=== PATIENT | female | born 1965 | race Caucasian/White ===

== ENCOUNTER 2017-07-26 13:48 | Inpatient (IN) | payer MEDICARE, MEDICAID ==
[2017-07-26] MEDS ORDERED: LORazepam 1 MG Tab PO PRN (14:44)
[2017-07-26] MEDS ORDERED: Cyclobenzaprine 10 MG Tab PO PRN (14:44)
[2017-07-26] MEDS ORDERED: traMADol 50 MG Tab PO PRN (14:45)
[2017-07-26] MEDS ORDERED: Ondansetron 4 MG/2 ML SDV IVPUSH PRN (14:51)
[2017-07-26] MEDS ORDERED: Acetaminophen 325 MG Tab PO PRN (14:51)
[2017-07-26] MEDS ORDERED: Albuterol 0.083% 2.5 MG/3 ML Neb Soln NEB PRN (14:51)
[2017-07-26] MEDS ORDERED: Polyethylene Glycol 3350 Powder 17 GM Packet PO PRN (14:51)
[2017-07-26] MEDS ORDERED: Sodium Chloride 0.9% 10 ML Syringe FLUSH PRN (14:51)
[2017-07-26] MEDS ORDERED: Zolpidem 5 MG Tab PO PRN (14:51)
[2017-07-26] MEDS ORDERED: Magnesium Hydroxide 400 MG/5 ML Susp 30 ML Cup PO PRN (14:51)
[2017-07-26] MEDS ORDERED: guaiFENesin 100 MG/5 ML Soln 5 ML UD Cup PO PRN (15:00)
[2017-07-26] MEDS ORDERED: Benzonatate 100 MG Cap PO PRN (15:00)
[2017-07-26] MEDS ORDERED: Iopamidol 612 MG/ML 100 ML Bottle IVPUSH ONE (15:13)
--- NOTE | 2017-07-26 15:17 | PCM.HP ---
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 Patient stated that about 1 months ago she was having sinus congestion, cough, shortness breath, fever, chills and on 07/07/17 she saw her primary care provider in [place] and she was prescribed Levaquin 14 days in admission to oral steroids. At that time her WBC were 16,000 without shift, and chest x-ray reported no acute infiltrates or pulmonary edema but had some linear atelectatic change in right lung base. Patient symptoms improved but today were lingering. Yesterday she noticed that her cough and shortness of breath were progressively getting worse. She has been short of breath even on rest. She had a temp of 102 Fahrenheit yesterday and was having fever, chills, sweats, cough with green phlegm, weakness, mild sinus congestion. She denies headache, nausea, vomiting, chest pain, palpitation , abdominal pain, diarrhea, blood in stool, black stool, constipation, dysuria, urinary frequency, unilateral weakness/numbness/going, rash, any other symptoms or concerns. At the clinic her temperature was 100.4 Fahrenheit. Sats 94% in room air. Pulse 96. 2 sets of blood culture were collected. WBC 23,000 with neutrophils 75.6%. Alk phosphatase 206. AST and ALT are normal. Chest x-ray was obtained and reported "chronic bronchitic pattern. No new cardio pulmonary abnormality since June 28 9017". Her doctor Dr. Clifton called me to directly admit the patient to the hospital for IV antibiotics. On arrival to the hospital patient to vital signs were normal. On exam she does not look toxic or in acute distress but she was slightly tachpnic and was having persistent cough. She had decreased air exchange in the lungs and sporadic wheezing. Also she had right upper quadrant tenderness. Right Middle Back Pain Score (Numeric/FACES): 4 - Related Data Allergies/Adverse Reactions: Allergies Allergy/AdvReac Type Severity Reaction Status Date / Time atenolol Allergy Hives Verified 07/26/17 13:58 Iodinated Contrast- Oral and Allergy Hives Verified 07/26/17 15:22 IV Dye Penicillins Allergy Hives Verified 07/26/17 13:58 Home Medications: Home Meds Acetaminophen [Tylenol Extra Strength] 500 mg PO Q6HR PRN 07/26/17 [History] Albuterol Sulfate [Proair Respiclick] 2 puff INH Q4HR PRN 07/26/17 [History] Arformoterol [Brovana] 2 ml INH BID 07/26/17 [History] Budesonide [Pulmicort] 2 ml INH BID 07/26/17 [History] Cyclobenzaprine [Flexeril] 5 mg PO Q8HR PRN 07/26/17 [History] Gabapentin [Neurontin] 300 mg PO BEDTIME 07/26/17 [History] LORazepam 1 mg PO DAILY PRN 07/26/17 [History] Montelukast [Singulair] 10 mg PO BEDTIME 07/26/17 [History] Roflumilast [Daliresp] 500 mcg PO DAILY 07/26/17 [History] Sertraline [Zoloft] 50 mg PO DAILY 07/26/17 [History] Theophylline 200 mg PO BID 07/26/17 [History] traMADol [Ultram] 50 mg PO Q6HR PRN 07/26/17 [History] Past Medical History HEENT History: Reports: Impaired Vision Other HEENT History: wears glasses Cardiovascular History: Reports: Hypertension Other Cardiovascular History: is not treated for hypertension anymore after she had the amputation 1 year ago. 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 mesh placed with abdominal hernia removal. Female Surgical History: Reports: Other (See Below) Other Female Surgeries/Procedures: uterus removed Musculoskeletal Surgical History: Reports: Amputation Other Musculoskeletal Surgeries/Procedures:: right mid calf amputation Social & Family History - Family History Family Medical History: Noncontributory - Tobacco Use Smoking Status *Q: Current Every Day Smoker Years of Tobacco use: 30 Packs/Tins Daily: 0.5 Used Tobacco, but Quit: Yes Month Tobacco Last Used: 2014 Tobacco Use Comment: Patient requesting a nicotine patch if possible. - Caffeine Use Caffeine Use: Reports: Coffee, Soda - Recreational Drug Use Recreational Drug Use: Yes H&P Review of Systems - Review of Systems: Review Of Systems: ROS reveals no pertinent complaints other than HPI. Exam - Exam Exam: See Below - Vital Signs Vital Signs: Last Vital Signs Temp 36.2 C 07/26/17 13:51 Pulse 98 07/26/17 13:51 Resp 20 07/26/17 13:51 BP 111/72 07/26/17 13:51 Pulse Ox 94 L 07/26/17 15:04 Weight: 77.383 kg - Exam General: Alert, Oriented, Cooperative, Mild Distress. No: Moderate Distress, Severe Distress, Sedated, Lethargic, Obtunded HEENT: Conjunctiva Clear, EACs Clear, EOMI, Hearing Intact, Mucosa Moist & The Silos , Nares Patent, Normal Nasal Septum, Posterior Pharynx Clear, Pupils Equal, Pupils Reactive, TMs Clear Neck: Supple, Trachea Midline Lungs: Decreased Breath Sounds (Globally), Rhonchi, Wheezing. No: Crackles, Rales, Rub, Stridor Cardiovascular: Regular Rate, Regular Rhythm GI/Abdominal Exam: Normal Bowel Sounds, Soft, No Organomegaly, No Distention, No Abnormal Bruit, No Mass, Tender (Right upper quadrant tenderness). No: Distended, Guarding, Rigid, Rebound (Female) Exam: Deferred Rectal (Female) Exam: Deferred Back Exam: Normal Inspection, Full Range of Motion. No: CVA Tenderness (L), CVA Tenderness (R) Extremities: Normal Range of Motion, Non-Tender, No Pedal Edema, Normal Capillary Refill, Other (Right below knee amputation with normal appearing stump ) Peripheral Pulses: 2+: Radial (L), Radial (R) Skin: Warm, Dry, Intact. No: Rash Neurological: Cranial Nerves Intact, Strength Equal Bilateral. No: Focal Deficit Neuro Extensive - Mental Status: Alert, Oriented x3 Psychiatric: Alert, Normal Affect, Normal Mood *Q Meaningful Use (ADM) - VTE *Q VTE Criteria *Q: - Stroke *Q Stroke Criteria *Q: - AMI *Q AMI Criteria *Q: - Problem List (1) Sepsis SNOMED Code(s): 29231141 ICD Code: A41.9 - SEPSIS, UNSPECIFIED ORGANISM Status: Acute Priority: High Current Visit: Yes (2) Elevated alkaline phosphatase level Status: Chronic Current Visit: Yes (3) Pneumonia SNOMED Code(s): 226391223 ICD Code: J18.9 - PNEUMONIA, UNSPECIFIED ORGANISM Status: Acute Priority : High Current Visit: Yes (4) COPD exacerbation SNOMED Code(s): 543033619985488 ICD Code: J44.1 - CHRONIC OBSTRUCTIVE PULMONARY DISEASE W (ACUTE) EXACERBATION Status: Acute Priority: High Current Visit: Yes (5) History of DVT (deep vein thrombosis) SNOMED Code(s): 065734184 ICD Code: Z86.718 - PERSONAL HISTORY OF OTHER VENOUS THROMBOSIS AND EMBOLISM Status: Chronic Current Visit: Yes (6) History of asthma SNOMED Code(s): 773600178 ICD Code: Z87.09 - PERSONAL HISTORY OF OTHER DISEASES OF THE RESPIRATORY SYSTEM Status: Chronic Current Visit: Yes (7) Tobacco abuse SNOMED Code(s): 691278072 ICD Code: Z72.0 - TOBACCO USE Status: Chronic Current Visit: Yes Problem List Initiated/Reviewed/Updated: Yes Orders Last 24hrs: Active Orders 24 hr Category Date Time Status Patient Status [ADT] Routine ADT 07/26/17 14:51 Active Flutter Valve Therapy [RT Chest Physiotherapy] [RC] Care 07/26/17 14:59 Active ASDIRECTED Height and Weight [RC] DAILY Care 07/26/17 14:51 Active Intake and Output [RC] Q6H Care 07/26/17 14:52 Active Notify Provider Vital Signs [RC] ASDIRECTED Care 07/26/17 14:52 Active Oxygen Therapy [RC] PRN Care 07/26/17 14:51 Active RT Aerosol Therapy [RC] ASDIRECTED Care 07/26/17 14:56 Active RT Incentive Spirometry [RC] ASDIRECTED Care 07/26/17 14:59 Active Up With Assistance [RC] ASDIRECTED Care 07/26/17 14:51 Active Up ad Leida [RC] ASDIRECTED Care 07/26/17 14:51 Active VTE/DVT Education [RC] PER UNIT ROUTINE Care 07/26/17 14:51 Active Vital Signs [RC] Q4H Care 07/26/17 14:51 Active PT Evaluation and Treatment [CONS] Routine Cons 07/26/17 14:51 Active Heart Healthy Diet [DIET] Diet 07/26/17 Breakfast Active Chest Abdomen Pelvis w Cont [CT] Routine Exams 07/26/17 14:48 Ordered C-REACTIVE PROTEIN [REF] Routine Lab 07/26/17 14:51 Ordered CBC WITH AUTO DIFF [HEME] AM Lab 07/27/17 05:11 Ordered COMPREHENSIVE METABOLIC PN,CMP [CHEM] AM Lab 07/27/17 05:11 Ordered CULTURE SPUTUM + SMEAR [RM] Stat Lab 07/26/17 14:51 Uncollected MAGNESIUM [CHEM] Routine Lab 07/26/17 14:51 Ordered THEOPHYLLINE [REF] Routine Lab 07/26/17 14:46 Ordered UA W/MICROSCOPIC [URIN] Routine Lab 07/26/17 14:51 Uncollected Acetaminophen [Tylenol] Med 07/26/17 14:51 Ordered 650 mg PO Q4H PRN Albuterol [Proventil Neb Soln] Med 07/26/17 14:51 Ordered 2.5 mg NEB Q2H PRN Albuterol/Ipratropium [DuoNeb 3.0-0.5 MG/3 ML] Med 07/26/17 15:00 Ordered 3 ml NEB Q4H Arformoterol [Brovana] Med 07/26/17 21:00 Ordered 2 ml INH BID Azithromycin [Zithromax] 500 mg Med 07/26/17 15:00 Ordered Sodium Chloride 0.9% [Normal Saline] 250 ml IV Q24H Benzonatate [Tessalon Perles] Med 07/26/17 15:00 Ordered 100 mg PO TID PRN Budesonide [Pulmicort] Med 07/26/17 21:00 Ordered 0.5 mg INH BID Cyclobenzaprine [Flexeril] Med 07/26/17 14:44 Ordered 5 mg PO Q8HR PRN Enoxaparin [Lovenox] Med 07/27/17 09:00 Ordered 40 mg SUBCUT DAILY Gabapentin [Neurontin] Med 07/26/17 21:00 Ordered 300 mg PO BEDTIME LORazepam [Ativan] Med 07/26/17 14:44 Ordered 1 mg PO DAILY PRN Magnesium Hydroxide [Milk of Magnesia] Med 07/26/17 14:51 Ordered 30 ml PO Q12H PRN Montelukast [Singulair] Med 07/26/17 21:00 Ordered 10 mg PO BEDTIME Ondansetron [Zofran] Med 07/26/17 14:51 Ordered 4 mg IVPUSH Q6H PRN Polyethylene Glycol 3350 [MiraLAX] Med 07/26/17 14:51 Ordered 17 gm PO DAILY PRN Roflumilast [Daliresp] Med 07/27/17 09:00 Ordered 500 mcg PO DAILY Sertraline [Zoloft] Med 07/27/17 09:00 Ordered 50 mg PO DAILY Sodium Chloride 0.9% [Normal Saline] 1,000 ml Med 07/26/17 15:00 Ordered IV ASDIRECTED Sodium Chloride 0.9% [Saline Flush] Med 07/26/17 14:51 Ordered 10 ml FLUSH ASDIRECTED PRN Theophylline [Theophylline] Med 07/26/17 21:00 Ordered 200 mg PO BID Zolpidem [Ambien] Med 07/26/17 14:51 Ordered 5 mg PO BEDTIME PRN cefTRIAXone [Rocephin] Med 07/26/17 15:00 Ordered 1 gm IVPUSH Q24H guaiFENesin [Robitussin] Med 07/26/17 15:00 Ordered 100 mg PO Q6H PRN methylPREDNISolone Sod Succ [Solu-MEDROL] Med 07/26/17 15:00 Ordered 125 mg IVPUSH Q12H traMADol [Ultram] Med 07/26/17 14:45 Ordered 50 mg PO Q6HR PRN Saline Lock Insert [OM.PC] Routine Oth 07/26/17 14:51 Ordered Resuscitation Status Routine Resus Stat 07/26/17 14:51 Ordered Medication Orders Acetaminophen (Tylenol) 650 mg PO Q4H PRN PRN Reason: Pain (Mild 1-3)/fever Albuterol (Proventil Neb Soln) 2.5 mg NEB Q2H PRN PRN Reason: shortness of breath/wheezing Albuterol/Ipratropium (Duoneb 3.0-0.5 Mg/3 Ml) 3 ml NEB Q4H [facility] Benzonatate (Tessalon Perles) 100 mg PO TID PRN PRN Reason: Cough Budesonide (Pulmicort) 0.5 mg INH BID [facility] Ceftriaxone Sodium (Rocephin) 1 gm IVPUSH Q24H [facility] Enoxaparin Sodium (Lovenox) 40 mg SUBCUT DAILY [facility] Gabapentin (Neurontin) 300 mg PO BEDTIME [facility] Guaifenesin (Robitussin) 100 mg PO Q6H PRN PRN Reason: Cough Azithromycin 500 mg/ Sodium (Chloride) 250 mls @ 250 mls/hr IV Q24H [facility] Sodium Chloride (Normal Saline) 1,000 mls @ 500 mls/hr IV ASDIRECTED [facility] Stop: 07/27/17 16:59 Lorazepam (Ativan) 1 mg PO DAILY PRN PRN Reason: Anxiety Magnesium Hydroxide (Milk Of Magnesia) 30 ml PO Q12H PRN PRN Reason: Constipation Methylprednisolone Sodium Succinate (Solu-Medrol) 125 mg IVPUSH Q12H [facility] Montelukast Sodium (Singulair) 10 mg PO BEDTIME [facility] Non-Formulary Medication (Arformoterol [Brovana]) 2 ml INH BID [facility] Non-Formulary Medication (Cyclobenzaprine [Flexeril]) 5 mg PO Q8HR PRN PRN Reason: Muscle Spasm Non-Formulary Medication (Roflumilast [Daliresp]) 500 mcg PO DAILY [facility] Non-Formulary Medication (Theophylline [Theophylline]) 200 mg PO BID [facility] Ondansetron HCl (Zofran) 4 mg IVPUSH Q6H PRN PRN Reason: Nausea/Vomiting Polyethylene Glycol (Miralax) 17 gm PO DAILY PRN PRN Reason: Constipation Sertraline HCl (Zoloft) 50 mg PO DAILY [facility] Sodium Chloride (Saline Flush) 10 ml FLUSH ASDIRECTED PRN PRN Reason: Keep Vein Open Tramadol HCl (Ultram) 50 mg PO Q6HR PRN PRN Reason: Pain Zolpidem Tartrate (Ambien) 5 mg PO BEDTIME PRN PRN Reason: Sleep Assessment/Plan Comment:: 51-year-old female with a history of COPD who has been having respiratory symptoms for about 1 months despite getting course of antibiotic and steroid presents with shortness breath, cough, fever, chills, elevated WBC, rapid heart rate, concerning for clinical pneumonia and sepsis, although chest x-ray did not show consolidation or acute infiltrate. Patient had elevated alkaline phosphatase but it seems chronic however her right upper quadrant is new. Plan -2 L of normal saline at 100 mL per hour -Start azithromycin and Rocephin -Solu Medrol 125 mg IV twice a day -DuoNeb every 4 hours -Ordered sputum culture -Ordered influenza swab -I ordered CT of chest/abdomen/pelvis to look for more specific diagnosis -Check theophylline level Incentive spirometer and flutter device Resume home respiratory regimen Resume her home medications for her chronic disease as per orders Physical therapy consult for ambulation considering her below is the knee amputation Lovenox for DVT prophylaxis Patient wants to be full code Plan of care was discussed with patient and she verbalized understanding agreed with the
[2017-07-26] MEDS ORDERED: Barium Sulfate w/v 2.1% Oral Susp 450 ML Bottle PO ONE ×2 (15:27→16:30)
[2017-07-26] MEDS: cefTRIAXone 1 GM Vial IVPUSH SCH (15:31)
[2017-07-26] MEDS: methylPREDNISolone Sodium Succinate 125 MG/2 ML SDV IVPUSH SCH ×2 (15:31→21:07)
[2017-07-26] MEDS: Sodium Chloride 0.9% 1,000 ML IV SCH ×2 (15:31→18:05)
[2017-07-26] MEDS ORDERED: diphenhydrAMINE 50 MG/ML SDV IVPUSH ONE (15:43)
[2017-07-26] MEDS: Albuterol/Ipratropium 3.0-0.5 MG/3 ML Neb Soln NEB SCH ×3 (16:11→22:51)
[2017-07-26] MEDS: Azithromycin 500 MG in Sodium Chloride 0.9% 250 ML IV SCH (17:00)
[2017-07-26] MEDS: Budesonide 0.5 MG/2 ML Neb Susp INH SCH (18:00)
[2017-07-26] MEDS: ARFORMOTEROL INH SCH (18:00)
[2017-07-26] MEDS: Nicotine 14 MG/24 Hr Patch TRDERM SCH (21:06)
[2017-07-26] MEDS: Montelukast 10 MG Tab PO SCH (21:07)
[2017-07-26] MEDS: THEOPHYLLINE 400 MG PO SCH (21:08)
[2017-07-26] MEDS: Gabapentin 300 MG Cap PO SCH (21:08)
[2017-07-27] MEDS: Albuterol/Ipratropium 3.0-0.5 MG/3 ML Neb Soln NEB SCH ×5 (03:01→23:12)
[2017-07-27] MEDS ORDERED: Albuterol/Ipratropium 3.0-0.5 MG/3 ML Neb Soln INH ONE (10:39)
[2017-07-27] MEDS ORDERED: Budesonide 0.5 MG/2 ML Neb Susp INH ONE (10:39)
[2017-07-27 13:22] LABS: CHLORIDE,CL 109 mmol/L (101-111); SODIUM,NA 138 mmol/L (135-145)
[2017-07-27] MEDS: Enoxaparin 40 MG/0.4 ML Syringe SUBCUT SCH (13:40)
[2017-07-27] MEDS: Nicotine 14 MG/24 Hr Patch TRDERM SCH (13:41)
[2017-07-27] MEDS: ROFLUMILAST 500 MCG PO SCH (13:41)
[2017-07-27] MEDS: THEOPHYLLINE 400 MG PO SCH ×2 (13:42→23:12)
[2017-07-27] MEDS: methylPREDNISolone Sodium Succinate 125 MG/2 ML SDV IVPUSH SCH ×2 (13:42→23:12)
[2017-07-27] MEDS: Sertraline 50 MG Tab PO SCH (14:10)
[2017-07-27] MEDS: Budesonide 0.5 MG/2 ML Neb Susp INH SCH ×2 (14:50→18:35)
[2017-07-27] MEDS: ARFORMOTEROL INH SCH ×2 (14:50→18:35)
[2017-07-27] MEDS: cefTRIAXone 1 GM Vial IVPUSH SCH (17:00)
--- NOTE | 2017-07-27 17:40 | PCM.PN ---
- General Info Date of Service: 07/27/17 Admission Dx/Problem (Free Text): Admission Diagnosis/Problem Admission Diagnosis/Problem Sepsis Subjective Update: Patient stated that she is feeling much better. Her shortness breath improved. Still having cough. Energy is improving. She denies nausea, vomiting, fever, chills, chest pain, abdominal pain, diarrhea, urinary symptoms, any new symptoms or concerns. - Patient Data Vitals - Most Recent: Last Vital Signs Temp 36.2 C 07/27/17 15:00 Pulse 59 L 07/27/17 15:00 Resp 20 07/27/17 15:00 BP 118/71 07/27/17 15:00 Pulse Ox 95 07/27/17 15:00 Weight - Most Recent: 77.383 kg I&O - Last 24 Hours: Intake & Output 07/27/17 07/27/17 07/27/17 06:59 14:59 22:59 Intake Total 200 Balance 200 Lab Results Last 24 Hours: Laboratory Results - last 24 hr 07/26/17 07/26/17 07/26/17 Range/Units 15:10 16:24 16:24 Magnesium 1.8 (1.8-2.5) mg/dL C-Reactive Protein 19.3 H (0.0-1.3) mg/dL Urine Color Dark yellow (YELLOW) Urine Appearance Cloudy (CLEAR) Urine pH 7.0 (5.0-9.0) Ur Specific [place] 1.010 (1.005-1.030) Urine Protein 30 H (NEGATIVE) Urine Glucose (UA) Negative (NEGATIVE) Urine Ketones Negative (NEGATIVE) Urine Occult Blood Small H (NEGATIVE) Urine Nitrite Negative (NEGATIVE) Urine Bilirubin Negative (NEGATIVE) Urine Urobilinogen 0.2 (0.2-1.0) mg/dL Ur Leukocyte Esterase Small H (NEGATIVE) Urine RBC 5-10 H /HPF Urine WBC 10-20 H (0-5/HPF) /HPF Ur Epithelial Cells Moderate H /HPF Urine Bacteria Few (0-FEW/HPF) /HPF Urine Mucus Moderate H /LPF [place] Results Last 24 Hours: Microbiology 07/26/17 15:07 Gram Stain - Final Sputum - Expectorated 07/26/17 15:10 Influenza Type A Antigen Screen - Final Nasopharyngeal Swab - Nare, Right NEGATIVE INFLUENZA A VIRUS AG Influenza Type B Antigen Screen - Final NEGATIVE INFLUENZA B VIRUS AG Med Orders - Current: Current Medications Acetaminophen (Tylenol) 650 mg PO Q4H PRN PRN Reason: Pain (Mild 1-3)/fever Albuterol (Proventil Neb Soln) 2.5 mg NEB Q2H PRN PRN Reason: shortness of breath/wheezing Albuterol/Ipratropium (Duoneb 3.0-0.5 Mg/3 Ml) 3 ml NEB Q4HRRT [facility] Last Admin: 07/27/17 14:40 Dose: Not Given Benzonatate (Tessalon Perles) 100 mg PO TID PRN PRN Reason: Cough Budesonide (Pulmicort) 0.5 mg INH BIDRT [facility] Last Admin: 07/27/17 14:50 Dose: Not Given Ceftriaxone Sodium (Rocephin) 1 gm IVPUSH Q24H [facility] Last Admin: 07/26/17 15:31 Dose: 1 gm Cyclobenzaprine HCl (Flexeril) 5 mg PO Q8HR PRN PRN Reason: Muscle Spasm Enoxaparin Sodium (Lovenox) 40 mg SUBCUT DAILY [facility] Last Admin: 07/27/17 13:40 Dose: Not Given Gabapentin (Neurontin) 300 mg PO BEDTIME [facility] Last Admin: 07/26/17 21:08 Dose: 300 mg Guaifenesin (Robitussin) 100 mg PO Q6H PRN PRN Reason: Cough Azithromycin 500 mg/ Sodium (Chloride) 250 mls @ 250 mls/hr IV Q24H [facility] Last Admin: 07/26/17 17:00 Dose: 250 mls/hr Sodium Chloride (Normal Saline) 1,000 mls @ 500 mls/hr IV ASDIRECTED [facility] Stop: 07/27/17 16:59 Last Admin: 07/26/17 18:05 Dose: 500 mls/hr Lorazepam (Ativan) 1 mg PO DAILY PRN PRN Reason: Anxiety Magnesium Hydroxide (Milk Of Magnesia) 30 ml PO Q12H PRN PRN Reason: Constipation Methylprednisolone Sodium Succinate (Solu-Medrol) 125 mg IVPUSH Q12HR [facility] Last Admin: 07/27/17 13:42 Dose: Not Given Montelukast Sodium (Singulair) 10 mg PO BEDTIME [facility] Last Admin: 07/26/17 21:07 Dose: 10 mg Nicotine (Habitrol) 14 mg TRDERM DAILY [facility] Last Admin: 07/27/17 13:41 Dose: Not Given Ondansetron HCl (Zofran) 4 mg IVPUSH Q6H PRN PRN Reason: Nausea/Vomiting Arformoterol [ Brovana] 2 MlPt's Own Med 0 each INH BIDRT [facility] Last Admin: 07/27/17 14:50 Dose: Not Given Roflumilast [ Daliresp] 500 Mcg Pt's Own Med 0 each PO DAILY [facility] Last Admin: 07/27/17 13:41 Dose: Not Given Theophylline 400 Mg (TabPt's Own Med) 0 each PO BID [facility] Last Admin: 07/27/17 13:42 Dose: Not Given Polyethylene Glycol (Miralax) 17 gm PO DAILY PRN PRN Reason: Constipation Sertraline HCl (Zoloft) 50 mg PO DAILY [facility] Last Admin: 07/27/17 14:10 Dose: Not Given Sodium Chloride (Saline Flush) 10 ml FLUSH ASDIRECTED PRN PRN Reason: Keep Vein Open Last Admin: 07/26/17 15:32 Dose: 10 ml Tramadol HCl (Ultram) 50 mg PO Q6HR PRN PRN Reason: Pain Zolpidem Tartrate (Ambien) 5 mg PO BEDTIME PRN PRN Reason: Sleep Discontinued Medications Barium Sulfate (Readi-Cat 2) 450 ml PO ONETIME ONE Stop: 07/26/17 15:28 Last Admin: 07/26/17 15:48 Dose: 450 ml Barium Sulfate (Readi-Cat 2) 450 ml PO ONETIME ONE Stop: 07/26/17 16:31 Last Admin: 07/26/17 16:30 Dose: 450 ml Diphenhydramine HCl (Benadryl) 50 mg IVPUSH ONETIME ONE Stop: 07/26/17 15:44 Last Admin: 07/26/17 15:48 Dose: 50 mg Iopamidol (Isovue-300 (61%)) 100 ml IVPUSH ONETIME ONE Stop: 07/26/17 15:14 Last Admin: 07/26/17 17:08 Dose: 75 ml - Exam General: Alert, Oriented, Cooperative, No Acute Distress. No: Moderate Distress , Severe Distress, Sedated, Lethargic, Obtunded HEENT: Pupils Equal, Pupils Reactive, Mucous Membr. Moist/[place] Neck: Supple, Trachea Midline Lungs: Decreased Breath Sounds (Improved from yesterday), Rhonchi, Wheezing. No : Crackles, Rales, Rub, Stridor Cardiovascular: Regular Rate, Regular Rhythm GI/Abdominal Exam: Normal Bowel Sounds, Soft, Non-Tender, No Organomegaly, No Distention, No Abnormal Bruit, No Mass (Female) Exam: Deferred Back Exam: Normal Inspection, Full Range of Motion. No: CVA Tenderness (L), CVA Tenderness (R) Extremities: Normal Range of Motion, Non-Tender, No Pedal Edema, Normal Capillary Refill Neurological: No New Focal Deficit Psy/Mental Status: Alert, Normal Affect, Normal Mood - Problem List & Annotations (1) Sepsis SNOMED Code(s): 93117998 Code(s): A41.9 - SEPSIS, UNSPECIFIED ORGANISM Status: Acute Priority: High Current Visit: Yes (2) Elevated alkaline phosphatase level Status: Chronic Current Visit: Yes (3) Pneumonia SNOMED Code(s): 010703133 Code(s): J18.9 - PNEUMONIA, UNSPECIFIED ORGANISM Status: Acute Priority: High Current Visit: Yes (4) COPD exacerbation SNOMED Code(s): 590979781486868 Code(s): J44.1 - CHRONIC OBSTRUCTIVE PULMONARY DISEASE W (ACUTE) EXACERBATION Status: Acute Priority: High Current Visit: Yes (5) History of DVT (deep vein thrombosis) SNOMED Code(s): 934173220 Code(s): Z86.718 - PERSONAL HISTORY OF OTHER VENOUS THROMBOSIS AND EMBOLISM Status: Chronic Current Visit: Yes (6) History of asthma SNOMED Code(s): 886119411 Code(s): Z87.09 - PERSONAL HISTORY OF OTHER DISEASES OF THE RESPIRATORY SYSTEM Status: Chronic Current Visit: Yes (7) Tobacco abuse SNOMED Code(s): 118707053 Code(s): Z72.0 - TOBACCO USE Status: Chronic Current Visit: Yes - Problem List Review Problem List Initiated/Reviewed/Updated: Yes - My Orders Last 24 Hours: My Active Orders 07/26/17 14:44 Cyclobenzaprine [Flexeril] 5 mg PO Q8HR PRN LORazepam [Ativan] 1 mg PO DAILY PRN 07/26/17 14:45 traMADol [Ultram] 50 mg PO Q6HR PRN 07/26/17 14:51 Patient Status [ADT] Routine Height and Weight [RC] 0600 Oxygen Therapy [RC] PRN Up With Assistance [RC] ASDIRECTED Up ad [place] [RC] ASDIRECTED VTE/DVT Education [RC] PER UNIT ROUTINE Vital Signs [RC] Q4H PT Evaluation and Treatment [CONS] Routine Acetaminophen [Tylenol] 650 mg PO Q4H PRN Albuterol [Proventil Neb Soln] 2.5 mg NEB Q2H PRN Magnesium Hydroxide [Milk of Magnesia] 30 ml PO Q12H PRN Ondansetron [Zofran] 4 mg IVPUSH Q6H PRN Polyethylene Glycol 3350 [MiraLAX] 17 gm PO DAILY PRN Sodium Chloride 0.9% [Saline Flush] 10 ml FLUSH ASDIRECTED PRN Zolpidem [Ambien] 5 mg PO BEDTIME PRN Saline Lock Insert [OM.PC] Routine Resuscitation Status Routine 07/26/17 14:52 Intake and Output [RC] Q6H Notify Provider Vital Signs [RC] 08,20 07/26/17 14:56 RT Aerosol Therapy [RC] 03,07,11,15,19,23 07/26/17 14:59 Flutter Valve Therapy [RT Chest Physiotherapy] [RC] ASDIRECTED RT Incentive Spirometry [RC] ASDIRECTED 07/26/17 15:00 Albuterol/Ipratropium [DuoNeb 3.0-0.5 MG/3 ML] 3 ml NEB Q4HRRT Benzonatate [Tessalon Perles] 100 mg PO TID PRN Sodium Chloride 0.9% [Normal Saline] 1,000 ml IV ASDIRECTED cefTRIAXone [Rocephin] 1 gm IVPUSH Q24H guaiFENesin [Robitussin] 100 mg PO Q6H PRN methylPREDNISolone Sod Succ [Solu-MEDROL] 125 mg IVPUSH Q12HR 07/26/17 15:07 CULTURE SPUTUM + SMEAR [RM] Stat 07/26/17 16:00 Azithromycin [Zithromax] 500 mg Sodium Chloride 0.9% [Normal Saline] 250 ml IV Q24H 07/26/17 16:24 THEOPHYLLINE [REF] Routine 07/26/17 18:00 Budesonide [Pulmicort] 0.5 mg INH BIDRT Patient's Own Medication [Ptom] 0 each INH BIDRT 07/26/17 19:15 Nicotine [Habitrol] 14 mg TRDERM DAILY 07/26/17 21:00 Gabapentin [Neurontin] 300 mg PO BEDTIME Montelukast [Singulair] 10 mg PO BEDTIME Patient's Own Medication [Ptom] 0 each PO BID 07/27/17 05:11 CBC WITH AUTO DIFF [HEME] AM COMPREHENSIVE METABOLIC PN,CMP [CHEM] AM 07/27/17 09:00 Enoxaparin [Lovenox] 40 mg SUBCUT DAILY Patient's Own Medication [Ptom] 0 each PO DAILY Sertraline [Zoloft] 50 mg PO DAILY - Plan Plan:: 51-year-old female with a history of COPD who has been having respiratory symptoms for about 1 months despite getting course of antibiotic and steroid presents with shortness breath, cough, fever, chills, elevated WBC, rapid heart rate, concerning for clinical pneumonia and sepsis, although chest x-ray did not show consolidation or acute infiltrate. CT chest with contrast reported mild signs of bronchitis/bronchiolitis and indeterminant thoracic adenopathy, probably reactive. Due to elevation in alkaline phosphatase because I did CT of abdomen and reported no acute findings Plan - patient received 2 L of normal saline at 100 mL per hour -Continue azithromycin and Rocephin -Continue Solu Medrol 125 mg IV twice a day -Continue DuoNeb every 4 hours -Awaiting final sputum culture -Negative influenza screening test -Check theophylline level Incentive spirometer and flutter device Resume home respiratory regimen Resume her home medications for her chronic disease as per orders Physical therapy consult for ambulation considering her below is the knee amputation Lovenox for DVT prophylaxis Patient wants to be full code Plan of care was discussed with patient and she verbalized understanding agreed with the
[2017-07-27] MEDS: Azithromycin 500 MG in Sodium Chloride 0.9% 250 ML IV SCH (18:34)
[2017-07-27] MEDS: Gabapentin 300 MG Cap PO SCH (23:11)
[2017-07-27] MEDS: Montelukast 10 MG Tab PO SCH (23:12)
[2017-07-28] MEDS: Albuterol/Ipratropium 3.0-0.5 MG/3 ML Neb Soln NEB SCH ×3 (05:46→10:58)
[2017-07-28 06:29] LABS: CHLORIDE,CL 112 mmol/L (101-111); SODIUM,NA 142 mmol/L (135-145)
[2017-07-28] MEDS: Budesonide 0.5 MG/2 ML Neb Susp INH SCH (07:16)
[2017-07-28 08:29] VITALS: BP 109/63
--- NOTE | 2017-07-28 09:17 | PCM.DCSUM1 ---
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 Patient stated that about 1 months ago she was having sinus congestion, cough, shortness breath, fever, chills and on 07/07/17 she saw her primary care provider in [place] and she was prescribed Levaquin 14 days in admission to oral steroids. At that time her WBC were 16,000 without shift, and chest x-ray reported no acute infiltrates or pulmonary edema but had some linear atelectatic change in right lung base. Patient symptoms improved but today were lingering. The day before admission she noticed that her cough and shortness of breath were progressively getting worse. She has been short of breath even on rest. She had a temp of 102 Fahrenheit yesterday and was having fever, chills, sweats, cough with green phlegm, weakness, mild sinus congestion. She denies headache, nausea, vomiting, chest pain, palpitation, abdominal pain, diarrhea, blood in stool, black stool, constipation, dysuria, urinary frequency, unilateral weakness/numbness/going, rash, any other symptoms or concerns. At the clinic her temperature was 100.4 Fahrenheit. Sats 94% in room air. Pulse 96. 2 sets of blood culture were collected. WBC 23,000 with neutrophils 75.6%. Alk phosphatase 206. AST and ALT are normal. Chest x-ray was obtained and reported "chronic bronchitic pattern. No new cardio pulmonary abnormality since June 28 9017". Her doctor Dr. Clifton called me to directly admit the patient to the hospital for IV antibiotics. On arrival to the hospital patient to vital signs were normal. On exam she does not look toxic or in acute distress but she was slightly tachpnic and was having persistent cough. She had decreased air exchange in the lungs and sporadic wheezing. Also she had right upper quadrant tenderness. Patient clinical picture was concerning for clinical pneumonia and sepsis, although chest x-ray did not show consolidation or acute infiltrate. CT chest with contrast reported mild signs of bronchitis/ bronchiolitis and indeterminant thoracic adenopathy, probably reactive. Due to elevation in alkaline phosphatase because I did CT of abdomen and reported no acute findings, but showed abdomen aortic aneurysm of 3.3. Patient was informed about the aneurysm and was advised to follow-up with her primary care provider and vascular surgery. On admission patient received 2 L of normal saline at 100 mL per hour. Started on azithromycin and Rocephin, Solu Medrol 125 mg IV twice a day, DuoNeb every 4 hours. Sputum culture grew moderate gram-positive diplococci, few gram-positive cocci in chains, few gram-negative rods. Final sputum culture still pending. His influenza screen test was negative. Theophylline level was 5.5. home respiratory regimen was resumed patient symptomatically felt much better. She wants to go home from yesterday but she agreed with my recommendation to stay until today. Today she continued to feel much better. I still recommend further inpatient treatment for her but patient insistent that she wants to go home as she cannot leave her children alone. I explained to her that her condition is serious and her symptoms may get worse and go through respiratory failure and . Patient verbalized understanding and she wants to take the risk. She said she'll come back to the emergency room if symptoms get worse. Patient was discharged on home medications in addition to cefpodoxime, azithromycin, prednisone. She was advised to quit smoking and use nicotine patches. - Discharge Data Discharge Date: 07/28/17 Discharge Disposition: Home, Self-Care 01 Condition: Good - Discharge Diagnosis/Problem(s) (1) Sepsis SNOMED Code(s): 69357900 ICD Code: A41.9 - SEPSIS, UNSPECIFIED ORGANISM Status: Acute Priority: High Current Visit: Yes (2) Elevated alkaline phosphatase level Status: Chronic Current Visit: Yes (3) Pneumonia SNOMED Code(s): 867834869 ICD Code: J18.9 - PNEUMONIA, UNSPECIFIED ORGANISM Status: Acute Priority : High Current Visit: Yes (4) COPD exacerbation SNOMED Code(s): 625110130575299 ICD Code: J44.1 - CHRONIC OBSTRUCTIVE PULMONARY DISEASE W (ACUTE) EXACERBATION Status: Acute Priority: High Current Visit: Yes (5) History of DVT (deep vein thrombosis) SNOMED Code(s): 318136600 ICD Code: Z86.718 - PERSONAL HISTORY OF OTHER VENOUS THROMBOSIS AND EMBOLISM Status: Chronic Current Visit: Yes (6) History of asthma SNOMED Code(s): 214970079 ICD Code: Z87.09 - PERSONAL HISTORY OF OTHER DISEASES OF THE RESPIRATORY SYSTEM Status: Chronic Current Visit: Yes (7) Tobacco abuse SNOMED Code(s): 638150529 ICD Code: Z72.0 - TOBACCO USE Status: Chronic Current Visit: Yes - Patient Summary/Data Consults: Consultations 07/26/17 14:51 PT Evaluation and Treatment [CONS] Routine - Patient Instructions Diet: Heart Healthy Diet Activity: As Tolerated Showering/Bathing: May Shower Notify Provider of: Fever, Nausea and/or Vomiting - Discharge Plan Prescriptions/Med Rec: Azithromycin [Zithromax] 250 mg PO DAILY #3 tablet Benzonatate [Tessalon Perles] 100 mg PO TID PRN #30 cap PRN Reason: Cough Cefpodoxime Proxetil 200 mg PO BID #20 tablet Nicotine [Nicoderm Cq] 1 each TD DAILY #30 patch.td24 predniSONE [Prednisone] 40 mg PO DAILY 5 Days #10 tablet Home Medications: Home Meds Acetaminophen [Tylenol Extra Strength] 500 mg PO Q6HR PRN 07/26/17 [History] Albuterol Sulfate [Proair Respiclick] 2 puff INH Q4HR PRN 07/26/17 [History] Arformoterol [Brovana] 2 ml INH BID 07/26/17 [History] Budesonide [Pulmicort] 2 ml INH BID 07/26/17 [History] Cyclobenzaprine [Flexeril] 5 mg PO Q8HR PRN 07/26/17 [History] Gabapentin [Neurontin] 300 mg PO BEDTIME 07/26/17 [History] LORazepam 1 mg PO DAILY PRN 07/26/17 [History] Montelukast [Singulair] 10 mg PO BEDTIME 07/26/17 [History] Roflumilast [Daliresp] 500 mcg PO DAILY 07/26/17 [History] Sertraline [Zoloft] 50 mg PO DAILY 07/26/17 [History] Theophylline 200 mg PO BID 07/26/17 [History] traMADol [Ultram] 50 mg PO Q6HR PRN 07/26/17 [History] Azithromycin [Zithromax] 250 mg PO DAILY #3 tablet 07/28/17 [Rx] Benzonatate [Tessalon Perles] 100 mg PO TID PRN #30 cap 07/28/17 [Rx] Cefpodoxime Proxetil 200 mg PO BID #20 tablet 07/28/17 [Rx] Nicotine [Nicoderm Cq] 1 each TD DAILY #30 patch.td24 07/28/17 [Rx] predniSONE [Prednisone] 40 mg PO DAILY 5 Days #10 tablet 07/28/17 [Rx] - General Info Date of Service: 07/28/17 Admission Dx/Problem (Free Text: Admission Diagnosis/Problem Admission Diagnosis/Problem Sepsis Subjective Update: Patient stated that she is feeling much better. Her shortness of breath and cough markedly improved. Energy is back to normal. She denies nausea, vomiting, fever, chills, chest pain, abdominal pain, diarrhea, urinary symptoms, any new symptoms or concerns. - Patient Data Vitals - Most Recent: Last Vital Signs Temp 37.0 C 07/28/17 08:28 Pulse 91 07/28/17 08:28 Resp 20 07/28/17 08:28 BP 109/63 07/28/17 08:28 Pulse Ox 96 07/28/17 08:28 Weight - Most Recent: 77.383 kg Lab Results - Last 24 hrs: Laboratory Results - last 24 hr 07/26/17 07/27/17 07/27/17 Range/Units 16:24 06:20 06:20 WBC 14.4 H (5.0-10.0) 10^3/uL RBC 4.63 (4.2-5.4) 10^6/uL Hgb 12.4 (12.0-16.0) g/dL Hct 38.0 (37.0-47.0) % MCV 82.1 D (80-100) fL MCH 26.8 L (27.0-34.0) pg MCHC 32.6 L (33.0-35.0) g/dL Plt Count 352 D (150-450) 10^3/uL Neut % (Auto) 93.2 H (42.2-75.2) % Lymph % (Auto) 5.3 L (20.5-50.1) % [place] % (Auto) 1.2 L (2-8) % Eos % (Auto) 0.1 L (1.0-3.0) % Baso % (Auto) 0.2 (0.0-1.0) % Sodium 138 (135-145) mmol/L Potassium 3.9 (3.6-5.0) mmol/L Chloride 109 (101-111) mmol/L Carbon Dioxide 20.0 L (21.0-31.0) mmol/L Anion Gap 12.9 BUN 10 (7-18) mg/dL Creatinine 0.7 (0.6-1.3) mg/dL Est Cr Clr Drug Dosing 94.84 mL/min Estimated GFR (MDRD) > 60 BUN/Creatinine Ratio 14.28 Glucose 171 H (74-105) mg/dL Calcium 9.2 (8.4-10.2) mg/dl Total Bilirubin 0.4 (0.2-1.0) mg/dL AST 22 (10-42) IU/L ALT 23 (10-60) IU/L Alkaline Phosphatase 154 H (42-121) IU/L C-Reactive Protein (0.0-1.3) mg/dL Total Protein 7.1 (6.7-8.2) g/dl Albumin 3.1 L (3.2-5.5) g/dl Globulin 4.0 Albumin/Globulin Ratio 0.78 Theophylline 5.5 L (10.0-20.0) ug/mL 07/28/17 07/28/17 07/28/17 Range/Units 05:58 05:58 05:58 WBC 16.7 H (5.0-10.0) 10^3/uL RBC 4.46 (4.2-5.4) 10^6/uL Hgb 11.9 L (12.0-16.0) g/dL Hct 36.9 L (37.0-47.0) % MCV 82.7 (80-100) fL MCH 26.7 L (27.0-34.0) pg MCHC 32.2 L (33.0-35.0) g/dL Plt Count 384 (150-450) 10^3/uL Neut % (Auto) 90.8 H (42.2-75.2) % Lymph % (Auto) 6.6 L (20.5-50.1) % [place] % (Auto) 2.5 (2-8) % Eos % (Auto) 0.0 L (1.0-3.0) % Baso % (Auto) 0.1 (0.0-1.0) % Sodium 142 (135-145) mmol/L Potassium 4.0 (3.6-5.0) mmol/L Chloride 112 H (101-111) mmol/L Carbon Dioxide 21.0 (21.0-31.0) mmol/L Anion Gap 13.0 BUN 18 (7-18) mg/dL Creatinine 0.7 (0.6-1.3) mg/dL Est Cr Clr Drug Dosing 94.84 mL/min Estimated GFR (MDRD) > 60 BUN/Creatinine Ratio Glucose 146 H (74-105) mg/dL Calcium 9.3 (8.4-10.2) mg/dl Total Bilirubin (0.2-1.0) mg/dL AST (10-42) IU/L ALT (10-60) IU/L Alkaline Phosphatase (42-121) IU/L C-Reactive Protein 6.2 H (0.0-1.3) mg/dL Total Protein (6.7-8.2) g/dl Albumin (3.2-5.5) g/dl Globulin Albumin/Globulin Ratio Theophylline (10.0-20.0) ug/mL Med Orders - Current: Current Medications Acetaminophen (Tylenol) 650 mg PO Q4H PRN PRN Reason: Pain (Mild 1-3)/fever Albuterol (Proventil Neb Soln) 2.5 mg NEB Q2H PRN PRN Reason: shortness of breath/wheezing Albuterol/Ipratropium (Duoneb 3.0-0.5 Mg/3 Ml) 3 ml NEB Q4HRRT [facility] Last Admin: 07/28/17 07:16 Dose: 3 ml Benzonatate (Tessalon Perles) 100 mg PO TID PRN PRN Reason: Cough Budesonide (Pulmicort) 0.5 mg INH BIDRT [facility] Last Admin: 07/28/17 07:16 Dose: 0.5 mg Ceftriaxone Sodium (Rocephin) 1 gm IVPUSH Q24H [facility] Last Admin: 07/27/17 17:00 Dose: Not Given Cyclobenzaprine HCl (Flexeril) 5 mg PO Q8HR PRN PRN Reason: Muscle Spasm Enoxaparin Sodium (Lovenox) 40 mg SUBCUT DAILY [facility] Last Admin: 12/19/17 13:40 Dose: Not Given Gabapentin (Neurontin) 300 mg PO BEDTIME [facility] Last Admin: 07/27/17 23:11 Dose: Not Given Guaifenesin (Robitussin) 100 mg PO Q6H PRN PRN Reason: Cough Azithromycin 500 mg/ Sodium (Chloride) 250 mls @ 250 mls/hr IV Q24H [facility] Last Admin: 07/27/17 18:34 Dose: Not Given Lorazepam (Ativan) 1 mg PO DAILY PRN PRN Reason: Anxiety Magnesium Hydroxide (Milk Of Magnesia) 30 ml PO Q12H PRN PRN Reason: Constipation Methylprednisolone Sodium Succinate (Solu-Medrol) 125 mg IVPUSH Q12HR [facility] Last Admin: 07/27/17 23:12 Dose: Not Given Montelukast Sodium (Singulair) 10 mg PO BEDTIME [facility] Last Admin: 07/27/17 23:12 Dose: Not Given Nicotine (Habitrol) 14 mg TRDERM DAILY [facility] Last Admin: 07/27/17 13:41 Dose: Not Given Ondansetron HCl (Zofran) 4 mg IVPUSH Q6H PRN PRN Reason: Nausea/Vomiting Arformoterol [ Brovana] 2 MlPt's Own Med 0 each INH BIDRT [facility] Last Admin: 07/27/17 18:35 Dose: Not Given Roflumilast [ Daliresp] 500 Mcg Pt's Own Med 0 each PO DAILY [facility] Last Admin: 07/27/17 13:41 Dose: Not Given Theophylline 400 Mg (TabPt's Own Med) 0 each PO BID [facility] Last Admin: 07/27/17 23:12 Dose: Not Given Polyethylene Glycol (Miralax) 17 gm PO DAILY PRN PRN Reason: Constipation Sertraline HCl (Zoloft) 50 mg PO DAILY [facility] Last Admin: 07/27/17 14:10 Dose: Not Given Sodium Chloride (Saline Flush) 10 ml FLUSH ASDIRECTED PRN PRN Reason: Keep Vein Open Last Admin: 07/26/17 15:32 Dose: 10 ml Tramadol HCl (Ultram) 50 mg PO Q6HR PRN PRN Reason: Pain Zolpidem Tartrate (Ambien) 5 mg PO BEDTIME PRN PRN Reason: Sleep Discontinued Medications Barium Sulfate (Readi-Cat 2) 450 ml PO ONETIME ONE Stop: 07/26/17 15:28 Last Admin: 07/26/17 15:48 Dose: 450 ml Barium Sulfate (Readi-Cat 2) 450 ml PO ONETIME ONE Stop: 07/26/17 16:31 Last Admin: 07/26/17 16:30 Dose: 450 ml Diphenhydramine HCl (Benadryl) 50 mg IVPUSH ONETIME ONE Stop: 07/26/17 15:44 Last Admin: 07/26/17 15:48 Dose: 50 mg Sodium Chloride (Normal Saline) 1,000 mls @ 500 mls/hr IV ASDIRECTED ASHLEY Stop: 07/27/17 16:59 Last Admin: 07/26/17 18:05 Dose: 500 mls/hr Iopamidol (Isovue-300 (61%)) 100 ml IVPUSH ONETIME ONE Stop: 07/26/17 15:14 Last Admin: 07/26/17 17:08 Dose: 75 ml - Exam General: Reports: Alert, Oriented, Cooperative. Denies: No Acute Distress, Mild Distress, Moderate Distress, Severe Distress, Sedated, Lethargic, Obtunded HEENT: Reports: Pupils Equal, Pupils Reactive, EOMI, Mucous Membr. Moist/[place] Neck: Reports: Supple, Trachea Midline, No JVD Lungs: Reports: Normal Respiratory Effort, Decreased Breath Sounds (With fair air exchange). Denies: Crackles, Rales, Rhonchi, Rub, Stridor, Wheezing Cardiovascular: Reports: Regular Rate, Regular Rhythm, No Murmurs GI/Abdominal Exam: Normal Bowel Sounds, Soft, Non-Tender, No Organomegaly, No Distention, No Abnormal Bruit, No Mass (Female) Exam: Deferred Rectal (Female) Exam: Deferred Back Exam: Reports: Normal Inspection, Full Range of Motion. Denies: CVA Tenderness (L), CVA Tenderness (R) Extremities: Normal Range of Motion, Non-Tender, No Pedal Edema, Normal Capillary Refill Skin: Reports: Warm, Dry, Intact. Denies: Rash Neurological: Reports: No New Focal Deficit Psy/Mental Status: Reports: Alert, Normal Affect, Normal Mood *Q Meaningful Use (DIS) - VTE *Q VTE Criteria *Q: - Stroke *Q Stroke Criteria *Q: - AMI *Q AMI Criteria *Q:
[2017-07-28] MEDS: ROFLUMILAST 500 MCG PO SCH (09:39)
[2017-07-28] MEDS: ARFORMOTEROL INH SCH (09:39)
[2017-07-28] MEDS: THEOPHYLLINE 400 MG PO SCH (09:39)
[2017-07-28] MEDS: Nicotine 14 MG/24 Hr Patch TRDERM SCH (09:40)
[2017-07-28] MEDS: Enoxaparin 40 MG/0.4 ML Syringe SUBCUT SCH (09:42)
[2017-07-28] MEDS: Sertraline 50 MG Tab PO SCH (09:44)
[2017-07-28] MEDS: methylPREDNISolone Sodium Succinate 125 MG/2 ML SDV IVPUSH SCH (09:47)
== END 2017-07-28 10:40 | disposition home or self-care (01) | DRG 871 ==
LOC: UNDOADMIN 13:48 → DL.MS 13:48
PROVIDERS: ADMIT Family Medicine; ATTEND Family Medicine
DX: A41.9 Sepsis, unspecified organism (principal); J18.9 Pneumonia, unspecified organism; J44.1 Chronic obstructive pulmonary disease with (acute) exacerbation; J44.0 Chronic obstructive pulmonary disease with (acute) lower respiratory infection; Z86.718 Personal history of other venous thrombosis and embolism; F17.210 Nicotine dependence, cigarettes, uncomplicated; H54.7 Unspecified visual loss; I10 Essential (primary) hypertension; F41.9 Anxiety disorder, unspecified; Z89.611 Acquired absence of right leg above knee; Z79.899 Other long term (current) drug therapy; Z88.0 Allergy status to penicillin; Z88.8 Allergy status to other drugs, medicaments and biological substances; Z91.041 Radiographic dye allergy status; R74.8 Abnormal levels of other serum enzymes; Z86.711 Personal history of pulmonary embolism
CPT/HCPCS: 36415; 71260; 74177; 80048; 80053; 80198; 81001; 83735; 85025; 86140; 87070; 87205; 87804; 94010; 94640; 94667; 97161-GP; A9270-GY; J0456; J0696; J1200; J1650; J2930; J7030; J7050; Q9967

== ENCOUNTER 2017-11-11 16:55 | Emergency (ER) | payer MEDICARE, MEDICAID ==
[2017-11-11 18:19] VITALS: BP 193/93
[2017-11-11] MEDS ORDERED: Albuterol/Ipratropium 3.0-0.5 MG/3 ML Neb Soln NEB ONE (18:20)
[2017-11-11] MEDS ORDERED: methylPREDNISolone Sodium Succinate 125 MG/2 ML SDV IVPUSH ONE (18:20)
[2017-11-11] MEDS ORDERED: Sodium Chloride 0.9% 10 ML Syringe FLUSH PRN (18:20)
[2017-11-11 18:55] LABS: CHLORIDE,CL 104 mmol/L (101-111); SODIUM,NA 140 mmol/L (135-145)
[2017-11-11] MEDS ORDERED: Levofloxacin 500 MG Tab PO ONE (19:18)
--- NOTE | 2017-11-11 19:29 | EDM.PDOC ---
ED HPI GENERAL MEDICAL PROBLEM - General Chief Complaint: Respiratory Problem Stated Complaint: [id number] COLD HAS COPD CANT CATCH BREATH Time Seen by Provider: 11/11/17 19:05 Source of Information: Reports: Patient History Limitations: Reports: No Limitations - History of Present Illness INITIAL COMMENTS - FREE TEXT/NARRATIVE: This 52 yo female patient reports to the ED with increased shortness of breath and cough. The patient reports her symptoms started about 1 week ago, but got much worse this morning. The patient has a history of COPD with exacerbations 1- 2 times per year. Duration: Week(s):, Constant, Getting Worse Location: Reports: Chest Quality: Reports: Other Severity: Moderate Improves with: Reports: None Worsens with: Reports: None Associated Symptoms: Reports: Cough, Shortness of Breath - Related Data Allergies Allergy/AdvReac Type Severity Reaction Status Date / Time atenolol Allergy Hives Verified 11/11/17 18:18 Iodinated Contrast- Oral and Allergy Hives Verified 11/11/17 18:18 IV Dye Penicillins Allergy Hives Verified 11/11/17 18:18 Home Meds: Home Meds Acetaminophen [Tylenol Extra Strength] 500 mg PO Q6HR PRN 07/26/17 [History] Albuterol Sulfate [Proair Respiclick] 2 puff INH Q4HR PRN 07/26/17 [History] Arformoterol [Brovana] 2 ml INH BID 07/26/17 [History] Budesonide [Pulmicort] 2 ml INH BID 07/26/17 [History] Cyclobenzaprine [Flexeril] 5 mg PO Q8HR PRN 07/26/17 [History] Gabapentin [Neurontin] 300 mg PO BEDTIME 07/26/17 [History] LORazepam 1 mg PO DAILY PRN 07/26/17 [History] Montelukast [Singulair] 10 mg PO BEDTIME 07/26/17 [History] Roflumilast [Daliresp] 500 mcg PO DAILY 07/26/17 [History] Sertraline [Zoloft] 50 mg PO DAILY 07/26/17 [History] Theophylline 200 mg PO BID 07/26/17 [History] traMADol [Ultram] 50 mg PO Q6HR PRN 07/26/17 [History] Hydrocodone/Acetaminophen [Hydrocodon-Acetaminophn 10-325] 1 tab PO BID [History] Nicotine [Nicoderm Cq] 1 each TD DAILY PRN 11/11/17 [History] Past Medical History HEENT History: Reports: Impaired Vision Other HEENT History: wears glasses Cardiovascular History: Reports: Hypertension Other Cardiovascular History: is not treated for hypertension anymore after she had the amputation 1 year ago. 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 mesh placed with abdominal hernia removal. Female Surgical History: Reports: Other (See Below) Other Female Surgeries/Procedures: uterus removed Musculoskeletal Surgical History: Reports: Amputation Other Musculoskeletal Surgeries/Procedures:: right mid calf amputation Social & Family History - Family History Family Medical History: Noncontributory - Tobacco Use Smoking Status *Q: Current Every Day Smoker Years of Tobacco use: 30 Packs/Tins Daily: 1 Used Tobacco, but Quit: Yes Month/Year Tobacco Last Used: 2014 - Caffeine Use Caffeine Use: Reports: Coffee, Soda - Recreational Drug Use Recreational Drug Use: No ED ROS GENERAL - Review of Systems Review Of Systems: ROS reveals no pertinent complaints other than HPI. ED EXAM, GENERAL - Physical Exam Exam: See Below Exam Limited By: No Limitations General Appearance: Alert, WD/WN, Moderate Distress Eye Exam: Bilateral Eye: EOMI, Normal Inspection, PERRL Ears: Normal External Exam, Normal Canal, Hearing Grossly Normal, Normal TMs Nose: Normal Inspection, Normal Mucosa, No Blood Throat/Mouth: Normal Inspection, Normal Lips, Normal Teeth, Normal Gums, Normal Oropharynx, Normal Voice, No Airway Compromise Head: Atraumatic, Normocephalic Neck: Normal Inspection, Supple, Non-Tender, Full Range of Motion Respiratory/Chest: Decreased Breath Sounds, Rhonchi (bilateral bases), Wheezing Cardiovascular: Normal Peripheral Pulses, Regular Rate, Rhythm, No Edema, No Gallop, No JVD, No Murmur, No Rub GI/Abdominal: Normal Bowel Sounds, Soft, Non-Tender, No Organomegaly, No Distention, No Abnormal Bruit, No Mass (Female) Exam: Deferred Rectal (Female) Exam: Deferred Back Exam: Normal Inspection, Full Range of Motion, NT Extremities: Normal Inspection, Normal Range of Motion, Non-Tender, Normal Capillary Refill, No Pedal Edema Neurological: Alert, Oriented, CN II-XII Intact, Normal Cognition, Normal Gait, Normal Reflexes, No Motor/Sensory Deficits Psychiatric: Normal Affect, Normal Mood Skin Exam: Warm, Dry, Intact, Normal Color, No Rash Lymphatic: No Adenopathy Course - Vital Signs Last Recorded V/S: Last Vital Signs Temp 37.2 C 11/11/17 18:00 Pulse 97 11/11/17 18:33 Resp 20 11/11/17 18:00 BP 193/93 H 11/11/17 18:00 Pulse Ox 95 11/11/17 18:00 - Orders/Labs/Meds Orders: Active Orders 24 hr Category Date Time Status Peripheral IV Care [RC] . DIRECTED Care 11/11/17 18:21 Active RT Aerosol Therapy [RC] ASDIRECTED Care 11/11/17 18:21 Active CULTURE BLOOD [BC] Stat Lab 11/11/17 18:25 Results CULTURE BLOOD [] Stat Lab 11/11/17 18:30 Received Sodium Chloride 0.9% [Saline Flush] Med 11/11/17 18:20 Active 10 ml FLUSH ASDIRECTED PRN Blood Culture x2 Reflex Set [OM.PC] Stat Oth 11/11/17 18:20 Ordered Peripheral IV Insertion Adult [OM.PC] Stat Oth 11/11/17 18:20 Ordered Medication Orders Sodium Chloride (Saline Flush) 10 ml FLUSH ASDIRECTED PRN PRN Reason: Keep Vein Open Labs: Laboratory Tests 11/11/17 11/11/17 11/11/17 Range/Units 18:30 18:30 18:30 WBC 15.8 H (5.0-10.0) 10^3/uL RBC 5.18 (4.2-5.4) 10^6/uL Hgb 14.2 D (12.0-16.0) g/dL Hct 43.7 (37.0-47.0) % MCV 84.4 (80-100) fL MCH 27.4 (27.0-34.0) pg MCHC 32.5 L (33.0-35.0) g/dL Plt Count 300 D (150-450) 10^3/uL Neut % (Auto) 56.4 (42.2-75.2) % Lymph % (Auto) 32.4 (20.5-50.1) % [place] % (Auto) 10.0 H (2-8) % Eos % (Auto) 0.9 L (1.0-3.0) % Baso % (Auto) 0.3 (0.0-1.0) % Add Manual Diff Yes Neutrophils % (Manual) 58 (42-75) % Band Neutrophils % 3 % Lymphocytes % (Manual) 30 (20-50) % Atypical Lymphs % 0 % Monocytes % (Manual) 6 (2-8) % Eosinophils % (Manual) 2 (1-3) % Basophils % (Manual) 1 Sodium 140 (135-145) mmol/L Potassium 3.6 (3.6-5.0) mmol/L Chloride 104 (101-111) mmol/L Carbon Dioxide 27.0 (21.0-31.0) mmol/L Anion Gap 12.6 BUN 10 (7-18) mg/dL Creatinine 0.8 (0.6-1.3) mg/dL Est Cr Clr Drug Dosing 79.08 mL/min Estimated GFR (MDRD) > 60 BUN/Creatinine Ratio 12.50 Glucose 115 H (74-105) mg/dL Lactic Acid 2.3 H (0.5-2.2) mmol/L Calcium 9.1 (8.4-10.2) mg/dl Total Bilirubin 0.4 (0.2-1.0) mg/dL AST 28 (10-42) IU/L ALT 16 (10-60) IU/L Alkaline Phosphatase 106 (42-121) IU/L B-Natriuretic Peptide 44 (0-100) pg/ml Total Protein 7.6 (6.7-8.2) g/dl Albumin 4.0 (3.2-5.5) g/dl Globulin 3.6 Albumin/Globulin Ratio 1.11 Meds: Medications Generic Name Dose Route Start Last Admin Trade Name Freq PRN Reason Stop Dose Admin Sodium Chloride 10 ml 11/11/17 18:20 Saline Flush FLUSH ASDIRECTED PRN Keep Vein Open Discontinued Medications Generic Name Dose Route Start Last Admin Trade Name Freq PRN Reason Stop Dose Admin Albuterol/Ipratropium 3 ml 11/11/17 18:20 11/11/17 18:31 Duoneb 3.0-0.5 Mg/3 Ml NEB 11/11/17 18:21 3 ml ONETIME ONE Administration Benzonatate 200 mg 11/11/17 19:31 Tessalon Perles PO 11/11/17 19:32 ONETIME ONE Levofloxacin 500 mg 11/11/17 19:18 11/11/17 19:29 Levaquin PO 11/11/17 19:19 500 mg ONETIME ONE Administration Methylprednisolone Sodium Succinate 125 mg 11/11/17 18:20 11/11/17 19:03 Solu-Medrol IVPUSH 11/11/17 18:21 125 mg ONETIME ONE Administration Departure - Departure Time of Disposition: 19:30 Disposition: Home, Self-Care 01 Condition: Fair Clinical Impression: COPD exacerbation - Discharge Information Instructions: Chronic Obstructive Pulmonary Disease Exacerbation, [id number] Forms: ED Department Discharge Care Plan Goals: The patient was advised of the examination, lab and x-ray results during the visit. The patient was given an oral dose of Levaquin, a nebulizer treatment and an injection of SoluMedrol while in the ED. The patient was discharged with scripts for: 1) Levaquin (500 mg) to take 1 by mouth daily for 6 days, 2) Prednisone (20 mg) #10 to take 2 by mouth daily for 5 days and 3) Tessalon Pearles (100 mg) #20 to take 1 by mouth 3 times per day as needed. If the patient has any additional symptoms or concerns, the patient should follow-up with her primary care facility or return to the emergency department.
[2017-11-11] MEDS ORDERED: Benzonatate 100 MG Cap PO ONE (19:31)
== END 2017-11-11 19:38 | disposition home or self-care (01) ==
LOC: DL.ED 16:55
DX: J44.1 Chronic obstructive pulmonary disease with (acute) exacerbation (principal); Z88.0 Allergy status to penicillin; Z88.8 Allergy status to other drugs, medicaments and biological substances; Z91.041 Radiographic dye allergy status; Z79.899 Other long term (current) drug therapy; Z87.891 Personal history of nicotine dependence
CPT/HCPCS: 36415; 71046; 80053; 83605; 83880; 85025; 87040; 94640; 96374; 99284; A9270; J2930

== ENCOUNTER 2018-05-06 08:08 | Emergency (ER) | payer MEDICARE, MEDICAID ==
[2018-05-06 08:19] VITALS: BP 148/89
--- NOTE | 2018-05-06 08:48 | EDM.PDOC ---
ED HPI GENERAL MEDICAL PROBLEM - General Chief Complaint: Respiratory Problem Stated Complaint: AMBULANCE Time Seen by Provider: 05/06/18 08:35 Source of Information: Reports: Patient History Limitations: Reports: No Limitations - History of Present Illness INITIAL COMMENTS - FREE TEXT/NARRATIVE: This 52 yo female patient was brought to the ED by [facility] due to increased shortness of breath. The patient reports she has been seen by Dr. Ruggiero in the [facility] and is on Prednisone and Levaquin, but continues to have difficulties breathing. The patient reports she has a history of COPD and asthma , but continues to smoke. Onset: Today Duration: Constant Location: Reports: Chest Improves with: Reports: Rest Worsens with: Reports: Movement Associated Symptoms: Reports: Shortness of Breath - Related Data Allergies Allergy/AdvReac Type Severity Reaction Status Date / Time atenolol Allergy Hives Verified 11/11/17 18:18 Iodinated Contrast- Oral and Allergy Hives Verified 11/11/17 18:18 IV Dye Penicillins Allergy Hives Verified 11/11/17 18:18 Home Meds: Home Meds Acetaminophen [Tylenol Extra Strength] 500 mg PO Q6HR PRN 07/26/17 [History] Albuterol Sulfate [Proair Respiclick] 2 puff INH Q4HR PRN 07/26/17 [History] Arformoterol [Brovana] 2 ml INH BID 07/26/17 [History] Budesonide [Pulmicort] 2 ml INH BID 07/26/17 [History] Cyclobenzaprine [Flexeril] 5 mg PO Q8HR PRN 07/26/17 [History] Gabapentin [Neurontin] 300 mg PO BEDTIME 07/26/17 [History] LORazepam 1 mg PO DAILY PRN 07/26/17 [History] Montelukast [Singulair] 10 mg PO BEDTIME 07/26/17 [History] Roflumilast [Daliresp] 500 mcg PO DAILY 07/26/17 [History] Sertraline [Zoloft] 50 mg PO DAILY 07/26/17 [History] Theophylline 200 mg PO BID 07/26/17 [History] traMADol [Ultram] 50 mg PO Q6HR PRN 07/26/17 [History] Hydrocodone/Acetaminophen [Hydrocodon-Acetaminophn 10-325] 1 tab PO BID [History] Nicotine [Nicoderm Cq] 1 each TD DAILY PRN 11/11/17 [History] Past Medical History HEENT History: Reports: Impaired Vision Other HEENT History: wears glasses Cardiovascular History: Reports: Hypertension Other Cardiovascular History: is not treated for hypertension anymore after she had the amputation 1 year ago. 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 mesh placed with abdominal hernia removal. Female Surgical History: Reports: Other (See Below) Other Female Surgeries/Procedures: uterus removed Musculoskeletal Surgical History: Reports: Amputation Other Musculoskeletal Surgeries/Procedures:: right mid calf amputation Social & Family History - Family History Family Medical History: Noncontributory - Tobacco Use Smoking Status *Q: Current Every Day Smoker Years of Tobacco use: 30 Packs/Tins Daily: 0.5 - Caffeine Use Caffeine Use: Reports: Soda - Recreational Drug Use Recreational Drug Use: No ED ROS GENERAL - Review of Systems Review Of Systems: ROS reveals no pertinent complaints other than HPI. ED EXAM, GENERAL - Physical Exam Exam: See Below Exam Limited By: No Limitations General Appearance: Alert, WD/WN, Moderate Distress Eye Exam: Bilateral Eye: EOMI, Normal Inspection, PERRL Ears: Normal External Exam, Normal Canal, Hearing Grossly Normal, Normal TMs Nose: Normal Inspection, Normal Mucosa, No Blood Throat/Mouth: Normal Inspection, Normal Lips, Normal Teeth, Normal Gums, Normal Oropharynx, Normal Voice, No Airway Compromise Head: Atraumatic, Normocephalic Neck: Normal Inspection, Supple, Non-Tender, Full Range of Motion Respiratory/Chest: Decreased Breath Sounds, Rhonchi Cardiovascular: Normal Peripheral Pulses, Regular Rate, Rhythm, No Edema, No Gallop, No JVD, No Murmur, No Rub GI/Abdominal: Normal Bowel Sounds, Soft, Non-Tender, No Organomegaly, No Distention, No Abnormal Bruit, No Mass (Female) Exam: Deferred Rectal (Female) Exam: Deferred Back Exam: Normal Inspection, Full Range of Motion, NT Extremities: Normal Inspection, Normal Range of Motion, Non-Tender, Normal Capillary Refill, No Pedal Edema Neurological: Alert, Oriented, CN II-XII Intact, Normal Cognition, Normal Gait, Normal Reflexes, No Motor/Sensory Deficits Psychiatric: Normal Affect, Normal Mood Skin Exam: Warm, Dry, Intact, Normal Color, No Rash Lymphatic: No Adenopathy EKG INTERPRETATION EKG Date: 05/06/18 Rhythm: NSR [place]: Normal P-Wave: Present QRS: Normal ST-T: Other (T wave [place] V4-V6) QT: Normal Comparison: NA - No Prior EKG Course - Vital Signs Last Recorded V/S: Last Vital Signs Temp 35.3 C 05/06/18 08:16 Pulse 101 H 05/06/18 08:16 Resp 28 H 05/06/18 08:16 BP 148/89 H 05/06/18 08:16 Pulse Ox 93 L 05/06/18 08:16 - Orders/Labs/Meds Orders: Active Orders 24 hr Category Date Time Status EKG 12 Lead [EKG Documentation Completion] [RC] URGENT Care 05/06/18 08:22 Active CULTURE BLOOD [BC] Stat Lab 05/06/18 08:53 Received CULTURE BLOOD [BC] Stat Lab 05/06/18 08:59 Received INR,PT,PROTHROMBIN TIME [COAG] Stat Lab 05/06/18 10:01 Ordered Heparin Sodium/0.45% NaCl [Heparin 25,000 Units in 1/2 Med 05/06/18 10:15 Ordered NS 500 ML] 25,000 units in 500 ml IV TITRATE Blood Culture x2 Reflex Set [OM.PC] Stat Oth 05/06/18 08:41 Ordered Medication Orders Heparin Sodium/Sodium Chloride (Heparin 25,000 Units In 1/2 Ns 500 Ml) 25,000 units in 500 mls @ 20.684 mls/hr IV TITRATE ASHLEY Labs: Laboratory Tests 05/06/18 05/06/18 05/06/18 Range/Units 08:53 08:53 08:53 WBC 12.3 H (5.0-10.0) 10^3/uL RBC 5.37 (4.2-5.4) 10^6/uL Hgb 14.4 (12.0-16.0) g/dL Hct 45.0 (37.0-47.0) % MCV 83.8 (80-100) fL MCH 26.8 L (27.0-34.0) pg MCHC 32.0 L (33.0-35.0) g/dL Plt Count 255 (150-450) 10^3/uL Neut % (Auto) 45.8 (42.2-75.2) % Lymph % (Auto) 43.3 (20.5-50.1) % [place] % (Auto) 10.0 H (2-8) % Eos % (Auto) 0.7 L (1.0-3.0) % Baso % (Auto) 0.2 (0.0-1.0) % Sodium 141 (135-145) mmol/L Potassium 3.2 L (3.6-5.0) mmol/L Chloride 108 (101-111) mmol/L Carbon Dioxide 24.0 (21.0-31.0) mmol/L Anion Gap 12.2 BUN 13 (7-18) mg/dL Creatinine 1.0 (0.6-1.3) mg/dL Est Cr Clr Drug Dosing 65.63 mL/min Estimated GFR (MDRD) 58 BUN/Creatinine Ratio 13.00 Glucose 76 (74-105) mg/dL Lactic Acid 2.1 (0.5-2.2) mmol/L Calcium 8.9 (8.4-10.2) mg/dl Total Bilirubin 0.5 (0.2-1.0) mg/dL AST 46 H (10-42) IU/L ALT 24 (10-60) IU/L Alkaline Phosphatase 74 (42-121) IU/L Troponin I 0.06 H* (0.00-0.02) ng/ml Total Protein 6.6 L (6.7-8.2) g/dl Albumin 3.6 (3.2-5.5) g/dl Globulin 3.0 Albumin/Globulin Ratio 1.20 Meds: Medications Generic Name Dose Route Start Last Admin Trade Name Freq PRN Reason Stop Dose Admin Heparin Sodium/Sodium Chloride 25,000 units in 500 mls @ 20.684 mls/hr 10:15 Heparin 25,000 Units In 1/2 Ns 500 Ml IV TITRATE ASHLEY 12 UNITS/KG/HR Discontinued Medications Generic Name Dose Route Start Last Admin Trade Name Freq PRN Reason Stop Dose Admin Heparin Sodium (Porcine) 4,000 units 05/06/18 10:08 Heparin Sodium IVPUSH 05/06/18 10:09 .BOLUS ONE Departure - Departure Time of Disposition: 10:03 Disposition: DC/Tfer to Acute Hospital 02 Condition: Serious Clinical Impression: NSTEMI (non-ST elevated myocardial infarction) - Discharge Information *PRESCRIPTION DRUG MONITORING PROGRAM REVIEWED*: Not Applicable *COPY OF PRESCRIPTION DRUG MONITORING REPORT IN PATIENT ANA: Not Applicable Forms: [facility] Plan Goals: Discussed the history, examination, lab, EKG and x-ray results with Dr. Bridges (Hospitalist with [facility] in [place]). Dr. Bridges accepted the patient for continued evaluation and further management as an inpatient at [facility] in [place]. The patient will be transported by [facility]. - My Orders Last 24 Hours: My Active Orders 05/06/18 08:22 EKG 12 Lead [EKG Documentation Completion] [RC] URGENT 05/06/18 08:41 Blood Culture x2 Reflex Set [OM.PC] Stat 05/06/18 08:53 CULTURE BLOOD [BC] Stat 05/06/18 08:59 CULTURE BLOOD [BC] Stat 05/06/18 10:01 INR,PT,PROTHROMBIN TIME [COAG] Stat 05/06/18 10:15 Heparin Sodium/0.45% NaCl [Heparin 25,000 Units in 1/2 NS 500 ML] 25,000 units in 500 ml IV TITRATE - Assessment/Plan Last 24 Hours: My Active Orders 05/06/18 08:22 EKG 12 Lead [EKG Documentation Completion] [RC] URGENT 05/06/18 08:41 Blood Culture x2 Reflex Set [OM.PC] Stat 05/06/18 08:53 CULTURE BLOOD [BC] Stat 05/06/18 08:59 CULTURE BLOOD [BC] Stat 05/06/18 10:01 INR,PT,PROTHROMBIN TIME [COAG] Stat 05/06/18 10:15 Heparin Sodium/0.45% NaCl [Heparin 25,000 Units in 1/2 NS 500 ML] 25,000 units in 500 ml IV TITRATE
[2018-05-06 09:26] LABS: ANION GAP 12.2
--- NOTE | 2018-05-06 09:29 | CR ---
Clinical history: 52-year-old wheelchair patient complaining of shortness of breath. Interpretation: AP lateral chest films unchanged since 11 November 2017 exam (oxygen cannula). Normal cardiac silhouette without new cephalization of flow, signs of alveolar edema or dependent ple ural effusion (subtle pleural parenchymal scarring left base). No new lung mass, hilar lymphadenopathy or focal pneumonia. No pneumothorax. CONCLUSION: No acute new cardiopulmonary abnormality.
[2018-05-06] MEDS ORDERED: Heparin Sodium 5,000 Units/ML Vial IVPUSH ONE (10:08)
[2018-05-06] MEDS ORDERED: Heparin Sodium/0.45% NaCl 25,000 UNITS/500 ML BAG IV SCH (10:15)
== END 2018-05-06 11:44 ==
LOC: DL.ED 08:08
DX: I21.4 Non-ST elevation (NSTEMI) myocardial infarction (principal); J45.909 Unspecified asthma, uncomplicated; F17.210 Nicotine dependence, cigarettes, uncomplicated; I10 Essential (primary) hypertension; F41.9 Anxiety disorder, unspecified; Z88.0 Allergy status to penicillin; Z91.041 Radiographic dye allergy status; Z79.899 Other long term (current) drug therapy; Z88.8 Allergy status to other drugs, medicaments and biological substances
CPT/HCPCS: 36415; 71046; 80053; 83605; 84484; 85025; 85610; 87040; 93005; 96365; 96375; 99285; J1644

== ENCOUNTER 2018-08-15 15:05 | Emergency (ER) | payer MEDICARE, MEDICAID ==
--- NOTE | 2018-08-15 15:10 | EDM.PDOC ---
ED HPI GENERAL MEDICAL PROBLEM - General Chief Complaint: Respiratory Problem Stated Complaint: SHORT OF BREATH, COPD [id number] Time Seen by Provider: 08/15/18 15:09 Source of Information: Reports: Patient, Old Records, RN, RN Notes Reviewed History Limitations: Reports: No Limitations - History of Present Illness INITIAL COMMENTS - FREE TEXT/NARRATIVE: Pt presents to ER from home by POV with c/o shortness of breath. Pt has Hx of COPD. Pt was intubated on 07/16/19 due to a respiratory "code blue". Pt states he breathing became worse yesterday and she developed a fever of 100.6F. She has been using nebulizers and completed a course of antibiotics about 3 weeks ago. She also had a Medrol Dosepak, and Levaquin 250mg daily x5 days prescribed on 08/07/18. 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 Treatments, Other Medication(s) Back Pain Score (Numeric/FACES): 4 - Related Data Allergies Allergy/AdvReac Type Severity Reaction Status Date / Time atenolol Allergy Hives Verified 08/15/18 15:21 Iodinated Contrast- Oral and Allergy Hives Verified 08/15/18 15:21 IV Dye Penicillins Allergy Hives Verified 08/15/18 15:21 Home Meds: Home Meds Arformoterol [Brovana] 2 ml INH BID 07/26/17 [History] Budesonide [Pulmicort] 2 ml INH BID 07/26/17 [History] Gabapentin [Neurontin] 300 mg PO BEDTIME 07/26/17 [History] LORazepam 1 mg PO DAILY PRN 07/26/17 [History] Montelukast [Singulair] 10 mg PO BEDTIME 07/26/17 [History] Roflumilast [Daliresp] 500 mcg PO DAILY 07/26/17 [History] Theophylline 200 mg PO BID 07/26/17 [History] traMADol [Ultram] 50 mg PO Q6HR PRN 07/26/17 [History] Hydrocodone/Acetaminophen [Hydrocodon-Acetaminophn 10-325] 1 tab PO BID [History] Acetaminophen [Tylenol] 650 mg PO Q4HR PRN 05/23/18 [History] Aspirin [Ecotrin] 81 mg PO DAILY 05/23/18 [History] Isosorbide Mononitrate [Imdur] 30 mg PO DAILY 05/23/18 [History] Sertraline [Zoloft] 100 mg PO DAILY 05/23/18 [History] Umeclidinium [place] [Incruse Ellipta*] 1 puff INH DAILY 05/23/18 [History] amLODIPine Besylate [Norvasc] 5 mg PO DAILY 05/23/18 [History] clonazePAM [Clonazepam] 1 mg PO BID 05/23/18 [History] Albuterol [Proventil Neb Soln] 2 puff IH ASDIRECTED PRN 06/01/18 [History] Ipratropium/Albuterol Sulfate [Iprat-Albut 0.5-3(2.5) mg/3 ml] 1 ampule IH QID PRN 06/01/18 [History] Varenicline Tartrate [Chantix] 1 mg PO ASDIRECTED 06/01/18 [History] Past Medical History HEENT History: Reports: Impaired Vision Other HEENT History: wears glasses Cardiovascular History: Reports: Hypertension Other Cardiovascular History: is not treated for hypertension anymore after she had the amputation 1 year ago. 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 mesh placed with abdominal hernia removal. Female Surgical History: Reports: Other (See Below) Other Female Surgeries/Procedures: uterus removed Musculoskeletal Surgical History: Reports: Amputation Other Musculoskeletal Surgeries/Procedures:: right mid calf amputation Social & Family History - Family History Family Medical History: Unobtainable - Tobacco Use Smoking Status *Q: Current Every Day Smoker Tobacco Use Within Last Twelve Months: Cigarettes Years of Tobacco use: 35 Packs/Tins Daily: 2 - Caffeine Use Caffeine Use: Reports: Soda - Alcohol Use Alcohol Use History: No - Living Situation & Occupation Living situation: Reports: , with Family ED ROS GENERAL - Review of Systems Review Of Systems: ROS reveals no pertinent complaints other than HPI. ED EXAM, GENERAL - Physical Exam Exam: See Below Exam Limited By: No Limitations General Appearance: Alert, Anxious, Other (Chronically ill appearing) Eye Exam: Bilateral Eye: Normal Inspection Nose: Normal Inspection, Normal Mucosa, No Blood Throat/Mouth: Normal Inspection, Normal Lips, Normal Gums, Normal Oropharynx, Normal Voice, No Airway Compromise, Other (Dentures) Head: Atraumatic, Normocephalic Neck: Normal Inspection, Supple, Non-Tender, Full Range of Motion Respiratory/Chest: No Respiratory Distress, No Accessory Muscle Use, Chest Non- Tender, Decreased Breath Sounds, Crackles (Course breath sounds), Wheezing. No : Rales, Rhonchi Cardiovascular: Regular Rate, Rhythm GI/Abdominal: Normal Bowel Sounds, Soft, Non-Tender, No Distention Back Exam: Normal Inspection Extremities: No Pedal Edema Neurological: Alert, Oriented, No Motor/Sensory Deficits Psychiatric: Anxious Skin Exam: Warm, Dry, Intact, Normal Color, No Rash Course - Vital Signs Last Recorded V/S: Last Vital Signs Temp 37.4 C 08/15/18 15:17 Pulse 94 08/15/18 15:17 Resp 22 H 08/15/18 15:17 BP 159/89 H 08/15/18 15:17 Pulse Ox 95 08/15/18 15:17 - Orders/Labs/Meds Orders: Active Orders 24 hr Category Date Time Status COMPREHENSIVE METABOLIC PN,CMP [CHEM] Stat Lab 08/15/18 16:00 Received CRP [C-REACTIVE PROTEIN] [CHEM] Stat Lab 08/15/18 16:00 Received CULTURE BLOOD [BC] Stat Lab 08/15/18 16:00 Received Labs: Laboratory Tests 08/15/18 Range/Units 16:00 WBC 10.2 H (5.0-10.0) 10^3/uL RBC 5.29 (4.2-5.4) 10^6/uL Hgb 14.2 (12.0-16.0) g/dL Hct 43.4 (37.0-47.0) % MCV 82.0 (80-100) fL MCH 26.8 L (27.0-34.0) pg MCHC 32.7 L (33.0-35.0) g/dL Plt Count 299 (150-450) 10^3/uL Neut % (Auto) 55.7 (42.2-75.2) % Lymph % (Auto) 30.9 (20.5-50.1) % [place] % (Auto) 11.4 H (2-8) % Eos % (Auto) 1.8 (1.0-3.0) % Baso % (Auto) 0.2 (0.0-1.0) % - Radiology Interpretation Free Text/Narrative:: 2V CXR: No focal consolidations, chronic/stable appearing COPD changes, see Rad. report. Departure - Departure Time of Disposition: 16:20 Disposition: Home, Self-Care 01 Condition: Fair Clinical Impression: COPD with acute exacerbation, Tobacco dependency - Discharge Information *PRESCRIPTION DRUG MONITORING PROGRAM REVIEWED*: Not Applicable *COPY OF PRESCRIPTION DRUG MONITORING REPORT IN PATIENT ANA: Not Applicable Instructions: Chronic Obstructive Pulmonary Disease Exacerbation, [id number] Forms: ED Department Discharge Additional Instructions: Rx: Prednisone 20mg Rx: Doxycycline 100mg Continue home medications and breathing treatments exactly as prescribed. Follow up in clinic in 3 to 4 days if not improving as expected, otherwise follow up in 7 to 10 days. Return to ER if any breathing difficulties develop. - My Orders Last 24 Hours: My Active Orders 08/15/18 16:00 COMPREHENSIVE METABOLIC PN,CMP [CHEM] Stat CRP [C-REACTIVE PROTEIN] [CHEM] Stat CULTURE BLOOD [BC] Stat - Assessment/Plan Last 24 Hours: My Active Orders 08/15/18 16:00 COMPREHENSIVE METABOLIC PN,CMP [CHEM] Stat CRP [C-REACTIVE PROTEIN] [CHEM] Stat CULTURE BLOOD [BC] Stat
[2018-08-15 15:18] VITALS: BP 159/89
--- NOTE | 2018-08-15 16:06 | CR ---
Clinical history: 52-year-old female shortness of breath. Interpretation: Compression fractures and evidence of vertebral plasty 2 levels at the thoracolumbar juncture. Normal cardiac silhouette without cephalization of vascular flow and new signs of alveolar edema or dependent pleural fluid accumulation when compared to 07 August 2018 exam. Chronic mild rotatory "cuffing". No new lung mass, hilar lymphadenopathy or focal lobar pneumonia. No air trapping. No atelectasis/collapse. No pneumothorax. CONCLUSION: No acute new cardiopulmonary abnormality since 07 August 2018 AP film.
[2018-08-15 16:25] LABS: CHLORIDE,CL 104 mmol/L (101-111); SODIUM,NA 139 mmol/L (135-145)
== END 2018-08-15 16:37 | disposition home or self-care (01) ==
LOC: DL.ED 15:05
DX: J44.1 Chronic obstructive pulmonary disease with (acute) exacerbation (principal); I10 Essential (primary) hypertension; F17.210 Nicotine dependence, cigarettes, uncomplicated; Z88.8 Allergy status to other drugs, medicaments and biological substances; Z88.0 Allergy status to penicillin; Z79.899 Other long term (current) drug therapy; Z79.82 Long term (current) use of aspirin
CPT/HCPCS: 36415; 71046; 80053; 85025; 86140; 87040; 99285

== ENCOUNTER 2018-08-22 10:09 | Emergency (ER) | payer MEDICARE, MEDICAID ==
[2018-08-22 10:42] VITALS: BP 166/122
[2018-08-22] MEDS ORDERED: Sodium Chloride 0.9% 10 ML Syringe FLUSH PRN (10:50)
[2018-08-22] MEDS ORDERED: Famotidine 20 MG/2 ML SDV IVPUSH ONE (11:01)
[2018-08-22] MEDS ORDERED: methylPREDNISolone Sod Succ 125 MG in Sodium Chloride 0.9% 100 ML IV ONE (11:01)
[2018-08-22] MEDS ORDERED: diphenhydrAMINE 50 MG/ML SDV IVPUSH ONE (11:01)
[2018-08-22] MEDS ORDERED: Morphine 4 MG/ML Syringe IVPUSH ONE (11:02)
--- NOTE | 2018-08-22 11:03 | EDM.PDOC ---
ED HPI GENERAL MEDICAL PROBLEM - General Chief Complaint: General Stated Complaint: SOB,CAN'T KEEP ANYTHING DOWN Time Seen by Provider: 08/22/18 10:50 Source of Information: Reports: Patient History Limitations: Reports: No Limitations - History of Present Illness INITIAL COMMENTS - FREE TEXT/NARRATIVE: Patient presents emergency department today with complaints of left upper quadrant and flank pain. The patient has had a rather eventful last month. Proximally 1 month ago she came in to this emergency department in full respiratory arrest. She was subsequently intubated and sent to a tertiary care center. Since she has gotten home from the hospital she has not "felt right". Over the past couple of few days she has had increasing cough and congestion as well as left upper quadrant and flank pain. She was seen in this emergency department a couple of days ago she had a CAT scan which found that she had an incidental finding of an aortic small fusiform aneurysm. She was also started on prednisone high dose and doxycycline due to her continued respiratory symptoms. Her symptoms have improved minimally over the past couple of days. She still complains of shortness of breath cough and a very congested nonproductive cough. She has had intermittent fevers for the past few days as well. No nausea no vomiting. No hematuria dysuria or urinary frequency. No black or tarry stools. She does have a history of kidney stones. Left Abdomen Pain Score (Numeric/FACES): 7 - Related Data Allergies Allergy/AdvReac Type Severity Reaction Status Date / Time atenolol Allergy Hives Verified 08/22/18 10:36 Iodinated Contrast- Oral and Allergy Hives Verified 08/22/18 10:36 IV Dye Penicillins Allergy Hives Verified 08/22/18 10:36 Home Meds: Home Meds Arformoterol [Brovana] 2 ml INH BID 07/26/17 [History] Budesonide [Pulmicort] 2 ml INH BID 07/26/17 [History] Gabapentin [Neurontin] 300 mg PO BEDTIME 07/26/17 [History] LORazepam 1 mg PO DAILY PRN 07/26/17 [History] Montelukast [Singulair] 10 mg PO BEDTIME 07/26/17 [History] Roflumilast [Daliresp] 500 mcg PO DAILY 07/26/17 [History] Theophylline 200 mg PO BID 07/26/17 [History] traMADol [Ultram] 50 mg PO Q6HR PRN 07/26/17 [History] Hydrocodone/Acetaminophen [Hydrocodon-Acetaminophn 10-325] 1 tab PO BID [History] Acetaminophen [Tylenol] 650 mg PO Q4HR PRN 05/23/18 [History] Aspirin [Ecotrin] 81 mg PO DAILY 05/23/18 [History] Isosorbide Mononitrate [Imdur] 30 mg PO DAILY 05/23/18 [History] Sertraline [Zoloft] 100 mg PO DAILY 05/23/18 [History] Umeclidinium [place] [Incruse Ellipta*] 1 puff INH DAILY 05/23/18 [History] amLODIPine Besylate [Norvasc] 5 mg PO DAILY 05/23/18 [History] clonazePAM [Clonazepam] 1 mg PO BID 05/23/18 [History] Albuterol [Proventil Neb Soln] 2 puff IH ASDIRECTED PRN 06/01/18 [History] Ipratropium/Albuterol Sulfate [Iprat-Albut 0.5-3(2.5) mg/3 ml] 1 ampule IH QID PRN 06/01/18 [History] Varenicline Tartrate [Chantix] 1 mg PO ASDIRECTED 06/01/18 [History] Tamsulosin [Tamsulosin 24 Hr] 0.4 mg PO DAILY #7 cap.er 08/22/18 [Rx] Past Medical History HEENT History: Reports: Impaired Vision Other HEENT History: wears glasses Cardiovascular History: Reports: Hypertension Other Cardiovascular History: is not treated for hypertension anymore after she had the amputation 1 year ago. Respiratory History: Reports: COPD, Intubation, Previous, Pneumonia, Recurrent, SOB CLINICAL MANAGER History: Reports: Musculoskeletal History: Reports: Amputation Psychiatric History: Reports: Anxiety Endocrine/Metabolic History: Reports: Obesity/BMI 30+ Hematologic History: Reports: None Immunologic History: Reports: None Oncologic (Cancer) History: Reports: None - Infectious Disease History Infectious Disease History: Reports: Chicken Pox, Mumps - Past Surgical History Head Surgeries/Procedures: Reports: None Cardiovascular Surgical History: Reports: None Respiratory Surgical History: Reports: None GI Surgical History: Reports: Cholecystectomy, Hernia Repair/Other Other GI Surgeries/Procedures: part of pancreas was removed. mesh placed with abdominal hernia removal. Female Surgical History: Reports: Other (See Below) Other Female Surgeries/Procedures: uterus removed Musculoskeletal Surgical History: Reports: Amputation Other Musculoskeletal Surgeries/Procedures:: right mid calf amputation Social & Family History - Family History Family Medical History: Unobtainable - Tobacco Use Smoking Status *Q: Current Every Day Smoker Years of Tobacco use: 30 Packs/Tins Daily: 0.5 - Caffeine Use Caffeine Use: Reports: Coffee, Soda - Recreational Drug Use Recreational Drug Use: No - Living Situation & Occupation Living situation: Reports: , with Family ED ROS GENERAL - Review of Systems Review Of Systems: ROS reveals no pertinent complaints other than HPI. ED EXAM, GENERAL - Physical Exam Exam: See Below Exam Limited By: No Limitations General Appearance: Alert, WD/WN, No Apparent Distress Eye Exam: Bilateral Eye: Normal Inspection Ears: Normal External Exam, Normal TMs Nose: Normal Inspection Throat/Mouth: Normal Inspection, Normal Lips, Normal Teeth, Normal Oropharynx Head: Atraumatic, Normocephalic Neck: Normal Inspection, Supple Respiratory/Chest: No Respiratory Distress, No Accessory Muscle Use, Chest Non- Tender, Wheezing (late inspiratory bilaterally. [place] clears with a cough bilaterally. No increased work of breathing. ) Cardiovascular: Normal Peripheral Pulses, Regular Rate, Rhythm, No Murmur, Other (quite hypertensive. ) Peripheral Pulses: 2+: Radial (L), Radial (R), Posterior Tibial (L), Posterior Tibial (R), Dorsalis Pedis (L), Dorsalis Pedis (R) GI/Abdominal: Normal Bowel Sounds, Soft, No Distention, No Mass, Tender (To the LUQ and epigastric region. NO murphys sign no guarding or rebound tenderness. ) Back Exam: CVA Tenderness (L). No: CVA Tenderness (R), Paraspinal Tenderness, Vertebral Tenderness Extremities: Normal Inspection, Normal Range of Motion, Non-Tender, No Pedal Edema, Normal Capillary Refill, Other (Right BKA no signs of skin breakdown excoriation and erythema induration swelling tenderness.) Neurological: Alert, Oriented, Normal Cognition, No Motor/Sensory Deficits Psychiatric: Normal Affect, Normal Mood Skin Exam: Warm, Dry, Intact, Normal Color, No Rash Lymphatic: No Adenopathy EKG INTERPRETATION EKG Date: 08/22/18 Time: 11:08 Rhythm: Other (1st degree AV block) Rate (Beats/Min): 82 P-Wave: Present QRS: Normal ST-T: Normal QT: Normal Comparison: No Change Course - Vital Signs Last Recorded V/S: Last Vital Signs Temp 36.6 C 08/22/18 10:37 Pulse 83 08/22/18 10:37 Resp 16 08/22/18 10:37 BP 166/122 H 08/22/18 10:37 Pulse Ox 94 L 08/22/18 10:37 - Orders/Labs/Meds Orders: Active Orders 24 hr Category Date Time Status EKG 12 Lead [EKG Documentation Completion] [] URGENT Care 08/22/18 10:49 Active Peripheral IV Care [RC] . DIRECTED Care 08/22/18 10:50 Active RT Aerosol Therapy [RC] ASDIRECTED Care 08/22/18 11:18 Active RT Aerosol Therapy [RC] ASDIRECTED Care 08/22/18 14:46 Active CULTURE BLOOD [BC] Stat Lab 08/22/18 11:11 Received CULTURE BLOOD [BC] Stat Lab 08/22/18 11:15 Received Sodium Chloride 0.9% [Saline Flush] Med 08/22/18 10:50 Active 10 ml FLUSH ASDIRECTED PRN Blood Culture x2 Reflex Set [OM.PC] Stat Oth 08/22/18 10:50 Ordered Peripheral IV Insertion Adult [OM.PC] Stat Oth 08/22/18 10:49 Ordered Medication Orders Sodium Chloride (Saline Flush) 10 ml FLUSH ASDIRECTED PRN PRN Reason: Keep Vein Open Last Admin: 08/22/18 10:53 Dose: 10 ml Labs: Laboratory Tests 08/22/18 08/22/18 08/22/18 Range/Units 10:31 10:31 10:31 WBC 21.4 H (5.0-10.0) 10^3/uL RBC 5.49 H (4.2-5.4) 10^6/uL Hgb 14.9 (12.0-16.0) g/dL Hct 44.4 (37.0-47.0) % MCV 80.9 (80-100) fL MCH 27.1 (27.0-34.0) pg MCHC 33.6 (33.0-35.0) g/dL Plt Count 394 (150-450) 10^3/uL Neut % (Auto) 84.1 H (42.2-75.2) % Lymph % (Auto) 10.1 L (20.5-50.1) % [place] % (Auto) 5.4 (2-8) % Eos % (Auto) 0.1 L (1.0-3.0) % Baso % (Auto) 0.1 (0.0-1.0) % Add Manual Diff Yes Neutrophils % (Manual) 88 H (42-75) % Band Neutrophils % 0 % Lymphocytes % (Manual) 10 L (20-50) % Atypical Lymphs % 2 % Toxic Granulation 1+ slight Anisocytosis 1+ slight Target Cells 1+ slight Sodium 139 (135-145) mmol/L Potassium 3.1 L (3.6-5.0) mmol/L Chloride 103 (101-111) mmol/L Carbon Dioxide 24.0 (21.0-31.0) mmol/L Anion Gap 15.1 BUN 22 H (7-18) mg/dL Creatinine 1.0 (0.6-1.3) mg/dL Est Cr Clr Drug Dosing TNP Estimated GFR (MDRD) 58 BUN/Creatinine Ratio 22.00 Glucose 116 H (74-105) mg/dL Lactic Acid (0.5-2.2) mmol/L Calcium 9.3 (8.4-10.2) mg/dl Total Bilirubin 0.6 (0.2-1.0) mg/dL AST 20 (10-42) IU/L ALT 15 (10-60) IU/L Alkaline Phosphatase 86 (42-121) IU/L Troponin I < 0.02 (0.00-0.02) ng/ml C-Reactive Protein 0.5 (0.0-1.3) mg/dL Total Protein 7.1 (6.7-8.2) g/dl Albumin 3.8 (3.2-5.5) g/dl Globulin 3.3 Albumin/Globulin Ratio 1.15 Urine Color (YELLOW) Urine Appearance (CLEAR) Urine pH (5.0-9.0) Ur Specific [place] (1.005-1.030) Urine Protein (NEGATIVE) Urine Glucose (UA) (NEGATIVE) Urine Ketones (NEGATIVE) Urine Occult Blood (NEGATIVE) Urine Nitrite (NEGATIVE) Urine Bilirubin (NEGATIVE) Urine Urobilinogen (0.2-1.0) mg/dL Ur Leukocyte Esterase (NEGATIVE) Urine RBC /HPF Urine WBC (0-5/HPF) /HPF Ur Epithelial Cells /HPF Amorphous Sediment (0/HPF) /HPF Urine Bacteria (0-FEW/HPF) /HPF Urine Mucus /LPF 08/22/18 08/22/18 Range/Units 11:11 12:25 WBC (5.0-10.0) 10^3/uL RBC (4.2-5.4) 10^6/uL Hgb (12.0-16.0) g/dL Hct (37.0-47.0) % MCV (80-100) fL MCH (27.0-34.0) pg MCHC (33.0-35.0) g/dL Plt Count (150-450) 10^3/uL Neut % (Auto) (42.2-75.2) % Lymph % (Auto) (20.5-50.1) % [place] % (Auto) (2-8) % Eos % (Auto) (1.0-3.0) % Baso % (Auto) (0.0-1.0) % Add Manual Diff Neutrophils % (Manual) (42-75) % Band Neutrophils % % Lymphocytes % (Manual) (20-50) % Atypical Lymphs % % Toxic Granulation Anisocytosis Target Cells Sodium (135-145) mmol/L Potassium (3.6-5.0) mmol/L Chloride (101-111) mmol/L Carbon Dioxide (21.0-31.0) mmol/L Anion Gap BUN (7-18) mg/dL Creatinine (0.6-1.3) mg/dL Est Cr Clr Drug Dosing Estimated GFR (MDRD) BUN/Creatinine Ratio Glucose (74-105) mg/dL Lactic Acid 1.5 (0.5-2.2) mmol/L Calcium (8.4-10.2) mg/dl Total Bilirubin (0.2-1.0) mg/dL AST (10-42) IU/L ALT (10-60) IU/L Alkaline Phosphatase (42-121) IU/L Troponin I (0.00-0.02) ng/ml C-Reactive Protein (0.0-1.3) mg/dL Total Protein (6.7-8.2) g/dl Albumin (3.2-5.5) g/dl Globulin Albumin/Globulin Ratio Urine Color Yellow (YELLOW) Urine Appearance Slightly cloudy (CLEAR) Urine pH 7.0 (5.0-9.0) Ur Specific [place] 1.020 (1.005-1.030) Urine Protein 30 H (NEGATIVE) Urine Glucose (UA) Negative (NEGATIVE) Urine Ketones Negative (NEGATIVE) Urine Occult Blood Moderate H (NEGATIVE) Urine Nitrite Negative (NEGATIVE) Urine Bilirubin Negative (NEGATIVE) Urine Urobilinogen 0.2 (0.2-1.0) mg/dL Ur Leukocyte Esterase Negative (NEGATIVE) Urine RBC 75-100 H /HPF Urine WBC 0-5 (0-5/HPF) /HPF Ur Epithelial Cells Few /HPF Amorphous Sediment Moderate H (0/HPF) /HPF Urine Bacteria Few (0-FEW/HPF) /HPF Urine Mucus Moderate H /LPF Meds: Medications Generic Name Dose Route Start Last Admin Trade Name Freq PRN Reason Stop Dose Admin Sodium Chloride 10 ml 08/22/18 10:50 08/22/18 10:53 Saline Flush FLUSH 10 ml ASDIRECTED PRN Administration Keep Vein Open Discontinued Medications Generic Name Dose Route Start Last Admin Trade Name Freq PRN Reason Stop Dose Admin Al Hydroxide/Mg Hydroxide 30 ml 08/22/18 14:28 08/22/18 14:36 Gi Cocktail PO 08/22/18 14:29 30 ml ONETIME ONE Administration Albuterol 2.5 mg 08/22/18 11:18 08/22/18 11:30 Proventil Neb Soln NEB 08/22/18 11:19 2.5 mg ONETIME ONE Administration Albuterol 2.5 mg 08/22/18 14:46 08/22/18 14:50 Proventil Neb Soln NEB 08/22/18 14:47 2.5 mg ONETIME ONE Administration Diphenhydramine HCl 50 mg 08/22/18 11:01 08/22/18 11:14 Benadryl IVPUSH 08/22/18 11:02 50 mg ONETIME ONE Administration Famotidine 20 mg 08/22/18 11:01 08/22/18 11:20 Pepcid IVPUSH 08/22/18 11:02 20 mg ONETIME ONE Administration Methylprednisolone Sodium 101 mls @ 100 mls/hr 08/22/18 11:01 08/22/18 11:20 Succinate 125 mg/ Sodium IV 08/22/18 12:05 Not Given Chloride ONETIME ONE Iopamidol 100 ml 08/22/18 11:10 08/22/18 11:59 Isovue-370 (76%) IVPUSH 08/22/18 11:11 75 ml ONETIME ONE Administration Methylprednisolone Sodium Succinate 125 mg 08/22/18 11:07 08/22/18 11:20 Solu-Medrol IVPUSH 08/22/18 11:08 125 mg ONETIME ONE Administration Morphine Sulfate 4 mg 08/22/18 11:02 08/22/18 11:19 Morphine IVPUSH 08/22/18 11:03 4 mg ONETIME ONE Administration - Radiology Interpretation Free Text/Narrative:: Chest x-ray per radiology no lobar pneumonia atelectasis or collapse. Chronic [place] bronchitic pattern no acute cardiopulmonary abnormality when compared to recent chest x-ray of this month. CT abdomen pelvis infrarenal abdominal aortic aneurysm. No evidence of dissection. Otherwise unremarkable. I do have concerns for a possible kidney stone on this CT scan as well as the CT from a few days ago Radiology is unsure if the spot I see is a stone or phlebolith - Re-Assessments/Exams Free Text/Narrative Re-Assessment/Exam: 08/22/18 15:05 Patient was given morphine liquid bit of improvement of her pain. Her blood pressure that was quite elevated to 10/113 when she initially came improved not only with the pain management as well as time. I completed a CT abdomen and pelvis with contrast with premedication of Benadryl and famotidine and Solu-Medrol as I have concerns for further pathology of the aorta such as dissection with the known aneurysm that was seen a couple of days ago. This was subsequently found to be negative for dissection. Urinalysis is quite a bit of blood in it. Her white count has been slowly rising over the past couple of visits in the emergency department although she was recently started on burst of steroids due to continued cough congestion and COPD exacerbation and placed on doxycycline. She has no reaction to the contrast dye. She does feel much better. I wonder if this is not some type of pathology either related to a kidney stone or from peptic ulcer disease. She has been on steroids as well as in the ICU in the past month which increases her risk for stress ulcers. She has had no vomiting of blood or black or tarry stools. She's never been diagnosed with Helicobacter pylori disease in the past. I will treat her at this time for symptomatically and management for possibility of a kidney stone. She has continued symptomology consideration for an EGD to look for peptic ulcer disease as well. Anything new or worse she is to recheck in emergency department of follow-up with primary care provider. She is comfortable with this plan and her questions are answered. Departure - Departure Time of Disposition: 14:31 Disposition: Home, Self-Care 01 Clinical Impression: Flank pain Hematuria Qualifiers: Hematuria type: unspecified type Qualified Code(s): R31.9 - Hematuria, unspecified - Discharge Information Prescriptions: Tamsulosin [Tamsulosin 24 Hr] 0.4 mg PO DAILY #7 cap.er Instructions: Flank Pain, Adult, [id number], Hematuria, Adult Forms: ED Department Discharge Additional Instructions: Continue the doxycycline and the prednisone as before. Start flomax for possible kidney stone. 1 capsule daily for the next 7 days. RX given to the patient. Increase fluids as well. Tylenol as needed for pain. If pain not controlled with above [place] 1 tablet every 6 hrs as needed for pain. Caution sedation RX given to the patient. Return to the ED if new or worsening symptoms Follow up with PCP in the next 4-6 days if not improving sooner if worse. - My Orders Last 24 Hours: My Active Orders 08/22/18 10:49 EKG 12 Lead [EKG Documentation Completion] [RC] URGENT Peripheral IV Insertion Adult [OM.PC] Stat 08/22/18 10:50 Peripheral IV Care [RC] . DIRECTED Sodium Chloride 0.9% [Saline Flush] 10 ml FLUSH ASDIRECTED PRN Blood Culture x2 Reflex Set [OM.PC] Stat 08/22/18 11:11 CULTURE BLOOD [BC] Stat 08/22/18 11:15 CULTURE BLOOD [BC] Stat 08/22/18 11:18 RT Aerosol Therapy [RC] ASDIRECTED 08/22/18 14:46 RT Aerosol Therapy [RC] ASDIRECTED - Assessment/Plan Last 24 Hours: My Active Orders 08/22/18 10:49 EKG 12 Lead [EKG Documentation Completion] [RC] URGENT Peripheral IV Insertion Adult [OM.PC] Stat 08/22/18 10:50 Peripheral IV Care [RC] . DIRECTED Sodium Chloride 0.9% [Saline Flush] 10 ml FLUSH ASDIRECTED PRN Blood Culture x2 Reflex Set [OM.PC] Stat 08/22/18 11:11 CULTURE BLOOD [BC] Stat 08/22/18 11:15 CULTURE BLOOD [BC] Stat 08/22/18 11:18 RT Aerosol Therapy [RC] ASDIRECTED 08/22/18 14:46 RT Aerosol Therapy [RC] ASDIRECTED Assessment:: Left flank pain hematuria ? kidney stone Leukocytosis most likely from recent steroid burst. COPD on doxy and steroids. Plan: Continue the doxycycline and the prednisone as before. Start flomax for possible kidney stone. 1 capsule daily for the next 7 days. RX given to the patient. Increase fluids as well. Tylenol as needed for pain. If pain not controlled with above [place] 1 tablet every 6 hrs as needed for pain. Caution sedation RX given to the patient. Return to the ED if new or worsening symptoms Follow up with PCP in the next 4-6 days if not improving sooner if worse.
[2018-08-22] MEDS ORDERED: methylPREDNISolone Sodium Succinate 125 MG/2 ML SDV IVPUSH ONE (11:07)
[2018-08-22 11:09] LABS: ANION GAP 15.1; CHLORIDE,CL 103 mmol/L (101-111); SODIUM,NA 139 mmol/L (135-145)
[2018-08-22] MEDS ORDERED: Iopamidol 755 Mg/ML 100 ML Bottle IVPUSH ONE (11:10)
[2018-08-22] MEDS ORDERED: Albuterol 0.083% 2.5 MG/3 ML Neb Soln NEB ONE ×2 (11:18→14:46)
--- NOTE | 2018-08-22 12:20 | CR ---
Clinical history: 52-year-old female with cough and left rib pain. Shortness of breath. Interpretation: Chronic shaggy bronchitic pattern. No acute new cardiopulmonary abnormality when compared directly to 15 August 2018 exam. No rib fracture, underlying lung contusion, dependent pleural effusion or pneumothorax. Normal cardiac silhouette without alveolar edema. No lobar pneumonia, atelectasis or collapse. Note: Vertebral plasty x2 at the thoracolumbar juncture.
--- NOTE | 2018-08-22 12:21 | CT ---
CLINICAL HISTORY: 52-year-old 204 pound hypertensive (BP 220/110 mmHg) female smoker with left upper quadrant pain (known atheromatous disease and 3.4 cm "aneurysm", infrarenal abdominal aorta). Rule out dissection. SCAN TECHNIQUE: Volume acquisition of data from the abdomen and pelvis (aortoiliac vessels) obtained during the intravenous administration nonionic Isovue 370 contrast (4 cc/s via injector) while the patient was lying supine on the Siemens multislice CT scanner [place], [place]. All data archived in the PACS system for storage, reformatting axial/sagittal/coronal planes and study. INTERPRETATION: 1. Intravenous contrast confirms 3.3 cm infrarenal abdominal aortic aneurysm "framed" by atheromatous plaque and lined by thrombus. *No sign of periaortic or retroperitoneal aortic dissection. 2. Atheromatous plaque scattered along the normal caliber distal abdominal aorta and branching common iliac arteries. 3. Abnormalities lumbar spine as noted previously (vertebroplasty, disc disease and arthritis). 4. Liver, stomach, spleen, pancreas adrenal glands and kidneys are unremarkable (see comment below regarding pelvic Ca++). 5. No inflammatory "dirty" peritoneal fat and no sign of mechanical bowel obstruction, ascites or free intraperitoneal air. 6. Vascular calcifications in the pelvis (arterial and phleboliths) that were present on 20 August 2018 exam. Discrete oval 2.5 x 4.0 mm calcification base of the urinary bladder on the left appears to lie outside the course of the medially adjacent ureter and there is no evidence of associated ipsilateral ureterectasis or pyelocaliectasis proximally on the 07/22 exam i.e. doubt that this represents a nonobstructing distal left ureterolith. Close clinical and laboratory (U/A) correlation requested. Note: A second tiny 2 mm radiodensity more proximal left pelvis could present nonobstructing intraluminal distal left ureterolith.??
[2018-08-22] MEDS ORDERED: GI Cocktail Oral Solution 30 ML PO ONE (14:28)
== END 2018-08-22 15:00 | disposition home or self-care (01) ==
LOC: DL.ED 10:09
DX: R31.9 Hematuria, unspecified (principal); R10.12 Left upper quadrant pain; I10 Essential (primary) hypertension; E66.9 Obesity, unspecified; F17.210 Nicotine dependence, cigarettes, uncomplicated; Z88.8 Allergy status to other drugs, medicaments and biological substances; Z91.041 Radiographic dye allergy status; Z88.0 Allergy status to penicillin; Z79.899 Other long term (current) drug therapy
CPT/HCPCS: 36415; 71046; 74177; 80053; 81001; 83605; 84484; 85025; 86140; 87040; 93005; 96374; 96375; 99285; A9270; J1200; J2270; J2930; J3490; Q9967; J7613-GY

== ENCOUNTER 2018-08-23 13:39 | Emergency (ER) | payer MEDICARE, MEDICAID ==
[2018-08-23 14:44] VITALS: BP 162/83
--- NOTE | 2018-08-23 15:10 | EDM.PDOC ---
ED HPI GENERAL MEDICAL PROBLEM - General Chief Complaint: Respiratory Problem Stated Complaint: HARD TO BREATH AND PAIN IN LEFT SIDE OF HEART Time Seen by Provider: 08/23/18 15:00 Source of Information: Reports: Patient History Limitations: Reports: No Limitations - History of Present Illness INITIAL COMMENTS - FREE TEXT/NARRATIVE: patient presents emergency department today with chest pain and left flankand back pain. I had seen this patient approximately 24 hours prior. She has recently had a COPD exacerbation been on antibiotics as well as steroids.She also developed flank pain over the past couple of days where she has had CT scans which did not find any acute pathology. Her cough is about the same. She has not had any fever or chills. The pain in her chest is about the same. She would like to be transferred to [place] for further care and evaluation. She is concerned about the blood clot that was found in her chest on previous CT scans although I corrected her that what we found was incidental finding of a very small aortic aneurysm. During the initial history of present illness I was called from the room to go to an emergent patient in this patient became very agitated she did not want to wait anymore and she'll discharge to [place] herself and be admitted there. She left AMA without risk and benefits of leaving AMA completed by myself. Generalized Pain Score (Numeric/FACES): 8 - Related Data Allergies Allergy/AdvReac Type Severity Reaction Status Date / Time atenolol Allergy Hives Verified 08/24/18 08:22 Iodinated Contrast- Oral and Allergy Hives Verified 08/24/18 08:22 IV Dye Penicillins Allergy Hives Verified 08/24/18 08:22 Home Meds: Home Meds Arformoterol [Brovana] 2 ml INH BID 07/26/17 [History] Budesonide [Pulmicort] 2 ml INH BID 07/26/17 [History] Gabapentin [Neurontin] 300 mg PO BEDTIME 07/26/17 [History] LORazepam 1 mg PO DAILY PRN 07/26/17 [History] Montelukast [Singulair] 10 mg PO BEDTIME 07/26/17 [History] Roflumilast [Daliresp] 500 mcg PO DAILY 07/26/17 [History] Theophylline 200 mg PO BID 07/26/17 [History] traMADol [Ultram] 50 mg PO Q6HR PRN 07/26/17 [History] Hydrocodone/Acetaminophen [Hydrocodon-Acetaminophn 10-325] 1 tab PO BID [History] Acetaminophen [Tylenol] 650 mg PO Q4HR PRN 05/23/18 [History] Aspirin [Ecotrin] 81 mg PO DAILY 05/23/18 [History] Sertraline [Zoloft] 100 mg PO DAILY 05/23/18 [History] Umeclidinium [place] [Incruse Ellipta*] 1 puff INH DAILY 05/23/18 [History] amLODIPine Besylate [Norvasc] 5 mg PO DAILY 05/23/18 [History] clonazePAM [Clonazepam] 1 mg PO BID 05/23/18 [History] Albuterol [Proventil Neb Soln] 2 puff IH ASDIRECTED PRN 06/01/18 [History] Ipratropium/Albuterol Sulfate [Iprat-Albut 0.5-3(2.5) mg/3 ml] 1 ampule IH QID PRN 06/01/18 [History] Varenicline Tartrate [Chantix] 1 mg PO ASDIRECTED 06/01/18 [History] Tamsulosin [Tamsulosin 24 Hr] 0.4 mg PO DAILY #7 cap.er 08/22/18 [Rx] Doxycycline [Vibramycin] 100 mg PO BID #10 cap 08/24/18 [Rx] Famciclovir 500 mg PO TID #21 tablet 08/24/18 [Rx] Past Medical History HEENT History: Reports: Impaired Vision Other HEENT History: wears glasses Cardiovascular History: Reports: Hypertension Other Cardiovascular History: is not treated for hypertension anymore after she had the amputation 1 year ago. 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: Musculoskeletal History: Reports: Amputation Neurological History: Reports: None Psychiatric History: Reports: Anxiety Endocrine/Metabolic History: Reports: Obesity/BMI 30+ Hematologic History: Reports: None Immunologic History: Reports: None Oncologic (Cancer) History: Reports: None Dermatologic History: Reports: None - Infectious Disease History Infectious Disease History: Reports: Chicken Pox, Mumps - Past Surgical History Head Surgeries/Procedures: Reports: None Cardiovascular Surgical History: Reports: None Respiratory Surgical History: Reports: None GI Surgical History: Reports: Cholecystectomy, Hernia Repair/Other Other GI Surgeries/Procedures: part of pancreas was removed. mesh placed with abdominal hernia removal. Female Surgical History: Reports: Other (See Below) Other Female Surgeries/Procedures: uterus removed Musculoskeletal Surgical History: Reports: Amputation Other Musculoskeletal Surgeries/Procedures:: right mid calf amputation Social & Family History - Family History Family Medical History: Unobtainable - Caffeine Use Caffeine Use: Reports: None - Living Situation & Occupation Living situation: Reports: , with Family ED ROS GENERAL - Review of Systems Review Of Systems: Unable To Obtain ED EXAM, GENERAL - Physical Exam Exam: Not Obtained Course - Vital Signs Last Recorded V/S: Last Vital Signs Temp 37.2 C 08/23/18 14:40 Pulse 116 H 08/23/18 14:40 Resp 20 08/23/18 14:40 BP 162/83 H 08/23/18 14:40 Pulse Ox 96 08/23/18 14:40 - Orders/Labs/Meds Meds: Medications Discontinued Medications Generic Name Dose Route Start Last Admin Trade Name Freq PRN Reason Stop Dose Admin Sodium Chloride 10 ml 08/23/18 15:19 Saline Flush FLUSH ASDIRECTED PRN Keep Vein Open Departure - Departure Time of Disposition: 15:34 Disposition: Against Medical Advice 07 Clinical Impression: Left flank pain, Cough - Discharge Information Referrals: PCP,None [Primary Care Provider] - Forms: ED Department Discharge - Assessment/Plan Assessment:: Patient left AMA prior to finishing the HPI and PE. Cough chest pain and flank pain. Plan: Unable to complete ama Risk and benefits prior to the patients discharge.
[2018-08-23] MEDS ORDERED: Sodium Chloride 0.9% 10 ML Syringe FLUSH PRN (15:19)
== END 2018-08-23 15:25 | disposition left against medical advice (07) ==
LOC: DL.ED 13:39
DX: Z53.21 Procedure and treatment not carried out due to patient leaving prior to being seen by health care provider (principal); I10 Essential (primary) hypertension; J44.9 Chronic obstructive pulmonary disease, unspecified; R05 Cough; R10.9 Unspecified abdominal pain; Z88.8 Allergy status to other drugs, medicaments and biological substances; Z91.018 Allergy to other foods; Z79.899 Other long term (current) drug therapy
CPT/HCPCS: 99284

== ENCOUNTER 2018-08-24 08:07 | Emergency (ER) | payer MEDICARE, MEDICAID ==
--- NOTE | 2018-08-24 08:31 | EDM.PDOC ---
ED HPI GENERAL MEDICAL PROBLEM - General Chief Complaint: Skin Complaint Stated Complaint: SOB, PAIN LEFT SIDE Time Seen by Provider: 08/24/18 08:30 Source of Information: Reports: Patient History Limitations: Reports: No Limitations - History of Present Illness INITIAL COMMENTS - FREE TEXT/NARRATIVE: this patient comes emergency Department today for the fourth time this week with complaints of cough chest pain and left flank pain. This will be the third time I have seen the patient. I saw this patient last night and she left AMA during the history of present illness she did not want to wait any longer. I saw her the day before with concerns of left flank pain as well as continued cough and congestion. She's been using her nebulizers and taking her doxycycline. She has complained of his left lower back flank pain for the last couple of days. She's had a CT scan twice of her abdomen which did identify some incidental findings of an aortic small aneurysm without any evidence of dissection. She primarily came back today case she cannot take the pain in her flank. No fever no chills. No nausea no vomiting. No hematuria dysuria or urinary frequency. No weakness dizziness lightheadedness. No palpitations. She also notes that she has developed some type of rash on the left lower back and flank area extending down to her left hip. When she left AMA last night she was going straight to [place] for further care and evaluation and to be admitted. She never went instead came back to the ED today. Back Pain Score (Numeric/FACES): 8 - Related Data Allergies Allergy/AdvReac Type Severity Reaction Status Date / Time atenolol Allergy Hives Verified 08/24/18 08:22 Iodinated Contrast- Oral and Allergy Hives Verified 08/24/18 08:22 IV Dye Penicillins Allergy Hives Verified 08/24/18 08:22 Home Meds: Home Meds Arformoterol [Brovana] 2 ml INH BID 07/26/17 [History] Budesonide [Pulmicort] 2 ml INH BID 07/26/17 [History] Gabapentin [Neurontin] 300 mg PO BEDTIME 07/26/17 [History] LORazepam 1 mg PO DAILY PRN 07/26/17 [History] Montelukast [Singulair] 10 mg PO BEDTIME 07/26/17 [History] Roflumilast [Daliresp] 500 mcg PO DAILY 07/26/17 [History] Theophylline 200 mg PO BID 07/26/17 [History] traMADol [Ultram] 50 mg PO Q6HR PRN 07/26/17 [History] Hydrocodone/Acetaminophen [Hydrocodon-Acetaminophn 10-325] 1 tab PO BID [History] Acetaminophen [Tylenol] 650 mg PO Q4HR PRN 05/23/18 [History] Aspirin [Ecotrin] 81 mg PO DAILY 05/23/18 [History] Sertraline [Zoloft] 100 mg PO DAILY 05/23/18 [History] Umeclidinium [place] [Incruse Ellipta*] 1 puff INH DAILY 05/23/18 [History] amLODIPine Besylate [Norvasc] 5 mg PO DAILY 05/23/18 [History] clonazePAM [Clonazepam] 1 mg PO BID 05/23/18 [History] Albuterol [Proventil Neb Soln] 2 puff IH ASDIRECTED PRN 06/01/18 [History] Ipratropium/Albuterol Sulfate [Iprat-Albut 0.5-3(2.5) mg/3 ml] 1 ampule IH QID PRN 06/01/18 [History] Varenicline Tartrate [Chantix] 1 mg PO ASDIRECTED 06/01/18 [History] Tamsulosin [Tamsulosin 24 Hr] 0.4 mg PO DAILY #7 cap.er 08/22/18 [Rx] Doxycycline [Vibramycin] 100 mg PO BID #10 cap 08/24/18 [Rx] Famciclovir 500 mg PO TID #21 tablet 08/24/18 [Rx] Past Medical History HEENT History: Reports: Impaired Vision Other HEENT History: wears glasses Cardiovascular History: Reports: Hypertension Other Cardiovascular History: is not treated for hypertension anymore after she had the amputation 1 year ago. 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: Musculoskeletal History: Reports: Amputation Neurological History: Reports: None Psychiatric History: Reports: Anxiety Endocrine/Metabolic History: Reports: Obesity/BMI 30+ Hematologic History: Reports: None Immunologic History: Reports: None Oncologic (Cancer) History: Reports: None Dermatologic History: Reports: None - Infectious Disease History Infectious Disease History: Reports: Chicken Pox, Mumps - Past Surgical History Head Surgeries/Procedures: Reports: None Cardiovascular Surgical History: Reports: None Respiratory Surgical History: Reports: None GI Surgical History: Reports: Cholecystectomy, Hernia Repair/Other Other GI Surgeries/Procedures: part of pancreas was removed. mesh placed with abdominal hernia removal. Female Surgical History: Reports: Other (See Below) Other Female Surgeries/Procedures: uterus removed Musculoskeletal Surgical History: Reports: Amputation Other Musculoskeletal Surgeries/Procedures:: right mid calf amputation Social & Family History - Family History Family Medical History: Unobtainable - Caffeine Use Caffeine Use: Reports: None - Living Situation & Occupation Living situation: Reports: , with Family ED ROS GENERAL - Review of Systems Review Of Systems: ROS reveals no pertinent complaints other than HPI. ED EXAM, SKIN/RASH Exam: See Below Exam Limited By: Altered Mental Status General Appearance: Alert, WD/WN, No Apparent Distress Throat/Mouth: Normal Inspection, Normal Oropharynx Head: Atraumatic, Normocephalic Neck: Normal Inspection, Supple, Non-Tender Respiratory/Chest: No Respiratory Distress, No Accessory Muscle Use, Rhonchi ( rhonchi bilaterally that clears with cough), Wheezing (late expiratory wheezing bilaterally). No: Chest Non-Tender Cardiovascular: Normal Peripheral Pulses, Regular Rate, Rhythm, No Edema Peripheral Pulses: 2+: Radial (L), Radial (R), Posterior Tibial (L), Posterior Tibial (R), Dorsalis Pedis (L), Dorsalis Pedis (R) GI/Abdominal: Normal Bowel Sounds, Soft, Non-Tender Back Exam: Normal Inspection, Full Range of Motion Extremities: Normal Inspection, Normal Range of Motion, No Pedal Edema Psychiatric: Normal Affect, Normal Mood Skin: Warm, Dry, Intact. No: No Rash Location, Skin: Other (on the left lower back starting about the midlineand extendingaround her left iliac crest there is a very painful blistering macular papular rash with clear fluid. Does not cross the midline. Very indicative of herpes zoster.) EKG INTERPRETATION EKG Date: 08/24/18 Time: 09:03 Rhythm: NSR Rate (Beats/Min): 67 [place]: Normal P-Wave: Present QRS: Normal ST-T: Normal QT: Normal Comparison: No Change Course - Vital Signs Last Recorded V/S: Last Vital Signs Temp 36.7 C 08/24/18 08:26 Pulse 88 08/24/18 08:26 Resp 20 08/24/18 08:26 BP 199/97 H 08/24/18 08:26 Pulse Ox 96 08/24/18 08:38 - Orders/Labs/Meds Orders: Active Orders 24 hr Category Date Time Status EKG 12 Lead [EKG Documentation Completion] [RC] URGENT Care 08/24/18 08:37 Active Peripheral IV Care [RC] . DIRECTED Care 08/24/18 08:37 Active RT Aerosol Therapy [RC] ASDIRECTED Care 08/24/18 08:38 Active CULTURE BLOOD [BC] Stat Lab 08/24/18 08:50 Received CULTURE BLOOD [BC] Stat Lab 08/24/18 09:00 Results Blood Culture x2 Reflex Set [OM.PC] Stat Oth 08/24/18 08:37 Ordered Peripheral IV Insertion Adult [OM.PC] Stat Oth 08/24/18 08:37 Ordered Labs: Laboratory Tests 08/24/18 08/24/18 08/24/18 Range/Units 08:50 08:50 08:50 WBC 14.3 H (5.0-10.0) 10^3/uL RBC 5.37 (4.2-5.4) 10^6/uL Hgb 14.4 (12.0-16.0) g/dL Hct 44.4 (37.0-47.0) % MCV 82.7 (80-100) fL MCH 26.8 L (27.0-34.0) pg MCHC 32.4 L (33.0-35.0) g/dL Plt Count 327 (150-450) 10^3/uL Neut % (Auto) 71.9 (42.2-75.2) % Lymph % (Auto) 18.5 L (20.5-50.1) % [place] % (Auto) 8.8 H (2-8) % Eos % (Auto) 0.6 L (1.0-3.0) % Baso % (Auto) 0.2 (0.0-1.0) % Sodium 138 (135-145) mmol/L Potassium 3.3 L (3.6-5.0) mmol/L Chloride 102 (101-111) mmol/L Carbon Dioxide 25.0 (21.0-31.0) mmol/L Anion Gap 14.3 BUN 20 H (7-18) mg/dL Creatinine 0.9 (0.6-1.3) mg/dL Est Cr Clr Drug Dosing 70.30 mL/min Estimated GFR (MDRD) > 60 BUN/Creatinine Ratio 22.22 Glucose 99 (74-105) mg/dL Lactic Acid 1.8 (0.5-2.2) mmol/L Calcium 8.9 (8.4-10.2) mg/dl Total Bilirubin 0.8 (0.2-1.0) mg/dL AST 20 (10-42) IU/L ALT 14 (10-60) IU/L Alkaline Phosphatase 85 (42-121) IU/L Troponin I < 0.02 (0.00-0.02) ng/ml C-Reactive Protein (0.0-1.3) mg/dL Total Protein 7.0 (6.7-8.2) g/dl Albumin 3.9 (3.2-5.5) g/dl Globulin 3.1 Albumin/Globulin Ratio 1.26 08/24/18 Range/Units 08:50 WBC (5.0-10.0) 10^3/uL RBC (4.2-5.4) 10^6/uL Hgb (12.0-16.0) g/dL Hct (37.0-47.0) % MCV (80-100) fL MCH (27.0-34.0) pg MCHC (33.0-35.0) g/dL Plt Count (150-450) 10^3/uL Neut % (Auto) (42.2-75.2) % Lymph % (Auto) (20.5-50.1) % [place] % (Auto) (2-8) % Eos % (Auto) (1.0-3.0) % Baso % (Auto) (0.0-1.0) % Sodium (135-145) mmol/L Potassium (3.6-5.0) mmol/L Chloride (101-111) mmol/L Carbon Dioxide (21.0-31.0) mmol/L Anion Gap BUN (7-18) mg/dL Creatinine (0.6-1.3) mg/dL Est Cr Clr Drug Dosing mL/min Estimated GFR (MDRD) BUN/Creatinine Ratio Glucose (74-105) mg/dL Lactic Acid (0.5-2.2) mmol/L Calcium (8.4-10.2) mg/dl Total Bilirubin (0.2-1.0) mg/dL AST (10-42) IU/L ALT (10-60) IU/L Alkaline Phosphatase (42-121) IU/L Troponin I (0.00-0.02) ng/ml C-Reactive Protein < 0.5 (0.0-1.3) mg/dL Total Protein (6.7-8.2) g/dl Albumin (3.2-5.5) g/dl Globulin Albumin/Globulin Ratio Meds: Medications Discontinued Medications Generic Name Dose Route Start Last Admin Trade Name Freq PRN Reason Stop Dose Admin Albuterol/Ipratropium 3 ml 08/24/18 08:37 08/24/18 09:08 Duoneb 3.0-0.5 Mg/3 Ml NEB 08/24/18 08:38 3 ml ONETIME ONE Administration Budesonide 0.5 mg 08/24/18 08:37 08/24/18 09:08 Pulmicort NEB 08/24/18 08:38 0.5 mg ONETIME ONE Administration Famciclovir 500 mg 08/24/18 10:33 08/24/18 10:49 Famvir PO 08/24/18 10:34 500 mg ONETIME ONE Administration Hydromorphone HCl 0.5 mg 08/24/18 08:39 08/24/18 09:08 Dilaudid IVPUSH 08/24/18 08:40 0.5 mg ONETIME ONE Administration Hydromorphone HCl 0.5 mg 08/24/18 10:33 08/24/18 10:49 Dilaudid IVPUSH 08/24/18 10:34 0.5 mg ONETIME ONE Administration Labetalol HCl 20 mg 08/24/18 09:13 08/24/18 09:25 Normodyne IVPUSH 08/24/18 09:14 Not Given NOW ONE Protocol Orphenadrine Citrate 30 mg 08/24/18 09:50 08/24/18 10:12 Norflex IM 08/24/18 09:51 Not Given NOW STA Potassium Chloride 40 meq 08/24/18 09:50 08/24/18 10:12 Potassium Chloride Solution PO 08/24/18 09:51 Not Given NOW STA Sodium Chloride 10 ml 08/24/18 08:37 08/24/18 09:08 Saline Flush FLUSH 10 ml ASDIRECTED PRN Administration Keep Vein Open - Radiology Interpretation Free Text/Narrative:: chest xray negative per radiology. - Re-Assessments/Exams Free Text/Narrative Re-Assessment/Exam: 08/24/18 Dilaudid for pain CXR negative her laboratory evaluation is improving. Her white blood cell count is down from 21 which I attributed to some steroids after it went up from 16 when she was initially placed on the antibiotics. Her CRP is negative. Her troponin is negative.Much better following the nebulizer. The pain in herlower back flank area where theherpes zoster is present is quite a bit improved. she was given a dose of famciclovir. the patient's main request and she came to the ER initially was to be transferred to [place]. I offered to call and see if I could get hertransferred to [place] although she refused as she states that her breathing is better and now that she knows that the pain is from and we are treating and she is comfortable with this plan. She does not want to be transferred at this time. As her laboratory evaluation is improving and she relates that her breathing is improving I feel that this is appropriate at this time and we can treat this outpatient. I will extend her doxycycline and increase her budesonide. I also started on famciclovir for treatment of the shingles and she can use the hydrocodone I gave her previously for her pain for which she did not fill and still has a prescription.She was very comfortable with this plan and she was discharged home after I offered her to be transfered once again during our discussion which she denied. . 08/24/18 19:50 Departure - Departure Time of Disposition: 10:34 Disposition: Home, Self-Care 01 Clinical Impression: COPD exacerbation Herpes zoster Qualifiers: Herpes zoster complications: unspecified herpes zoster complication Qualified Code(s): B02.8 - Zoster with other complications - Discharge Information Prescriptions: Doxycycline [Vibramycin] 100 mg PO BID #10 cap Famciclovir 500 mg PO TID #21 tablet Instructions: Chronic Obstructive Pulmonary Disease Exacerbation, [id number] , Shingles, [id number] Forms: ED Department Discharge Additional Instructions: Increase your Hydrocodone to 2 tabs every 4 hrs as needed for pain. Use the prescriptions you have already obtained from previous and myself. Continue with previous nebs except for increase your Budesonide to 4mls or 1mg twice a day for the next 2 weeks then back to your 0.5mg Continue the Doxycycline I have supplied a few more days today. For the Shingles Hydrocodone as above. Famciclovir 1 capsule 3 times a day for the next 7 days. RX given to the patient. May also increase your Gabapentin from once at bedtime to three times a day as well to help with the pain. Caution sedation. See your primary care wednesday for recheck. Return to the ED if new or worsening symptoms. - My Orders Last 24 Hours: My Active Orders 08/24/18 08:37 EKG 12 Lead [EKG Documentation Completion] [RC] URGENT Peripheral IV Care [RC] . DIRECTED Blood Culture x2 Reflex Set [OM.PC] Stat Peripheral IV Insertion Adult [OM.PC] Stat 08/24/18 08:38 RT Aerosol Therapy [RC] ASDIRECTED 08/24/18 08:50 CULTURE BLOOD [BC] Stat 08/24/18 09:00 CULTURE BLOOD [BC] Stat - Assessment/Plan Last 24 Hours: My Active Orders 08/24/18 08:37 EKG 12 Lead [EKG Documentation Completion] [RC] URGENT Peripheral IV Care [RC] . DIRECTED Blood Culture x2 Reflex Set [OM.PC] Stat Peripheral IV Insertion Adult [OM.PC] Stat 08/24/18 08:38 RT Aerosol Therapy [RC] ASDIRECTED 08/24/18 08:50 CULTURE BLOOD [BC] Stat 08/24/18 09:00 CULTURE BLOOD [BC] Stat Assessment:: Left sided herpies zoster. Continued COPD exacerbation. Plan: Increase your Hydrocodone to 2 tabs every 4 hrs as needed for pain. Use the prescriptions you have already obtained from previous and myself. Continue with previous nebs except for increase your Budesonide to 4mls or 1mg twice a day for the next 2 weeks then back to your 0.5mg Continue the Doxycycline I have supplied a few more days today. For the Shingles Hydrocodone as above. Famciclovir 1 capsule 3 times a day for the next 7 days. RX given to the patient. May also increase your Gabapentin from once at bedtime to three times a day as well to help with the pain. Caution sedation. See your primary care wednesday for recheck. Return to the ED if new or worsening symptoms.
[2018-08-24 08:35] VITALS: BP 199/97
[2018-08-24] MEDS ORDERED: Sodium Chloride 0.9% 10 ML Syringe FLUSH PRN (08:37)
[2018-08-24] MEDS ORDERED: Albuterol/Ipratropium 3.0-0.5 MG/3 ML Neb Soln NEB ONE (08:37)
[2018-08-24] MEDS ORDERED: Budesonide 0.5 MG/2 ML Neb Susp NEB ONE (08:37)
[2018-08-24] MEDS ORDERED: HYDROmorphone 1 MG/ML Syringe IVPUSH ONE ×2 (08:39→10:33)
[2018-08-24] MEDS: Labetalol 20 MG/4 ML Syringe IVPUSH ONE ×2 (09:23→09:25)
[2018-08-24 09:28] LABS: ANION GAP 14.3; CHLORIDE,CL 102 mmol/L (101-111); SODIUM,NA 138 mmol/L (135-145)
--- NOTE | 2018-08-24 09:43 | CR ---
Clinical history: 52-year-old hypertensive female emergency department with chest pain and shortness of breath. Interpretation: No acute new cardiopulmonary abnormality since recent chest film 15 August 2018. Patchy atelectasis/fibrosis right base. Evidence of vertebroplasty the thoracolumbar juncture. No new thoracic fracture. Normal cardiac silhouette without cephalization of flow, signs of alveolar edema or dependent pleural fluid accumulation. No new lung mass, hilar lymphadenopathy or focal lobar pneumonia. No new atelectasis/collapse. No pneumothorax or free subdiaphragmatic air.
[2018-08-24] MEDS ORDERED: Potassium Chloride 10% 20 MEQ/15 ML Soln 15 ML UD Cup PO STA (09:50)
== END 2018-08-24 11:20 | disposition home or self-care (01) ==
LOC: DL.ED 08:07
DX: J44.1 Chronic obstructive pulmonary disease with (acute) exacerbation (principal); B02.8 Zoster with other complications; I10 Essential (primary) hypertension; E66.9 Obesity, unspecified; F41.9 Anxiety disorder, unspecified; Z79.82 Long term (current) use of aspirin; Z88.0 Allergy status to penicillin; Z88.8 Allergy status to other drugs, medicaments and biological substances; Z91.041 Radiographic dye allergy status; Z79.899 Other long term (current) drug therapy
CPT/HCPCS: 36415; 71046; 80053; 83605; 84484; 85025; 86140; 87040; 93005; 94640; 96374; 96376; 99283; A9270; J1170; J3490; J7620-GY

== ENCOUNTER 2019-05-23 12:34 | Emergency (ER) | payer MEDICARE, MEDICAID ==
[2019-05-23 13:05] VITALS: BP 114/94; PULSE 86
[2019-05-23] MEDS ORDERED: methylPREDNISolone Sodium Succinate 125 MG/2 ML SDV IM ONE (13:48)
[2019-05-23 13:52] LABS: CHLORIDE,CL 105 mmol/L (101-111); SODIUM,NA 141 mmol/L (135-145)
--- NOTE | 2019-05-23 13:55 | EDM.PDOC ---
ED HPI GENERAL MEDICAL PROBLEM - General Chief Complaint: Respiratory Problem Stated Complaint: CANT CATCH BREATH Time Seen by Provider: 05/23/19 13:46 Source of Information: Reports: Patient History Limitations: Reports: No Limitations - History of Present Illness INITIAL COMMENTS - FREE TEXT/NARRATIVE: This 53 yo female patient reports to the ED with increased shortness of breath over the past 2 weeks. The patient reports she is currently on her 2nd series of Azithromycin with no improvement. The patient did call her operating system designer and was advised to come to the ED. The patient reports she has been using nebulizer treatments with her last treatment about 1 hour prior to arrival. The patient reports she is starting to get heart palpitations from the nebulizer treatments. 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 Treatments Back Pain Score (Numeric/FACES): 3 - Related Data Allergies Allergy/AdvReac Type Severity Reaction Status Date / Time atenolol Allergy Hives Verified 08/24/18 08:22 Iodinated Contrast Media Allergy Hives Verified 08/24/18 08:22 [Iodinated Contrast- Oral and IV Dye] Penicillins Allergy Hives Verified 08/24/18 08:22 Home Meds: Home Meds Arformoterol [Brovana] 2 ml INH BID 07/26/17 [History] Budesonide [Pulmicort] 2 ml INH BID 07/26/17 [History] Gabapentin [Neurontin] 300 mg PO BEDTIME 07/26/17 [History] LORazepam 1 mg PO DAILY PRN 07/26/17 [History] Montelukast [Singulair] 10 mg PO BEDTIME 07/26/17 [History] Roflumilast [Daliresp] 500 mcg PO DAILY 07/26/17 [History] Theophylline 200 mg PO BID 07/26/17 [History] traMADol [Ultram] 50 mg PO Q6HR PRN 07/26/17 [History] Hydrocodone/Acetaminophen [Hydrocodon-Acetaminophn 10-325] 1 tab PO BID [History] Acetaminophen [Tylenol] 650 mg PO Q4HR PRN 05/23/18 [History] Aspirin [Ecotrin EC] 81 mg PO DAILY 05/23/18 [History] Sertraline [Zoloft] 100 mg PO DAILY 05/23/18 [History] Umeclidinium [place] [Incruse Ellipta*] 1 puff INH DAILY 05/23/18 [History] amLODIPine Besylate [Norvasc] 5 mg PO DAILY 05/23/18 [History] clonazePAM [Clonazepam] 1 mg PO BEDTIME 05/23/18 [History] Albuterol [Proventil Neb Soln] 2 puff IH ASDIRECTED PRN 06/01/18 [History] Ipratropium/Albuterol Sulfate [Iprat-Albut 0.5-3(2.5) mg/3 ml] 1 ampule IH QID PRN 06/01/18 [History] Varenicline Tartrate [Chantix] 1 mg PO ASDIRECTED 06/01/18 [History] Tamsulosin [Tamsulosin 24 Hr] 0.4 mg PO DAILY #7 cap.er 08/22/18 [Rx] Famciclovir 500 mg PO TID #21 tablet 08/24/18 [Rx] Past Medical History HEENT History: Reports: Impaired Vision Other HEENT History: wears glasses Cardiovascular History: Reports: Hypertension Other Cardiovascular History: is not treated for hypertension anymore after she had the amputation 1 year ago. Respiratory History: Reports: COPD, Intubation, Previous, Pneumonia, Recurrent, SOB SLPS History: Reports: Musculoskeletal History: Reports: Amputation Neurological History: Reports: None Psychiatric History: Reports: Anxiety Endocrine/Metabolic History: Reports: Obesity/BMI 30+ Hematologic History: Reports: None Immunologic History: Reports: None Oncologic (Cancer) History: Reports: None Dermatologic History: Reports: None - Infectious Disease History Infectious Disease History: Reports: Chicken Pox, Mumps - Past Surgical History Head Surgeries/Procedures: Reports: None Cardiovascular Surgical History: Reports: None Respiratory Surgical History: Reports: None GI Surgical History: Reports: Cholecystectomy, Hernia Repair/Other Other GI Surgeries/Procedures: part of pancreas was removed. mesh placed with abdominal hernia removal. Female Surgical History: Reports: Other (See Below) Other Female Surgeries/Procedures: uterus removed Musculoskeletal Surgical History: Reports: Amputation Other Musculoskeletal Surgeries/Procedures:: right mid calf amputation Social & Family History - Family History Family Medical History: Unobtainable - Tobacco Use Smoking Status *Q: Current Every Day Smoker Years of Tobacco use: 30 Packs/Tins Daily: 0.5 - Caffeine Use Caffeine Use: Reports: Coffee - Recreational Drug Use Recreational Drug Use: No - Living Situation & Occupation Living situation: Reports: , with Family ED ROS GENERAL - Review of Systems Review Of Systems: ROS reveals no pertinent complaints other than HPI. ED EXAM, GENERAL - Physical Exam Exam: See Below Exam Limited By: No Limitations General Appearance: Alert, WD/WN, Moderate Distress Eye Exam: Bilateral Eye: EOMI, Normal Inspection, PERRL Ears: Normal External Exam, Normal Canal, Hearing Grossly Normal, Normal TMs Nose: Normal Inspection, Normal Mucosa, No Blood Throat/Mouth: Normal Inspection, Normal Lips, Normal Teeth, Normal Gums, Normal Oropharynx, Normal Voice, No Airway Compromise Head: Atraumatic, Normocephalic Neck: Normal Inspection, Supple, Non-Tender, Full Range of Motion Respiratory/Chest: Decreased Breath Sounds, Rhonchi (diffuse), Wheezing ( expiratory) Cardiovascular: Normal Peripheral Pulses, Regular Rate, Rhythm, No Edema, No Gallop, No JVD, No Murmur, No Rub GI/Abdominal: Normal Bowel Sounds, Soft, Non-Tender, No Organomegaly, No Distention, No Abnormal Bruit, No Mass (Female) Exam: Deferred Rectal (Female) Exam: Deferred Back Exam: Normal Inspection, Full Range of Motion, NT Extremities: Normal Inspection, Normal Range of Motion, Non-Tender, Normal Capillary Refill, No Pedal Edema Neurological: Alert, Oriented, CN II-XII Intact, Normal Cognition, Normal Gait, Normal Reflexes, No Motor/Sensory Deficits Psychiatric: Normal Affect, Normal Mood Skin Exam: Warm, Dry, Intact, Normal Color, No Rash Lymphatic: No Adenopathy Course - Vital Signs Last Recorded V/S: Last Vital Signs Temp 37.7 C 05/23/19 12:38 Pulse 86 05/23/19 12:38 Resp 18 05/23/19 12:38 BP 114/94 H 05/23/19 12:38 Pulse Ox 95 05/23/19 12:38 - Orders/Labs/Meds Orders: Active Orders 24 hr Category Date Time Status CULTURE BLOOD [BC] Stat Lab 05/23/19 13:20 Received CULTURE BLOOD [BC] Stat Lab 05/23/19 13:25 Received Labs: Laboratory Tests 05/23/19 05/23/19 05/23/19 Range/Units 13:20 13:20 13:20 WBC 12.4 H (5.0-10.0) 10^3/uL RBC 5.02 (4.2-5.4) 10^6/uL Hgb 13.4 (12.0-16.0) g/dL Hct 41.5 (37.0-47.0) % MCV 82.7 (80-100) fL MCH 26.7 L (27.0-34.0) pg MCHC 32.3 L (33.0-35.0) g/dL Plt Count 266 (150-450) 10^3/uL Neut % (Auto) 64.0 (42.2-75.2) % Lymph % (Auto) 20.5 (20.5-50.1) % [place] % (Auto) 12.9 H (2-8) % Eos % (Auto) 2.3 (1.0-3.0) % Baso % (Auto) 0.3 (0.0-1.0) % Sodium 141 (135-145) mmol/L Potassium 3.0 L (3.6-5.0) mmol/L Chloride 105 (101-111) mmol/L Carbon Dioxide 25.0 (21.0-31.0) mmol/L Anion Gap 14.0 BUN 12 (7-18) mg/dL Creatinine 0.8 (0.6-1.3) mg/dL Est Cr Clr Drug Dosing 81.10 mL/min Estimated GFR (MDRD) > 60 BUN/Creatinine Ratio 15.00 Glucose 95 (74-105) mg/dL Lactic Acid 1.7 (0.5-2.2) mmol/L Calcium 8.8 (8.4-10.2) mg/dl Total Bilirubin 0.4 (0.2-1.0) mg/dL AST 19 (10-42) IU/L ALT 14 (10-60) IU/L Alkaline Phosphatase 96 (42-121) IU/L Total Protein 6.9 (6.7-8.2) g/dl Albumin 3.5 (3.2-5.5) g/dl Globulin 3.4 Albumin/Globulin Ratio 1.03 Meds: Medications Discontinued Medications Generic Name Dose Route Start Last Admin Trade Name Joni PRN Reason Stop Dose Admin Levofloxacin 500 mg 05/23/19 14:11 Levaquin PO 05/23/19 14:12 ONETIME ONE Methylprednisolone Sodium Succinate 125 mg 05/23/19 13:48 05/23/19 14:13 Solu-Medrol IM 05/23/19 13:49 125 mg ONETIME ONE Administration Departure - Departure Time of Disposition: 14:13 Disposition: Home, Self-Care 01 Condition: Fair Clinical Impression: Acute asthma exacerbation Qualifiers: Asthma severity: moderate Asthma persistence: persistent Qualified Code(s): J45.41 - Moderate persistent asthma with (acute) exacerbation - Discharge Information *PRESCRIPTION DRUG MONITORING PROGRAM REVIEWED*: Not Applicable *COPY OF PRESCRIPTION DRUG MONITORING REPORT IN PATIENT ANA: Not Applicable Instructions: Asthma, Adult, [id number], Acute Bronchitis, Adult, Easy-to- Read Forms: ED Department Discharge Care Plan Goals: The patient was advised of the examination, lab and x-ray results during the visit. The patient was given an injection of SoluMedrol while in the ED and an oral dose of Levaquin. The patient was discharged with a script for Levaquin ( 500 mg) to take 1 by mouth daily for 7 days and Prednisone (20 mg) #10 to take 2 by mouth daily for 5 days. If the patient has any additional symptoms or concerns, the patient should either return to the emergency department or visit her primary care facility. - My Orders Last 24 Hours: My Active Orders 05/23/19 13:20 CULTURE BLOOD [BC] Stat 05/23/19 13:25 CULTURE BLOOD [BC] Stat - Assessment/Plan Last 24 Hours: My Active Orders 05/23/19 13:20 CULTURE BLOOD [BC] Stat 05/23/19 13:25 CULTURE BLOOD [BC] Stat
--- NOTE | 2019-05-23 13:57 | CR ---
EXAMINATION: Chest 2V SEX: Female AGE: 53 years CLINICAL HISTORY: 53-year-old female complaining of "short of breath". INTERPRETATION: (PA/lateral chest) 1. Reasonable inspiratory effort obese female. Normal cardiac silhouette without new signs of pulmonary venous congestion, cephalization of flow, alveolar edema or dependent pleural effusion when compared to 24 August 2018 exam. 2. Prominence of the nadya bilaterally suggesting pulmonary artery hypertension but no air trapping or cystic/bullous emphysematous changes. 3. Vertebral plasty 2 adjacent upper lumbar vertebra. 4. No new lung mass, focal lobar pneumonia, atelectasis or collapse. 5. No pneumothorax. No free subdiaphragmatic air. CONCLUSION: No acute new cardiopulmonary abnormality since comparison exam 24 August 2018.
[2019-05-23] MEDS ORDERED: Levofloxacin 500 MG Tab PO ONE (14:11)
== END 2019-05-23 14:25 | disposition home or self-care (01) ==
LOC: DL.ED 12:34
DX: J45.41 Moderate persistent asthma with (acute) exacerbation (principal); I10 Essential (primary) hypertension; J44.9 Chronic obstructive pulmonary disease, unspecified; E66.9 Obesity, unspecified; F17.210 Nicotine dependence, cigarettes, uncomplicated; Z88.0 Allergy status to penicillin; Z88.8 Allergy status to other drugs, medicaments and biological substances; Z91.041 Radiographic dye allergy status; Z68.33 Body mass index [BMI] 33.0-33.9, adult
CPT/HCPCS: 36415; 71046; 80053; 83605; 85025; 87040; 96372; 99285; A9270; J2930; 99283

== ENCOUNTER 2019-07-03 15:11 | Emergency (ER) | payer MEDICARE, MEDICAID ==
[2019-07-03 15:35] VITALS: BP 162/78
[2019-07-03 16:18] LABS: ANION GAP 13.4; CHLORIDE,CL 106 mmol/L (101-111); SODIUM,NA 139 mmol/L (135-145)
[2019-07-03] MEDS ORDERED: Albuterol/Ipratropium 3.0-0.5 MG/3 ML Neb Soln NEB ONE (16:48)
--- NOTE | 2019-07-03 16:50 | CR ---
EXAMINATION: Chest 2V SEX: Female AGE: 53 years CLINICAL HISTORY: 53-year-old female emergency department with SHORTNESS OF BREATH. INTERPRETATION: 1. Chronic shaggy accentuation perihilar lung markings unchanged since 23 May 2019 comparison film. (External quality assurance monitor chassis leads). 2. Normal cardiac silhouette without new pulmonary vascular congestion, alveolar edema or dependent pleural effusion. 3. No new lung mass, hilar lymphadenopathy or focal lobar pneumonia. 4. No pneumothorax or pneumomediastinum. 5. Evidence of vertebroplasty (x2) at the thoracolumbar juncture. No new thoracic spine fracture or dislocation. CONCLUSION: No acute new cardiopulmonary abnormality.
[2019-07-03] MEDS ORDERED: methylPREDNISolone Sodium Succinate 125 MG/2 ML SDV IVPUSH ONE (16:56)
--- NOTE | 2019-07-03 17:02 | EDM.PDOC ---
ED HPI GENERAL MEDICAL PROBLEM - General Chief Complaint: Respiratory Problem Stated Complaint: SOB Time Seen by Provider: 07/03/19 16:50 Source of Information: Reports: Patient History Limitations: Reports: No Limitations - History of Present Illness INITIAL COMMENTS - FREE TEXT/NARRATIVE: This 53 yo female patient reports to the ED with increased shortness of breath. The patient reports her shortness of breath got much worse over the past 2 days , but has been struggling with these symptoms for the past 3 months. The patient reports she has been on Levaquin twice, Azithromycin and a Medrol Dose pack with little to no improvement. The patient reports she has not been on antibiotics for about 1 week and finished her medrol dose pack about 1 week ago also. The patient is still on prednisone 5 mg daily. Duration: Day(s):, Constant, Getting Worse Location: Reports: Chest Quality: Reports: Other Severity: Severe Improves with: Reports: None Worsens with: Reports: None Context: Reports: Other Associated Symptoms: Reports: Shortness of Breath Back Pain Score (Numeric/FACES): 3 - Related Data Allergies Allergy/AdvReac Type Severity Reaction Status Date / Time atenolol Allergy Hives Verified 08/24/18 08:22 Iodinated Contrast Media Allergy Hives Verified 08/24/18 08:22 [Iodinated Contrast- Oral and IV Dye] Penicillins Allergy Hives Verified 08/24/18 08:22 Home Meds: Home Meds Arformoterol [Brovana] 2 ml INH BID 07/26/17 [History] Budesonide [Pulmicort] 2 ml INH BID 07/26/17 [History] Gabapentin [Neurontin] 300 mg PO BEDTIME 07/26/17 [History] LORazepam 1 mg PO DAILY PRN 07/26/17 [History] Montelukast [Singulair] 10 mg PO BEDTIME 07/26/17 [History] Roflumilast [Daliresp] 500 mcg PO DAILY 07/26/17 [History] traMADol [Ultram] 50 mg PO Q6HR PRN 07/26/17 [History] Hydrocodone/Acetaminophen [Hydrocodon-Acetaminophn 10-325] 1 tab PO BID [History] Acetaminophen [Tylenol] 650 mg PO Q4HR PRN 05/23/18 [History] Aspirin [Ecotrin EC] 81 mg PO DAILY 05/23/18 [History] Sertraline [Zoloft] 100 mg PO DAILY 05/23/18 [History] Umeclidinium [place] [Incruse Ellipta*] 1 puff INH DAILY 05/23/18 [History] amLODIPine Besylate [Norvasc] 5 mg PO DAILY 05/23/18 [History] clonazePAM [Clonazepam] 1 mg PO BEDTIME 05/23/18 [History] Albuterol [Proventil Neb Soln] 2 puff IH ASDIRECTED PRN 06/01/18 [History] Ipratropium/Albuterol Sulfate [Iprat-Albut 0.5-3(2.5) mg/3 ml] 1 ampule IH QID PRN 06/01/18 [History] Varenicline Tartrate [Chantix] 1 mg PO ASDIRECTED 06/01/18 [History] Famciclovir 500 mg PO TID #21 tablet 08/24/18 [Rx] Past Medical History HEENT History: Reports: Impaired Vision Other HEENT History: wears glasses Cardiovascular History: Reports: Hypertension Other Cardiovascular History: is not treated for hypertension anymore after she had the amputation 1 year ago. 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: Musculoskeletal History: Reports: Amputation Neurological History: Reports: None Psychiatric History: Reports: Anxiety Endocrine/Metabolic History: Reports: Obesity/BMI 30+ Hematologic History: Reports: None Immunologic History: Reports: None Oncologic (Cancer) History: Reports: None Dermatologic History: Reports: None - Infectious Disease History Infectious Disease History: Reports: Chicken Pox, Mumps - Past Surgical History Head Surgeries/Procedures: Reports: None Cardiovascular Surgical History: Reports: None Respiratory Surgical History: Reports: None GI Surgical History: Reports: Cholecystectomy, Hernia Repair/Other Other GI Surgeries/Procedures: part of pancreas was removed. mesh placed with abdominal hernia removal. Female Surgical History: Reports: Other (See Below) Other Female Surgeries/Procedures: uterus removed Musculoskeletal Surgical History: Reports: Amputation Other Musculoskeletal Surgeries/Procedures:: right mid calf amputation Social & Family History - Family History Family Medical History: Unobtainable - Tobacco Use Smoking Status *Q: Current Every Day Smoker Years of Tobacco use: 35 Packs/Tins Daily: 1 - Caffeine Use Caffeine Use: Reports: Coffee - Recreational Drug Use Recreational Drug Use: No - Living Situation & Occupation Living situation: Reports: , with Family ED ROS GENERAL - Review of Systems Review Of Systems: Comprehensive ROS is negative, except as noted in HPI. ED EXAM, GENERAL - Physical Exam Exam: See Below Exam Limited By: No Limitations General Appearance: Alert, WD/WN, Moderate Distress, Obese Eye Exam: Bilateral Eye: EOMI, Normal Inspection, PERRL Ears: Normal External Exam, Normal Canal, Hearing Grossly Normal, Normal TMs Nose: Normal Inspection, Normal Mucosa, No Blood Throat/Mouth: Normal Inspection, Normal Lips, Normal Teeth, Normal Gums, Normal Oropharynx, Normal Voice, No Airway Compromise Head: Atraumatic, Normocephalic Neck: Normal Inspection, Supple, Non-Tender, Full Range of Motion Respiratory/Chest: Decreased Breath Sounds, Rhonchi (diffuse), Wheezing, Prolonged Expiration Cardiovascular: Normal Peripheral Pulses, Regular Rate, Rhythm, No Edema, No Gallop, No JVD, No Murmur, No Rub GI/Abdominal: Normal Bowel Sounds, Soft, Non-Tender, No Organomegaly, No Distention, No Abnormal Bruit, No Mass (Female) Exam: Deferred Rectal (Female) Exam: Deferred Back Exam: Normal Inspection, Full Range of Motion, NT Extremities: Other (Right ankle amputation history) Neurological: Alert, Oriented, CN II-XII Intact, Normal Cognition Psychiatric: Normal Affect Skin Exam: Warm, Dry, Intact, Normal Color, No Rash Lymphatic: No Adenopathy Course - Vital Signs Last Recorded V/S: Last Vital Signs Temp 38.0 C 07/03/19 18:10 Pulse 94 07/03/19 16:48 Resp 22 H 07/03/19 15:14 BP 162/78 H 07/03/19 15:14 Pulse Ox 93 L 07/03/19 16:48 - Orders/Labs/Meds Orders: Active Orders 24 hr Category Date Time Status EKG Documentation Completion [RC] URGENT Care 07/03/19 15:42 Active RT Aerosol Therapy [RC] ASDIRECTED Care 07/03/19 16:48 Active Labs: Laboratory Tests 07/03/19 07/03/19 Range/Units 15:53 15:53 WBC 13.2 H (5.0-10.0) 10^3/uL RBC 5.00 (4.2-5.4) 10^6/uL Hgb 13.4 (12.0-16.0) g/dL Hct 41.2 (37.0-47.0) % MCV 82.4 (80-100) fL MCH 26.8 L (27.0-34.0) pg MCHC 32.5 L (33.0-35.0) g/dL Plt Count 248 (150-450) 10^3/uL Neut % (Auto) 62.0 (42.2-75.2) % Lymph % (Auto) 22.0 (20.5-50.1) % Gray % (Auto) 14.9 H (2-8) % Eos % (Auto) 0.8 L (1.0-3.0) % Baso % (Auto) 0.3 (0.0-1.0) % Sodium 139 (135-145) mmol/L Potassium 3.4 L (3.6-5.0) mmol/L Chloride 106 (101-111) mmol/L Carbon Dioxide 23.0 (21.0-31.0) mmol/L Anion Gap 13.4 BUN 9 (7-18) mg/dL Creatinine 0.8 (0.6-1.3) mg/dL Est Cr Clr Drug Dosing 81.10 mL/min Estimated GFR (MDRD) > 60 BUN/Creatinine Ratio 11.25 Glucose 98 (74-105) mg/dL Calcium 8.9 (8.4-10.2) mg/dl Total Bilirubin 0.7 (0.2-1.0) mg/dL AST 25 (10-42) IU/L ALT 21 (10-60) IU/L Alkaline Phosphatase 83 (42-121) IU/L Troponin I < 0.02 (0.00-0.02) ng/ml Total Protein 7.0 (6.7-8.2) g/dl Albumin 3.3 (3.2-5.5) g/dl Globulin 3.7 Albumin/Globulin Ratio 0.89 Meds: Medications Discontinued Medications Generic Name Dose Route Start Last Admin Trade Name Freq PRN Reason Stop Dose Admin Acetaminophen 1,000 mg 07/03/19 17:47 07/03/19 18:10 Tylenol Extra Strength PO 07/03/19 17:48 1,000 mg ONETIME ONE Administration Albuterol/Ipratropium 3 ml 07/03/19 16:48 07/03/19 17:00 Duoneb 3.0-0.5 Mg/3 Ml NEB 07/03/19 16:49 3 ml ONETIME ONE Administration Levofloxacin/Dextrose 750 mg/ 150 mls @ 100 mls/hr 07/03/19 17:38 07/03/19 17 :44 Premix IV 07/03/19 19:07 100 mls/hr ONETIME ONE Administration Methylprednisolone Sodium Succinate 125 mg 07/03/19 16:56 07/03/19 17:12 Solu-Medrol IVPUSH 07/03/19 16:57 125 mg ONETIME ONE Administration - Re-Assessments/Exams Free Text/Narrative Re-Assessment/Exam: 07/03/19 17:41 Discussed the lab and x-ray results with the patient. An order was placed for IV Levaquin (750 mg) to be administered in the ED. Departure - Departure Time of Disposition: 19:13 Disposition: Home, Self-Care 01 Condition: Fair Clinical Impression: COPD exacerbation, Tobacco dependency - Discharge Information *PRESCRIPTION DRUG MONITORING PROGRAM REVIEWED*: Not Applicable *COPY OF PRESCRIPTION DRUG MONITORING REPORT IN PATIENT ANA: Not Applicable Instructions: Chronic Obstructive Pulmonary Disease Exacerbation, [id number] Forms: ED Department Discharge Care Plan Goals: The patient was advised of the examination, lab and x-ray results during the visit. The patient was given a Duoneb treatment, IV Solumedrol and IV Levaquin while in the ED. The patient was discharged with a script for Levaquin (500 mg) #7 to take 1 by mouth daily and Prednisone (20 mg) #10 to take 2 by mouth daily for 5 days. If the patient has any additional symptoms or concerns, the patient should either return to the emergency department, visit her dress operator or visit her primary care facility. - My Orders Last 24 Hours: My Active Orders 07/03/19 15:42 EKG Documentation Completion [RC] URGENT 07/03/19 16:48 RT Aerosol Therapy [RC] ASDIRECTED - Assessment/Plan Last 24 Hours: My Active Orders 07/03/19 15:42 EKG Documentation Completion [RC] URGENT 07/03/19 16:48 RT Aerosol Therapy [RC] ASDIRECTED
[2019-07-03 17:03] VITALS: PULSE 94
[2019-07-03] MEDS ORDERED: Levofloxacin/Dextrose 5%-Water 750 MG in Premix Bag 1 BAG IV ONE (17:38)
[2019-07-03] MEDS ORDERED: Acetaminophen 500 MG Tab PO ONE (17:47)
== END 2019-07-03 19:40 | disposition home or self-care (01) ==
LOC: DL.ED 15:11
DX: J44.1 Chronic obstructive pulmonary disease with (acute) exacerbation (principal); I10 Essential (primary) hypertension; F41.9 Anxiety disorder, unspecified; E66.9 Obesity, unspecified; Z68.32 Body mass index [BMI] 32.0-32.9, adult; F17.210 Nicotine dependence, cigarettes, uncomplicated; Z88.8 Allergy status to other drugs, medicaments and biological substances; Z88.0 Allergy status to penicillin; Z91.041 Radiographic dye allergy status; Z79.82 Long term (current) use of aspirin; Z79.51 Long term (current) use of inhaled steroids; Z79.899 Other long term (current) drug therapy
CPT/HCPCS: 36415; 71046; 80053; 84484; 85025; 93005; 94640; 96365; 96366; 96375; 99283; 99285-25; A9270-GY; J1956; J2930; J7620-GY

== ENCOUNTER 2019-08-19 12:37 | Emergency (ER) | payer MEDICARE, MEDICAID ==
[2019-08-19 13:21] VITALS: BP 171/88
[2019-08-19 14:09] LABS: ANION GAP 11.1; CHLORIDE,CL 107 mmol/L (101-111); SODIUM,NA 142 mmol/L (135-145)
[2019-08-19] MEDS ORDERED: Albuterol/Ipratropium 3.0-0.5 MG/3 ML Neb Soln NEB ONE (14:15)
[2019-08-19 14:30] VITALS: PULSE 80
--- NOTE | 2019-08-19 15:26 | EDM.PDOC ---
"Scribed by Sary Valdes 08/19/19 [id number] for Tee Wills MD ED HPI GENERAL MEDICAL PROBLEM - General Chief Complaint: Respiratory Problem Stated Complaint: SHORT OF BREATH/FEVER/DIZZY Time Seen by Provider: 08/19/19 13:28 Source of Information: Reports: Patient, RN, RN Notes Reviewed History Limitations: Reports: No Limitations - History of Present Illness INITIAL COMMENTS - FREE TEXT/NARRATIVE: Patient presents to ER from home by PO with c/o shortness of breath, dizziness, and low-grade fever (fever is only at night) which is slowly and progressively worsening for 1 month. Patient states she was transferred from here to [facility] in [place] a month ago and was told she had MRSA in her left lung. Patient states she has not felt well since being discharged about one month ago. Admits to occ. sputum production, she doesn't know what color it is. She has been using her inhalers and nebulizer without improvement. Pt states that she continues to smoke. She reports Hx of requiring multiple intubations for resp. failure in the past. Onset: Gradual Duration: Week(s): (4-6), Constant, Getting Worse Location: Reports: Chest Quality: Reports: Ache Severity: Moderate Improves with: Reports: None Worsens with: Reports: None Associated Symptoms: Reports: No Other Symptoms Treatments CUSTOMS EXAMINER: Reports: Breathing Treatments, Oxygen Left Thoracic Pain Score (Numeric/FACES): 3 - Related Data Allergies Allergy/AdvReac Type Severity Reaction Status Date / Time atenolol Allergy Hives Verified 08/19/19 13:23 Iodinated Contrast Media Allergy Hives Verified 08/19/19 13:23 [Iodinated Contrast- Oral and IV Dye] Penicillins Allergy Hives Verified 08/19/19 13:23 Home Meds: Home Meds Arformoterol [Brovana] 2 ml INH BID 07/26/17 [History] Budesonide [Pulmicort] 2 ml INH BID 07/26/17 [History] Gabapentin [Neurontin] 300 mg PO BEDTIME 07/26/17 [History] LORazepam 1 mg PO DAILY PRN 07/26/17 [History] Montelukast [Singulair] 10 mg PO BEDTIME 07/26/17 [History] Roflumilast [Daliresp] 500 mcg PO DAILY 07/26/17 [History] traMADol [Ultram] 50 mg PO Q6HR PRN 07/26/17 [History] Hydrocodone/Acetaminophen [Hydrocodon-Acetaminophn 10-325] 1 tab PO BID [History] Acetaminophen [Tylenol] 650 mg PO Q4HR PRN 05/23/18 [History] Aspirin [Ecotrin EC] 81 mg PO DAILY 05/23/18 [History] Sertraline [Zoloft] 100 mg PO DAILY 05/23/18 [History] Umeclidinium [place] [Incruse Ellipta*] 1 puff INH DAILY 05/23/18 [History] amLODIPine Besylate [Norvasc] 5 mg PO DAILY 05/23/18 [History] clonazePAM [Clonazepam] 1 mg PO BEDTIME 05/23/18 [History] Albuterol [Proventil Neb Soln] 2 puff IH ASDIRECTED PRN 06/01/18 [History] Ipratropium/Albuterol Sulfate [Iprat-Albut 0.5-3(2.5) mg/3 ml] 1 ampule IH QID PRN 06/01/18 [History] Varenicline Tartrate [Chantix] 1 mg PO ASDIRECTED 06/01/18 [History] Famciclovir 500 mg PO TID #21 tablet 08/24/18 [Rx] Past Medical History HEENT History: Reports: Impaired Vision Other HEENT History: wears glasses Cardiovascular History: Reports: Hypertension Other Cardiovascular History: is not treated for hypertension anymore after she had the amputation 1 year ago. 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: Musculoskeletal History: Reports: Amputation Neurological History: Reports: None Psychiatric History: Reports: Anxiety Endocrine/Metabolic History: Reports: Obesity/BMI 30+ Hematologic History: Reports: None Immunologic History: Reports: None Oncologic (Cancer) History: Reports: None Dermatologic History: Reports: None - Infectious Disease History Infectious Disease History: Reports: Chicken Pox, Mumps - Past Surgical History Head Surgeries/Procedures: Reports: None Cardiovascular Surgical History: Reports: None Respiratory Surgical History: Reports: None GI Surgical History: Reports: Cholecystectomy, Hernia Repair/Other Other GI Surgeries/Procedures: part of pancreas was removed. mesh placed with abdominal hernia removal. Female Surgical History: Reports: Other (See Below) Other Female Surgeries/Procedures: uterus removed Musculoskeletal Surgical History: Reports: Amputation Other Musculoskeletal Surgeries/Procedures:: right mid calf amputation Social & Family History - Family History Family Medical History: Unobtainable - Tobacco Use Smoking Status *Q: Current Every Day Smoker Tobacco Use Within Last Twelve Months: Cigarettes - Caffeine Use Caffeine Use: Reports: Coffee - Living Situation & Occupation Living situation: Reports: , with Family ED ROS GENERAL - Review of Systems Review Of Systems: Comprehensive ROS is negative, except as noted in HPI. ED EXAM, GENERAL - Physical Exam Exam: See Below Exam Limited By: No Limitations General Appearance: Alert, No Apparent Distress, Obese, Other (Chronically ill appearing) Eye Exam: Bilateral Eye: EOMI, Normal Inspection, PERRL Nose: Normal Inspection, Normal Mucosa, No Blood Throat/Mouth: Normal Lips, Normal Oropharynx, Normal Voice, No Airway Compromise , Other (Dentures) Head: Atraumatic, Normocephalic Neck: Normal Inspection, Supple, Non-Tender, Full Range of Motion Respiratory/Chest: No Respiratory Distress, No Accessory Muscle Use, Decreased Breath Sounds, Crackles, Wheezing. No: Rales, Stridor Cardiovascular: Normal Peripheral Pulses, Regular Rate, Rhythm, No Edema, No Gallop, No JVD, No Murmur, No Rub GI/Abdominal: Normal Bowel Sounds, Soft, Non-Tender, No Organomegaly, No Distention, No Abnormal Bruit, No Mass (Female) Exam: Deferred Rectal (Female) Exam: Deferred Back Exam: Normal Inspection, Full Range of Motion, NT Extremities: Normal Range of Motion, Non-Tender, No Pedal Edema, Normal Capillary Refill, Other (Rt BKA) Neurological: Alert, Oriented, Normal Cognition, No Motor/Sensory Deficits Psychiatric: Normal Affect, Normal Mood Skin Exam: Warm, Dry, Intact, Normal Color, No Rash Course - Vital Signs Last Recorded V/S: Last Vital Signs Temp 98.1 F 08/19/19 13:13 Pulse 80 08/19/19 14:15 Resp 20 08/19/19 13:13 BP 171/88 H 08/19/19 13:13 Pulse Ox 97 08/19/19 14:15 - Orders/Labs/Meds Orders: Active Orders 24 hr Category Date Time Status RT Aerosol Therapy [RC] ASDIRECTED Care 08/19/19 14:15 Active CULTURE STREP A CONFIRMATION [RM] Stat Lab 08/19/19 13:03 Results STREP SCRN A RAPID W CULT CONF [RM] Stat Lab 08/19/19 13:03 Results Labs: Laboratory Tests 08/19/19 08/19/19 Range/Units 13:43 13:43 WBC 12.3 H (5.0-10.0) 10^3/uL RBC 4.85 (4.2-5.4) 10^6/uL Hgb 13.2 (12.0-16.0) g/dL Hct 41.5 (37.0-47.0) % MCV 85.6 D (80-100) fL MCH 27.2 (27.0-34.0) pg MCHC 31.8 L (33.0-35.0) g/dL Plt Count 292 (150-450) 10^3/uL Neut % (Auto) 60.5 (42.2-75.2) % Lymph % (Auto) 28.5 (20.5-50.1) % [place] % (Auto) 10.0 H (2-8) % Eos % (Auto) 0.7 L (1.0-3.0) % Baso % (Auto) 0.3 (0.0-1.0) % Sodium 142 (135-145) mmol/L Potassium 4.1 (3.6-5.0) mmol/L Chloride 107 (101-111) mmol/L Carbon Dioxide 28.0 (21.0-31.0) mmol/L Anion Gap 11.1 BUN 11 (7-18) mg/dL Creatinine 0.8 (0.6-1.3) mg/dL Est Cr Clr Drug Dosing 78.18 mL/min Estimated GFR (MDRD) > 60 Glucose 92 (74-105) mg/dL Calcium 8.8 (8.4-10.2) mg/dl Rapid strep: Negative. Influenza A and B: Negative. Meds: Medications Discontinued Medications Generic Name Dose Route Start Last Admin Trade Name Freq PRN Reason Stop Dose Admin Albuterol/Ipratropium 3 ml 08/19/19 14:15 08/19/19 14:28 Duoneb 3.0-0.5 Mg/3 Ml NEB 08/19/19 14:16 3 ml ONETIME ONE Administration - Radiology Interpretation Free Text/Narrative:: [facility] [place] [facility] Final Radiology Report Call: [phone] assistance Online chat: [email or web address] Name: ROXANE LONG Age: 53Years F Date: 08/19/2019 SSN: -- : 1965 Study: CT CHEST WO Requesting Physician: TEE WILLS Images: [id number] Addl Studies: Provided Clinical History: Contrast: Without Contrast Medium: Contrast Amount: Contrast Method: Page 1 of 2 PROCEDURE INFORMATION: Exam: CT Chest Without Contrast Exam date and time: 08/19/2019 1:55 PM Age: 53 years old Clinical indication: Cough and fever and shortness of breath TECHNIQUE: Imaging protocol: Computed tomography of the chest without contrast. Radiation optimization: All CT scans at this facility use at least one of these dose optimization techniques: automated exposure control; mA and/or kV adjustment per patient size (includes targeted exams where dose is matched to clinical indication); or iterative reconstruction. COMPARISON: CR Chest 2V 07/03/2019 4:15 PM FINDINGS: Limitations: Evaluation is somewhat limited by lack of IV contrast. Lungs: The lungs demonstrate mild upper lobe predominant panlobular emphysematous disease. There is minor dependent atelectasis on the right, with mild scarring inferiorly. The lungs are otherwise clear. The central airways appear patent. Pleural space: Unremarkable. No pneumothorax. No pleural effusion. Heart: Coronary artery calcifications are noted. No significant pericardial effusion. Aorta: The thoracic aorta is nonaneurysmal. Atherosclerotic vascular calcifications are noted. Lymph nodes: No gross pathologic lymphadenopathy. Liver: The partially visualized liver is fatty in density. Spleen: The partially visualized spleen appears somewhat lobulated, significance uncertain. Bones/joints: Unremarkable. No acute fracture. Soft tissues: Unremarkable. IMPRESSION: 1. Mild emphysematous disease. ROXANE LONG | Final Radiology Report CONFIDENTIALITY STATEMENT This report is intended only for use by the referring physician, and only in accordance with law. If you received this in error, call [phone]. Page 2 of 2 2. Fatty liver. 3. Lobulated appearance of the partially visualized spleen, significance uncertain. Thank you for allowing us to participate in the care of your patient. Dictated and Authenticated by: Michael Agosto MD 08/19/2019 3:15 PM Central Time ([place] & [place]) Departure - Departure Time of Disposition: 15:24 Disposition: Home, Self-Care 01 Condition: Good Clinical Impression: Acute exacerbation of chronic obstructive pulmonary disease (COPD) - Discharge Information *PRESCRIPTION DRUG MONITORING PROGRAM REVIEWED*: No *COPY OF PRESCRIPTION DRUG MONITORING REPORT IN PATIENT ANA: No Instructions: Chronic Obstructive Pulmonary Disease Exacerbation, [id number] Forms: ED Department Discharge Additional Instructions: Rx: Levaquin 500mg Rx: Prednisone 20mg Continue breathing treatments and all other medications as prescribed. Follow up in clinic in 3 to 4 days. Sepsis Event Note - Evaluation Sepsis Screening Result: No Definite Risk - Focused Exam Vital Signs: Vital Signs Temp Pulse Resp BP Pulse Ox Pulse Ox 08/19/19 14:15 80 97 08/19/19 13:13 98.1 F 88 20 171/88 H 100 Date Exam was Performed: 08/19/19 Time Exam was Performed: 15:23 - My Orders Last 24 Hours: My Active Orders 08/19/19 13:03 CULTURE STREP A CONFIRMATION [RM] Stat STREP SCRN A RAPID W CULT CONF [RM] Stat 08/19/19 14:15 RT Aerosol Therapy [RC] ASDIRECTED - Assessment/Plan Last 24 Hours: My Active Orders 08/19/19 13:03 CULTURE STREP A CONFIRMATION [RM] Stat STREP SCRN A RAPID W CULT CONF [RM] Stat 08/19/19 14:15 RT Aerosol Therapy [RC] ASDIRECTED I have read and agree with the documentation that has been completed regarding this visit. By signing this record, I attest that the documentation was completed in my physical presence and is an accurate record of the encounter."
== END 2019-08-19 15:38 | disposition home or self-care (01) ==
LOC: DL.ED 12:37
DX: J44.1 Chronic obstructive pulmonary disease with (acute) exacerbation (principal); I10 Essential (primary) hypertension; F17.210 Nicotine dependence, cigarettes, uncomplicated; Z88.0 Allergy status to penicillin; Z91.041 Radiographic dye allergy status; Z79.899 Other long term (current) drug therapy; Z79.82 Long term (current) use of aspirin
CPT/HCPCS: 36415; 71250; 80048; 85025; 87081; 87430; 87804; 94640; 99285-25; J7620-GY

== ENCOUNTER 2020-01-06 05:12 | Observation (INO) | payer MEDICARE, MEDICAID, OTHER ==
[2020-01-06] MEDS ORDERED: methylPREDNISolone Sodium Succinate 125 MG/2 ML SDV IVPUSH ONE (05:24)
[2020-01-06 05:52] LABS: ANION GAP 12.1 mEq/L (7-13); CHLORIDE,CL 104 mmol/L (98-107); SODIUM,NA 141 mmol/L (136-145)
--- NOTE | 2020-01-06 05:55 | EDM.PDOC ---
ED HPI GENERAL MEDICAL PROBLEM - General Chief Complaint: Respiratory Problem Stated Complaint: AMBULANCE Time Seen by Provider: 01/06/20 05:50 Source of Information: Reports: Patient History Limitations: Reports: No Limitations - History of Present Illness INITIAL COMMENTS - FREE TEXT/NARRATIVE: c/o 1 month h/o SOB saw her PMD in [facility] and had CAT chest and covid done Thurs but no results. tonight felt worse with pain left side of lower ribs. EMS gave neb en route. [facility] called results of covid pending and CAT of chest nothing acute. Right Flank Pain Score (Numeric/FACES): 9 - Related Data Allergies Allergy/AdvReac Type Severity Reaction Status Date / Time atenolol Allergy Hives Verified 01/06/20 05:20 Iodinated Contrast Media Allergy Hives Verified 01/06/20 05:20 [Iodinated Contrast- Oral and IV Dye] Penicillins Allergy Hives Verified 01/06/20 05:20 Home Meds: Home Meds Arformoterol [Brovana] 2 ml INH BID 07/26/17 [History] Budesonide [Pulmicort] 2 ml INH BID 07/26/17 [History] Gabapentin [Neurontin] 300 mg PO BEDTIME 07/26/17 [History] LORazepam 1 mg PO DAILY PRN 07/26/17 [History] Montelukast [Singulair] 10 mg PO BEDTIME 07/26/17 [History] Roflumilast [Daliresp] 500 mcg PO DAILY 07/26/17 [History] traMADol [Ultram] 50 mg PO Q6HR PRN 07/26/17 [History] Acetaminophen [Tylenol] 650 mg PO Q4HR PRN 05/23/18 [History] Aspirin [Ecotrin EC] 81 mg PO DAILY 05/23/18 [History] Umeclidinium [place] [Incruse Ellipta*] 1 puff INH DAILY 05/23/18 [History] amLODIPine Besylate [Norvasc] 5 mg PO DAILY 05/23/18 [History] Albuterol [Proventil Neb Soln] 2 puff IH ASDIRECTED PRN 06/01/18 [History] Ipratropium/Albuterol Sulfate [Iprat-Albut 0.5-3(2.5) mg/3 ml] 1 ampule IH QID PRN 06/01/18 [History] Famciclovir 500 mg PO TID #21 tablet 08/24/18 [Rx] buPROPion [buPROPion XL] 150 mg PO BEDTIME 01/06/20 [History] methylPREDNISolone [Methylprednisolone] See Protocol PO ASDIRECTED 01/06/20 [ History] Past Medical History HEENT History: Reports: Impaired Vision Other HEENT History: wears glasses Cardiovascular History: Reports: Hypertension Other Cardiovascular History: is not treated for hypertension anymore after she had the amputation 1 year ago. 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: Musculoskeletal History: Reports: Amputation Neurological History: Reports: None Psychiatric History: Reports: Anxiety Endocrine/Metabolic History: Reports: Obesity/BMI 30+ Hematologic History: Reports: None Immunologic History: Reports: None Oncologic (Cancer) History: Reports: None Dermatologic History: Reports: None - Infectious Disease History Infectious Disease History: Reports: Chicken Pox, Mumps - Past Surgical History Head Surgeries/Procedures: Reports: None Cardiovascular Surgical History: Reports: None Respiratory Surgical History: Reports: None GI Surgical History: Reports: Cholecystectomy, Hernia Repair/Other Other GI Surgeries/Procedures: part of pancreas was removed. mesh placed with abdominal hernia removal. Female Surgical History: Reports: Other (See Below) Other Female Surgeries/Procedures: uterus removed Musculoskeletal Surgical History: Reports: Amputation Other Musculoskeletal Surgeries/Procedures:: right mid calf amputation Social & Family History - Family History Family Medical History: Unobtainable - Tobacco Use Smoking Status *Q: Current Every Day Smoker Years of Tobacco use: 30 Packs/Tins Daily: 0.5 - Caffeine Use Caffeine Use: Reports: None - Recreational Drug Use Recreational Drug Use: No - Living Situation & Occupation Living situation: Reports: , with Family ED ROS GENERAL - Review of Systems Review Of Systems: Comprehensive ROS is negative, except as noted in HPI. ED EXAM, GENERAL - Physical Exam Exam: See Below Exam Limited By: No Limitations General Appearance: Alert, WD/WN, Anxious, Mild Distress, Moderate Distress Ears: Hearing Grossly Normal Throat/Mouth: Normal Voice, No Airway Compromise Head: Atraumatic Neck: Non-Tender, Full Range of Motion Respiratory/Chest: Decreased Breath Sounds, Rhonchi, Wheezing, Other (tachypnoea ) Cardiovascular: Regular Rate, Rhythm GI/Abdominal: Soft, Non-Tender Neurological: Alert, Oriented, Normal Cognition Psychiatric: Anxious Skin Exam: Warm, Dry, Normal Color Lymphatic: No Adenopathy Course - Vital Signs Last Recorded V/S: Last Vital Signs Temp 37.0 C 01/06/20 05:20 Pulse 99 01/06/20 05:37 Resp 15 01/06/20 05:37 BP 144/71 H 01/06/20 05:37 Pulse Ox 94 L 01/06/20 05:37 - Orders/Labs/Meds Orders: Active Orders 24 hr Category Date Time Status CULTURE BLOOD [BC] Routine Lab 01/06/20 04:20 Received Levofloxacin/Dextrose 5%-Water [Levaquin in D5W 750 MG/ Med 01/06/20 07:07 Ordered 150 ML] 750 mg Premix Bag 1 bag IV ONETIME Medication Orders Levofloxacin/Dextrose 750 mg/ (Premix) 150 mls @ 100 mls/hr IV ONETIME ONE Stop: 01/06/20 08:36 Labs: Laboratory Tests 01/06/20 01/06/20 01/06/20 Range/Units 04:20 04:20 04:20 WBC 16.7 H (5.0-10.0) 10^3/uL RBC 5.43 H (4.2-5.4) 10^6/uL Hgb 14.2 (12.0-16.0) g/dL Hct 44.1 (37.0-47.0) % MCV 81.2 D (80-100) fL MCH 26.2 L (27.0-34.0) pg MCHC 32.2 L (33.0-35.0) g/dL Plt Count 371 D (150-450) 10^3/uL Neut % (Auto) 63.0 (42.2-75.2) % Lymph % (Auto) 24.3 (20.5-50.1) % [place] % (Auto) 10.7 H (2-8) % Eos % (Auto) 1.7 (1.0-3.0) % Baso % (Auto) 0.3 (0.0-1.0) % Add Manual Diff Yes Neutrophils % (Manual) 67 (42-75) % Band Neutrophils % 1 % Lymphocytes % (Manual) 18 L (20-50) % Atypical Lymphs % 0 % Monocytes % (Manual) 9 H (2-8) % Eosinophils % (Manual) 4 H (1-3) % Basophils % (Manual) 1 D-Dimer, Quantitative (0-400) ng/mL Sodium 141 (136-145) mmol/L Potassium 4.1 (3.5-5.1) mmol/L Chloride 104 (98-107) mmol/L Carbon Dioxide 29 (21-32) mmol/L Anion Gap 12.1 (7-13) mEq/L BUN 21 H (7-18) mg/dL Creatinine 1.29 H (0.55-1.02) mg/dL Est Cr Clr Drug Dosing 47.92 mL/min Estimated GFR (MDRD) 43 BUN/Creatinine Ratio 16.3 (No establ ref range) Glucose 100 H (74-99) mg/dL Lactic Acid 2.5 H* (0.4-2.0) mmol/L Calcium 9.1 (8.5-10.1) mg/dL Total Bilirubin 0.2 (0.2-1.0) mg/dL AST 21 (15-37) U/L ALT 44 (14-59) U/L Alkaline Phosphatase 127 H (46-116) U/L Troponin I < 0.017 (0.000-0.056) ng/mL B-Natriuretic Peptide 27 (0-100) pg/ml Total Protein 7.1 (6.4-8.2) g/dL Albumin 3.4 (3.4-5.0) g/dL Globulin 3.7 Albumin/Globulin Ratio 0.9 SARS-CoV-2 RNA (RT-PCR) (NEGATIVE) 01/06/20 01/06/20 Range/Units 05:20 06:27 WBC (5.0-10.0) 10^3/uL RBC (4.2-5.4) 10^6/uL Hgb (12.0-16.0) g/dL Hct (37.0-47.0) % MCV (80-100) fL MCH (27.0-34.0) pg MCHC (33.0-35.0) g/dL Plt Count (150-450) 10^3/uL Neut % (Auto) (42.2-75.2) % Lymph % (Auto) (20.5-50.1) % [place] % (Auto) (2-8) % Eos % (Auto) (1.0-3.0) % Baso % (Auto) (0.0-1.0) % Add Manual Diff Neutrophils % (Manual) (42-75) % Band Neutrophils % % Lymphocytes % (Manual) (20-50) % Atypical Lymphs % % Monocytes % (Manual) (2-8) % Eosinophils % (Manual) (1-3) % Basophils % (Manual) D-Dimer, Quantitative 621 H (0-400) ng/mL Sodium (136-145) mmol/L Potassium (3.5-5.1) mmol/L Chloride (98-107) mmol/L Carbon Dioxide (21-32) mmol/L Anion Gap (7-13) mEq/L BUN (7-18) mg/dL Creatinine (0.55-1.02) mg/dL Est Cr Clr Drug Dosing mL/min Estimated GFR (MDRD) BUN/Creatinine Ratio (No establ ref range) Glucose (74-99) mg/dL Lactic Acid (0.4-2.0) mmol/L Calcium (8.5-10.1) mg/dL Total Bilirubin (0.2-1.0) mg/dL AST (15-37) U/L ALT (14-59) U/L Alkaline Phosphatase (46-116) U/L Troponin I (0.000-0.056) ng/mL B-Natriuretic Peptide (0-100) pg/ml Total Protein (6.4-8.2) g/dL Albumin (3.4-5.0) g/dL Globulin Albumin/Globulin Ratio SARS-CoV-2 RNA (RT-PCR) Negative (NEGATIVE) Meds: Medications Generic Name Dose Route Start Last Admin Trade Name Freq PRN Reason Stop Dose Admin Levofloxacin/Dextrose 750 mg/ 150 mls @ 100 mls/hr 01/06/20 07:07 Premix IV 01/06/20 08:36 ONETIME ONE Discontinued Medications Generic Name Dose Route Start Last Admin Trade Name Freq PRN Reason Stop Dose Admin Ketorolac Tromethamine 30 mg 01/06/20 06:30 01/06/20 06:34 Toradol IVPUSH 01/06/20 06:31 30 mg ONETIME ONE Administration Methylprednisolone Sodium Succinate 125 mg 01/06/20 05:24 01/06/20 05:30 Solu-Medrol IVPUSH 01/06/20 05:25 125 mg ONETIME ONE Administration - Re-Assessments/Exams Free Text/Narrative Re-Assessment/Exam: 01/06/20 06:10 re-exam; s/p neb + IV solumedrol = much better pt no longer tachypnoeic and anxious 01/06/20 07:[address] Morel who kindly admitted pt to observation. Departure - Departure Time of Disposition: 07:11 Disposition: Refer to Observation Condition: Good Clinical Impression: COPD with acute exacerbation - Discharge Information Forms: ED Department Discharge Sepsis Event Note - Evaluation Sepsis Screening Result: No Definite Risk - Focused Exam Vital Signs: Vital Signs Temp Pulse Resp BP Pulse Ox 01/06/20 05:37 99 15 144/71 H 94 L 01/06/20 05:20 37.0 C 111 H 45 H 175/90 H 95 Date Exam was Performed: 01/06/20 Time Exam was Performed: 07:10 - My Orders Last 24 Hours: My Active Orders 01/06/20 04:20 CULTURE BLOOD [BC] Routine 01/06/20 07:07 Levofloxacin/Dextrose 5%-Water [Levaquin in D5W 750 MG/150 ML] 750 mg Premix Bag 1 bag IV ONETIME - Assessment/Plan Last 24 Hours: My Active Orders 01/06/20 04:20 CULTURE BLOOD [BC] Routine 01/06/20 07:07 Levofloxacin/Dextrose 5%-Water [Levaquin in D5W 750 MG/150 ML] 750 mg Premix Bag 1 bag IV ONETIME
--- NOTE | 2020-01-06 06:20 | CR ---
PROCEDURE INFORMATION: Exam: XR Chest, 1 View Exam date and time: 01/06/2020 6:09 AM Age: 54 years old Clinical indication: Other: Resp distress TECHNIQUE: Imaging protocol: XR of the chest Views: 1 view. COMPARISON: CR Chest 2V 07/03/2019 4:15 PM FINDINGS: The film is lordotic. There has been resection of the distal right clavicle. The bones, soft tissues and mediastinum otherwise appear unremarkable. The lungs are clear. The exam is unchanged from the previous exam. IMPRESSION: Essentially negative chest x-ray.
[2020-01-06] MEDS ORDERED: Ketorolac 30 MG/ML SDV IVPUSH ONE (06:30)
[2020-01-06] MEDS ORDERED: Levofloxacin/Dextrose 5%-Water 750 MG in Premix Bag 1 BAG IV ONE (07:07)
[2020-01-06] MEDS ORDERED: LORazepam 1 MG Tab PO PRN (09:06)
[2020-01-06] MEDS ORDERED: Benzonatate 100 MG Cap PO PRN (09:06)
[2020-01-06] MEDS ORDERED: Albuterol/Ipratropium 3.0-0.5 MG/3 ML Neb Soln NEB PRN (09:09)
[2020-01-06] MEDS ORDERED: Sodium Chloride 0.9% 10 ML Syringe FLUSH PRN (09:10)
[2020-01-06] MEDS ORDERED: Zolpidem 5 MG Tab PO PRN (09:10)
[2020-01-06] MEDS ORDERED: predniSONE 20 MG Tab PO SCH (09:15)
--- NOTE | 2020-01-06 10:17 | PCM.HP ---
H&P History of Present Illness - General Date of Service: 01/06/20 Admit Problem/Dx: Admission Diagnosis/Problem Admission Diagnosis/Problem COPD, Moderate chronic obstructive pulmonary disease Source of Information: Patient - History of Present Illness Initial Comments - Free Text/Narative: Presented with pain that has been present for about a month. It is radiating from the back radiating towards the front. When the pain is severe it is difficult to take a deep breath. The pain is worse with touching the right rib cage. She denies fall or direct injury to the rib cage but a few weeks ago she heard the sound of a zipper breaking when she was leaning forward. In the emergency room the patient received a Toradol injection. The pain improved. She is feeling no unusual shortness of breath now - has chronic sob with home oxygen at night. Right Flank Pain Score (Numeric/FACES): 9 - Related Data Allergies/Adverse Reactions: Allergies Allergy/AdvReac Type Severity Reaction Status Date / Time atenolol Allergy Hives Verified 01/06/20 07:34 Iodinated Contrast Media Allergy Hives Verified 01/06/20 07:34 [Iodinated Contrast- Oral and IV Dye] Penicillins Allergy Hives Verified 01/06/20 07:34 Home Medications: Home Meds Budesonide [Pulmicort] 2 ml INH BID 07/26/17 [History] Gabapentin [Neurontin] 300 mg PO BEDTIME 07/26/17 [History] LORazepam 1 mg PO DAILY PRN 07/26/17 [History] Montelukast [Singulair] 10 mg PO BEDTIME 07/26/17 [History] Roflumilast [Daliresp] 500 mcg PO DAILY 07/26/17 [History] traMADol [Ultram] 50 mg PO Q6HR PRN 07/26/17 [History] Acetaminophen [Tylenol] 650 mg PO Q4HR PRN 05/23/18 [History] Aspirin [Ecotrin EC] 81 mg PO DAILY 05/23/18 [History] amLODIPine Besylate [Norvasc] 5 mg PO DAILY 05/23/18 [History] Albuterol [Proventil Neb Soln] 2 puff IH ASDIRECTED PRN 06/01/18 [History] Ipratropium/Albuterol Sulfate [Iprat-Albut 0.5-3(2.5) mg/3 ml] 1 ampule IH QID PRN 06/01/18 [History] Albuterol [Ventolin HFA] 2 puff IH Q4HR PRN 01/06/20 [History] Alendronate Sodium 1 tab PO DAILY 01/06/20 [History] Arformoterol [Brovana] 2 ml NEB BID 01/06/20 [History] Benzonatate [Tessalon Perle] 100 mg PO BID PRN 01/06/20 [History] Umeclidinium Christine [Incruse Ellipta*] 1 puff IH DAILY 01/06/20 [History] buPROPion [buPROPion XL] 150 mg PO BEDTIME 01/06/20 [History] predniSONE [Prednisone] 10 mg PO DAILY 01/06/20 [History] Past Medical History HEENT History: Reports: Impaired Vision Other HEENT History: wears glasses Cardiovascular History: Reports: Hypertension Other Cardiovascular History: is not treated for hypertension anymore after she had the amputation 1 year ago. 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: Musculoskeletal History: Reports: Amputation, Osteoporosis Neurological History: Reports: None Psychiatric History: Reports: Anxiety Endocrine/Metabolic History: Reports: Obesity/BMI 30+ Hematologic History: Reports: None Immunologic History: Reports: None Oncologic (Cancer) History: Reports: None Dermatologic History: Reports: None - Infectious Disease History Infectious Disease History: Reports: Chicken Pox, Mumps, Shingles - Past Surgical History Head Surgeries/Procedures: Reports: None Cardiovascular Surgical History: Reports: None Respiratory Surgical History: Reports: None GI Surgical History: Reports: Cholecystectomy, Hernia Repair/Other Other GI Surgeries/Procedures: part of pancreas was removed. mesh placed with abdominal hernia removal. Female Surgical History: Reports: Other (See Below) Other Female Surgeries/Procedures: uterus removed Musculoskeletal Surgical History: Reports: Amputation Other Musculoskeletal Surgeries/Procedures:: right mid calf amputation Social & Family History - Family History Family Medical History: Unobtainable - Tobacco Use Smoking Status *Q: Current Every Day Smoker Years of Tobacco use: 30 Packs/Tins Daily: 0.5 - Caffeine Use Caffeine Use: Reports: Soda - Recreational Drug Use Recreational Drug Use: No - Living Situation & Occupation Living situation: Reports: , with Family H&P Review of Systems - Review of Systems: Review Of Systems: See Below General: Reports: Malaise. Denies: Fever, Chills Pulmonary: Reports: Shortness of Breath (chronic) Cardiovascular: Reports: Chest Pain (r. lower chest, starting from back - rad band like towards front) Gastrointestinal: Denies: Abdominal Pain, Nausea Genitourinary: Denies: Dysuria Psychiatric: Denies: Confusion Exam - Exam Exam: See Below - Vital Signs Vital Signs: Last Vital Signs Temp 98 F 01/06/20 07:33 Pulse 90 01/06/20 07:33 Resp 22 H 01/06/20 07:33 BP 149/77 H 01/06/20 07:33 Pulse Ox 98 01/06/20 07:33 Weight: 234 lb 3.2 oz - Exam Quality Assessment: No: Supplemental Oxygen General: Alert, Oriented Neck: Supple Lungs: Clear to Auscultation, Normal Respiratory Effort. No: Wheezing Cardiovascular: Regular Rate, Regular Rhythm GI/Abdominal Exam: Normal Bowel Sounds, Soft, Non-Tender, Other (reproducible pain with pressure on the ribcage on r. side) Extremities: No Pedal Edema, Other (s/p amputation ) Neuro Extensive - Mental Status: Alert, Oriented x3 Psychiatric: Anxious - Patient Data Lab Results Last 24 hrs: Laboratory Results - last 24 hr 01/06/20 01/06/20 01/06/20 Range/Units 04:20 04:20 04:20 WBC 16.7 H (5.0-10.0) 10^3/uL RBC 5.43 H (4.2-5.4) 10^6/uL Hgb 14.2 (12.0-16.0) g/dL Hct 44.1 (37.0-47.0) % MCV 81.2 D (80-100) fL MCH 26.2 L (27.0-34.0) pg MCHC 32.2 L (33.0-35.0) g/dL Plt Count 371 D (150-450) 10^3/uL Neut % (Auto) 63.0 (42.2-75.2) % Lymph % (Auto) 24.3 (20.5-50.1) % Will % (Auto) 10.7 H (2-8) % Eos % (Auto) 1.7 (1.0-3.0) % Baso % (Auto) 0.3 (0.0-1.0) % Add Manual Diff Yes Neutrophils % (Manual) 67 (42-75) % Band Neutrophils % 1 % Lymphocytes % (Manual) 18 L (20-50) % Atypical Lymphs % 0 % Monocytes % (Manual) 9 H (2-8) % Eosinophils % (Manual) 4 H (1-3) % Basophils % (Manual) 1 D-Dimer, Quantitative (0-400) ng/mL Sodium 141 (136-145) mmol/L Potassium 4.1 (3.5-5.1) mmol/L Chloride 104 (98-107) mmol/L Carbon Dioxide 29 (21-32) mmol/L Anion Gap 12.1 (7-13) mEq/L BUN 21 H (7-18) mg/dL Creatinine 1.29 H (0.55-1.02) mg/dL Est Cr Clr Drug Dosing 47.92 mL/min Estimated GFR (MDRD) 43 BUN/Creatinine Ratio 16.3 (No establ ref range) Glucose 100 H (74-99) mg/dL Lactic Acid 2.5 H* (0.4-2.0) mmol/L Calcium 9.1 (8.5-10.1) mg/dL Total Bilirubin 0.2 (0.2-1.0) mg/dL AST 21 (15-37) U/L ALT 44 (14-59) U/L Alkaline Phosphatase 127 H (46-116) U/L Troponin I < 0.017 (0.000-0.056) ng/mL B-Natriuretic Peptide 27 (0-100) pg/ml Total Protein 7.1 (6.4-8.2) g/dL Albumin 3.4 (3.4-5.0) g/dL Globulin 3.7 Albumin/Globulin Ratio 0.9 SARS-CoV-2 RNA (RT-PCR) (NEGATIVE) 01/06/20 01/06/20 Range/Units 05:20 06:27 WBC (5.0-10.0) 10^3/uL RBC (4.2-5.4) 10^6/uL Hgb (12.0-16.0) g/dL Hct (37.0-47.0) % MCV (80-100) fL MCH (27.0-34.0) pg MCHC (33.0-35.0) g/dL Plt Count (150-450) 10^3/uL Neut % (Auto) (42.2-75.2) % Lymph % (Auto) (20.5-50.1) % Will % (Auto) (2-8) % Eos % (Auto) (1.0-3.0) % Baso % (Auto) (0.0-1.0) % Add Manual Diff Neutrophils % (Manual) (42-75) % Band Neutrophils % % Lymphocytes % (Manual) (20-50) % Atypical Lymphs % % Monocytes % (Manual) (2-8) % Eosinophils % (Manual) (1-3) % Basophils % (Manual) D-Dimer, Quantitative 621 H (0-400) ng/mL Sodium (136-145) mmol/L Potassium (3.5-5.1) mmol/L Chloride (98-107) mmol/L Carbon Dioxide (21-32) mmol/L Anion Gap (7-13) mEq/L BUN (7-18) mg/dL Creatinine (0.55-1.02) mg/dL Est Cr Clr Drug Dosing mL/min Estimated GFR (MDRD) BUN/Creatinine Ratio (No establ ref range) Glucose (74-99) mg/dL Lactic Acid (0.4-2.0) mmol/L Calcium (8.5-10.1) mg/dL Total Bilirubin (0.2-1.0) mg/dL AST (15-37) U/L ALT (14-59) U/L Alkaline Phosphatase (46-116) U/L Troponin I (0.000-0.056) ng/mL B-Natriuretic Peptide (0-100) pg/ml Total Protein (6.4-8.2) g/dL Albumin (3.4-5.0) g/dL Globulin Albumin/Globulin Ratio SARS-CoV-2 RNA (RT-PCR) Negative (NEGATIVE) Result Diagrams: 01/06/20 04:20 01/06/20 04:20 - Problem List (1) COPD (chronic obstructive pulmonary disease) SNOMED Code(s): 24862026 ICD Code: J44.9 - CHRONIC OBSTRUCTIVE PULMONARY DISEASE, UNSPECIFIED Status : Acute Current Visit: Yes (2) Back pain SNOMED Code(s): 719496614 ICD Code: M54.9 - DORSALGIA, UNSPECIFIED Status: Acute Current Visit: Yes (3) T12 compression fracture SNOMED Code(s): 101266508 ICD Code: S22.080A - WEDGE COMPRESSION FRACTURE OF T11-T12 VERTEBRA, INIT Status: Acute Current Visit: Yes Problem List Initiated/Reviewed/Updated: Yes Orders Last 24hrs: Active Orders 24 hr Category Date Time Status Admission Diagnosis [ADT] Stat ADT 01/06/20 07:11 Ordered Admission Status [Patient Status] [ADT] Routine ADT 01/06/20 07:11 Active Antiembolic Devices [RC] PER UNIT ROUTINE Care 01/06/20 09:10 Active Oxygen Therapy [RC] PRN Care 01/06/20 09:10 Active Peripheral IV Care [RC] ,21 Care 01/06/20 09:10 Active RT Aerosol Therapy [RC] ASDIRECTED Care 01/06/20 09:09 Active Up With Assistance [RC] ASDIRECTED Care 01/06/20 09:10 Active VTE/DVT Education [RC] PER UNIT ROUTINE Care 01/06/20 09:10 Active Vital Signs [RC] 00,04,08,12,16,20 Care 01/06/20 09:10 Active Regular Diet [DIET] Diet 01/06/20 Lunch Active BASIC METABOLIC PANEL,BMP [CHEM] AM Lab 01/07/20 05:11 Ordered CBC W/O DIFF,HEMOGRAM [HEME] AM Lab 01/07/20 05:11 Ordered CULTURE BLOOD [BC] Routine Lab 01/06/20 04:20 Received CULTURE URINE [RM] Routine Lab 01/06/20 10:07 Ordered HEPATIC FUNCTION PANEL,HFP [CHEM] Routine Lab 01/06/20 10:10 Ordered LACTIC ACID [CHEM] Routine Lab 01/06/20 10:03 Ordered LIPASE [CHEM] Routine Lab 01/06/20 10:09 Ordered UA W/MICROSCOPIC [URIN] Routine Lab 01/06/20 10:07 Ordered Albuterol/Ipratropium [DuoNeb 3.0-0.5 MG/3 ML] Med 01/06/20 09:09 Active 3 ml NEB Q2H PRN Albuterol/Ipratropium [DuoNeb 3.0-0.5 MG/3 ML] Med 01/06/20 13:00 Active 3 ml NEB Q6HRRT Aspirin [Halfprin] Med 01/06/20 09:15 Active 81 mg PO DAILY Benzonatate [Tessalon Perles] Med 01/06/20 09:06 Active 100 mg PO BID PRN Gabapentin [Neurontin] Med 01/06/20 21:00 Active 300 mg PO BEDTIME Heparin Sodium Med 01/06/20 14:00 Active 5,000 units SUBCUT Q8HR LORazepam [Ativan] Med 01/06/20 09:06 Active 1 mg PO Q6H PRN Montelukast [Singulair] Med 01/06/20 21:00 Active 10 mg PO BEDTIME Sodium Chloride 0.9% [Saline Flush] Med 01/06/20 09:10 Active 10 ml FLUSH ASDIRECTED PRN Zolpidem [Ambien] Med 01/06/20 09:10 Active 5 mg PO BEDTIME PRN amLODIPine [Norvasc] Med 01/06/20 09:15 Active 5 mg PO DAILY buPROPion [Wellbutrin XL] Med 01/06/20 21:00 Active 150 mg PO BEDTIME levoFLOXacin [Levaquin] Med 01/07/20 08:00 Active 500 mg PO Q24H predniSONE Med 01/07/20 09:00 Ordered 10 mg PO DAILY traMADol [Ultram] Med 01/06/20 09:06 Active 50 mg PO Q6H PRN Antiembolic Hose [OM.PC] Per Unit Routine Oth 01/06/20 09:10 Ordered Peripheral IV Insertion Adult [OM.PC] Routine Oth 01/06/20 09:10 Ordered Saline Lock Insert [OM.PC] Routine Oth 01/06/20 09:10 Ordered Resuscitation Status Routine Resus Stat 01/06/20 09:10 Ordered Medication Orders Albuterol/Ipratropium (Duoneb 3.0-0.5 Mg/3 Ml) 3 ml NEB Q6HRRT ASHLEY Albuterol/Ipratropium (Duoneb 3.0-0.5 Mg/3 Ml) 3 ml NEB Q2H PRN PRN Reason: sob Amlodipine Besylate (Norvasc) 5 mg PO DAILY ASHLEY Aspirin (Halfprin) 81 mg PO DAILY ASHLEY Benzonatate (Tessalon Perles) 100 mg PO BID PRN PRN Reason: Cough Bupropion HCl (Wellbutrin Xl) 150 mg PO BEDTIME ASHLEY Gabapentin (Neurontin) 300 mg PO BEDTIME ASHLEY Heparin Sodium (Porcine) (Heparin Sodium) 5,000 units SUBCUT Q8HR ASHLEY Levofloxacin (Levaquin) 500 mg PO Q24H ASHLEY Lorazepam (Ativan) 1 mg PO Q6H PRN PRN Reason: Anxiety Montelukast Sodium (Singulair) 10 mg PO BEDTIME ASHLEY Prednisone (Prednisone) 10 mg PO DAILY ASHLEY Sodium Chloride (Saline Flush) 10 ml FLUSH ASDIRECTED PRN PRN Reason: Keep Vein Open Tramadol HCl (Ultram) 50 mg PO Q6H PRN PRN Reason: Pain Zolpidem Tartrate (Ambien) 5 mg PO BEDTIME PRN PRN Reason: Sleep Assessment/Plan Comment:: CT abd from [facility] IMPRESSION: 1. Possible small enhancing mass in the LEFT renal pelvis, CT urogram is recommended for further evaluation. 2. 3.8 cm infrarenal abdominal aortic aneurysm, increased from 3.6 cm. 3. 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 Moderate narrowing of the RIGHT renal artery at the origin. 4. Occluded or severely stenotic celiac artery, unchanged. 5. Hepatic steatosis. 6. Nonobstructing LEFT nephrolithiasis. 7. Minimal colonic diverticulosis. 8. Cholecystectomy. h/o copd, steroid induced leukocytosis, t12 compression fx. h/o chronic clinton, on chronic narc use was on hydrocodone for years now taking tramadol PRN Presented with pain that has been present for about a month. It is radiating from the back radiating towards the front. When the pain is severe it is difficult to take a deep breath. The pain is worse with touching the right rib cage. She denies fall or direct injury to the rib cage but a few weeks ago she heard the sound of a zipper breaking when she was leaning forward. In the emergency room the patient received a Toradol injection. The pain improved. She is feeling no unusual shortness of breath. COPD with no acute exacerbation Continue Singulair, Use Pulmicort DuoNeb scheduled and as needed Oral prednisone Leukocytosis, elevated lactic acid Recent CT abd (12/27) Showed no abscess Will get UA Repeat lactic acid Check lipase, LFTs No apparent sepsis She was Given levofloxacin in ER Hypertension Treat with Norvasc Has h/o PE, Ddimer minimally elevated Doubt dvt/pe clinically Depression, anxiety Continue bupropion Ativan as needed Multiple abnormalities on Recent CT AAA, infrarenal, Possible small left renal pelvis mass Non obstructing nephrolithiasis Follow up with PMD Dvt prophylaxis Sq heparin
[2020-01-06] MEDS: amLODIPine 5 MG Tab PO SCH (11:23)
[2020-01-06] MEDS: Aspirin 81 MG Tab.EC PO SCH (11:23)
[2020-01-06] MEDS: traMADol 50 MG Tab PO PRN ×2 (11:40→20:38)
[2020-01-06] MEDS: Albuterol/Ipratropium 3.0-0.5 MG/3 ML Neb Soln NEB SCH ×2 (13:35→17:57)
[2020-01-06] MEDS: NS + KCl 20mEq/L 1,000 ML IV SCH (13:54)
[2020-01-06] MEDS: Heparin Sodium 5,000 Units/ML Vial SUBCUT SCH ×3 (13:55→21:03)
--- NOTE | 2020-01-06 16:52 | CT ---
PROCEDURE INFORMATION: Exam: CT Chest Without Contrast Exam date and time: 01/06/2020 4:31 PM Age: 54 years old Clinical indication: Abdominal pain; Localized; Right upper quadrant (ruq); Other: Lower chest; Prior surgery; Surgery date: 6+ months; Surgery type: Hysterectomy, hernia repair, cholecystectomy; Additional info: Lower chest, R. Abd pain with leukocytosis, lactic TECHNIQUE: Imaging protocol: Computed tomography of the chest without contrast. Radiation optimization: All CT scans at this facility use at least one of these dose optimization techniques: automated exposure control; mA and/or kV adjustment per patient size (includes targeted exams where dose is matched to clinical indication); or iterative reconstruction. COMPARISON: No relevant prior studies available. FINDINGS: Lungs: The lungs are normal. The bronchial tree is normal. Pleural space: There are no pleural effusions present. Heart: The heart is not enlarged. Mediastinum: The trachea is normal. Aorta: The vasculature demonstrates diffuse mild atherosclerotic calcification. Lymph nodes: No pathologic lymph node enlargement is demonstrated. Bones/joints: Unremarkable Soft tissues: The extrathoracic soft tissues are normal. IMPRESSION: No acute abnormality. PROCEDURE INFORMATION: Exam: CT Abdomen And Pelvis Without Contrast Exam date and time: 01/06/2020 4:31 PM Age: 54 years old Clinical indication: Abdominal pain; Localized; Right upper quadrant (ruq); Other: Lower chest; Prior surgery; Surgery date: 6+ months; Surgery type: Hysterectomy, hernia repair, cholecystectomy; Additional info: Lower chest, R. Abd pain with leukocytosis, lactic TECHNIQUE: Imaging protocol: Computed tomography of the abdomen and pelvis without contrast. Radiation optimization: All CT scans at this facility use at least one of these dose optimization techniques: automated exposure control; mA and/or kV adjustment per patient size (includes targeted exams where dose is matched to clinical indication); or iterative reconstruction. COMPARISON: No relevant prior studies available. FINDINGS: Liver: The liver is normal. Gallbladder and bile ducts: There has been a cholecystectomy. Pancreas: The pancreas is normal. Spleen: The spleen is normal. Adrenals: The adrenal glands are normal. Kidneys and ureters: The kidneys are normal. The ureters are normal. Stomach and bowel: No over distention of bowel loops is seen. Appendix: A normal appendix is identified. Intraperitoneal space: No evidence of intraperitoneal free air. Vasculature: The vasculature demonstrates diffuse mild atherosclerotic calcification. Lymph nodes: No pathologic lymph node enlargement is demonstrated. Bladder: The bladder is normal. Reproductive: The uterus is not visualized, and may be surgically absent. Bones/joints: Vertebroplasty cement is present in multiple vertebral bodies. The facet joints demonstrate mild degenerative hypertrophy and sclerosis. Soft tissues: The extra-abdominal soft tissues are normal. IMPRESSION: No acute abnormality.
[2020-01-06] MEDS ORDERED: buPROPion 150 MG Tab.ER PO SCH (21:00)
[2020-01-06] MEDS ORDERED: Montelukast 10 MG Tab PO SCH (21:00)
[2020-01-06] MEDS ORDERED: Gabapentin 300 MG Cap PO SCH (21:00)
[2020-01-07] MEDS ORDERED: Calcium Carbonate 500 MG Tab.Chew PO PRN (00:24)
[2020-01-07] MEDS: Albuterol/Ipratropium 3.0-0.5 MG/3 ML Neb Soln NEB SCH ×2 (00:45→07:19)
[2020-01-07] MEDS: NS + KCl 20mEq/L 1,000 ML IV SCH (00:49)
[2020-01-07] MEDS: Heparin Sodium 5,000 Units/ML Vial SUBCUT SCH (05:40)
[2020-01-07] MEDS: traMADol 50 MG Tab PO PRN (05:44)
[2020-01-07 07:20] VITALS: PULSE 87
[2020-01-07 07:37] LABS: ANION GAP 13.4 mEq/L (7-13)
[2020-01-07] MEDS ORDERED: Levofloxacin 500 MG Tab PO SCH (08:00)
[2020-01-07 08:27] VITALS: BP 141/96
[2020-01-07] MEDS ORDERED: predniSONE 10 MG Tab PO SCH (09:00)
[2020-01-07] MEDS: amLODIPine 5 MG Tab PO SCH (10:52)
[2020-01-07] MEDS: Aspirin 81 MG Tab.EC PO SCH (10:53)
--- NOTE | 2020-01-07 10:58 | PCM.DCSUM1 ---
Discharge Summary - Hospital Course Free Text/Narrative:: h/o copd, steroid induced leukocytosis, t12 compression fx. h/o chronic clinton, on chronic narc use was on hydrocodone for years now taking tramadol PRN on admission: Presented with pain that has been present for about a month. It is radiating from the back radiating towards the front. When the pain is severe it is difficult to take a deep breath. The pain was worse with touching the right rib cage. She denies fall or direct injury to the rib cage but a few weeks ago she heard the sound of a zipper breaking when she was leaning forward. In the emergency room the patient received a Toradol injection. The pain improved. She is feeling no unusual shortness of breath. hospital course: COPD with no acute exacerbation Continue Singulair, Use Pulmicort DuoNeb scheduled and as needed Oral prednisone Leukocytosis, elevated lactic acid - Recent CT abd (12/27) - Showed no abscess negative UA for uti normal lipase, LFTs No apparent sepsis She was Given levofloxacin in ER lactic acid normalized with ivf ct chest, abd, pelvis w/o contrast showed no acute abnormalities back, r. side pain might relate to h/o T12 compression fx has f/up with Physiatry Hypertension Treat with Norvas Depression, anxiety Continue bupropion Ativan as needed Multiple abnormalities on Recent CT AAA, infrarenal, Possible small left renal pelvis mass Non obstructing nephrolithiasis Follow up with PMD Diagnosis: Stroke: No - Discharge Data Discharge Date: 01/07/20 Discharge Disposition: Home, Self-Care 01 Condition: Stable - Referral to Home Health Primary Care Physician: PCP Unobtainable - Discharge Diagnosis/Problem(s) (1) COPD (chronic obstructive pulmonary disease) SNOMED Code(s): 08518475 ICD Code: J44.9 - CHRONIC OBSTRUCTIVE PULMONARY DISEASE, UNSPECIFIED Status : Acute Current Visit: Yes (2) Back pain SNOMED Code(s): 285182143 ICD Code: M54.9 - DORSALGIA, UNSPECIFIED Status: Acute Current Visit: Yes (3) T12 compression fracture SNOMED Code(s): 498449947 ICD Code: S22.080A - WEDGE COMPRESSION FRACTURE OF T11-T12 VERTEBRA, INIT Status: Acute Current Visit: Yes - Patient Instructions Diet: Heart Healthy Diet - Discharge Plan Prescriptions/Med Rec: traMADol [Ultram] 50 mg PO Q6H PRN #12 tablet PRN Reason: Pain Home Medications: Home Meds Budesonide [Pulmicort] 2 ml INH BID 07/26/17 [History] Gabapentin [Neurontin] 300 mg PO BEDTIME 07/26/17 [History] LORazepam 1 mg PO DAILY PRN 07/26/17 [History] Montelukast [Singulair] 10 mg PO BEDTIME 07/26/17 [History] Roflumilast [Daliresp] 500 mcg PO DAILY 07/26/17 [History] Acetaminophen [Tylenol] 650 mg PO Q4HR PRN 05/23/18 [History] Aspirin [Ecotrin EC] 81 mg PO DAILY 05/23/18 [History] amLODIPine Besylate [Norvasc] 5 mg PO DAILY 05/23/18 [History] Albuterol [Proventil Neb Soln] 2 puff IH ASDIRECTED PRN 06/01/18 [History] Ipratropium/Albuterol Sulfate [Iprat-Albut 0.5-3(2.5) mg/3 ml] 1 ampule IH QID PRN 06/01/18 [History] Albuterol [Ventolin HFA] 2 puff IH Q4HR PRN 01/06/20 [History] Alendronate Sodium 1 tab PO DAILY 01/06/20 [History] Arformoterol [Brovana] 2 ml NEB BID 01/06/20 [History] Benzonatate [Tessalon Perle] 100 mg PO BID PRN 01/06/20 [History] Umeclidinium [place] [Incruse Ellipta*] 1 puff IH DAILY 01/06/20 [History] buPROPion [buPROPion XL] 150 mg PO BEDTIME 01/06/20 [History] predniSONE [Prednisone] 10 mg PO DAILY 01/06/20 [History] traMADol [Ultram] 50 mg PO Q6H PRN #12 tablet 01/07/20 [Rx] Oxygen Therapy Mode: Room Air Referrals: PCP,Unobtain [Primary Care Provider] - (f/up with dr. Melendez in 2-3 days) - Discharge Summary/Plan Comment DC Time >30 min.: No - Patient Data Vitals - Most Recent: Last Vital Signs Temp 97.3 F 01/07/20 08:00 Pulse 87 01/07/20 08:00 Resp 20 01/07/20 08:00 BP 141/96 H 01/07/20 10:52 Pulse Ox 93 L 01/07/20 08:00 Weight - Most Recent: 234 lb 3.2 oz Lab Results - Last 24 hrs: Laboratory Results - last 24 hr 01/06/20 01/06/20 01/06/20 Range/Units 10:14 13:55 14:19 WBC (5.0-10.0) 10^3/uL RBC (4.2-5.4) 10^6/uL Hgb (12.0-16.0) g/dL Hct (37.0-47.0) % MCV (80-100) fL MCH (27.0-34.0) pg MCHC (33.0-35.0) g/dL Plt Count (150-450) 10^3/uL Sodium (136-145) mmol/L Potassium (3.5-5.1) mmol/L Chloride (98-107) mmol/L Carbon Dioxide (21-32) mmol/L Anion Gap (7-13) mEq/L BUN (7-18) mg/dL Creatinine (0.55-1.02) mg/dL Est Cr Clr Drug Dosing mL/min Estimated GFR (MDRD) Glucose (74-99) mg/dL Lactic Acid 3.8 H* (0.4-2.0) mmol/L Calcium (8.5-10.1) mg/dL Total Bilirubin 0.2 (0.2-1.0) mg/dL Direct Bilirubin < 0.1 (0.0-0.2) mg/dL Indirect Bilirubin 0.94107 AST 25 (15-37) U/L ALT 45 (14-59) U/L Alkaline Phosphatase 125 H (46-116) U/L Total Protein 6.8 (6.4-8.2) g/dL Albumin 3.1 L (3.4-5.0) g/dL Globulin 3.7 Albumin/Globulin Ratio 0.84 Lipase 85 (73-393) U/L Urine Color Yellow (YELLOW) Urine Appearance Clear (CLEAR) Urine pH 7.0 (5.0-9.0) Ur Specific [place] 1.020 (1.005-1.030) Urine Protein Negative (NEGATIVE) Urine Glucose (UA) Negative (NEGATIVE) Urine Ketones Negative (NEGATIVE) Urine Occult Blood Trace-intact H (NEGATIVE) Urine Nitrite Negative (NEGATIVE) Urine Bilirubin Negative (NEGATIVE) Urine Urobilinogen 0.2 (0.2-1.0) mg/dL Ur Leukocyte Esterase Negative (NEGATIVE) Urine RBC 0-5 /HPF Urine WBC Not seen (0-5/HPF) /HPF Ur Epithelial Cells Few (NOT SEEN) /HPF Urine Bacteria Rare (0-FEW/HPF) /HPF 01/07/20 01/07/20 01/07/20 Range/Units 06:00 06:00 06:00 WBC 14.9 H (5.0-10.0) 10^3/uL RBC 4.99 (4.2-5.4) 10^6/uL Hgb 12.8 (12.0-16.0) g/dL Hct 40.3 (37.0-47.0) % MCV 80.8 (80-100) fL MCH 25.7 L (27.0-34.0) pg MCHC 31.8 L (33.0-35.0) g/dL Plt Count 326 (150-450) 10^3/uL Sodium 143 (136-145) mmol/L Potassium 4.4 (3.5-5.1) mmol/L Chloride 110 H (98-107) mmol/L Carbon Dioxide 24 (21-32) mmol/L Anion Gap 13.4 H (7-13) mEq/L BUN 22 H (7-18) mg/dL Creatinine 0.99 (0.55-1.02) mg/dL Est Cr Clr Drug Dosing 62.44 mL/min Estimated GFR (MDRD) 58 Glucose 97 (74-99) mg/dL Lactic Acid 1.3 (0.4-2.0) mmol/L Calcium 8.8 (8.5-10.1) mg/dL Total Bilirubin (0.2-1.0) mg/dL Direct Bilirubin (0.0-0.2) mg/dL Indirect Bilirubin AST (15-37) U/L ALT (14-59) U/L Alkaline Phosphatase (46-116) U/L Total Protein (6.4-8.2) g/dL Albumin (3.4-5.0) g/dL Globulin Albumin/Globulin Ratio Lipase (73-393) U/L Urine Color (YELLOW) Urine Appearance (CLEAR) Urine pH (5.0-9.0) Ur Specific [place] (1.005-1.030) Urine Protein (NEGATIVE) Urine Glucose (UA) (NEGATIVE) Urine Ketones (NEGATIVE) Urine Occult Blood (NEGATIVE) Urine Nitrite (NEGATIVE) Urine Bilirubin (NEGATIVE) Urine Urobilinogen (0.2-1.0) mg/dL Ur Leukocyte Esterase (NEGATIVE) Urine RBC /HPF Urine WBC (0-5/HPF) /HPF Ur Epithelial Cells (NOT SEEN) /HPF Urine Bacteria (0-FEW/HPF) /HPF HUSSAIN Results - Last 24 hrs: Microbiology 01/06/20 13:55 Urine Culture - Preliminary Urine, Bladder NO GROWTH AFTER 1 DAY 01/06/20 04:20 Aerobic Blood Culture - Preliminary Blood NO GROWTH AFTER 1 DAY Anaerobic Blood Culture - Preliminary NO GROWTH AFTER 1 DAY 01/06/20 05:15 Anaerobic Blood Culture - Final Blood - Venous - Lab Draw Med Orders - Current: Current Medications Albuterol/Ipratropium (Duoneb 3.0-0.5 Mg/3 Ml) 3 ml NEB Q6HRRT [facility] Last Admin: 01/07/20 07:19 Dose: 3 ml Albuterol/Ipratropium (Duoneb 3.0-0.5 Mg/3 Ml) 3 ml NEB Q2H PRN PRN Reason: sob Last Admin: 01/06/20 11:22 Dose: 3 ml Amlodipine Besylate (Norvasc) 5 mg PO DAILY [facility] Last Admin: 01/07/20 10:52 Dose: 5 mg Aspirin (Halfprin) 81 mg PO DAILY [facility] Last Admin: 01/07/20 10:53 Dose: 81 mg Benzonatate (Tessalon Perles) 100 mg PO BID PRN PRN Reason: Cough Bupropion HCl (Wellbutrin Xl) 150 mg PO BEDTIME [facility] Last Admin: 01/06/20 20:38 Dose: 150 mg Calcium Carbonate/Glycine (Tums) 500 mg PO Q2H PRN PRN Reason: Heartburn Last Admin: 01/07/20 00:45 Dose: 500 mg Gabapentin (Neurontin) 300 mg PO BEDTIME [facility] Last Admin: 01/06/20 20:38 Dose: 300 mg Heparin Sodium (Porcine) (Heparin Sodium) 5,000 units SUBCUT Q8HR [facility] Last Admin: 01/07/20 05:40 Dose: 5,000 units Potassium Chloride/Sodium Chloride (Normal Saline With 20 Meq Kcl) 1,000 mls @ 100 mls/hr IV ASDIRECTED [facility] Last Admin: 01/07/20 00:49 Dose: 100 mls/hr Levofloxacin (Levaquin) 500 mg PO Q24H ASHLEY Last Admin: 01/07/20 10:53 Dose: 500 mg Lorazepam (Ativan) 1 mg PO Q6H PRN PRN Reason: Anxiety Last Admin: 01/06/20 20:38 Dose: 1 mg Montelukast Sodium (Singulair) 10 mg PO BEDTIME [facility] Last Admin: 01/06/20 20:38 Dose: 10 mg Prednisone (Prednisone) 10 mg PO DAILY [facility] Last Admin: 01/07/20 10:53 Dose: 10 mg Sodium Chloride (Saline Flush) 10 ml FLUSH ASDIRECTED PRN PRN Reason: Keep Vein Open Tramadol HCl (Ultram) 50 mg PO Q6H PRN PRN Reason: Pain Last Admin: 01/07/20 05:44 Dose: 50 mg Zolpidem Tartrate (Ambien) 5 mg PO BEDTIME PRN PRN Reason: Sleep Discontinued Medications Levofloxacin/Dextrose 750 mg/ (Premix) 150 mls @ 100 mls/hr IV ONETIME ONE Stop: 01/06/20 08:36 Last Admin: 01/06/20 07:18 Dose: 100 mls/hr Ketorolac Tromethamine (Toradol) 30 mg IVPUSH ONETIME ONE Stop: 01/06/20 06:31 Last Admin: 01/06/20 06:34 Dose: 30 mg Methylprednisolone Sodium Succinate (Solu-Medrol) 125 mg IVPUSH ONETIME ONE Stop: 01/06/20 05:25 Last Admin: 01/06/20 05:30 Dose: 125 mg Prednisone (Prednisone) 40 mg PO DAILY [facility] Last Admin: 01/06/20 10:28 Dose: Not Given
== END 2020-01-07 11:45 | disposition home or self-care (01) ==
LOC: DL.ED 05:12 → DL.MS 07:11
PROVIDERS: ADMIT Internal Medicine; ATTEND Internal Medicine
DX: J44.9 Chronic obstructive pulmonary disease, unspecified (principal); D72.828 Other elevated white blood cell count; R79.89 Other specified abnormal findings of blood chemistry; G89.29 Other chronic pain; S22.080A Wedge compression fracture of T11-T12 vertebra, initial encounter for closed fracture; I10 Essential (primary) hypertension; F41.9 Anxiety disorder, unspecified; E66.9 Obesity, unspecified; F17.210 Nicotine dependence, cigarettes, uncomplicated; F32.9 Major depressive disorder, single episode, unspecified; I71.4 Abdominal aortic aneurysm, without rupture; N20.0 Calculus of kidney; Z20.828 Contact with and (suspected) exposure to other viral communicable diseases; Z88.8 Allergy status to other drugs, medicaments and biological substances; Z88.1 Allergy status to other antibiotic agents; Z68.37 Body mass index [BMI] 37.0-37.9, adult; Z86.711 Personal history of pulmonary embolism; Z91.041 Radiographic dye allergy status; Z79.82 Long term (current) use of aspirin; Z79.899 Other long term (current) drug therapy; X58.XXXA Exposure to other specified factors, initial encounter
CPT/HCPCS: 36415; 71045; 71250; 74176; 80048; 80053; 80076; 81001; 83605; 83690; 83880; 84484; 85025; 85027; 85379; 87040; 87086; 94640; 96361; 96372; 96374; 96375; 99284; 99285; A9270; G0378; J1644; J1885; J1956; J2930; J3480; J7512; U0002; 99217; 99218; J7620-GY

== ENCOUNTER 2020-02-14 20:11 | Emergency (ER) | payer MEDICARE, MEDICAID ==
[2020-02-14 20:34] VITALS: BP 152/82; PULSE 101
[2020-02-14] MEDS ORDERED: Aspirin 81 MG Tab.Chew PO ONE (20:37)
[2020-02-14] MEDS ORDERED: methylPREDNISolone Sodium Succinate 125 MG/2 ML SDV IVPUSH ONE (20:37)
[2020-02-14] MEDS ORDERED: Albuterol/Ipratropium 3.0-0.5 MG/3 ML Neb Soln NEB ONE (20:37)
[2020-02-14] MEDS ORDERED: Budesonide 0.5 MG/2 ML Neb Susp NEB ONE (20:40)
[2020-02-14 20:57] LABS: ANION GAP 14.2 mEq/L (7-13)
[2020-02-14] MEDS ORDERED: Azithromycin 500 MG in Sodium Chloride 0.9% 250 ML IV ONE (21:25)
[2020-02-14] MEDS ORDERED: cefTRIAXone 1 GM in Sodium Chloride 0.9% 50 ML IV ONE (21:25)
--- NOTE | 2020-02-14 21:28 | CR ---
PROCEDURE INFORMATION: Exam: XR Chest, 1 View Exam date and time: 02/14/2020 8:42 PM Age: 54 years old Clinical indication: Shortness of breath; Chest pain; Type not specified; Additional info: Cp SOB TECHNIQUE: Imaging protocol: XR of the chest Views: 1 view. COMPARISON: CR Chest 1V Frontal 01/06/2020 6:09 AM FINDINGS: Lungs: The lungs are normal. Pleural space: There are no pleural effusions present. Heart/Mediastinum: The heart is not enlarged. The central pulmonary arteries are quite prominent. Bones/joints: Unremarkable IMPRESSION: The central pulmonary arteries appear to be enlarged suggesting pulmonary hypertension.
[2020-02-14] MEDS ORDERED: Doxycycline 100 MG Cap PO ONE (21:30)
[2020-02-14] MEDS ORDERED: Lactated Ringers 500 ML IV ONE (21:31)
--- NOTE | 2020-02-14 21:39 | EDM.PDOC ---
ED HPI GENERAL MEDICAL PROBLEM - General Chief Complaint: Chest Pain Stated Complaint: BREATHINGS, PAINS IN ARMS, JAW Time Seen by Provider: 02/14/20 20:20 Source of Information: Reports: Patient History Limitations: Reports: No Limitations - History of Present Illness INITIAL COMMENTS - FREE TEXT/NARRATIVE: Patient comes emergency department today with complaints of 2 weeks of bilateral shoulder and arm pain and increasing shortness of breath over the past few days. This patient has had intermittent shoulders and arms numbness and heaviness over the past 2 weeks. It become more regular over the past few days. The symptoms come on all on their own. She cannot tie them to anything specifically such as physical activity. She does complain of generalized malaise fatigue and just really does not have the stamina that she typically does. She becomes more short of breath than she does with usual housework or activities of daily living. She does have COPD and she has had increased shortness of breath cough and exercise intolerance. She has not used any of her rescue inhalers or nebulizers at home. She does have an increased cough although she does not have increased sputum production or purulence of the sputum. She has not been exposed to anyone with COVID and she denies any covert symptoms. At this time she does complain of shortness of breath but the pain in her shoulders arms is gone. She denies no abdominal pain nausea or vomiting. No weakness dizziness lightheadedness. No palpitations. No hematuria dysuria or urinary frequency. No black or tarry stools. Chest Pain Score (Numeric/FACES): 8 - Related Data Allergies Allergy/AdvReac Type Severity Reaction Status Date / Time atenolol Allergy Hives Verified 02/14/20 20:34 Iodinated Contrast Media Allergy Hives Verified 02/14/20 20:34 [Iodinated Contrast- Oral and IV Dye] Penicillins Allergy Hives Verified 02/14/20 20:34 Home Meds: Home Meds Budesonide [Pulmicort] 2 ml INH BID 07/26/17 [History] Gabapentin [Neurontin] 300 mg PO BEDTIME 07/26/17 [History] LORazepam 1 mg PO DAILY PRN 07/26/17 [History] Montelukast [Singulair] 10 mg PO BEDTIME 07/26/17 [History] Roflumilast [Daliresp] 500 mcg PO DAILY 07/26/17 [History] Acetaminophen [Tylenol] 650 mg PO Q4HR PRN 05/23/18 [History] Aspirin [Ecotrin EC] 81 mg PO DAILY 05/23/18 [History] amLODIPine Besylate [Norvasc] 5 mg PO DAILY 05/23/18 [History] Albuterol [Proventil Neb Soln] 2 puff IH ASDIRECTED PRN 06/01/18 [History] Ipratropium/Albuterol Sulfate [Iprat-Albut 0.5-3(2.5) mg/3 ml] 1 ampule IH QID PRN 06/01/18 [History] Alendronate Sodium 1 tab PO DAILY 01/06/20 [History] Arformoterol [Brovana] 2 ml NEB BID 01/06/20 [History] Benzonatate [Tessalon Perle] 100 mg PO BID PRN 01/06/20 [History] Umeclidinium [place] [Incruse Ellipta*] 1 puff IH DAILY 01/06/20 [History] buPROPion [buPROPion XL] 150 mg PO DAILY 01/06/20 [History] predniSONE [Prednisone] 10 mg PO DAILY 01/06/20 [History] traMADol [Ultram] 50 mg PO Q6H PRN #12 tablet 01/07/20 [Rx] Albuterol [Proventil Neb Soln] 1 vial INH Q4HR PRN 02/14/20 [History] Ergocalciferol (Vitamin D2) [Vitamin D2] 1,250 mcg PO ASDIRECTED 02/14/20 [History] Hydrocodone/Acetaminophen [Hydrocodone-Acetamin 10-325 mg] 1 tab PO BID 02/14/20 [History] Past Medical History HEENT History: Reports: Impaired Vision Other HEENT History: wears glasses Cardiovascular History: Reports: Hypertension Other Cardiovascular History: is not treated for hypertension anymore after she had the amputation 1 year ago. Respiratory History: Reports: Asthma, COPD, Intubation, Previous, Pneumonia, Recurrent, SOB, Other (See Below) Other Respiratory History: PE in 2015 Gastrointestinal History: Reports: Cholelithiasis Genitourinary History: Reports: Renal Disease [employer] History: Reports: Musculoskeletal History: Reports: Amputation, Osteoporosis Neurological History: Reports: None Psychiatric History: Reports: Anxiety Endocrine/Metabolic History: Reports: Obesity/BMI 30+ Hematologic History: Reports: None Immunologic History: Reports: None Oncologic (Cancer) History: Reports: None Dermatologic History: Reports: None - Infectious Disease History Infectious Disease History: Reports: Chicken Pox, Mumps, Shingles - Past Surgical History Head Surgeries/Procedures: Reports: None Cardiovascular Surgical History: Reports: None Respiratory Surgical History: Reports: None GI Surgical History: Reports: Cholecystectomy, Hernia Repair/Other Other GI Surgeries/Procedures: part of pancreas was removed. mesh placed with abdominal hernia removal. Female Surgical History: Reports: Other (See Below) Other Female Surgeries/Procedures: uterus removed Musculoskeletal Surgical History: Reports: Amputation Other Musculoskeletal Surgeries/Procedures:: right mid calf amputation Social & Family History - Family History Family Medical History: Unobtainable - Tobacco Use Smoking Status *Q: Current Every Day Smoker Years of Tobacco use: 30 Packs/Tins Daily: 0.5 - Caffeine Use Caffeine Use: Reports: None - Recreational Drug Use Recreational Drug Use: No - Living Situation & Occupation Living situation: Reports: , with Family ED ROS GENERAL - Review of Systems Review Of Systems: Comprehensive ROS is negative, except as noted in HPI. ED EXAM, GENERAL - Physical Exam Exam: See Below Exam Limited By: Altered Mental Status General Appearance: Alert, WD/WN, No Apparent Distress, Obese Eye Exam: Bilateral Eye: PERRL Ears: Normal External Exam Nose: Normal Inspection Throat/Mouth: Normal Inspection Head: Atraumatic, Normocephalic Neck: Normal Inspection, Supple Respiratory/Chest: No Accessory Muscle Use, Decreased Breath Sounds, Crackles (Fine inspiratory crackles bilaterally in the bases more on the right than the left), Wheezing (No inspiratory and very faint expiratory wheezing.). No: Rales, Rhonchi, Stridor, Pleural Rub, Accessory Muscle Use, Prolonged Expiration Cardiovascular: Normal Peripheral Pulses, Regular Rate, Rhythm GI/Abdominal: Normal Bowel Sounds, Soft, Non-Tender Back Exam: Normal Inspection, Full Range of Motion. No: CVA Tenderness (L), CVA Tenderness (R) Extremities: Normal Inspection (other Than an amputation of the right lower extremity), Non-Tender, No Pedal Edema, Normal Capillary Refill Neurological: Alert, Oriented, Normal Cognition, No Motor/Sensory Deficits Psychiatric: Normal Affect, Normal Mood Skin Exam: Warm, Dry, Intact, Normal Color Lymphatic: No Adenopathy EKG INTERPRETATION EKG Date: 02/14/20 Time: 20:23 Rhythm: NSR Rate (Beats/Min): 95 [place]: Normal P-Wave: Present QRS: Normal ST-T: Normal QT: Prolonged Comparison: Change From Previous EKG (T wave inversion in V3 and V2 and new development of prolonged QT at 518.) Course - Vital Signs Last Recorded V/S: Last Vital Signs Temp 97.4 F 02/14/20 20:15 Pulse 101 H 02/14/20 20:15 Resp 20 02/14/20 20:15 BP 152/82 H 02/14/20 20:15 Pulse Ox 93 L 02/14/20 20:15 - Orders/Labs/Meds Orders: Active Orders 24 hr Category Date Time Status EKG 12 Lead [EKG Documentation Completion] [RC] STAT Care 02/14/20 20:32 Active RT Aerosol Therapy [RC] ASDIRECTED Care 02/14/20 20:37 Active RT Aerosol Therapy [RC] ASDIRECTED Care 02/14/20 20:41 Active CULTURE BLOOD [BC] Stat Lab 02/14/20 20:53 Received CULTURE BLOOD [BC] Stat Lab 02/14/20 20:57 Received Blood Culture x2 Reflex Set [OM.PC] Stat Oth 02/14/20 20:36 Ordered Labs: Laboratory Tests 02/14/20 02/14/20 02/14/20 Range/Units 20:30 20:30 20:30 WBC 10.6 H (5.0-10.0) 10^3/uL RBC 5.31 (4.2-5.4) 10^6/uL Hgb 14.0 (12.0-16.0) g/dL Hct 43.8 (37.0-47.0) % MCV 82.5 (80-100) fL MCH 26.4 L (27.0-34.0) pg MCHC 32.0 L (33.0-35.0) g/dL Plt Count 312 (150-450) 10^3/uL Neut % (Auto) 90.1 H (42.2-75.2) % Lymph % (Auto) 7.6 L (20.5-50.1) % [place] % (Auto) 2.1 (2-8) % Eos % (Auto) 0.0 L (1.0-3.0) % Baso % (Auto) 0.2 (0.0-1.0) % Sodium 142 (136-145) mmol/L Potassium 4.2 (3.5-5.1) mmol/L Chloride 104 (98-107) mmol/L Carbon Dioxide 28 (21-32) mmol/L Anion Gap 14.2 H (7-13) mEq/L BUN 19 H (7-18) mg/dL Creatinine 1.24 H (0.55-1.02) mg/dL Est Cr Clr Drug Dosing 49.85 mL/min Estimated GFR (MDRD) 45 BUN/Creatinine Ratio 15.3 (No establ ref range) Glucose 221 H (74-99) mg/dL Lactic Acid (0.4-2.0) mmol/L Calcium 8.8 (8.5-10.1) mg/dL Total Bilirubin 0.2 (0.2-1.0) mg/dL AST 28 (15-37) U/L ALT 45 (14-59) U/L Alkaline Phosphatase 107 (46-116) U/L Troponin I 0.166 H* (0.000-0.056) ng/mL C-Reactive Protein 1.5 H (0.0-0.9) mg/dL B-Natriuretic Peptide 139 H (0-100) pg/ml Total Protein 7.0 (6.4-8.2) g/dL Albumin 3.2 L (3.4-5.0) g/dL Globulin 3.8 Albumin/Globulin Ratio 0.84 07/08/20 Range/Units 20:53 WBC (5.0-10.0) 10^3/uL RBC (4.2-5.4) 10^6/uL Hgb (12.0-16.0) g/dL Hct (37.0-47.0) % MCV (80-100) fL MCH (27.0-34.0) pg MCHC (33.0-35.0) g/dL Plt Count (150-450) 10^3/uL Neut % (Auto) (42.2-75.2) % Lymph % (Auto) (20.5-50.1) % [place] % (Auto) (2-8) % Eos % (Auto) (1.0-3.0) % Baso % (Auto) (0.0-1.0) % Sodium (136-145) mmol/L Potassium (3.5-5.1) mmol/L Chloride (98-107) mmol/L Carbon Dioxide (21-32) mmol/L Anion Gap (7-13) mEq/L BUN (7-18) mg/dL Creatinine (0.55-1.02) mg/dL Est Cr Clr Drug Dosing mL/min Estimated GFR (MDRD) BUN/Creatinine Ratio (No establ ref range) Glucose (74-99) mg/dL Lactic Acid 3.2 H* (0.4-2.0) mmol/L Calcium (8.5-10.1) mg/dL Total Bilirubin (0.2-1.0) mg/dL AST (15-37) U/L ALT (14-59) U/L Alkaline Phosphatase (46-116) U/L Troponin I (0.000-0.056) ng/mL C-Reactive Protein (0.0-0.9) mg/dL B-Natriuretic Peptide (0-100) pg/ml Total Protein (6.4-8.2) g/dL Albumin (3.4-5.0) g/dL Globulin Albumin/Globulin Ratio Meds: Medications Discontinued Medications Generic Name Dose Route Start Last Admin Trade Name Freq PRN Reason Stop Dose Admin Albuterol/Ipratropium 3 ml 02/14/20 20:37 02/14/20 20:53 Duoneb 3.0-0.5 Mg/3 Ml NEB 02/14/20 20:38 3 ml ONETIME ONE Administration Aspirin 324 mg 02/14/20 20:37 02/14/20 20:44 Aspirin PO 02/14/20 20:38 324 mg ONETIME ONE Administration Budesonide 1 mg 02/14/20 20:40 02/14/20 20:57 Pulmicort NEB 02/14/20 20:41 1 mg ONETIME ONE Administration Doxycycline Hyclate 100 mg 02/14/20 21:30 02/14/20 21:48 Vibramycin PO 02/14/20 21:31 100 mg ONETIME ONE Administration Azithromycin 500 mg/ Sodium 250 mls @ 250 mls/hr 02/14/20 21:25 02/14/20 21:36 Chloride IV 02/14/20 22:24 Not Given ONETIME ONE Ceftriaxone Sodium 1 gm/ 50 mls @ 100 mls/hr 02/14/20 21:25 02/14/20 21:36 Sodium Chloride IV 02/14/20 21:54 Not Given ONETIME ONE Lactated Ringer's 500 mls @ 1,000 mls/hr 02/14/20 21:31 02/14/20 21:39 Ringers, Lactated IV 02/14/20 22:00 1,000 mls/hr .BOLUS ONE Administration Methylprednisolone Sodium Succinate 125 mg 02/14/20 20:37 02/14/20 20:46 Solu-Medrol IVPUSH 02/14/20 20:38 125 mg ONETIME ONE Administration - Radiology Interpretation Free Text/Narrative:: X-ray per radiology has concerns for central pulmonary arteries appear to be enlarged suggesting pulmonary hypertension. - Re-Assessments/Exams Free Text/Narrative Re-Assessment/Exam: 02/15/20 02:04 He was given 324 of aspirin orally. She was given budesonide as well as DuoNeb nebulizer and Solu-Medrol 125 mg IV push. Have resolution of her shortness of breath and coughing while in the emergency department. EG is some questionable T wave inversions in the anteroseptal leads. troponin is mildly elevated at 0.166 Is not having any chest pain at this time. Called and spoke with Dr. Ayala hospitalist transportation director at [facility] in [place]. ER course findings and concerns of not only a COPD exacerbation but also an NSTEMI were explained to him. He accepted the patient in transfer at this time with no new orders. I discussed the plan of care with the patient as well as the laboratory findings and the concerns for COPD exacerbation and an NSTEMI. Is comfortable with this plan and her questions are answered. 02/15/20 02:05 Departure - Departure Time of Disposition: 21:30 Disposition: DC/Tfer to Acute Hospital 02 Clinical Impression: COPD exacerbation, NSTEMI (non-ST elevated myocardial infarction) - Discharge Information Referrals: PCP,None [Primary Care Provider] - Forms: ED Department Discharge, Interfacility Transfer JOHANA Sepsis Event Note (ED) - Evaluation Sepsis Screening Result: No Definite Risk - Focused Exam Vital Signs: Vital Signs Temp Pulse Resp BP Pulse Ox 02/14/20 20:15 97.4 F 101 H 20 152/82 H 93 L - My Orders Last 24 Hours: My Active Orders 02/14/20 20:32 EKG 12 Lead [EKG Documentation Completion] [RC] STAT 02/14/20 20:36 Blood Culture x2 Reflex Set [OM.PC] Stat 02/14/20 20:37 RT Aerosol Therapy [RC] ASDIRECTED 02/14/20 20:41 RT Aerosol Therapy [RC] ASDIRECTED 02/14/20 20:53 CULTURE BLOOD [BC] Stat 02/14/20 20:57 CULTURE BLOOD [BC] Stat - Assessment/Plan Last 24 Hours: My Active Orders 02/14/20 20:32 EKG 12 Lead [EKG Documentation Completion] [RC] STAT 02/14/20 20:36 Blood Culture x2 Reflex Set [OM.PC] Stat 02/14/20 20:37 RT Aerosol Therapy [RC] ASDIRECTED 02/14/20 20:41 RT Aerosol Therapy [RC] ASDIRECTED 02/14/20 20:53 CULTURE BLOOD [BC] Stat 02/14/20 20:57 CULTURE BLOOD [BC] Stat
== END 2020-02-14 22:10 ==
LOC: DL.ED 20:11
DX: I21.4 Non-ST elevation (NSTEMI) myocardial infarction (principal); J44.1 Chronic obstructive pulmonary disease with (acute) exacerbation; R41.82 Altered mental status, unspecified; I10 Essential (primary) hypertension; J44.9 Chronic obstructive pulmonary disease, unspecified; F41.9 Anxiety disorder, unspecified; E66.9 Obesity, unspecified; Z68.36 Body mass index [BMI] 36.0-36.9, adult; F17.210 Nicotine dependence, cigarettes, uncomplicated; Z88.8 Allergy status to other drugs, medicaments and biological substances; Z88.0 Allergy status to penicillin; Z91.041 Radiographic dye allergy status; Z79.82 Long term (current) use of aspirin; Z79.899 Other long term (current) drug therapy
CPT/HCPCS: 36415; 71045; 80053; 83605; 83880; 84484; 85025; 86140; 87040; 93005; 96374; 99285; A9270; J2930; J7120; 93010; 99284; J7620-GY

== ENCOUNTER 2020-04-03 15:06 | Emergency (ER) | payer MEDICARE, MEDICAID ==
[2020-04-03 15:41] VITALS: BP 136/72; PULSE 80
--- NOTE | 2020-04-03 16:41 | EDM.PDOC ---
ED HPI GENERAL MEDICAL PROBLEM - General Chief Complaint: Genitourinary Problem Stated Complaint: SENT FROM CLINIC, KIDNEY PROBLEMS,LAB WORK Time Seen by Provider: 04/03/20 16:25 Source of Information: Reports: Patient History Limitations: Reports: No Limitations - History of Present Illness INITIAL COMMENTS - FREE TEXT/NARRATIVE: This 54 yo female patient reports to the ED from the [facility] due to having difficulties urinating. The patient reports she went to the [facility] this morning at 0830 to have some labs done. The patient reports she has not been able to urinate since that time. The patient reports she has been drinking water all day, but has not been able to urinate. The patient's primary care provider in [place] (Dr. Melendez) advised the patient to go to the ED for continued evaluation and further management. The patient reports she was able to urinate 3 times yesterday and only 1 time today (at 0630). Nursing staff did a bladder scan on the patient resulting in 525 mL of fluid in the bladder. Duration: Day(s):, Constant, Getting Worse Location: Reports: Other Quality: Reports: Other Severity: Mild Improves with: Reports: None Worsens with: Reports: None Context: Reports: Other Associated Symptoms: Reports: No Other Symptoms - Related Data Allergies Allergy/AdvReac Type Severity Reaction Status Date / Time atenolol Allergy Hives Verified 04/03/20 15:39 Iodinated Contrast Media Allergy Hives Verified 04/03/20 15:39 [Iodinated Contrast- Oral and IV Dye] Penicillins Allergy Hives Verified 04/03/20 15:39 Home Meds: Home Meds Budesonide [Pulmicort] 2 ml INH BID 07/26/17 [History] Gabapentin [Neurontin] 300 mg PO BEDTIME 07/26/17 [History] LORazepam 1 mg PO DAILY PRN 07/26/17 [History] Montelukast [Singulair] 10 mg PO BEDTIME 07/26/17 [History] Roflumilast [Daliresp] 500 mcg PO DAILY 07/26/17 [History] Acetaminophen [Tylenol] 650 mg PO Q4HR PRN 05/23/18 [History] Aspirin [Ecotrin EC] 81 mg PO DAILY 05/23/18 [History] amLODIPine Besylate [Norvasc] 5 mg PO DAILY 05/23/18 [History] Albuterol [Proventil Neb Soln] 2 puff IH ASDIRECTED PRN 06/01/18 [History] Ipratropium/Albuterol Sulfate [Iprat-Albut 0.5-3(2.5) mg/3 ml] 1 ampule IH QID PRN 06/01/18 [History] Alendronate Sodium 1 tab PO DAILY 01/06/20 [History] Arformoterol [Brovana] 2 ml NEB BID 01/06/20 [History] Benzonatate [Tessalon Perle] 100 mg PO BID PRN 01/06/20 [History] Umeclidinium [place] [Incruse Ellipta*] 1 puff IH DAILY 01/06/20 [History] buPROPion [buPROPion XL] 150 mg PO DAILY 01/06/20 [History] predniSONE [Prednisone] 10 mg PO DAILY 01/06/20 [History] traMADol [Ultram] 50 mg PO Q6H PRN #12 tablet 01/07/20 [Rx] Albuterol [Proventil Neb Soln] 1 vial INH Q4HR PRN 02/14/20 [History] Ergocalciferol (Vitamin D2) [Vitamin D2] 1,250 mcg PO ASDIRECTED 02/14/20 [History] Hydrocodone/Acetaminophen [Hydrocodone-Acetamin 10-325 mg] 1 tab PO BID 02/14/20 [History] Past Medical History HEENT History: Reports: Impaired Vision Other HEENT History: wears glasses Cardiovascular History: Reports: Hypertension Other Cardiovascular History: is not treated for hypertension anymore after she had the amputation 1 year ago. Respiratory History: Reports: Asthma, COPD, Intubation, Previous, Pneumonia, Recurrent, SOB, Other (See Below) Other Respiratory History: PE in 2015 Gastrointestinal History: Reports: Cholelithiasis Genitourinary History: Reports: Renal Disease [employer] History: Reports: Musculoskeletal History: Reports: Amputation, Osteoporosis Neurological History: Reports: None Psychiatric History: Reports: Anxiety Endocrine/Metabolic History: Reports: Obesity/BMI 30+ Hematologic History: Reports: None Immunologic History: Reports: None Oncologic (Cancer) History: Reports: None Dermatologic History: Reports: None - Infectious Disease History Infectious Disease History: Reports: None - Past Surgical History Head Surgeries/Procedures: Reports: None Cardiovascular Surgical History: Reports: None Respiratory Surgical History: Reports: None GI Surgical History: Reports: Cholecystectomy, Hernia Repair/Other Other GI Surgeries/Procedures: part of pancreas was removed. mesh placed with abdominal hernia removal. Female Surgical History: Reports: Other (See Below) Other Female Surgeries/Procedures: uterus removed Musculoskeletal Surgical History: Reports: Amputation Other Musculoskeletal Surgeries/Procedures:: right mid calf amputation Social & Family History - Family History Family Medical History: Unobtainable - Caffeine Use Caffeine Use: Reports: Coffee - Recreational Drug Use Recreational Drug Use: No - Living Situation & Occupation Living situation: Reports: , with Family ED ROS GENERAL - Review of Systems Review Of Systems: Comprehensive ROS is negative, except as noted in HPI. ED EXAM, RENAL/ - Physical Exam Exam: See Below Exam Limited By: No Limitations General Appearance: Alert, WD/WN, No Apparent Distress Eye Exam: Bilateral Eye: EOMI, Normal Inspection, PERRL Ears: Normal External Exam, Normal Canal, Hearing Grossly Normal, Normal TMs Nose: Normal Inspection, Normal Mucosa, No Blood Throat/Mouth: Normal Inspection, Normal Lips, Normal Teeth, Normal Gums, Normal Oropharynx, Normal Voice, No Airway Compromise Head: Atraumatic, Normocephalic Neck: Normal Inspection, Supple, Non-Tender, Full Range of Motion Respiratory/Chest: No Respiratory Distress, Lungs Clear, Normal Breath Sounds, No Accessory Muscle Use, Chest Non-Tender Cardiovascular: Normal Peripheral Pulses, Regular Rate, Rhythm, No Edema, No Gallop, No JVD, No Murmur, No Rub GI/Abdominal: Normal Bowel Sounds, Soft, Non-Tender, No Organomegaly, No Distention, No Abnormal Bruit, No Mass (Female) Exam: Deferred Rectal (Female) Exam: Deferred Back Exam: Normal Inspection, Full Range of Motion, NT Extremities: Normal Inspection, Normal Range of Motion, Non-Tender, Normal Capillary Refill, No Pedal Edema Neurological: Alert, Oriented, CN II-XII Intact, Normal Cognition, Normal Gait, Normal Reflexes, No Motor/Sensory Deficits Psychiatric: Normal Affect Skin Exam: Warm, Dry, Intact, Normal Color, No Rash Lymphatic: No Adenopathy Course - Vital Signs Last Recorded V/S: Last Vital Signs Temp 36.4 C 04/03/20 15:39 Pulse 80 04/03/20 15:39 Resp 16 04/03/20 15:39 BP 136/72 04/03/20 15:39 Pulse Ox 93 L 04/03/20 15:39 - Orders/Labs/Meds Orders: Active Orders 24 hr Category Date Time Status Urinary Catheter Assessment [RC] ASDIRECTED Care 04/03/20 16:58 Active Urinary Catheter Insertion [Insert Urinary Catheter] [ Care 04/03/20 17:00 Ordered OM.PC] Q24H CULTURE URINE [RM] Urgent Lab 04/03/20 16:50 Received Labs: Laboratory Tests 04/03/20 04/03/20 04/03/20 Range/Units 16:44 16:44 16:50 WBC 14.2 H (5.0-10.0) 10^3/uL RBC 4.73 (4.2-5.4) 10^6/uL Hgb 12.5 D (12.0-16.0) g/dL Hct 39.3 (37.0-47.0) % MCV 83.1 (80-100) fL MCH 26.4 L (27.0-34.0) pg MCHC 31.8 L (33.0-35.0) g/dL Plt Count 299 (150-450) 10^3/uL Neut % (Auto) 70.0 (42.2-75.2) % Lymph % (Auto) 17.9 L (20.5-50.1) % Page % (Auto) 10.5 H (2-8) % Eos % (Auto) 1.2 (1.0-3.0) % Baso % (Auto) 0.4 (0.0-1.0) % Sodium 135 L (136-145) mmol/L Potassium 3.1 L (3.5-5.1) mmol/L Chloride 97 L (98-107) mmol/L Carbon Dioxide 29 (21-32) mmol/L Anion Gap 12.1 (7-13) mEq/L BUN 15 (7-18) mg/dL Creatinine 1.26 H (0.55-1.02) mg/dL Est Cr Clr Drug Dosing 49.06 mL/min Estimated GFR (MDRD) 44 BUN/Creatinine Ratio 11.9 (No establ ref range) Glucose 75 (74-99) mg/dL Calcium 8.5 (8.5-10.1) mg/dL Total Bilirubin 0.4 (0.2-1.0) mg/dL AST 26 (15-37) U/L ALT 26 (14-59) U/L Alkaline Phosphatase 105 (46-116) U/L Total Protein 6.9 (6.4-8.2) g/dL Albumin 3.3 L (3.4-5.0) g/dL Globulin 3.6 Albumin/Globulin Ratio 0.92 Urine Color Yellow (YELLOW) Urine Appearance Cloudy (CLEAR) Urine pH 6.0 (5.0-9.0) Ur Specific [place] 1.020 (1.005-1.030) Urine Protein 30 H (NEGATIVE) Urine Glucose (UA) Negative (NEGATIVE) Urine Ketones Negative (NEGATIVE) Urine Occult Blood Large H (NEGATIVE) Urine Nitrite Negative (NEGATIVE) Urine Bilirubin Negative (NEGATIVE) Urine Urobilinogen 0.2 (0.2-1.0) mg/dL Ur Leukocyte Esterase Small H (NEGATIVE) U Hyaline Cast (Auto) Few Urine RBC >100 H /HPF Urine WBC 30-40 H (0-5/HPF) /HPF Ur Epithelial Cells Few (NOT SEEN) /HPF Amorphous Sediment Few (NOT SEEN) /HPF Urine Bacteria Moderate H (0-FEW/HPF) /HPF Urine Mucus Moderate H (NOT SEEN) /LPF Meds: Medications Discontinued Medications Generic Name Dose Route Start Last Admin Trade Name Ronq PRN Reason Stop Dose Admin Cephalexin 500 mg 04/03/20 17:26 Keflex PO 04/03/20 17:27 ONETIME ONE Departure - Departure Time of Disposition: 17:28 Disposition: Home, Self-Care 01 Condition: Fair Clinical Impression: UTI, Urinary tract infectious disease - Discharge Information *PRESCRIPTION DRUG MONITORING PROGRAM REVIEWED*: Not Applicable *COPY OF PRESCRIPTION DRUG MONITORING REPORT IN PATIENT ANA: Not Applicable Instructions: Urinary Tract Infection, Adult, [id number] Forms: ED Department Discharge Care Plan Goals: The patient was advised of the examination and lab results during the visit. The patient was given an oral dose of Keflex (500 mg) while in the ED and discharged with a script for Keflex (500 mg) #14 to take 1 by mouth 2 times per day for 7 days. The patient was encouraged to increase her oral fluid intake. If the patient has any additional symptoms or concerns, the patient should either return to the emergency department or visit her primary care facility. Sepsis Event Note (ED) - Evaluation Sepsis Screening Result: No Definite Risk - Focused Exam Vital Signs: Vital Signs Temp Pulse Resp BP Pulse Ox 04/03/20 15:39 36.4 C 80 16 136/72 93 L - My Orders Last 24 Hours: My Active Orders 04/03/20 16:50 CULTURE URINE [RM] Urgent 04/03/20 16:58 Urinary Catheter Assessment [RC] ASDIRECTED 04/03/20 17:00 Urinary Catheter Insertion [Insert Urinary Catheter] [OM.PC] Q24H - Assessment/Plan Last 24 Hours: My Active Orders 04/03/20 16:50 CULTURE URINE [RM] Urgent 04/03/20 16:58 Urinary Catheter Assessment [RC] ASDIRECTED 04/03/20 17:00 Urinary Catheter Insertion [Insert Urinary Catheter] [OM.PC] Q24H
[2020-04-03 17:07] LABS: ANION GAP 12.1 mEq/L (7-13)
[2020-04-03] MEDS ORDERED: Cephalexin 500 MG Cap PO ONE (17:26)
== END 2020-04-03 17:38 | disposition home or self-care (01) ==
LOC: DL.ED 15:06
DX: N39.0 Urinary tract infection, site not specified (principal); I10 Essential (primary) hypertension; J44.9 Chronic obstructive pulmonary disease, unspecified; E66.9 Obesity, unspecified; F41.9 Anxiety disorder, unspecified; Z68.32 Body mass index [BMI] 32.0-32.9, adult; Z79.899 Other long term (current) drug therapy; Z79.82 Long term (current) use of aspirin; Z91.09 Other allergy status, other than to drugs and biological substances; Z91.041 Radiographic dye allergy status; Z88.0 Allergy status to penicillin
CPT/HCPCS: 36415; 51701; 51798; 80053; 81001; 85025; 87086; 87088; 99283; A9270; 99282

== ENCOUNTER 2020-09-13 15:52 | Emergency (ER) | payer MEDICARE, MEDICAID ==
[2020-09-13 16:29] VITALS: BP 137/61; PULSE 99
[2020-09-13] MEDS ORDERED: Lidocaine 5% Oint 35.44 GM Tube TOP ONE (16:59)
[2020-09-13] MEDS ORDERED: Ketorolac 30 MG/ML SDV IM ONE (17:00)
--- NOTE | 2020-09-13 17:23 | CR ---
PROCEDURE INFORMATION: Exam: XR Left Shoulder Exam date and time: 09/13/2020 4:59 PM Age: 54 years old Clinical indication: Pain; Shoulder; Bilateral; Additional info: B/l shoulder pain TECHNIQUE: Imaging protocol: XR Left shoulder. Views: 2 or more views. COMPARISON: No relevant prior studies available. FINDINGS: Bones/joints: There is no evidence of acute fracture. Degenerative changes of the acromioclavicular and glenohumeral joints. Soft tissues: There are no soft tissue masses or fluid collections. IMPRESSION: 1. No evidence of acute fracture. 2. Degenerative changes of the acromioclavicular and glenohumeral joints.
--- NOTE | 2020-09-13 17:27 | CR ---
PROCEDURE INFORMATION: Exam: XR Right Shoulder Exam date and time: 09/13/2020 5:06 PM Age: 54 years old Clinical indication: Pain; Bilateral; Prior surgery; Patient HX: Per patient - previous right shoulder surgery; Additional info: B/l shoulder pain TECHNIQUE: Imaging protocol: XR Right shoulder. Views: 2 or more views. COMPARISON: CR Shoulder Comp Lt 09/13/2020 4:59 PM FINDINGS: Bones/joints: There is no evidence of acute fracture. Degenerative changes of the glenohumeral joint. Postoperative changes of the distal aspect of the clavicle. Soft tissues: There are no soft tissue masses or fluid collections. IMPRESSION: 1. No evidence of acute fracture. 2. Degenerative changes of the glenohumeral joint. 3. Postoperative changes.
--- NOTE | 2020-09-13 17:33 | EDM.PDOC ---
Scribed by Sary Valdes 09/13/20 [id number] for Tee Wills MD ED HPI GENERAL MEDICAL PROBLEM - General Chief Complaint: Upper Extremity Injury/Pain Stated Complaint: UNABLE TO MOVE ARMS Time Seen by Provider: 09/13/20 16:37 Source of Information: Reports: Patient, RN, RN Notes Reviewed History Limitations: Reports: No Limitations - History of Present Illness INITIAL COMMENTS - FREE TEXT/NARRATIVE: Patient presents to ED by POV stating her left shoulder started hurting about 3 days ago and today the right shoulder started hurting. Denies injury or fever. Movement, especially lifting the arms up, makes the throbbing/hot pain worse. Onset: Gradual Duration: Getting Worse Location: Reports: Other (shoulders) Quality: Reports: Ache Severity: Moderate Improves with: Reports: None Worsens with: Reports: None Associated Symptoms: Reports: No Other Symptoms Bilateral Shoulder Pain Score (Numeric/FACES): 4 - Related Data Allergies Allergy/AdvReac Type Severity Reaction Status Date / Time atenolol Allergy Hives Verified 09/13/20 16:03 Iodinated Contrast Media Allergy Hives Verified 09/13/20 16:03 [Iodinated Contrast- Oral and IV Dye] Penicillins Allergy Hives Verified 09/13/20 16:03 Home Meds: Home Meds Budesonide [Pulmicort] 2 ml INH BID 07/26/17 [History] Gabapentin [Neurontin] 300 mg PO BEDTIME 07/26/17 [History] LORazepam 1 mg PO DAILY PRN 07/26/17 [History] Montelukast [Singulair] 10 mg PO BEDTIME 07/26/17 [History] Roflumilast [Daliresp] 500 mcg PO DAILY 07/26/17 [History] Acetaminophen [Tylenol] 650 mg PO Q4HR PRN 05/23/18 [History] Aspirin [Ecotrin EC] 81 mg PO DAILY 05/23/18 [History] Albuterol [Proventil Neb Soln] 2 puff IH ASDIRECTED PRN 06/01/18 [History] Ipratropium/Albuterol Sulfate [Iprat-Albut 0.5-3(2.5) mg/3 ml] 1 ampule IH QID PRN 06/01/18 [History] Alendronate Sodium 1 tab PO DAILY 01/06/20 [History] Arformoterol [Brovana] 2 ml NEB BID 01/06/20 [History] Benzonatate [Tessalon Perle] 100 mg PO BID PRN 01/06/20 [History] buPROPion [buPROPion XL] 150 mg PO DAILY 01/06/20 [History] predniSONE [Prednisone] 10 mg PO DAILY 01/06/20 [History] Albuterol [Proventil Neb Soln] 1 vial INH Q4HR PRN 02/14/20 [History] Ergocalciferol (Vitamin D2) [Vitamin D2] 1,250 mcg PO ASDIRECTED 02/14/20 [History] Hydrocodone/Acetaminophen [Hydrocodone-Acetamin 10-325 mg] 1 tab PO BID 02/14/20 [History] Clopidogrel [Plavix] 75 mg PO DAILY 09/13/20 [History] Isosorbide Mononitrate [Isosorbide Mononitrate ER] 30 mg PO DAILY 09/13/20 [History] Revefenacin [Yupelri] 1 unit INH DAILY 09/13/20 [History] lisinopriL [Lisinopril] 10 mg PO DAILY 09/13/20 [History] Past Medical History HEENT History: Reports: Impaired Vision Other HEENT History: wears glasses Cardiovascular History: Reports: CAD, Hypertension, Stents Other Cardiovascular History: is not treated for hypertension anymore after she had the amputation 1 year ago. Respiratory History: Reports: Asthma, COPD, Intubation, Previous, Pneumonia, Recurrent, SOB, Other (See Below) Other Respiratory History: PE in 2014 Gastrointestinal History: Reports: Cholelithiasis Genitourinary History: Reports: Renal Disease [employer] History: Reports: Musculoskeletal History: Reports: Amputation, Osteoporosis Neurological History: Reports: None Psychiatric History: Reports: Anxiety Endocrine/Metabolic History: Reports: Obesity/BMI 30+ Hematologic History: Reports: None Immunologic History: Reports: None Oncologic (Cancer) History: Reports: None Dermatologic History: Reports: None - Infectious Disease History Infectious Disease History: Reports: None - Past Surgical History Head Surgeries/Procedures: Reports: None HEENT Surgical History: Reports: None Cardiovascular Surgical History: Reports: None, Coronary Artery Stent Respiratory Surgical History: Reports: None GI Surgical History: Reports: Cholecystectomy, Hernia Repair/Other Other GI Surgeries/Procedures: part of pancreas was removed. mesh placed with abdominal hernia removal. Female Surgical History: Reports: Other (See Below) Other Female Surgeries/Procedures: uterus removed Musculoskeletal Surgical History: Reports: Amputation Other Musculoskeletal Surgeries/Procedures:: right mid calf amputation Social & Family History - Family History Family Medical History: Unobtainable - Tobacco Use Tobacco Use Status *Q: Current Every Day Tobacco User Years of Tobacco use: 38 Packs/Tins Daily: 0.5 - Caffeine Use Caffeine Use: Reports: Coffee - Living Situation & Occupation Living situation: Reports: , with Family Review of Systems - Review of Systems Review Of Systems: Comprehensive ROS is negative, except as noted in HPI. ED EXAM, GENERAL - Physical Exam Exam: See Below Exam Limited By: No Limitations General Appearance: Alert, WD/WN, No Apparent Distress Throat/Mouth: Normal Voice Head: Atraumatic, Normocephalic Neck: Normal Inspection, Supple, Non-Tender, Full Range of Motion Respiratory/Chest: No Respiratory Distress, No Accessory Muscle Use, Decreased Breath Sounds Cardiovascular: Normal Peripheral Pulses Extremities: Normal Capillary Refill, Limited Range of Motion (B/L shoulders), Other (Generalized B/L shoulder tenderness without deformity, visble bruising, or redness.). No: Joint Swelling, Increased Warmth, Redness Neurological: Alert, Oriented, No Motor/Sensory Deficits Psychiatric: Normal Mood Skin Exam: Warm, Dry, Intact, Normal Color, No Rash Course - Vital Signs Last Recorded V/S: Last Vital Signs Temp 98.5 F 09/13/20 16:05 Pulse 99 09/13/20 16:05 Resp 18 09/13/20 16:05 BP 137/61 09/13/20 16:05 Pulse Ox 100 09/13/20 16:05 - Orders/Labs/Meds Meds: Medications Discontinued Medications Generic Name Dose Route Start Last Admin Trade Name Freq PRN Reason Stop Dose Admin Ketorolac Tromethamine 30 mg 09/13/20 17:00 Toradol IM 09/13/20 17:01 ONETIME ONE Lidocaine HCl 15 gm 09/13/20 16:59 Lidocaine 5% TOP 09/13/20 17:00 ONETIME ONE - Radiology Interpretation Free Text/Narrative:: [facility] Final Radiology Report Call: [phone] assistance Online chat: [email or web address] Name: ROXANE LONG Age: 54Years F Date: 09/13/2020 SSN: -- : 1965 Study: CR SHOULDER COMP LT Requesting Physician: TEE WILLS Images: 3 Addl Studies: Provided Clinical History: B/L shoulder pain Contrast: Contrast Medium: Contrast Amount: Contrast Method: CONFIDENTIALITY STATEMENT This report is intended only for use by the referring physician, and only in accordance with law. If you received this in error, call [phone]. Page 1 of 1 PROCEDURE INFORMATION: Exam: XR Left Shoulder Exam date and time: 09/13/2020 4:59 PM Age: 54 years old Clinical indication: Pain; Shoulder; Bilateral; Additional info: B/l shoulder pain TECHNIQUE: Imaging protocol: XR Left shoulder. Views: 2 or more views. COMPARISON: No relevant prior studies available. FINDINGS: Bones/joints: There is no evidence of acute fracture. Degenerative changes of the acromioclavicular and glenohumeral joints. Soft tissues: There are no soft tissue masses or fluid collections. IMPRESSION: 1. No evidence of acute fracture. 2. Degenerative changes of the acromioclavicular and glenohumeral joints. Thank you for allowing us to participate in the care of your patient. Dictated and Authenticated by: Kyler Burnette DO 09/13/2020 5:23 PM Central Time ([place] & [place]) [facility] Final Radiology Report Call: [phone] assistance Online chat: [email or web address] Name: ROXANE LONG Age: 54Years F Date: 09/13/2020 SSN: -- : 1965 Study: CR SHOULDER COMP RT Requesting Physician: TEE WILLS Images: 3 Addl Studies: Provided Clinical History: B/L shoulder pain Contrast: Contrast Medium: Contrast Amount: Contrast Method: CONFIDENTIALITY STATEMENT This report is intended only for use by the referring physician, and only in accordance with law. If you received this in error, call [phone]. Page 1 of 1 PROCEDURE INFORMATION: Exam: XR Right Shoulder Exam date and time: 09/13/2020 5:06 PM Age: 54 years old Clinical indication: Pain; Bilateral; Prior surgery; Patient HX: Per patient - previous right shoulder surgery; Additional info: B/l shoulder pain TECHNIQUE: Imaging protocol: XR Right shoulder. Views: 2 or more views. COMPARISON: CR Shoulder Comp Lt 09/13/2020 4:59 PM FINDINGS: Bones/joints: There is no evidence of acute fracture. Degenerative changes of the glenohumeral joint. Postoperative changes of the distal aspect of the clavicle. Soft tissues: There are no soft tissue masses or fluid collections. IMPRESSION: 1. No evidence of acute fracture. 2. Degenerative changes of the glenohumeral joint. 3. Postoperative changes. Thank you for allowing us to participate in the care of your patient. Dictated and Authenticated by: Kyler Burnette DO 09/13/2020 5:27 PM Central Time ([place] & [place]) Departure - Departure Time of Disposition: 17:30 Disposition: Home, Self-Care 01 Condition: Good Clinical Impression: Bilateral shoulder region arthritis Shoulder pain, bilateral Qualifiers: Chronicity: acute Qualified Code(s): M25.511 - Pain in right shoulder; M25.512 - Pain in left shoulder - Discharge Information *PRESCRIPTION DRUG MONITORING PROGRAM REVIEWED*: No *COPY OF PRESCRIPTION DRUG MONITORING REPORT IN PATIENT ANA: No Instructions: Shoulder Pain, Osteoarthritis Forms: ED Department Discharge Additional Instructions: Rx: Diclofenac 75mg Rx: Lidocaine Ointment 5% Follow up in clinic for recheck next week if not improving. Sepsis Event Note (ED) - Evaluation Sepsis Screening Result: No Definite Risk - Focused Exam Vital Signs: Vital Signs Temp Pulse Resp BP Pulse Ox 09/13/20 16:05 98.5 F 99 18 137/61 100 I have read and agree with the documentation that has been completed regarding this visit. By signing this record, I attest that the documentation was completed in my physical presence and is an accurate record of the encounter.
== END 2020-09-13 17:50 | disposition home or self-care (01) ==
LOC: DL.ED 15:52
DX: M19.012 Primary osteoarthritis, left shoulder (principal); M19.011 Primary osteoarthritis, right shoulder; I25.10 Atherosclerotic heart disease of native coronary artery without angina pectoris; I10 Essential (primary) hypertension; J44.9 Chronic obstructive pulmonary disease, unspecified; E66.9 Obesity, unspecified; Z68.33 Body mass index [BMI] 33.0-33.9, adult; Z88.8 Allergy status to other drugs, medicaments and biological substances; Z91.041 Radiographic dye allergy status; Z88.0 Allergy status to penicillin; Z79.82 Long term (current) use of aspirin; Z79.02 Long term (current) use of antithrombotics/antiplatelets; Z79.899 Other long term (current) drug therapy; Z86.711 Personal history of pulmonary embolism; Z95.5 Presence of coronary angioplasty implant and graft; Z72.0 Tobacco use
CPT/HCPCS: 73030; 96372; 99283; A9270; J1885

== ENCOUNTER 2020-11-30 14:35 | Emergency (ER) | payer MEDICARE, MEDICAID ==
[2020-11-30 14:57] VITALS: BP 192/97; PULSE 110
--- NOTE | 2020-11-30 15:58 | CR ---
PROCEDURE INFORMATION: Exam: XR Chest Exam date and time: 11/30/2020 3:36 PM Age: 55 years old Clinical indication: Shortness of breath; Additional info: SOB, copd TECHNIQUE: Imaging protocol: XR of the chest. Views: 2 views. COMPARISON: CR Chest 1V Frontal 02/14/2020 8:42 PM FINDINGS: Lungs: Lungs hyperexpanded but otherwise clear. Pleural spaces: Unremarkable. No pleural effusion. No pneumothorax. Heart/Mediastinum: Unremarkable. No cardiomegaly. Bones/joints: Unremarkable. IMPRESSION: COPD. No acute findings
[2020-11-30] MEDS: Albuterol/Ipratropium 3.0-0.5 MG/3 ML Neb Soln ONE (17:12)
[2020-11-30 17:42] LABS: ANION GAP 16.1 mEq/L (7-13)
[2020-11-30] MEDS ORDERED: methylPREDNISolone Sodium Succinate 125 MG/2 ML SDV IM ONE (17:58)
--- NOTE | 2020-11-30 18:50 | EDM.PDOC ---
Scribed by Sary Valdes 11/30/20 2901 for Samara Wang NP <Samara Wang - Last Filed: 11/30/20 18:49> ED HPI GENERAL MEDICAL PROBLEM - General Chief Complaint: Respiratory Problem Stated Complaint: SOB/LOW O2 Time Seen by Provider: 11/30/20 16:23 Source of Information: Reports: Patient, RN, RN Notes Reviewed History Limitations: Reports: No Limitations - History of Present Illness INITIAL COMMENTS - FREE TEXT/NARRATIVE: Patient is a 55-year-old female who presents to the ER with shortness of breath, cough and chest pain. States symptoms began 1 month ago. Primary provider in [place] gave her antibiotics x10 days (finished 10 days ago). The last 2 days she has had more shortness of breath. She has a history of COPD. She had a fever last night at 101.2, chest pain, shortness of breath and nausea. No chills, vomiting or diarrhea. Onset: Gradual Duration: Getting Worse Location: Reports: Chest Severity: Severe Improves with: Reports: None Worsens with: Reports: None Associated Symptoms: Reports: No Other Symptoms - Related Data Allergies Allergy/AdvReac Type Severity Reaction Status Date / Time atenolol Allergy Hives Verified 11/30/20 14:54 Iodinated Contrast Media Allergy Hives Verified 11/30/20 14:54 [Iodinated Contrast- Oral and IV Dye] Penicillins Allergy Hives Verified 11/30/20 14:54 Home Meds: Home Meds Budesonide [Pulmicort] 2 ml INH BID 07/26/17 [History] Gabapentin [Neurontin] 300 mg PO BEDTIME 07/26/17 [History] LORazepam 1 mg PO DAILY PRN 07/26/17 [History] Montelukast [Singulair] 10 mg PO BEDTIME 07/26/17 [History] Roflumilast [Daliresp] 500 mcg PO DAILY 07/26/17 [History] Acetaminophen [Tylenol] 650 mg PO Q4HR PRN 05/23/18 [History] Aspirin [Ecotrin EC] 81 mg PO DAILY 05/23/18 [History] Albuterol [Proventil Neb Soln] 2 puff IH ASDIRECTED PRN 06/01/18 [History] Ipratropium/Albuterol Sulfate [Iprat-Albut 0.5-3(2.5) mg/3 ml] 1 ampule IH QID PRN 06/01/18 [History] Alendronate Sodium 1 tab PO DAILY 01/06/20 [History] Arformoterol [Brovana] 2 ml NEB BID 01/06/20 [History] Benzonatate [Tessalon Perle] 100 mg PO BID PRN 01/06/20 [History] buPROPion [buPROPion XL] 150 mg PO DAILY 01/06/20 [History] predniSONE [Prednisone] 10 mg PO DAILY 01/06/20 [History] Albuterol [Proventil Neb Soln] 1 vial INH Q4HR PRN 02/14/20 [History] Ergocalciferol (Vitamin D2) [Vitamin D2] 1,250 mcg PO ASDIRECTED 02/14/20 [History] Hydrocodone/Acetaminophen [Hydrocodone-Acetamin 10-325 mg] 1 tab PO BID 02/14/20 [History] Clopidogrel [Plavix] 75 mg PO DAILY 09/13/20 [History] Isosorbide Mononitrate [Isosorbide Mononitrate ER] 30 mg PO DAILY 09/13/20 [History] Revefenacin [Yupelri] 1 unit INH DAILY 09/13/20 [History] lisinopriL [Lisinopril] 10 mg PO DAILY 09/13/20 [History] Past Medical History HEENT History: Reports: Impaired Vision Other HEENT History: wears glasses Cardiovascular History: Reports: CAD, Hypertension, Stents Other Cardiovascular History: is not treated for hypertension anymore after she had the amputation 1 year ago. Respiratory History: Reports: Asthma, COPD, Intubation, Previous, Pneumonia, Recurrent, SOB, Other (See Below) Other Respiratory History: PE in 2015 Gastrointestinal History: Reports: Cholelithiasis Genitourinary History: Reports: Renal Disease [employer]ER History: Reports: Musculoskeletal History: Reports: Amputation, Osteoporosis Neurological History: Reports: None Psychiatric History: Reports: Anxiety Endocrine/Metabolic History: Reports: Obesity/BMI 30+ Hematologic History: Reports: None Immunologic History: Reports: None Oncologic (Cancer) History: Reports: None Dermatologic History: Reports: None - Infectious Disease History Infectious Disease History: Reports: MRSA - Past Surgical History Head Surgeries/Procedures: Reports: None HEENT Surgical History: Reports: None Cardiovascular Surgical History: Reports: None, Coronary Artery Stent Respiratory Surgical History: Reports: None GI Surgical History: Reports: Cholecystectomy, Hernia Repair/Other Other GI Surgeries/Procedures: part of pancreas was removed. mesh placed with abdominal hernia removal. Female Surgical History: Reports: Other (See Below) Other Female Surgeries/Procedures: uterus removed Musculoskeletal Surgical History: Reports: Amputation Other Musculoskeletal Surgeries/Procedures:: right mid calf amputation Social & Family History - Family History Family Medical History: Unobtainable - Tobacco Use Tobacco Use Status *Q: Current Every Day Tobacco User Years of Tobacco use: 30 Packs/Tins Daily: 0.3 - Caffeine Use Caffeine Use: Reports: Coffee - Recreational Drug Use Recreational Drug Use: No - Living Situation & Occupation Living situation: Reports: , with Family ED ROS GENERAL - Review of Systems Review Of Systems: Comprehensive ROS is negative, except as noted in HPI. ED EXAM, GENERAL - Physical Exam Exam: See Below Exam Limited By: No Limitations General Appearance: Alert, WD/WN, Moderate Distress Eye Exam: Bilateral Eye: EOMI, Normal Inspection, PERRL Ears: Normal External Exam, Normal Canal, Hearing Grossly Normal, Normal TMs Nose: Normal Inspection, Normal Mucosa, No Blood Throat/Mouth: Normal Inspection, Normal Lips, Normal Teeth, Normal Gums, Normal Oropharynx, Normal Voice, No Airway Compromise Head: Atraumatic, Normocephalic Neck: Normal Inspection, Supple, Non-Tender, Full Range of Motion Respiratory/Chest: Other (diminished crackles throughout) Cardiovascular: Normal Peripheral Pulses, Regular Rate, Rhythm, No Edema, No Gallop, No JVD, No Murmur, No Rub GI/Abdominal: Normal Bowel Sounds, Soft, Non-Tender, No Organomegaly, No Distention, No Abnormal Bruit, No Mass (Female) Exam: Deferred Rectal (Female) Exam: Deferred Back Exam: Normal Inspection, Full Range of Motion, NT Extremities: Normal Inspection, Normal Range of Motion, Non-Tender, Normal Capillary Refill, No Pedal Edema Neurological: Alert, Oriented, CN II-XII Intact, Normal Cognition, Normal Gait, Normal Reflexes, No Motor/Sensory Deficits Psychiatric: Normal Affect, Normal Mood Skin Exam: Warm, Dry, Intact, Normal Color, No Rash Lymphatic: No Adenopathy #1 Interpretation EKG Date: 11/30/20 Time: 16:47 Rhythm: Other (sinus rhythm) Rate (Beats/Min): 91 [place]: LAD-Left [place] Deviation P-Wave: Present QRS: Normal ST-T: Normal QT: Normal Course - Radiology Interpretation Free Text/Narrative:: Chest xray: PROCEDURE INFORMATION: Exam: XR Chest Exam date and time: 11/30/2020 3:36 PM Age: 55 years old Clinical indication: Shortness of breath; Additional info: SOB, copd TECHNIQUE: Imaging protocol: XR of the chest. Views: 2 views. COMPARISON: CR Chest 1V Frontal 02/14/2020 8:42 PM FINDINGS: Lungs: Lungs hyperexpanded but otherwise clear. Pleural spaces: Unremarkable. No pleural effusion. No pneumothorax. Heart/Mediastinum: Unremarkable. No cardiomegaly. Bones/joints: Unremarkable. IMPRESSION: COPD. No acute findings Thank you for allowing us to participate in the care of your patient. Dictated and Authenticated by: Tre Brown MD 11/30/2020 3:58 PM Central Time ([place] & [place]) See rad report Departure - Departure Disposition: Home, Self-Care 01 Clinical Impression: COPD exacerbation - Discharge Information Instructions: Chronic Obstructive Pulmonary Disease, [id number] Forms: ED Department Discharge Additional Instructions: Home use your oxygen at home. Also use your Trilogy bipap machine at home as much as possible. For the next few days. Use an albuterol inhaler prior to your Brovana and Budesonide nebs to help with getting more air exchange for those meds. Prednisone, 40mg tonight at 9pm, Then tomorrow prednisone 60mg for 3 days, 40mg for 3 days, 20mg for 3 days. Then back to your daily 10mg prednisone. Doxycycline 100mg twice daily for the next 7 days. Rx given to the patient. Recheck with PCP wednesday or wednesday. Return to the ED if new or worsening symptoms. Sepsis Event Note (ED) - Evaluation Sepsis Screening Result: No Definite Risk <Rudolph Nolasco - Last Filed: 11/30/20 20:11> Course - Vital Signs Last Recorded V/S: Last Vital Signs Temp 96.4 F L 11/30/20 14:54 Pulse 110 H 11/30/20 14:54 Resp 20 11/30/20 14:54 BP 192/97 H 04/24/21 14:54 Pulse Ox 91 L 11/30/20 14:54 - Orders/Labs/Meds Orders: Active Orders 24 hr Category Date Time Status EKG Documentation Completion [RC] STAT Care 11/30/20 16:35 Active CULTURE BLOOD [BC] Stat Lab 11/30/20 16:40 Received CULTURE BLOOD [BC] Stat Lab 11/30/20 18:03 Received REFLEX LACTIC ACID YES OR NO [CHEM] Routine Lab 11/30/20 17:44 Received Blood Culture x2 Reflex Set [OM.PC] Stat Oth 11/30/20 16:34 Ordered Labs: Laboratory Tests 11/30/20 11/30/20 11/30/20 Range/Units 16:40 16:40 16:40 WBC 6.8 (5.0-10.0) 10^3/uL RBC 5.51 H (4.2-5.4) 10^6/uL Hgb 14.6 D (12.0-16.0) g/dL Hct 46.2 (37.0-47.0) % MCV 83.8 (80-100) fL MCH 26.5 L (27.0-34.0) pg MCHC 31.6 L (33.0-35.0) g/dL Plt Count 326 (150-450) 10^3/uL Neut % (Auto) 85.6 H (42.2-75.2) % Lymph % (Auto) 10.7 L (20.5-50.1) % [place] % (Auto) 3.4 (2-8) % Eos % (Auto) 0.0 L (1.0-3.0) % Baso % (Auto) 0.3 (0.0-1.0) % ABG pH (7.35-7.45) ABG pCO2 (35-45) mmHg ABG pO2 (70-100) mmHg ABG HCO3 (22-26) mmol/L ABG O2 Saturation (95-100) % ABG Base Excess ((-2)-(+3)) mmol/L [place] Test O2 Delivery Device Sodium 142 (136-145) mmol/L Potassium 4.1 (3.5-5.1) mmol/L Chloride 104 (98-107) mmol/L Carbon Dioxide 26 (21-32) mmol/L Anion Gap 16.1 H (7-13) mEq/L BUN 12 (7-18) mg/dL Creatinine 1.34 H (0.55-1.02) mg/dL Est Cr Clr Drug Dosing 45.59 mL/min Estimated GFR (MDRD) 41 BUN/Creatinine Ratio 9.0 (No establ ref range) Glucose 132 H (70-99) mg/dL Lactic Acid 3.6 H* (0.4-2.0) mmol/L Calcium 9.4 (8.5-10.1) mg/dL Magnesium 1.6 L (1.8-2.4) mg/dL Total Bilirubin 0.3 (0.2-1.0) mg/dL AST 16 (15-37) U/L ALT 20 (14-59) U/L Alkaline Phosphatase 116 (46-116) U/L Troponin I (0.000-0.056) ng/mL Troponin I High Sens Cancelled B-Natriuretic Peptide 72 (0-100) pg/ml Total Protein 7.6 (6.4-8.2) g/dL Albumin 3.4 (3.4-5.0) g/dL Globulin 4.2 Albumin/Globulin Ratio 0.8 Influenza Type A RNA (NEGATIVE) Influenza Type B RNA (NEGATIVE) SARS-CoV-2 RNA (QUYEN) (NEGATIVE) 11/30/20 11/30/20 11/30/20 Range/Units 16:40 16:45 18:41 WBC (5.0-10.0) 10^3/uL RBC (4.2-5.4) 10^6/uL Hgb (12.0-16.0) g/dL Hct (37.0-47.0) % MCV (80-100) fL MCH (27.0-34.0) pg MCHC (33.0-35.0) g/dL Plt Count (150-450) 10^3/uL Neut % (Auto) (42.2-75.2) % Lymph % (Auto) (20.5-50.1) % [place] % (Auto) (2-8) % Eos % (Auto) (1.0-3.0) % Baso % (Auto) (0.0-1.0) % ABG pH 7.42 (7.35-7.45) ABG pCO2 40 (35-45) mmHg ABG pO2 65 L (70-100) mmHg ABG HCO3 25.0 (22-26) mmol/L ABG O2 Saturation 95 (95-100) % ABG Base Excess 1 ((-2)-(+3)) mmol/L [place] Test Positive O2 Delivery Device Room air Sodium (136-145) mmol/L Potassium (3.5-5.1) mmol/L Chloride (98-107) mmol/L Carbon Dioxide (21-32) mmol/L Anion Gap (7-13) mEq/L BUN (7-18) mg/dL Creatinine (0.55-1.02) mg/dL Est Cr Clr Drug Dosing mL/min Estimated GFR (MDRD) BUN/Creatinine Ratio (No establ ref range) Glucose (70-99) mg/dL Lactic Acid (0.4-2.0) mmol/L Calcium (8.5-10.1) mg/dL Magnesium (1.8-2.4) mg/dL Total Bilirubin (0.2-1.0) mg/dL AST (15-37) U/L ALT (14-59) U/L Alkaline Phosphatase (46-116) U/L Troponin I < 0.017 (0.000-0.056) ng/mL Troponin I High Sens B-Natriuretic Peptide (0-100) pg/ml Total Protein (6.4-8.2) g/dL Albumin (3.4-5.0) g/dL Globulin Albumin/Globulin Ratio Influenza Type A RNA Negative (NEGATIVE) Influenza Type B RNA Negative (NEGATIVE) SARS-CoV-2 RNA (QUYEN) Negative (NEGATIVE) Meds: Medications Discontinued Medications Generic Name Dose Route Start Last Admin Trade Name Joni PRN Reason Stop Dose Admin Albuterol/Ipratropium Confirm 11/30/20 17:07 11/30/20 17:12 Albuterol/Ipratropium 3.0-0.5 Mg/3 Ml Neb Soln Administered 11/30/20 17:08 3 ml Dose Administration 3 ml .ROUTE .STK-MED ONE Doxycycline Monohydrate 100 mg 11/30/20 19:53 11/30/20 20:04 Doxycycline Monohydrate 100 Mg Cap PO 11/30/20 19:54 100 mg ONETIME ONE Administration Methylprednisolone Sodium Succinate 125 mg 11/30/20 17:58 11/30/20 18:32 Methylprednisolone Sodium Succinate 125 Mg/2 Ml Sdv IM 11/30/20 17:59 125 mg ONETIME ONE Administration Prednisone 40 mg 11/30/20 19:53 11/30/20 20:04 Prednisone 20 Mg Tab PO 11/30/20 19:54 40 mg ONETIME ONE Administration - Re-Assessments/Exams Free Text/Narrative Re-Assessment/Exam: 11/30/20 20:10 I assumed care of this patient at shift change at 1900 hrs. She really feels much better and back to baseline. She is a little bit jittery and shaky. She has no respiratory distress. She has some mild expiratory wheezing. She would really like to go home. She does have oxygen at home as well as a trilogy BiPAP machine. We will send her home on aggressive prednisone dosing 60 mg for 3 days 40 for 324 3 and then back to 10 mg daily. Cover her with doxycycline. Observe her oxygen saturation for tonight and use her oxygen at home. Anything new or worse she is to return and we will place her in the hospital. She is comfortable with this plan and her questions were answered. Departure - Departure Time of Disposition: 19:56 Sepsis Event Note (ED) - Focused Exam Vital Signs: Vital Signs Temp Pulse Resp BP Pulse Ox 11/30/20 14:54 96.4 F L 110 H 20 192/97 H 91 L I have read and agree with the documentation that has been completed regarding this visit. By signing this record, I attest that the documentation was completed in my physical presence and is an accurate record of the encounter.
[2020-11-30 19:34] LABS: CORONAVIRUS COVID-19 NAA NEGATIVE (NEGATIVE)
[2020-11-30 19:38] LABS: O2 DELIVERY DEVICE ROOM AIR; PCO2 ARTERIAL 40 mmHg (35-45); PO2 ARTERIAL 65 mmHg (70-100)
[2020-11-30 19:39] LABS: ALLEN TEST POSITIVE; BASE EXCESS ARTERIAL 1 mmol/L ((-2)-(+3)); O2 SATURATION ARTERIAL 95 % (95-100)
[2020-11-30] MEDS ORDERED: Doxycycline Monohydrate 100 MG Cap PO ONE (19:53)
[2020-11-30] MEDS ORDERED: predniSONE 20 MG Tab PO ONE (19:53)
[2020-12-03] MEDS: Albuterol/Ipratropium 3.0-0.5 MG/3 ML Neb Soln ONE (15:15)
== END 2020-11-30 20:10 | disposition home or self-care (01) ==
LOC: DL.ED 14:35
DX: J44.1 Chronic obstructive pulmonary disease with (acute) exacerbation (principal); I25.10 Atherosclerotic heart disease of native coronary artery without angina pectoris; I10 Essential (primary) hypertension; E66.9 Obesity, unspecified; Z72.0 Tobacco use; Z95.5 Presence of coronary angioplasty implant and graft; Z79.82 Long term (current) use of aspirin; Z79.02 Long term (current) use of antithrombotics/antiplatelets; Z79.899 Other long term (current) drug therapy; Z88.8 Allergy status to other drugs, medicaments and biological substances; Z91.041 Radiographic dye allergy status; Z88.0 Allergy status to penicillin; Z20.822 Contact with and (suspected) exposure to COVID-19
CPT/HCPCS: 0240U; 36415; 36600; 71046; 80053; 82803; 83605; 83735; 83880; 84484; 85025; 87040; 87077; 87186; 93005; 93010; 96372; 99284; 99285; A9270; J2930; J7512; J7620-GY

== ENCOUNTER 2021-02-04 13:03 | Emergency (ER) | payer MEDICARE, MEDICAID ==
--- NOTE | 2021-02-04 13:38 | EDM.PDOC ---
ED HPI GENERAL MEDICAL PROBLEM - General Chief Complaint: Chest Pain Stated Complaint: LEFT SIDED CHEST PAIN Time Seen by Provider: 02/04/21 13:35 Source of Information: Reports: Patient, RN, RN Notes Reviewed History Limitations: Reports: No Limitations - History of Present Illness INITIAL COMMENTS - FREE TEXT/NARRATIVE: Rebeka is a 55 y/o female with a history of COPD on 2L home O2 at who presents to the ED via personal vehicle with complaints of left sided chest pain, productive cough, and shortness of breath. The patient reports her pain began approximately two days ago and has worsened since this morning. She characterizes the pain as sharp, and notes it is localized to her left chest; she rates it at a 5/10. She has taken one dose of Nitro SL which offered her no relief of symptoms. In addition to her nebulizers and inhalers, she takes prednisone 10mg daily and Zithromax every other day. She denies recent illness, fever, sore throat, congestion, nausea, vomiting, or diarrhea. She does attest to shaking chill and transient palpitations following albuterol. Chest Pain Score (Numeric/FACES): 10 - Related Data Allergies Allergy/AdvReac Type Severity Reaction Status Date / Time atenolol Allergy Hives Verified 11/30/20 14:54 Iodinated Contrast Media Allergy Hives Verified 11/30/20 14:54 [Iodinated Contrast- Oral and IV Dye] Penicillins Allergy Hives Verified 11/30/20 14:54 Home Meds: Home Meds Budesonide [Pulmicort] 2 ml INH BID 07/26/17 [History] Gabapentin [Neurontin] 300 mg PO BEDTIME 07/26/17 [History] LORazepam 1 mg PO DAILY PRN 07/26/17 [History] Montelukast [Singulair] 10 mg PO BEDTIME 07/26/17 [History] Roflumilast [Daliresp] 500 mcg PO DAILY 07/26/17 [History] Acetaminophen [Tylenol] 650 mg PO Q4HR PRN 05/23/18 [History] Aspirin [Ecotrin EC] 81 mg PO DAILY 05/23/18 [History] Albuterol [Proventil Neb Soln] 2 puff IH ASDIRECTED PRN 06/01/18 [History] Ipratropium/Albuterol Sulfate [Iprat-Albut 0.5-3(2.5) mg/3 ml] 1 ampule IH QID PRN 06/01/18 [History] Alendronate Sodium 1 tab PO DAILY 01/06/20 [History] Arformoterol [Brovana] 2 ml NEB BID 01/06/20 [History] Benzonatate [Tessalon Perle] 100 mg PO BID PRN 01/06/20 [History] buPROPion [buPROPion XL] 150 mg PO DAILY 01/06/20 [History] predniSONE [Prednisone] 10 mg PO DAILY 01/06/20 [History] Albuterol [Proventil Neb Soln] 1 vial INH Q4HR PRN 02/14/20 [History] Ergocalciferol (Vitamin D2) [Vitamin D2] 1,250 mcg PO ASDIRECTED 02/14/20 [History] Hydrocodone/Acetaminophen [Hydrocodone-Acetamin 10-325 mg] 1 tab PO BID 02/14/20 [History] Clopidogrel [Plavix] 75 mg PO DAILY 09/13/20 [History] Isosorbide Mononitrate [Isosorbide Mononitrate ER] 30 mg PO DAILY 09/13/20 [History] Revefenacin [Yupelri] 1 unit INH DAILY 09/13/20 [History] lisinopriL [Lisinopril] 10 mg PO DAILY 09/13/20 [History] Past Medical History HEENT History: Reports: Impaired Vision Other HEENT History: wears glasses Cardiovascular History: Reports: CAD, Hypertension, Stents Other Cardiovascular History: is not treated for hypertension anymore after she had the amputation 1 year ago. 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: Musculoskeletal History: Reports: Amputation, Osteoporosis Neurological History: Reports: None Psychiatric History: Reports: Anxiety Endocrine/Metabolic History: Reports: Obesity/BMI 30+ Hematologic History: Reports: None Immunologic History: Reports: None Oncologic (Cancer) History: Reports: None Dermatologic History: Reports: None - Infectious Disease History Infectious Disease History: Reports: MRSA - Past Surgical History Head Surgeries/Procedures: Reports: None HEENT Surgical History: Reports: None Cardiovascular Surgical History: Reports: None, Coronary Artery Stent Respiratory Surgical History: Reports: None GI Surgical History: Reports: Cholecystectomy, Hernia Repair/Other Other GI Surgeries/Procedures: part of pancreas was removed. mesh placed with abdominal hernia removal. Female Surgical History: Reports: Other (See Below) Other Female Surgeries/Procedures: uterus removed Musculoskeletal Surgical History: Reports: Amputation Other Musculoskeletal Surgeries/Procedures:: right mid calf amputation Social & Family History - Family History Family Medical History: Unobtainable - Caffeine Use Caffeine Use: Reports: Coffee - Living Situation & Occupation Living situation: Reports: , with Family ED ROS GENERAL - Review of Systems Review Of Systems: Comprehensive ROS is negative, except as noted in HPI. ED EXAM, GENERAL - Physical Exam Exam: See Below Exam Limited By: No Limitations General Appearance: Alert, Anxious, Mild Distress (Shortness of breath), Other (Tremulous) Eye Exam: Bilateral Eye: EOMI, Normal Inspection, PERRL (3mm) Ears: Normal External Exam, Normal Canal, Hearing Grossly Normal, Normal TMs Ear Exam: Bilateral Ear: Auricle Normal, Canal Normal, TM normal Nose: Normal Inspection, Normal Mucosa, No Blood Throat/Mouth: Normal Inspection, Normal Oropharynx, Normal Voice, No Airway Compromise Head: Atraumatic, Normocephalic Neck: Normal Inspection, Supple, Non-Tender, Full Range of Motion. No: Lymphadenopathy (L), Lymphadenopathy (R) Respiratory/Chest: Rales (To bilateral lobes), Rhonchi (To bilateral lobes), Accessory Muscle Use, Prolonged Expiration. No: No Respiratory Distress, Chest Non-Tender, Crackles, Wheezing, Stridor, Retractions Cardiovascular: Normal Peripheral Pulses, Regular Rate, Rhythm, No Edema, No Gallop, No JVD, No Murmur, No Rub Peripheral Pulses: 2+: Radial (L), Radial (R), Dorsalis Pedis (L), Dorsalis Pedis (R) GI/Abdominal: Normal Bowel Sounds, Soft, Non-Tender, No Distention, No Abnormal Bruit, No Mass, Pelvis Stable (Female) Exam: Deferred Rectal (Female) Exam: Deferred Back Exam: Normal Inspection, Full Range of Motion Extremities: Normal Inspection, Normal Range of Motion, Non-Tender, No Pedal Edema, Normal Capillary Refill Neurological: Alert, Oriented, CN II-XII Intact, Normal Cognition, Normal Gait, Normal Reflexes, No Motor/Sensory Deficits Psychiatric: Anxious, Tearful Skin Exam: Warm, Intact, Normal Color, No Rash. No: Cyanosis, Erythema, Jaundice, Mottled, Pallor #1 Interpretation EKG Date: 02/04/21 Time: 13:28 Rhythm: Other (Sinus Tachycardia) Rate (Beats/Min): 100 [place]: Normal P-Wave: Present QRS: Normal ST-T: Elevated (V1 and aVR) QT: Normal NM/PQ Interval: 0.139 Comparison: Change From Previous EKG (Sinus Rhythm with no mild ST elevation in V1 or aVR) EKG Interpretation Comments: ST; Mild ST elevation in V1 and aVR Course - Vital Signs Last Recorded V/S: Last Vital Signs Temp 98.1 F 02/04/21 13:35 Pulse 98 02/04/21 13:35 Resp 19 02/04/21 13:35 BP 103/56 L 02/04/21 13:35 Pulse Ox 91 L 02/04/21 13:35 - Orders/Labs/Meds Labs: Laboratory Tests 02/04/21 02/04/21 02/04/21 Range/Units 13:25 13:25 13:25 WBC 11.5 H (5.0-10.0) 10^3/uL RBC 4.84 (4.2-5.4) 10^6/uL Hgb 13.5 (12.0-16.0) g/dL Hct 42.9 (37.0-47.0) % MCV 88.6 D (80-100) fL MCH 27.9 (27.0-34.0) pg MCHC 31.5 L (33.0-35.0) g/dL Plt Count 248 D (150-450) 10^3/uL Neut % (Auto) 89.2 H (42.2-75.2) % Lymph % (Auto) 7.3 L (20.5-50.1) % [place] % (Auto) 2.6 (2-8) % Eos % (Auto) 0.5 L (1.0-3.0) % Baso % (Auto) 0.4 (0.0-1.0) % PT (9.0-12.0) SEC INR (0.9-1.2) APTT (22.0-34.0) SEC Sodium 145 (136-145) mmol/L Potassium 4.1 (3.5-5.1) mmol/L Chloride 106 (98-107) mmol/L Carbon Dioxide 26 (21-32) mmol/L Anion Gap 17.1 H (7-13) mEq/L BUN 20 H (7-18) mg/dL Creatinine 1.34 H (0.55-1.02) mg/dL Est Cr Clr Drug Dosing 37.08 mL/min Estimated GFR (MDRD) 41 BUN/Creatinine Ratio 14.9 (No establ ref range) Glucose 148 H (70-99) mg/dL Lactic Acid 3.6 H* (0.4-2.0) mmol/L Calcium 8.7 (8.5-10.1) mg/dL Total Bilirubin 0.3 (0.2-1.0) mg/dL AST 17 (15-37) U/L ALT 26 (14-59) U/L Alkaline Phosphatase 99 (46-116) U/L Troponin I High Sens 135 H* (<=51) pg/mL B-Natriuretic Peptide 24 (0-100) pg/ml Total Protein 6.7 (6.4-8.2) g/dL Albumin 3.3 L (3.4-5.0) g/dL Globulin 3.4 Albumin/Globulin Ratio 0.97 Urine Color (YELLOW) Urine Appearance (CLEAR) Urine pH (5.0-9.0) Ur Specific [place] (1.005-1.030) Urine Protein (NEGATIVE) Urine Glucose (UA) (NEGATIVE) Urine Ketones (NEGATIVE) Urine Occult Blood (NEGATIVE) Urine Nitrite (NEGATIVE) Urine Bilirubin (NEGATIVE) Urine Urobilinogen (0.2-1.0) mg/dL Ur Leukocyte Esterase (NEGATIVE) 02/04/21 02/04/21 Range/Units 13:48 14:00 WBC (5.0-10.0) 10^3/uL RBC (4.2-5.4) 10^6/uL Hgb (12.0-16.0) g/dL Hct (37.0-47.0) % MCV (80-100) fL MCH (27.0-34.0) pg MCHC (33.0-35.0) g/dL Plt Count (150-450) 10^3/uL Neut % (Auto) (42.2-75.2) % Lymph % (Auto) (20.5-50.1) % [place] % (Auto) (2-8) % Eos % (Auto) (1.0-3.0) % Baso % (Auto) (0.0-1.0) % PT 9.6 (9.0-12.0) SEC INR 1.0 (0.9-1.2) APTT 20.8 L (22.0-34.0) SEC Sodium (136-145) mmol/L Potassium (3.5-5.1) mmol/L Chloride (98-107) mmol/L Carbon Dioxide (21-32) mmol/L Anion Gap (7-13) mEq/L BUN (7-18) mg/dL Creatinine (0.55-1.02) mg/dL Est Cr Clr Drug Dosing mL/min Estimated GFR (MDRD) BUN/Creatinine Ratio (No establ ref range) Glucose (70-99) mg/dL Lactic Acid (0.4-2.0) mmol/L Calcium (8.5-10.1) mg/dL Total Bilirubin (0.2-1.0) mg/dL AST (15-37) U/L ALT (14-59) U/L Alkaline Phosphatase (46-116) U/L Troponin I High Sens (<=51) pg/mL B-Natriuretic Peptide (0-100) pg/ml Total Protein (6.4-8.2) g/dL Albumin (3.4-5.0) g/dL Globulin Albumin/Globulin Ratio Urine Color Yellow (YELLOW) Urine Appearance Slightly cloudy (CLEAR) Urine pH 6.5 (5.0-9.0) Ur Specific [place] 1.020 (1.005-1.030) Urine Protein Negative (NEGATIVE) Urine Glucose (UA) Negative (NEGATIVE) Urine Ketones Negative (NEGATIVE) Urine Occult Blood Negative (NEGATIVE) Urine Nitrite Negative (NEGATIVE) Urine Bilirubin Negative (NEGATIVE) Urine Urobilinogen 0.2 (0.2-1.0) mg/dL Ur Leukocyte Esterase Negative (NEGATIVE) Meds: Medications Discontinued Medications Generic Name Dose Route Start Last Admin Trade Name Freq PRN Reason Stop Dose Admin Albuterol/Ipratropium 3 ml 02/04/21 14:10 02/04/21 14:27 Albuterol/Ipratropium 3.0-0.5 Mg/3 Ml Neb Soln NEB 02/04/21 14:11 3 ml ONETIME ONE Administration Aspirin 324 mg 02/04/21 15:03 02/04/21 15:39 Aspirin 81 Mg Tab.Chew PO 02/04/21 15:04 324 mg ONETIME ONE Administration Heparin Sodium (Porcine) 4,000 units 02/04/21 16:02 02/04/21 16:12 Heparin Sodium 5,000 Units/Ml Vial IVPUSH 02/04/21 16:03 4,000 units .BOLUS ONE Administration Heparin Sodium/Sodium Chloride 25,000 units in 500 mls @ 23.514 mls/hr 02/04/21 16:15 02/04/21 16:12 Heparin 25,000 Units In 1/2 Ns 500 Ml IV 12 units/kg/hr TITRATE ASHLEY 23.514 mls/hr Administration Protocol 12 UNITS/KG/HR Methylprednisolone Sodium Succinate 125 mg 02/04/21 14:10 02/04/21 14:27 Methylprednisolone Sodium Succinate 125 Mg/2 Ml Sdv IVPUSH 02/04/21 14:11 125 mg ONETIME ONE Administration - Re-Assessments/Exams Free Text/Narrative Re-Assessment/Exam: 02/04/21 DuoNeb and Solu-Medrol initiated while labs pending. EKG performed Patient verbalized improvement in work of breathing following medications. Findings of examination, imaging, EKG, and lab work reviewed with patient. Discussed need for transfer to higher level of care given troponin elevation. ASA ordered. [facility] called at 1430, no beds available, but will call development writer back at 1530. Attempts to place patient at [facility], but no beds available. Case discussed with Dr. Garland, hospitalist at [facility], who kindly agreed to accept patient for transfer. He requests we start Heparin gtt for NSTEMI protocol Patient notified of arrangement for transfer. She verbalized understanding and agreement with the plan of care. Departure - Departure Time of Disposition: 17:10 Disposition: DC/Tfer to Acute Hospital 02 Condition: Fair Clinical Impression: NSTEMI (non-ST elevated myocardial infarction) COPD (chronic obstructive pulmonary disease) Qualifiers: COPD type: chronic bronchitis Chronic bronchitis type: unspecified Qualified Code(s): J42 - Unspecified chronic bronchitis - Discharge Information Referrals: Gurinder Jenkins [Primary Care Provider] - Forms: ED Department Discharge, Interfacility Transfer JOHANA Sepsis Event Note (ED) - Focused Exam Vital Signs: Vital Signs Temp Pulse Resp BP Pulse Ox 02/04/21 13:35 98.1 F 98 19 103/56 L 91 L
[2021-02-04 13:40] VITALS: BP 103/56; PULSE 98
[2021-02-04 13:56] LABS: ANION GAP 17.1 mEq/L (7-13)
[2021-02-04] MEDS ORDERED: Albuterol/Ipratropium 3.0-0.5 MG/3 ML Neb Soln NEB ONE (14:10)
[2021-02-04] MEDS ORDERED: methylPREDNISolone Sodium Succinate 125 MG/2 ML SDV IVPUSH ONE (14:10)
[2021-02-04 14:16] LABS: PTT,PARTIAL THROMBOPLSTIN TIME 20.8 SEC (22.0-34.0)
--- NOTE | 2021-02-04 14:48 | CR ---
EXAMINATION: Chest 1V Frontal SEX: Female AGE: 55 years CLINICAL HISTORY: 55-year-old female chest pain and shortness of breath. Interpretation: No acute new cardiopulmonary abnormality since 30 November 2020 comparison. External panel monitor leads. Oxygen cannula. Normal cardiac silhouette (size and configuration). No pulmonary vascular congestion, cephalization of flow, alveolar edema or dependent pleural effusion. No new lung mass, hilar lymphadenopathy, alveolar infiltrate, or peripheral "groundglass" interstitial lung density. No pneumothorax or pneumomediastinum. Midline tracheobronchial airway unremarkable.
[2021-02-04] MEDS ORDERED: Aspirin 81 MG Tab.Chew PO ONE (15:03)
[2021-02-04] MEDS ORDERED: Heparin Sodium 5,000 Units/ML Vial IVPUSH ONE (16:02)
[2021-02-04] MEDS ORDERED: Heparin Sodium/0.45% NaCl 25,000 UNITS/500 ML BAG IV SCH (16:15)
== END 2021-02-04 16:35 ==
LOC: DL.ED 13:03
DX: I21.4 Non-ST elevation (NSTEMI) myocardial infarction (principal); J42 Unspecified chronic bronchitis; R00.0 Tachycardia, unspecified; I25.10 Atherosclerotic heart disease of native coronary artery without angina pectoris; I10 Essential (primary) hypertension; M81.0 Age-related osteoporosis without current pathological fracture; E66.9 Obesity, unspecified; Z68.39 Body mass index [BMI] 39.0-39.9, adult; Z88.8 Allergy status to other drugs, medicaments and biological substances; Z91.041 Radiographic dye allergy status; Z88.0 Allergy status to penicillin; Z79.82 Long term (current) use of aspirin; Z79.02 Long term (current) use of antithrombotics/antiplatelets; Z79.899 Other long term (current) drug therapy
CPT/HCPCS: 36415; 71045; 80053; 81003; 83605; 83880; 84484; 85025; 85610; 85730; 93005; 96365; 96375; 99285-25; A9270-GY; J1644; J2930; J7620-GY

== ENCOUNTER 2021-02-23 16:24 | Emergency (ER) | payer MEDICARE, MEDICAID ==
[2021-02-23 18:07] VITALS: BP 142/79; PULSE 97
[2021-02-23] MEDS ORDERED: Sodium Chloride 0.9% 1,000 ML IV ONE (18:30)
[2021-02-23] MEDS ORDERED: Sodium Chloride 0.9% 10 ML Syringe FLUSH PRN (18:30)
--- NOTE | 2021-02-23 18:39 | EDM.PDOC ---
<Karen Novak - Last Filed: 02/23/21 18:58> ED HPI GENERAL MEDICAL PROBLEM - General Chief Complaint: Genitourinary Problem Stated Complaint: KIDNEY, VERY PAINFUL Time Seen by Provider: 02/23/21 18:25 Source of Information: Reports: Patient History Limitations: Reports: No Limitations - History of Present Illness INITIAL COMMENTS - FREE TEXT/NARRATIVE: Pt is here for left flank pain that started yesterday. It is a sharp stabbing pain and radiates to her groin. She denies any fevers or chills. She only urinated once so far today and felt swollen on the left flank. She has had a renal stone before and thinks that is similar. She denies any known injury to the area. She had some dysuria. No increased frequency or urgency. 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(s) Left Back Pain Score (Numeric/FACES): 9 - Related Data Allergies Allergy/AdvReac Type Severity Reaction Status Date / Time atenolol Allergy Hives Verified 02/23/21 16:51 Iodinated Contrast Media Allergy Hives Verified 02/23/21 16:51 [Iodinated Contrast- Oral and IV Dye] Penicillins Allergy Hives Verified 02/23/21 16:51 Home Meds: Home Meds Budesonide [Pulmicort] 2 ml INH BID 07/26/17 [History] Gabapentin [Neurontin] 300 mg PO BEDTIME 07/26/17 [History] LORazepam 1 mg PO DAILY PRN 07/26/17 [History] Montelukast [Singulair] 10 mg PO BEDTIME 07/26/17 [History] Roflumilast [Daliresp] 500 mcg PO DAILY 07/26/17 [History] Acetaminophen [Tylenol] 650 mg PO Q4HR PRN 05/23/18 [History] Aspirin [Ecotrin EC] 81 mg PO DAILY 05/23/18 [History] Albuterol [Proventil Neb Soln] 2 puff IH ASDIRECTED PRN 06/01/18 [History] Ipratropium/Albuterol Sulfate [Iprat-Albut 0.5-3(2.5) mg/3 ml] 1 ampule IH QID PRN 06/01/18 [History] Alendronate Sodium 1 tab PO DAILY 01/06/20 [History] Arformoterol [Brovana] 2 ml NEB BID 01/06/20 [History] Benzonatate [Tessalon Perle] 100 mg PO BID PRN 01/06/20 [History] buPROPion [buPROPion XL] 150 mg PO DAILY 01/06/20 [History] predniSONE [Prednisone] 7.5 mg PO DAILY 01/06/20 [History] Albuterol [Proventil Neb Soln] 1 vial INH Q4HR PRN 02/14/20 [History] Ergocalciferol (Vitamin D2) [Vitamin D2] 1,250 mcg PO ASDIRECTED 02/14/20 [History] Hydrocodone/Acetaminophen [Hydrocodone-Acetamin 10-325 mg] 1 tab PO BID 02/14/20 [History] Clopidogrel [Plavix] 75 mg PO DAILY 09/13/20 [History] Isosorbide Mononitrate [Isosorbide Mononitrate ER] 60 mg PO DAILY 09/13/20 [History] Revefenacin [Yupelri] 1 unit INH DAILY 09/13/20 [History] lisinopriL [Lisinopril] 10 mg PO DAILY 09/13/20 [History] Past Medical History HEENT History: Reports: Impaired Vision Other HEENT History: wears glasses Cardiovascular History: Reports: CAD, Hypertension, Stents Other Cardiovascular History: is not treated for hypertension anymore after she had the amputation 1 year ago. 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: Musculoskeletal History: Reports: Amputation, Osteoporosis Neurological History: Reports: None Psychiatric History: Reports: Anxiety Endocrine/Metabolic History: Reports: Obesity/BMI 30+ Hematologic History: Reports: None Immunologic History: Reports: None Oncologic (Cancer) History: Reports: None Dermatologic History: Reports: None - Infectious Disease History Infectious Disease History: Reports: MRSA - Past Surgical History Head Surgeries/Procedures: Reports: None HEENT Surgical History: Reports: None Cardiovascular Surgical History: Reports: None, Coronary Artery Stent Respiratory Surgical History: Reports: None GI Surgical History: Reports: Cholecystectomy, Hernia Repair/Other Other GI Surgeries/Procedures: part of pancreas was removed. mesh placed with abdominal hernia removal. Female Surgical History: Reports: Other (See Below) Other Female Surgeries/Procedures: uterus removed Musculoskeletal Surgical History: Reports: Amputation Other Musculoskeletal Surgeries/Procedures:: right mid calf amputation Social & Family History - Family History Family Medical History: Unobtainable - Tobacco Use Tobacco Use Status *Q: Current Some Day Tobacco User Years of Tobacco use: 39 Packs/Tins Daily: 0.1 - Caffeine Use Caffeine Use: Reports: Coffee - Recreational Drug Use Recreational Drug Use: No - Living Situation & Occupation Living situation: Reports: , with Family ED ROS GENERAL - Review of Systems Review Of Systems: Comprehensive ROS is negative, except as noted in HPI. ED EXAM, RENAL/ - Physical Exam Exam: See Below Exam Limited By: No Limitations General Appearance: Alert, WD/WN, No Apparent Distress Eye Exam: Bilateral Eye: Normal Inspection Nose: Normal Inspection Throat/Mouth: Normal Inspection, Normal Voice, No Airway Compromise Head: Atraumatic, Normocephalic Neck: Normal Inspection, Supple, Non-Tender, Full Range of Motion Respiratory/Chest: No Respiratory Distress, Lungs Clear, Normal Breath Sounds, No Accessory Muscle Use, Chest Non-Tender Cardiovascular: Normal Peripheral Pulses, Regular Rate, Rhythm, No Murmur GI/Abdominal: Soft, No Distention, Tender (left flank and lower abdominal pain) (Female) Exam: Deferred Rectal (Female) Exam: Deferred Back Exam: Normal Inspection, CVA Tenderness (L). No: CVA Tenderness (R) Extremities: Normal Inspection Neurological: Alert, Oriented, Normal Cognition, Normal Gait, No Motor/Sensory Deficits Psychiatric: Normal Affect, Normal Mood Skin Exam: Warm, Dry, Intact, Normal Color, No Rash Lymphatic: No Adenopathy Course - Re-Assessments/Exams Free Text/Narrative Re-Assessment/Exam: Pt signed out to Lee Pierre at 1900 shift change. 02/23/21 18:58 Departure - Departure Disposition: Home, Self-Care 01 Clinical Impression: Aneurysm of infrarenal abdominal aorta Abdominal pain Qualifiers: Abdominal location: left lower quadrant Qualified Code(s): R10.32 - Left lower quadrant pain - Discharge Information Instructions: Abdominal Aortic Aneurysm, [id number] Forms: ED Department Discharge Additional Instructions: Encourage patient to follow-up with PCP in the clinic for aneurysm monitoring and possible referral as needed. Sepsis Event Note (ED) - Evaluation Sepsis Screening Result: No Definite Risk <Alia Pierre - Last Filed: 02/23/21 20:49> Course - Vital Signs Last Recorded V/S: Last Vital Signs Temp 97.8 F 02/23/21 18:06 Pulse 97 02/23/21 18:06 Resp 24 H 02/23/21 18:06 BP 142/79 H 02/23/21 18:06 Pulse Ox 93 L 02/23/21 18:06 - Orders/Labs/Meds Orders: Active Orders 24 hr Category Date Time Status Peripheral IV Care [RC] . DIRECTED Care 02/23/21 18:30 Active Sodium Chloride 0.9% [Saline Flush] Med 02/23/21 18:30 Active 10 ml FLUSH ASDIRECTED PRN Peripheral IV Insertion Adult [OM.PC] Stat Oth 02/23/21 18:29 Ordered Medication Orders Sodium Chloride (Sodium Chloride 0.9% 10 Ml Syringe) 10 ml FLUSH ASDIRECTED PRN PRN Reason: Keep Vein Open Labs: Laboratory Tests 02/23/21 02/23/21 02/23/21 Range/Units 17:05 18:43 18:43 WBC 10.7 H (5.0-10.0) 10^3/uL RBC 5.18 (4.2-5.4) 10^6/uL Hgb 14.4 (12.0-16.0) g/dL Hct 45.9 (37.0-47.0) % MCV 88.6 (80-100) fL MCH 27.8 (27.0-34.0) pg MCHC 31.4 L (33.0-35.0) g/dL Plt Count 370 D (150-450) 10^3/uL Neut % (Auto) 83.4 H (42.2-75.2) % Lymph % (Auto) 9.9 L (20.5-50.1) % [place] % (Auto) 6.4 (2-8) % Eos % (Auto) 0.1 L (1.0-3.0) % Baso % (Auto) 0.2 (0.0-1.0) % Sodium 144 (136-145) mmol/L Potassium 4.3 (3.5-5.1) mmol/L Chloride 105 (98-107) mmol/L Carbon Dioxide 28 (21-32) mmol/L Anion Gap 15.3 H (7-13) mEq/L BUN 16 (7-18) mg/dL Creatinine 1.30 H (0.55-1.02) mg/dL Est Cr Clr Drug Dosing 46.99 mL/min Estimated GFR (MDRD) 42 BUN/Creatinine Ratio 12.3 (No establ ref range) Glucose 109 H (70-99) mg/dL Calcium 9.4 (8.5-10.1) mg/dL Total Bilirubin 0.2 (0.2-1.0) mg/dL AST 20 (15-37) U/L ALT 32 (14-59) U/L Alkaline Phosphatase 123 H (46-116) U/L Total Protein 7.3 (6.4-8.2) g/dL Albumin 3.3 L (3.4-5.0) g/dL Globulin 4.0 Albumin/Globulin Ratio 0.83 Urine Color Yellow (YELLOW) Urine Appearance Clear (CLEAR) Urine pH 8.0 (5.0-9.0) Ur Specific [place] 1.020 (1.005-1.030) Urine Protein Negative (NEGATIVE) Urine Glucose (UA) Negative (NEGATIVE) Urine Ketones Negative (NEGATIVE) Urine Occult Blood Negative (NEGATIVE) Urine Nitrite Negative (NEGATIVE) Urine Bilirubin Negative (NEGATIVE) Urine Urobilinogen 0.2 (0.2-1.0) mg/dL Ur Leukocyte Esterase Negative (NEGATIVE) Meds: Medications Generic Name Dose Route Start Last Admin Trade Name Freq PRN Reason Stop Dose Admin Sodium Chloride 10 ml 02/23/21 18:30 Sodium Chloride 0.9% 10 Ml Syringe FLUSH ASDIRECTED PRN Keep Vein Open Discontinued Medications Generic Name Dose Route Start Last Admin Trade Name Freq PRN Reason Stop Dose Admin Sodium Chloride 1,000 mls @ 999 mls/hr 02/23/21 18:30 02/23/21 19:30 Normal Saline IV 02/23/21 19:30 999 mls/hr .BOLUS ONE Administration Oxycodone/Acetaminophen 1 tab 02/23/21 20:45 Acetaminophen/Oxycodone 325-5 Mg Tab PO 02/23/21 20:46 ONETIME ONE - Re-Assessments/Exams Free Text/Narrative Re-Assessment/Exam: Exam findings, lab results and CT results with patient. Percocet administered for pain. Encourage patient to follow-up with PCP in the clinic for aneurysm monitoring and possible referral as needed. Departure - Departure Time of Disposition: 20:47 Condition: Good Sepsis Event Note (ED) - Focused Exam Vital Signs: Vital Signs Temp Pulse Resp BP Pulse Ox 02/23/21 18:06 97.8 F 97 24 H 142/79 H 93 L 02/23/21 16:46 97.7 F 99 20 152/61 H 92 L
[2021-02-23 19:08] LABS: ANION GAP 15.3 mEq/L (7-13)
--- NOTE | 2021-02-23 19:48 | CT ---
PROCEDURE INFORMATION: Exam: CT Abdomen And Pelvis Without Contrast Exam date and time: 02/23/2021 7:05 PM Age: 55 years old Clinical indication: Other: Left flank pain TECHNIQUE: Imaging protocol: Computed tomography of the abdomen and pelvis without contrast. Radiation optimization: All CT scans at this facility use at least one of these dose optimization techniques: automated exposure control; mA and/or kV adjustment per patient size (includes targeted exams where dose is matched to clinical indication); or iterative reconstruction. COMPARISON: CT Abdomen Pelvis w wo Cont 01/15/2020 8:33 AM FINDINGS: Liver: The liver is normal in architecture, without suspicious abnormality. Gallbladder and bile ducts: The gallbladder is surgically absent. Pancreas: The pancreatic parenchyma is normal in bulk and sharply marginated. Duct is not dilated. No calcifications, masses, or abnormal fluid collections. Spleen: Spleen is normal in size. No mass or fluid collection. Adrenal glands: There are no adrenal masses. Kidneys and ureters: Normal in parenchymal bulk. No hydronephrosis or asymmetric perinephric stranding. No solid masses. No stones. Stomach and bowel: No significant abnormalities of the stomach. There are no dilated or thickened small bowel loops. Gas and stool are seen in the colon to the rectum. No mass. Appendix: The appendix is seen. There is no evidence for appendicitis. Intraperitoneal space: No ascites. No abscess. No inflammation within the intra-abdominal fat. No pneumoperitoneum. No mass. Retroperitoneal space: No retroperitoneal hemorrhage. Vasculature: There are atherosclerotic calcifications inclusive of the coronary arteries. 3.5 cm infrarenal abdominal aortic aneurysm. Lymph nodes: There are no enlarged celiac, mesenteric, periportal, extraperitoneal or inguinal lymph nodes. Urinary bladder: There is no bladder wall thickening, mass, or calculus. Reproductive: The uterus is surgically absent. No adenexal masses. Bones/joints: Age appropriate spondylosis. There are no suspicious lytic or osteosclerotic lesions. There are no vertebral compression fractures. Previous L1 and L2 vertebroplasties. Soft tissues: See "Intraperitoneal space" finding. IMPRESSION: 3.5 cm infrarenal abdominal aortic aneurysm. No sign of rupture.
[2021-02-23] MEDS ORDERED: Acetaminophen/oxyCODONE 325-5 MG Tab PO ONE (20:45)
== END 2021-02-23 21:03 | disposition home or self-care (01) ==
LOC: DL.ED 16:24
DX: I71.4 Abdominal aortic aneurysm, without rupture (principal); I25.10 Atherosclerotic heart disease of native coronary artery without angina pectoris; I10 Essential (primary) hypertension; J44.9 Chronic obstructive pulmonary disease, unspecified; E66.9 Obesity, unspecified; Z68.31 Body mass index [BMI] 31.0-31.9, adult; Z95.5 Presence of coronary angioplasty implant and graft; Z79.82 Long term (current) use of aspirin; Z79.02 Long term (current) use of antithrombotics/antiplatelets; Z79.899 Other long term (current) drug therapy; Z72.0 Tobacco use; Z88.0 Allergy status to penicillin; Z91.041 Radiographic dye allergy status; Z88.8 Allergy status to other drugs, medicaments and biological substances
CPT/HCPCS: 36415; 74176; 80053; 81003; 85025; 99284; A9270; J7030

== ENCOUNTER 2021-03-12 16:55 | Emergency (ER) | payer MEDICARE, MEDICAID ==
[2021-03-12] MEDS ORDERED: methylPREDNISolone Sodium Succinate 125 MG/2 ML SDV IM ONE (17:06)
[2021-03-12] MEDS ORDERED: Albuterol/Ipratropium 3.0-0.5 MG/3 ML Neb Soln NEB ONE (17:07)
[2021-03-12] MEDS ORDERED: LORazepam 2 MG/ML SDV IM ONE (17:07)
[2021-03-12 17:15] VITALS: PULSE 96
[2021-03-12 17:44] VITALS: BP 143/83
--- NOTE | 2021-03-12 17:50 | EDM.PDOC ---
Scribed by Sary Valdes 03/12/21 2215 for Kash Wills MD ED HPI GENERAL MEDICAL PROBLEM - General Chief Complaint: Respiratory Problem Stated Complaint: BREATHING ISSUES. Time Seen by Provider: 03/12/21 17:05 Source of Information: Reports: Patient, Provider, RN, RN Notes Reviewed History Limitations: Reports: No Limitations - History of Present Illness INITIAL COMMENTS - FREE TEXT/NARRATIVE: Patient presents to ED from clinic with complaints of difficulty breathing. She was seen in clinic for ongoing breathing issues, worked up all results were unremarkable. She was in the drive-thru at the pharmacy picking up her pre- medication Prednisone to take prior to tomorrow's scheduled PE study and she told the pharmacist that she couldn't breathe and so was brought here. Pt claims she is very anxious, and appear to be having a panic attack. Onset: Today Duration: Constant Location: Reports: Generalized Severity: Severe Improves with: Reports: None Worsens with: Reports: None Associated Symptoms: Reports: No Other Symptoms - Related Data Allergies Allergy/AdvReac Type Severity Reaction Status Date / Time atenolol Allergy Hives Verified 02/23/21 16:51 Iodinated Contrast Media Allergy Hives Verified 02/23/21 16:51 [Iodinated Contrast- Oral and IV Dye] Penicillins Allergy Hives Verified 02/23/21 16:51 Home Meds: Home Meds Budesonide [Pulmicort] 2 ml INH BID 07/26/17 [History] Gabapentin [Neurontin] 300 mg PO BEDTIME 07/26/17 [History] LORazepam 1 mg PO DAILY PRN 07/26/17 [History] Montelukast [Singulair] 10 mg PO BEDTIME 07/26/17 [History] Roflumilast [Daliresp] 500 mcg PO DAILY 07/26/17 [History] Acetaminophen [Tylenol] 650 mg PO Q4HR PRN 05/23/18 [History] Aspirin [Ecotrin EC] 81 mg PO DAILY 05/23/18 [History] Albuterol [Proventil Neb Soln] 2 puff IH ASDIRECTED PRN 06/01/18 [History] Ipratropium/Albuterol Sulfate [Iprat-Albut 0.5-3(2.5) mg/3 ml] 1 ampule IH QID PRN 06/01/18 [History] Alendronate Sodium 1 tab PO DAILY 01/06/20 [History] Arformoterol [Brovana] 2 ml NEB BID 01/06/20 [History] Benzonatate [Tessalon Perle] 100 mg PO BID PRN 01/06/20 [History] buPROPion [buPROPion XL] 150 mg PO DAILY 01/06/20 [History] predniSONE [Prednisone] 7.5 mg PO DAILY 01/06/20 [History] Albuterol [Proventil Neb Soln] 1 vial INH Q4HR PRN 02/14/20 [History] Ergocalciferol (Vitamin D2) [Vitamin D2] 1,250 mcg PO ASDIRECTED 02/14/20 [History] Hydrocodone/Acetaminophen [Hydrocodone-Acetamin 10-325 mg] 1 tab PO BID 02/14/20 [History] Clopidogrel [Plavix] 75 mg PO DAILY 09/13/20 [History] Isosorbide Mononitrate [Isosorbide Mononitrate ER] 60 mg PO DAILY 09/13/20 [History] Revefenacin [Yupelri] 1 unit INH DAILY 09/13/20 [History] lisinopriL [Lisinopril] 10 mg PO DAILY 09/13/20 [History] Past Medical History HEENT History: Reports: Impaired Vision Other HEENT History: wears glasses Cardiovascular History: Reports: CAD, Hypertension, Stents Other Cardiovascular History: is not treated for hypertension anymore after she had the amputation 1 year ago. Respiratory History: Reports: Asthma, COPD, Intubation, Previous, Pneumonia, Recurrent, SOB, Other (See Below) Other Respiratory History: PE in 2014 Gastrointestinal History: Reports: Cholelithiasis Genitourinary History: Reports: Renal Disease [employer]ER History: Reports: Musculoskeletal History: Reports: Amputation, Osteoporosis Neurological History: Reports: None Psychiatric History: Reports: Anxiety Endocrine/Metabolic History: Reports: Obesity/BMI 30+ Hematologic History: Reports: None Immunologic History: Reports: None Oncologic (Cancer) History: Reports: None Dermatologic History: Reports: None - Infectious Disease History Infectious Disease History: Reports: MRSA - Past Surgical History Head Surgeries/Procedures: Reports: None HEENT Surgical History: Reports: None Cardiovascular Surgical History: Reports: None, Coronary Artery Stent Respiratory Surgical History: Reports: None GI Surgical History: Reports: Cholecystectomy, Hernia Repair/Other Other GI Surgeries/Procedures: part of pancreas was removed. mesh placed with abdominal hernia removal. Female Surgical History: Reports: Other (See Below) Other Female Surgeries/Procedures: uterus removed Musculoskeletal Surgical History: Reports: Amputation Other Musculoskeletal Surgeries/Procedures:: right mid calf amputation Social & Family History - Family History Family Medical History: Unobtainable - Caffeine Use Caffeine Use: Reports: Coffee - Living Situation & Occupation Living situation: Reports: , with Family ED ROS GENERAL - Review of Systems Review Of Systems: Comprehensive ROS is negative, except as noted in HPI. ED EXAM, GENERAL - Physical Exam Exam: See Below Exam Limited By: No Limitations General Appearance: Alert, Anxious, Obese, Other (Chronically ill appearing) Nose: Normal Inspection Throat/Mouth: Normal Lips, Normal Voice, No Airway Compromise Head: Atraumatic, Normocephalic Neck: Normal Inspection Respiratory/Chest: No Respiratory Distress, No Accessory Muscle Use, Decreased Breath Sounds, Wheezing. No: Rales, Rhonchi Cardiovascular: Regular Rate, Rhythm GI/Abdominal: Normal Bowel Sounds, Soft, Non-Tender Back Exam: No: Vertebral Tenderness Extremities: Other (Rt BKA) Neurological: Alert, Oriented Psychiatric: Anxious, Tearful Skin Exam: Warm, Dry Course - Vital Signs Last Recorded V/S: Last Vital Signs Temp 98.7 F 03/12/21 17:06 Pulse 96 03/12/21 17:07 Resp 22 H 03/12/21 17:15 BP 143/83 H 03/12/21 17:06 Pulse Ox 98 03/12/21 17:15 - Orders/Labs/Meds Orders: Active Orders 24 hr Category Date Time Status RT Aerosol Therapy [RC] ASDIRECTED Care 03/12/21 17:07 Active Meds: Medications Discontinued Medications Generic Name Dose Route Start Last Admin Trade Name Freq PRN Reason Stop Dose Admin Albuterol/Ipratropium 3 ml 03/12/21 17:07 03/12/21 17:13 Albuterol/Ipratropium 3.0-0.5 Mg/3 Ml Neb Soln NEB 03/12/21 17:08 3 ml ONETIME ONE Administration Lorazepam 1 mg 03/12/21 17:07 03/12/21 17:17 Lorazepam 2 Mg/Ml Sdv IM 03/12/21 17:08 1 mg ONETIME ONE Administration Methylprednisolone Sodium Succinate 125 mg 03/12/21 17:06 03/12/21 17:18 Methylprednisolone Sodium Succinate 125 Mg/2 Ml Sdv IM 03/12/21 17:07 125 mg ONETIME ONE Administration Departure - Departure Time of Disposition: 17:47 Disposition: Home, Self-Care 01 Condition: Good Clinical Impression: COPD with asthma, Anxiety about health - Discharge Information *PRESCRIPTION DRUG MONITORING PROGRAM REVIEWED*: Not Applicable *COPY OF PRESCRIPTION DRUG MONITORING REPORT IN PATIENT ANA: Not Applicable Instructions: Chronic Obstructive Pulmonary Disease, [id number], Asthma, Adult, [id number], Managing Anxiety, Adult Forms: ED Department Discharge Additional Instructions: Follow for the CT scan tomorrow as scheduled. Return to ER if worse at any time. Sepsis Event Note (ED) - Focused Exam Vital Signs: Vital Signs Temp Pulse Resp BP Pulse Ox Pulse Ox 03/12/21 17:15 22 H 98 03/12/21 17:07 96 98 03/12/21 17:06 98.7 F 107 H 24 H 143/83 H 90 L - My Orders Last 24 Hours: My Active Orders 03/12/21 17:07 RT Aerosol Therapy [RC] ASDIRECTED - Assessment/Plan Last 24 Hours: My Active Orders 03/12/21 17:07 RT Aerosol Therapy [RC] ASDIRECTED I have read and agree with the documentation that has been completed regarding this visit. By signing this record, I attest that the documentation was completed in my physical presence and is an accurate record of the encounter.
== END 2021-03-12 17:50 | disposition home or self-care (01) ==
LOC: DL.ED 16:55
DX: J44.1 Chronic obstructive pulmonary disease with (acute) exacerbation (principal); F41.9 Anxiety disorder, unspecified; I25.10 Atherosclerotic heart disease of native coronary artery without angina pectoris; I10 Essential (primary) hypertension; E66.9 Obesity, unspecified; Z68.33 Body mass index [BMI] 33.0-33.9, adult; Z91.041 Radiographic dye allergy status; Z88.0 Allergy status to penicillin; Z88.8 Allergy status to other drugs, medicaments and biological substances; Z79.82 Long term (current) use of aspirin; Z79.02 Long term (current) use of antithrombotics/antiplatelets; Z79.899 Other long term (current) drug therapy
CPT/HCPCS: 94640; 96372; 99284; J2060; J2930; J7620-GY

== ENCOUNTER 2021-03-17 14:55 | Emergency (ER) | payer MEDICARE, MEDICAID ==
[2021-03-17 15:31] VITALS: BP 126/63
[2021-03-17] MEDS ORDERED: Albuterol 0.083% 2.5 MG/3 ML Neb Soln NEB ONE (16:40)
[2021-03-17] MEDS ORDERED: Sodium Chloride 0.9% 10 ML Syringe FLUSH PRN (16:40)
[2021-03-17] MEDS ORDERED: methylPREDNISolone Sodium Succinate 125 MG/2 ML SDV IVPUSH ONE (16:40)
[2021-03-17] MEDS ORDERED: Magnesium Sulfate/Water 2 GM in Premix Bag 1 BAG IV ONE (16:41)
--- NOTE | 2021-03-17 16:58 | CR ---
PROCEDURE INFORMATION: Exam: XR Chest Exam date and time: 03/17/2021 4:45 PM Age: 55 years old Clinical indication: Other: Chest pain, copd TECHNIQUE: Imaging protocol: XR of the chest. Views: 1 view. Total images: 1 COMPARISON: CT Chest w Cont, Chest w Cont 03/13/2021 8:27 AM FINDINGS: Lungs: Unremarkable. No consolidation. Pleural spaces: Unremarkable. No pleural effusion. No pneumothorax. Heart/Mediastinum: Unremarkable. No cardiomegaly. Bones/joints: Unremarkable. IMPRESSION: No acute findings.
[2021-03-17 17:32] LABS: ANION GAP 11.9 mEq/L (7-13)
--- NOTE | 2021-03-17 18:18 | EDM.PDOC ---
Scribed by Sary Valdes 03/17/21 [id number] for Tee Wills MD ED HPI GENERAL MEDICAL PROBLEM - General Chief Complaint: Respiratory Problem Stated Complaint: OXYGEN LOW, CHEST Time Seen by Provider: 03/17/21 16:00 Source of Information: Reports: Patient, RN Notes Reviewed History Limitations: Reports: No Limitations - History of Present Illness INITIAL COMMENTS - FREE TEXT/NARRATIVE: 55 y/o F c/o SOB, cough and fatigue over the last three weeks which has becoe more severe in the last few days. Hx of COPD. 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 Pt states she has become increasingly short of breath with activity. Has used her nebs and inhaler as prescribed without success. Denies vision prob, diff swallowing, cp, abd pn, pelvic pn, recent trauma, extremity pain. Onset: Gradual Duration: Week(s): Location: Reports: Chest Severity: Moderate Improves with: Reports: None Worsens with: Reports: Movement Associated Symptoms: Reports: No Other Symptoms Thoracic Pain Score (Numeric/FACES): 7 - Related Data Allergies Allergy/AdvReac Type Severity Reaction Status Date / Time atenolol Allergy Hives Verified 02/23/21 16:51 Iodinated Contrast Media Allergy Hives Verified 02/23/21 16:51 [Iodinated Contrast- Oral and IV Dye] Penicillins Allergy Hives Verified 02/23/21 16:51 Home Meds: Home Meds Budesonide [Pulmicort] 2 ml INH BID 07/26/17 [History] Gabapentin [Neurontin] 300 mg PO BEDTIME 07/26/17 [History] LORazepam 1 mg PO DAILY PRN 07/26/17 [History] Montelukast [Singulair] 10 mg PO BEDTIME 07/26/17 [History] Roflumilast [Daliresp] 500 mcg PO DAILY 07/26/17 [History] Acetaminophen [Tylenol] 650 mg PO Q4HR PRN 05/23/18 [History] Aspirin [Ecotrin EC] 81 mg PO DAILY 05/23/18 [History] Albuterol [Proventil Neb Soln] 2 puff IH ASDIRECTED PRN 06/01/18 [History] Ipratropium/Albuterol Sulfate [Iprat-Albut 0.5-3(2.5) mg/3 ml] 1 ampule IH QID PRN 06/01/18 [History] Alendronate Sodium 1 tab PO DAILY 01/06/20 [History] Arformoterol [Brovana] 2 ml NEB BID 01/06/20 [History] Benzonatate [Tessalon Perle] 100 mg PO BID PRN 01/06/20 [History] buPROPion [buPROPion XL] 150 mg PO DAILY 01/06/20 [History] predniSONE [Prednisone] 7.5 mg PO DAILY 01/06/20 [History] Albuterol [Proventil Neb Soln] 1 vial INH Q4HR PRN 02/14/20 [History] Ergocalciferol (Vitamin D2) [Vitamin D2] 1,250 mcg PO ASDIRECTED 02/14/20 [History] Hydrocodone/Acetaminophen [Hydrocodone-Acetamin 10-325 mg] 1 tab PO BID 02/14/20 [History] Clopidogrel [Plavix] 75 mg PO DAILY 09/13/20 [History] Isosorbide Mononitrate [Isosorbide Mononitrate ER] 60 mg PO DAILY 09/13/20 [History] Revefenacin [Yupelri] 1 unit INH DAILY 09/13/20 [History] lisinopriL [Lisinopril] 10 mg PO DAILY 09/13/20 [History] Past Medical History HEENT History: Reports: Impaired Vision Other HEENT History: wears glasses Cardiovascular History: Reports: CAD, Hypertension, Stents Other Cardiovascular History: is not treated for hypertension anymore after she had the amputation 1 year ago. 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: Musculoskeletal History: Reports: Amputation, Osteoporosis Neurological History: Reports: None Psychiatric History: Reports: Anxiety Endocrine/Metabolic History: Reports: Obesity/BMI 30+ Hematologic History: Reports: None Immunologic History: Reports: None Oncologic (Cancer) History: Reports: None Dermatologic History: Reports: None - Infectious Disease History Infectious Disease History: Reports: MRSA - Past Surgical History Head Surgeries/Procedures: Reports: None HEENT Surgical History: Reports: None Cardiovascular Surgical History: Reports: None, Coronary Artery Stent Respiratory Surgical History: Reports: None GI Surgical History: Reports: Cholecystectomy, Hernia Repair/Other Other GI Surgeries/Procedures: part of pancreas was removed. mesh placed with abdominal hernia removal. Female Surgical History: Reports: Hysterectomy Musculoskeletal Surgical History: Reports: Amputation Other Musculoskeletal Surgeries/Procedures:: Right BKA Social & Family History - Family History Family Medical History: Unobtainable - Caffeine Use Caffeine Use: Reports: None - Living Situation & Occupation Living situation: Reports: , with Family ED ROS GENERAL - Review of Systems Review Of Systems: Comprehensive ROS is negative, except as noted in HPI. ED EXAM, GENERAL - Physical Exam Exam: See Below Exam Limited By: No Limitations General Appearance: Alert, WD/WN, No Apparent Distress Eye Exam: Bilateral Eye: PERRL Ears: Normal External Exam, Normal Canal, Hearing Grossly Normal, Normal TMs Nose: Normal Inspection, Normal Mucosa, No Blood Throat/Mouth: Normal Inspection, Normal Lips, Normal Teeth, Normal Gums, Normal Oropharynx, Normal Voice, No Airway Compromise Head: Atraumatic, Normocephalic Neck: Normal Inspection, Supple, Non-Tender, Full Range of Motion Respiratory/Chest: Other (diminished lung sounds bilaterally) Cardiovascular: Normal Peripheral Pulses, Regular Rate, Rhythm, No Edema, No Gallop, No JVD, No Murmur, No Rub GI/Abdominal: Soft, Non-Tender, No Distention (Female) Exam: Deferred Rectal (Female) Exam: Deferred Back Exam: Normal Inspection, Full Range of Motion, NT Extremities: Normal Inspection, Normal Range of Motion, Non-Tender, Normal Capillary Refill, No Pedal Edema Neurological: Alert, Oriented, CN II-XII Intact, Normal Cognition, Normal Gait, Normal Reflexes, No Motor/Sensory Deficits Psychiatric: Normal Affect, Normal Mood Skin Exam: Warm, Dry, Intact, Normal Color, No Rash #1 Interpretation EKG Date: 03/17/21 Time: 16:27 Rhythm: NSR [place]: Normal P-Wave: Present QRS: Normal ST-T: Depressed QT: Normal Comparison: NA - No Prior EKG EKG Interpretation Comments: sinus rhythm, normal axis, normal qrs, normal qt and WI interval, diffuse st depression which is unchanged from last EKG Course - Vital Signs Last Recorded V/S: Last Vital Signs Temp 98.5 F 03/17/21 15:26 Pulse 93 08/09/21 15:26 Resp 20 03/17/21 15:26 BP 126/63 03/17/21 15:26 Pulse Ox 92 L 03/17/21 15:26 - Orders/Labs/Meds Orders: Active Orders 24 hr Category Date Time Status EKG Documentation Completion [RC] URGENT Care 03/17/21 16:36 Active Peripheral IV Care [RC] . DIRECTED Care 03/17/21 16:40 Active RT Aerosol Therapy [RC] ASDIRECTED Care 03/17/21 16:40 Active Magnesium Sulfate/Water [Magnesium Sulfate in Water 2 Med 03/17/21 16:41 Active GM/50 ML] 2 gm Premix Bag 1 bag IV ONETIME Sodium Chloride 0.9% [Saline Flush] Med 03/17/21 16:40 Active 10 ml FLUSH ASDIRECTED PRN Peripheral IV Insertion Adult [OM.PC] Stat Oth 03/17/21 16:39 Ordered Medication Orders Magnesium Sulfate 2 gm/ Premix 50 mls @ 25 mls/hr IV ONETIME ONE Stop: 03/17/21 18:40 Last Admin: 03/17/21 17:47 Dose: 25 mls/hr Documented by: SATINDER Sodium Chloride (Sodium Chloride 0.9% 10 Ml Syringe) 10 ml FLUSH ASDIRECTED PRN PRN Reason: Keep Vein Open Labs: Laboratory Tests 03/17/21 03/17/21 Range/Units 16:54 16:54 WBC 10.7 H (5.0-10.0) 10^3/uL RBC 5.07 (4.2-5.4) 10^6/uL Hgb 14.3 (12.0-16.0) g/dL Hct 45.5 (37.0-47.0) % MCV 89.7 (80-100) fL MCH 28.2 (27.0-34.0) pg MCHC 31.4 L (33.0-35.0) g/dL Plt Count 269 D (150-450) 10^3/uL Neut % (Auto) 67.3 (42.2-75.2) % Lymph % (Auto) 17.1 L (20.5-50.1) % Collin % (Auto) 11.9 H (2-8) % Eos % (Auto) 3.2 H (1.0-3.0) % Baso % (Auto) 0.5 (0.0-1.0) % Sodium 142 (136-145) mmol/L Potassium 3.9 (3.5-5.1) mmol/L Chloride 103 (98-107) mmol/L Carbon Dioxide 31 (21-32) mmol/L Anion Gap 11.9 (7-13) mEq/L BUN 15 (7-18) mg/dL Creatinine 1.14 H (0.55-1.02) mg/dL Est Cr Clr Drug Dosing 53.58 mL/min Estimated GFR (MDRD) 49 BUN/Creatinine Ratio 13.2 (No establ ref range) Glucose 105 H (70-99) mg/dL Calcium 9.1 (8.5-10.1) mg/dL Magnesium 1.8 (1.8-2.4) mg/dL Total Bilirubin 0.3 (0.2-1.0) mg/dL AST 23 (15-37) U/L ALT 44 (14-59) U/L Alkaline Phosphatase 137 H (46-116) U/L B-Natriuretic Peptide 36 (0-100) pg/ml Total Protein 6.8 (6.4-8.2) g/dL Albumin 3.2 L (3.4-5.0) g/dL Globulin 3.6 Albumin/Globulin Ratio 0.89 Meds: Medications Generic Name Dose Route Start Last Admin Trade Name Freq PRN Reason Stop Dose Admin Magnesium Sulfate 2 gm/ Premix 50 mls @ 25 mls/hr 03/17/21 16:41 03/17/21 17:47 IV 03/17/21 18:40 25 mls/hr ONETIME ONE Administration Sodium Chloride 10 ml 03/17/21 16:40 Sodium Chloride 0.9% 10 Ml Syringe FLUSH ASDIRECTED PRN Keep Vein Open Discontinued Medications Generic Name Dose Route Start Last Admin Trade Name Freq PRN Reason Stop Dose Admin Albuterol 10 mg 03/17/21 16:40 Albuterol 0.083% 2.5 Mg/3 Ml Neb Soln NEB 03/17/21 16:41 ONETIME ONE Methylprednisolone Sodium Succinate 125 mg 03/17/21 16:40 03/17/21 17:46 Methylprednisolone Sodium Succinate 125 Mg/2 Ml Sdv IVPUSH 03/17/21 16:41 125 mg ONETIME ONE Administration - Radiology Interpretation Free Text/Narrative:: [facility] [place] [facility] Final Radiology Report Call: [phone] assistance Online chat: [email or web address] Name: ROXANE LONG Age: 55Years F Date: 03/17/2021 SSN: -- : 1965 Study: CR CHEST 1V FRONTAL Requesting Physician: TEE WILLS Images: 1 Addl Studies: Provided Clinical History: chest pain, COPD Contrast: Contrast Medium: Contrast Amount: Contrast Method: CONFIDENTIALITY STATEMENT This report is intended only for use by the referring physician, and only in accordance with law. If you received this in error, call [phone]. Page 1 of 1 PROCEDURE INFORMATION: Exam: XR Chest Exam date and time: 03/17/2021 4:45 PM Age: 55 years old Clinical indication: Other: Chest pain, copd TECHNIQUE: Imaging protocol: XR of the chest. Views: 1 view. Total images: 1 COMPARISON: CT Chest w Cont, Chest w Cont 03/13/2021 8:27 AM FINDINGS: Lungs: Unremarkable. No consolidation. Pleural spaces: Unremarkable. No pleural effusion. No pneumothorax. Heart/Mediastinum: Unremarkable. No cardiomegaly. Bones/joints: Unremarkable. IMPRESSION: No acute findings. Thank you for allowing us to participate in the care of your patient. Dictated and Authenticated by: Milind Jensen MD 03/17/2021 4:57 PM Central Time ([place] & [place]) Departure - Departure Time of Disposition: 18:15 Disposition: Home, Self-Care 01 Condition: Fair Clinical Impression: COPD exacerbation, Pleuritic chest pain - Discharge Information *PRESCRIPTION DRUG MONITORING PROGRAM REVIEWED*: Not Applicable *COPY OF PRESCRIPTION DRUG MONITORING REPORT IN PATIENT ANA: Not Applicable Instructions: Chronic Obstructive Pulmonary Disease Exacerbation, [id number], Pleurisy, [id number] Forms: ED Department Discharge Additional Instructions: Rx: Prednisone 20mg Use your oxygen and nebulizer exactly as prescribed. Follow up in clinic within the next week for recheck. Sepsis Event Note (ED) - Evaluation Sepsis Screening Result: No Definite Risk - Focused Exam Vital Signs: Vital Signs Temp Pulse Resp BP Pulse Ox 03/17/21 15:26 98.5 F 93 20 126/63 92 L - My Orders Last 24 Hours: My Active Orders 03/17/21 16:36 EKG Documentation Completion [RC] URGENT 03/17/21 16:39 Peripheral IV Insertion Adult [OM.PC] Stat 03/17/21 16:40 Peripheral IV Care [RC] . DIRECTED RT Aerosol Therapy [RC] ASDIRECTED Sodium Chloride 0.9% [Saline Flush] 10 ml FLUSH ASDIRECTED PRN 03/17/21 16:41 Magnesium Sulfate/Water [Magnesium Sulfate in Water 2 GM/50 ML] 2 gm Premix Bag 1 bag IV ONETIME - Assessment/Plan Last 24 Hours: My Active Orders 03/17/21 16:36 EKG Documentation Completion [RC] URGENT 03/17/21 16:39 Peripheral IV Insertion Adult [OM.PC] Stat 03/17/21 16:40 Peripheral IV Care [RC] . DIRECTED RT Aerosol Therapy [RC] ASDIRECTED Sodium Chloride 0.9% [Saline Flush] 10 ml FLUSH ASDIRECTED PRN 03/17/21 16:41 Magnesium Sulfate/Water [Magnesium Sulfate in Water 2 GM/50 ML] 2 gm Premix Bag 1 bag IV ONETIME I have read and agree with the documentation that has been completed regarding this visit. By signing this record, I attest that the documentation was completed in my physical presence and is an accurate record of the encounter.
[2021-03-17 18:28] VITALS: PULSE 90
== END 2021-03-17 18:39 | disposition home or self-care (01) ==
LOC: DL.ED 14:55
DX: J44.1 Chronic obstructive pulmonary disease with (acute) exacerbation (principal); R07.81 Pleurodynia; I25.10 Atherosclerotic heart disease of native coronary artery without angina pectoris; I10 Essential (primary) hypertension; E66.9 Obesity, unspecified; Z68.33 Body mass index [BMI] 33.0-33.9, adult; Z88.8 Allergy status to other drugs, medicaments and biological substances; Z91.041 Radiographic dye allergy status; Z88.0 Allergy status to penicillin; Z79.82 Long term (current) use of aspirin; Z79.02 Long term (current) use of antithrombotics/antiplatelets; Z79.899 Other long term (current) drug therapy
CPT/HCPCS: 36415; 71045; 80053; 83735; 83880; 85025; 93005; 94640; 96365; 96375; 99285; J2930; J3475; J7613-GY

== ENCOUNTER 2021-04-07 16:47 | Inpatient (IN) | payer MEDICARE, MEDICAID ==
[2021-04-07] MEDS ORDERED: Albuterol/Ipratropium 3.0-0.5 MG/3 ML Neb Soln NEB ONE (19:53)
[2021-04-07] MEDS ORDERED: Albuterol/Ipratropium 3.0-0.5 MG/3 ML Neb Soln ONE (19:54)
[2021-04-07] MEDS ORDERED: Albuterol 0.021% 0.63 MG/3 ML Neb Soln NEB ONE (20:36)
[2021-04-07] MEDS ORDERED: methylPREDNISolone Sodium Succinate 125 MG/2 ML SDV IVPUSH ONE (20:36)
[2021-04-07 20:58] LABS: ANION GAP 17.5 mEq/L (7-13)
--- NOTE | 2021-04-07 21:11 | CR ---
PROCEDURE INFORMATION: Exam: XR Chest Exam date and time: 04/07/2021 9:01 PM Age: 55 years old Clinical indication: Cough and shortness of breath; Additional info: SOB, copd cough TECHNIQUE: Imaging protocol: XR of the chest. Views: 1 view. Total images: 1 COMPARISON: CR Chest 1V Frontal 03/17/2021 4:45 PM FINDINGS: Lungs: Mild hyperinflation with emphysematous changes upper lobes. Pleural spaces: Unremarkable. No pleural effusion. No pneumothorax. Heart/Mediastinum: Unremarkable. No cardiomegaly. Bones/joints: Unremarkable. IMPRESSION: No acute process
[2021-04-07] MEDS ORDERED: Benzonatate 100 MG Cap PO ONE (21:12)
--- NOTE | 2021-04-07 21:56 | EDM.PDOC ---
ED HPI GENERAL MEDICAL PROBLEM - General Chief Complaint: Respiratory Problem Stated Complaint: LOW OXYGEN Time Seen by Provider: 04/07/21 19:25 Source of Information: Reports: Patient, RN History Limitations: Reports: No Limitations - History of Present Illness INITIAL COMMENTS - FREE TEXT/NARRATIVE: ED with c/o SOB, ongoing pain below ribs, cough, low grade temp last night. S tated oxygen sats low today with [facility] nurse, Oxygen increased from 2-3 liters No vomiting or diarrhea. Hospitalized approximately one week ago for COPD. Rare tobacco use. 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 Been going on for 2 months. Pain Score (Numeric/FACES): 8 - Related Data Allergies Allergy/AdvReac Type Severity Reaction Status Date / Time atenolol Allergy Hives Verified 04/07/21 20:05 Iodinated Contrast Media Allergy Hives Verified 04/07/21 20:05 [Iodinated Contrast- Oral and IV Dye] Penicillins Allergy Hives Verified 04/07/21 20:05 Home Meds: Home Meds Budesonide [Pulmicort] 2 ml INH BID 07/26/17 [History] Gabapentin [Neurontin] 300 mg PO BID 07/26/17 [History] LORazepam 1 mg PO DAILY PRN 07/26/17 [History] Montelukast [Singulair] 10 mg PO BEDTIME 07/26/17 [History] Roflumilast [Daliresp] 500 mcg PO DAILY 07/26/17 [History] Acetaminophen [Tylenol] 650 mg PO Q4HR PRN 05/23/18 [History] Aspirin [Ecotrin EC] 81 mg PO DAILY 05/23/18 [History] Ipratropium/Albuterol Sulfate [Iprat-Albut 0.5-3(2.5) mg/3 ml] 1 ampule IH QID PRN 06/01/18 [History] Arformoterol [Brovana] 2 ml NEB BID 01/06/20 [History] Benzonatate [Tessalon Perle] 100 mg PO TID PRN 01/06/20 [History] buPROPion [buPROPion XL] 150 mg PO DAILY 01/06/20 [History] predniSONE [Prednisone] 7.5 mg PO DAILY 01/06/20 [History] Albuterol [Proventil Neb Soln] 1 vial INH Q4HR PRN 02/14/20 [History] Ergocalciferol (Vitamin D2) [Vitamin D2] 1,250 mcg PO ASDIRECTED 02/14/20 [History] Hydrocodone/Acetaminophen [Hydrocodone-Acetamin 10-325 mg] 1 tab PO Q8H PRN 02/14/20 [History] Clopidogrel [Plavix] 75 mg PO DAILY 09/13/20 [History] Isosorbide Mononitrate [Isosorbide Mononitrate ER] 60 mg PO BEDTIME 09/13/20 [History] Revefenacin [Yupelri] 175 mcg INH DAILY 09/13/20 [History] lisinopriL [Lisinopril] 10 mg PO DAILY 09/13/20 [History] lisinopriL [Lisinopril] 15 mg PO DAILY 04/07/21 [History] Albuterol [Ventolin HFA] 2 puff INH Q4H PRN 04/08/21 [History] DULoxetine [Cymbalta] 30 mg PO DAILY 04/08/21 [History] diphenhydrAMINE [Benadryl] 50 mg PO ASDIRECTED PRN 04/08/21 [History] Past Medical History HEENT History: Reports: Impaired Vision Other HEENT History: wears glasses Cardiovascular History: Reports: CAD, Hypertension, Stents Other Cardiovascular History: is not treated for hypertension anymore after she had the amputation 1 year ago. Respiratory History: Reports: Asthma, COPD, Intubation, Previous, Pneumonia, Recurrent, SOB, Other (See Below) Other Respiratory History: PE in 2014 Gastrointestinal History: Reports: Cholelithiasis Genitourinary History: Reports: Renal Disease [employer]ER History: Reports: Musculoskeletal History: Reports: Amputation, Osteoporosis, Other (See Below) Other Musculoskeletal History: Rt. BKA Neurological History: Reports: None Psychiatric History: Reports: Anxiety Endocrine/Metabolic History: Reports: Obesity/BMI 30+ Hematologic History: Reports: None, Blood Transfusion(s) Immunologic History: Reports: None Oncologic (Cancer) History: Reports: None Dermatologic History: Reports: None - Infectious Disease History Infectious Disease History: Reports: MRSA - Past Surgical History Head Surgeries/Procedures: Reports: None HEENT Surgical History: Reports: None Cardiovascular Surgical History: Reports: None, Coronary Artery Stent Respiratory Surgical History: Reports: None GI Surgical History: Reports: Cholecystectomy, Hernia Repair/Other Other GI Surgeries/Procedures: part of pancreas was removed. mesh placed with abdominal hernia removal. Female Surgical History: Reports: Hysterectomy Other Female Surgeries/Procedures: uterus removed Musculoskeletal Surgical History: Reports: Amputation Other Musculoskeletal Surgeries/Procedures:: Right BKA Social & Family History - Family History Family Medical History: No Pertinent Family History - Tobacco Use Tobacco Use Status *Q: Current Every Day Tobacco User Years of Tobacco use: 30 Packs/Tins Daily: 0.1 - Caffeine Use Caffeine Use: Reports: None - Recreational Drug Use Recreational Drug Use: No - Living Situation & Occupation Living situation: Reports: , with Family ED ROS GENERAL - Review of Systems Review Of Systems: Comprehensive ROS is negative, except as noted in HPI. ED EXAM, GENERAL - Physical Exam Exam: See Below Exam Limited By: No Limitations General Appearance: Alert, Moderate Distress Eye Exam: Bilateral Eye: EOMI Ears: Normal External Exam, Hearing Grossly Normal Nose: Normal Inspection Throat/Mouth: Normal Inspection Head: Atraumatic, Normocephalic Neck: Normal Inspection Respiratory/Chest: Respiratory Distress, Decreased Breath Sounds, Rhonchi, Wheezing (end expiratory) Cardiovascular: Normal Peripheral Pulses, Regular Rate, Rhythm, Tachycardia GI/Abdominal: Normal Bowel Sounds, Soft Back Exam: Normal Inspection Extremities: No Pedal Edema, Other (Right BKA) Neurological: Alert, Oriented, Normal Cognition Psychiatric: Anxious Skin Exam: Warm, Dry, Intact #1 Interpretation EKG Date: 04/07/21 Time: 20:49 Rhythm: NSR Rate (Beats/Min): 98 [place]: RAD-Right [place] Deviation (borderline) P-Wave: Present QRS: Normal ST-T: Normal Comparison: No Change Course - Vital Signs Last Recorded V/S: Last Vital Signs Temp 97.7 F 04/09/21 00:00 Pulse 91 04/09/21 00:00 Resp 22 H 04/09/21 00:00 BP 126/77 04/09/21 00:00 Pulse Ox 98 04/09/21 00:00 - Orders/Labs/Meds Orders: Medication Orders Acetaminophen (Acetaminophen 325 Mg Tab) 650 mg PO Q4H PRN PRN Reason: Pain (Mild 1-3)/fever Last Admin: 04/08/21 19:08 Dose: 650 mg Documented by: SCHEBRE Hydrocodone Bitart/Acetaminophen (Acetaminophen/Hydrocodone 325-10 Mg Tab) 1 tab PO Q6H PRN PRN Reason: Pain (moderate 4-6) Last Admin: 04/08/21 20:11 Dose: 1 tab Documented by: Admin: 04/08/21 00:44 Dose: 1 tab Documented by: SISSY Albuterol/Ipratropium (Albuterol/Ipratropium 3.0-0.5 Mg/3 Ml Neb Soln) 3 ml NEB Q6HRRT [facility] Last Admin: 04/09/21 00:05 Dose: 3 ml Documented by: Admin: 04/08/21 17:46 Dose: 3 ml Documented by: Admin: 04/08/21 13:50 Dose: 3 ml Documented by: Admin: 04/08/21 07:14 Dose: 3 ml Documented by: Admin: 04/08/21 04:49 Dose: Not Given Documented by: SISSY Albuterol/Ipratropium (Albuterol/Ipratropium 3.0-0.5 Mg/3 Ml Neb Soln) 3 ml NEB Q2H PRN PRN Reason: sob Last Admin: 04/07/21 23:52 Dose: 3 ml Documented by: SISSY Aspirin (Aspirin 81 Mg Tab.Ec) 81 mg PO DAILY [facility] Last Admin: 04/08/21 08:17 Dose: 81 mg Documented by: EL Benzonatate (Benzonatate 100 Mg Cap) 100 mg PO BID PRN PRN Reason: Cough Last Admin: 04/08/21 20:10 Dose: 100 mg Documented by: MARTHA Budesonide (Budesonide 0.5 Mg/2 Ml Neb Susp) 0.5 mg NEB BIDRT [facility] Last Admin: 04/08/21 17:46 Dose: 0.5 mg Documented by: Admin: 04/08/21 07:15 Dose: 0.5 mg Documented by: ELISE Bupropion HCl (Bupropion 150 Mg Tab.Er) 150 mg PO DAILY [facility] Last Admin: 04/08/21 08:16 Dose: 150 mg Documented by: EL Clopidogrel Bisulfate (Clopidogrel 75 Mg Tab) 75 mg PO DAILY [facility] Last Admin: 04/08/21 08:17 Dose: 75 mg Documented by: EL Docusate Sodium (Docusate Sodium 100 Mg Cap) 100 mg PO BID PRN PRN Reason: Constipation Gabapentin (Gabapentin 300 Mg Cap) 300 mg PO BID [facility] Last Admin: 04/08/21 20:10 Dose: 300 mg Documented by: Admin: 04/08/21 08:18 Dose: 300 mg Documented by: EL Heparin Sodium (Porcine) (Heparin Sodium 5,000 Units/Ml Vial) 5,000 units SUBCUT Q8HR [facility] Last Admin: 04/08/21 21:51 Dose: 5,000 units Documented by: Admin: 04/08/21 14:43 Dose: 5,000 units Documented by: Admin: 04/08/21 05:18 Dose: 5,000 units Documented by: SISSY Isosorbide Mononitrate (Isosorbide Mononitrate 30 Mg Tab.Er) 60 mg PO DAILY [facility] Last Admin: 04/08/21 08:25 Dose: 60 mg Documented by: EL Levofloxacin (Levofloxacin 500 Mg Tab) 500 mg PO Q24H [facility] Last Admin: 04/08/21 22:19 Dose: 500 mg Documented by: Admin: 04/07/21 23:52 Dose: 500 mg Documented by: SISSY Lorazepam (Lorazepam 1 Mg Tab) 1 mg PO DAILY PRN PRN Reason: Anxiety Methylprednisolone Sodium Succinate (Methylprednisolone Sodium Succinate 40 Mg/1 Ml Sdv) 40 mg IVPUSH Q8H [facility] Last Admin: 04/08/21 20:10 Dose: 40 mg Documented by: Admin: 04/08/21 12:51 Dose: 40 mg Documented by: Admin: 04/08/21 05:18 Dose: 40 mg Documented by: SISSY Montelukast Sodium (Montelukast 10 Mg Tab) 10 mg PO BEDTIME [facility] Last Admin: 04/08/21 20:11 Dose: 10 mg Documented by: MARTHA Sodium Chloride (Sodium Chloride 0.9% 10 Ml Syringe) 10 ml FLUSH ASDIRECTED PRN PRN Reason: Keep Vein Open Temazepam (Temazepam 15 Mg Cap) 15 mg PO BEDTIME PRN PRN Reason: Sleep Labs: Laboratory Tests 08/30/21 08/30/21 08/30/21 Range/Units 17:07 20:23 20:23 WBC 11.3 H (5.0-10.0) 10^3/uL RBC 4.85 (4.2-5.4) 10^6/uL Hgb 13.7 (12.0-16.0) g/dL Hct 42.4 (37.0-47.0) % MCV 87.4 (80-100) fL MCH 28.2 (27.0-34.0) pg MCHC 32.3 L (33.0-35.0) g/dL Plt Count 305 (150-450) 10^3/uL Neut % (Auto) 89.6 H (42.2-75.2) % Lymph % (Auto) 7.0 L (20.5-50.1) % [place] % (Auto) 2.9 (2-8) % Eos % (Auto) 0.2 L (1.0-3.0) % Baso % (Auto) 0.3 (0.0-1.0) % Sodium 139 (136-145) mmol/L Potassium 4.5 (3.5-5.1) mmol/L Chloride 100 (98-107) mmol/L Carbon Dioxide 26 (21-32) mmol/L Anion Gap 17.5 H (7-13) mEq/L BUN 10 (7-18) mg/dL Creatinine 1.06 H (0.55-1.02) mg/dL Est Cr Clr Drug Dosing 58.92 mL/min Estimated GFR (MDRD) 54 BUN/Creatinine Ratio 9.4 (No establ ref range) Glucose 107 H (70-99) mg/dL Lactic Acid (0.4-2.0) mmol/L Calcium 9.7 (8.5-10.1) mg/dL Magnesium 1.8 (1.8-2.4) mg/dL Total Bilirubin 0.4 (0.2-1.0) mg/dL AST 29 (15-37) U/L ALT 40 (14-59) U/L Alkaline Phosphatase 169 H (46-116) U/L B-Natriuretic Peptide 53 (0-100) pg/ml Total Protein 7.8 (6.4-8.2) g/dL Albumin 3.2 L (3.4-5.0) g/dL Globulin 4.6 Albumin/Globulin Ratio 0.70 SARS-CoV-2 RNA (QUYEN) Negative (NEGATIVE) 04/07/21 Range/Units 20:23 WBC (5.0-10.0) 10^3/uL RBC (4.2-5.4) 10^6/uL Hgb (12.0-16.0) g/dL Hct (37.0-47.0) % MCV (80-100) fL MCH (27.0-34.0) pg MCHC (33.0-35.0) g/dL Plt Count (150-450) 10^3/uL Neut % (Auto) (42.2-75.2) % Lymph % (Auto) (20.5-50.1) % [place] % (Auto) (2-8) % Eos % (Auto) (1.0-3.0) % Baso % (Auto) (0.0-1.0) % Sodium (136-145) mmol/L Potassium (3.5-5.1) mmol/L Chloride (98-107) mmol/L Carbon Dioxide (21-32) mmol/L Anion Gap (7-13) mEq/L BUN (7-18) mg/dL Creatinine (0.55-1.02) mg/dL Est Cr Clr Drug Dosing mL/min Estimated GFR (MDRD) BUN/Creatinine Ratio (No establ ref range) Glucose (70-99) mg/dL Lactic Acid 1.5 (0.4-2.0) mmol/L Calcium (8.5-10.1) mg/dL Magnesium (1.8-2.4) mg/dL Total Bilirubin (0.2-1.0) mg/dL AST (15-37) U/L ALT (14-59) U/L Alkaline Phosphatase (46-116) U/L B-Natriuretic Peptide (0-100) pg/ml Total Protein (6.4-8.2) g/dL Albumin (3.4-5.0) g/dL Globulin Albumin/Globulin Ratio SARS-CoV-2 RNA (QUYEN) (NEGATIVE) Meds: Medications Generic Name Dose Route Start Last Admin Trade Name Freq PRN Reason Stop Dose Admin Acetaminophen 650 mg 04/07/21 23:23 04/08/21 19:08 Acetaminophen 325 Mg Tab PO 650 mg Q4H PRN Administration Pain (Mild 1-3)/fever Hydrocodone Bitart/Acetaminophen 1 tab 04/08/21 00:26 04/08/21 20:11 Acetaminophen/Hydrocodone 325-10 Mg Tab PO 1 tab Q6H PRN Administration Pain (moderate 4-6) Albuterol/Ipratropium 3 ml 04/08/21 01:00 04/09/21 00:05 Albuterol/Ipratropium 3.0-0.5 Mg/3 Ml Neb Soln NEB 3 ml Q6HRRT ASHLEY Administration Albuterol/Ipratropium 3 ml 04/07/21 23:12 04/07/21 23:52 Albuterol/Ipratropium 3.0-0.5 Mg/3 Ml Neb Soln NEB 3 ml Q2H PRN Administration sob Aspirin 81 mg 04/08/21 09:00 04/08/21 08:17 Aspirin 81 Mg Tab.Ec PO 81 mg DAILY ASHLEY Administration Benzonatate 100 mg 04/07/21 23:14 04/08/21 20:10 Benzonatate 100 Mg Cap PO 100 mg BID PRN Administration Cough Budesonide 0.5 mg 04/08/21 07:00 04/08/21 17:46 Budesonide 0.5 Mg/2 Ml Neb Susp NEB 0.5 mg BIDRT ASHLEY Administration Bupropion HCl 150 mg 04/08/21 09:00 04/08/21 08:16 Bupropion 150 Mg Tab.Er PO 150 mg DAILY ASHLEY Administration Clopidogrel Bisulfate 75 mg 04/08/21 09:00 04/08/21 08:17 Clopidogrel 75 Mg Tab PO 75 mg DAILY ASHLEY Administration Docusate Sodium 100 mg 04/07/21 23:23 Docusate Sodium 100 Mg Cap PO BID PRN Constipation Gabapentin 300 mg 04/08/21 09:00 04/08/21 20:10 Gabapentin 300 Mg Cap PO 300 mg BID ASHLEY Administration Heparin Sodium (Porcine) 5,000 units 04/08/21 06:00 04/08/21 21:51 Heparin Sodium 5,000 Units/Ml Vial SUBCUT 5,000 units Q8HR ASHLEY Administration Isosorbide Mononitrate 60 mg 04/08/21 09:00 04/08/21 08:25 Isosorbide Mononitrate 30 Mg Tab.Er PO 60 mg DAILY ASHLEY Administration Levofloxacin 500 mg 04/07/21 23:00 04/08/21 22:19 Levofloxacin 500 Mg Tab PO 500 mg Q24H ASHLEY Administration Lorazepam 1 mg 04/07/21 23:14 Lorazepam 1 Mg Tab PO DAILY PRN Anxiety Methylprednisolone Sodium Succinate 40 mg 04/08/21 04:30 04/08/21 20:10 Methylprednisolone Sodium Succinate 40 Mg/1 Ml Sdv IVPUSH 40 mg Q8H ASHLEY Administration Montelukast Sodium 10 mg 04/08/21 21:00 04/08/21 20:11 Montelukast 10 Mg Tab PO 10 mg BEDTIME ASHLEY Administration Sodium Chloride 10 ml 04/07/21 23:23 Sodium Chloride 0.9% 10 Ml Syringe FLUSH ASDIRECTED PRN Keep Vein Open Temazepam 15 mg 04/07/21 23:23 Temazepam 15 Mg Cap PO BEDTIME PRN Sleep Discontinued Medications Generic Name Dose Route Start Last Admin Trade Name Freq PRN Reason Stop Dose Admin Hydrocodone Bitart/Acetaminophen 1 tab 04/08/21 09:00 Acetaminophen/Hydrocodone 325-10 Mg Tab PO BID ASHLEY Albuterol 0.63 mg 04/07/21 20:36 04/07/21 20:42 Albuterol 0.021% 0.63 Mg/3 Ml Neb Soln NEB 04/07/21 20:37 0.63 mg ONETIME ONE Administration Albuterol/Ipratropium 3 ml 04/07/21 19:53 04/07/21 19:55 Albuterol/Ipratropium 3.0-0.5 Mg/3 Ml Neb Soln NEB 04/07/21 19:54 3 ml ONETIME ONE Administration Albuterol/Ipratropium Confirm 04/07/21 19:54 04/07/21 20:10 Albuterol/Ipratropium 3.0-0.5 Mg/3 Ml Neb Soln Administered 04/07/21 19:55 Not Given Dose 3 ml .ROUTE .STK-MED ONE Benzonatate 200 mg 04/07/21 21:12 04/07/21 22:02 Benzonatate 100 Mg Cap PO 04/07/21 21:13 200 mg ONETIME ONE Administration Gabapentin 300 mg 04/08/21 00:13 04/08/21 00:44 Gabapentin 300 Mg Cap PO 04/08/21 00:14 300 mg ONETIME ONE Administration Methylprednisolone Sodium Succinate 125 mg 04/07/21 20:36 04/07/21 20:42 Methylprednisolone Sodium Succinate 125 Mg/2 Ml Sdv IVPUSH 04/07/21 20:37 125 mg ONETIME ONE Administration - Re-Assessments/Exams Free Text/Narrative Re-Assessment/Exam: TC Dr Morel, accepting patient for inpatient admission. Departure - Departure Time of Disposition: 22:10 Disposition: Admitted As Inpatient 65 Condition: Fair Clinical Impression: COPD exacerbation, Hypoxia, Pleuritic chest pain - Discharge Information *PRESCRIPTION DRUG MONITORING PROGRAM REVIEWED*: No *COPY OF PRESCRIPTION DRUG MONITORING REPORT IN PATIENT ANA: No Sepsis Event Note (ED) - Evaluation Sepsis Screening Result: Possible Sepsis Risk
[2021-04-07] MEDS ORDERED: Benzonatate 100 MG Cap PO PRN (23:14)
[2021-04-07] MEDS ORDERED: LORazepam 1 MG Tab PO PRN (23:14)
[2021-04-07] MEDS ORDERED: Acetaminophen 325 MG Tab PO PRN (23:23)
[2021-04-07] MEDS ORDERED: Sodium Chloride 0.9% 10 ML Syringe FLUSH PRN (23:23)
[2021-04-07] MEDS ORDERED: Temazepam 15 MG Cap PO PRN (23:23)
[2021-04-07] MEDS ORDERED: Docusate Sodium 100 MG Cap PO PRN (23:23)
--- NOTE | 2021-04-07 23:29 | PCM.HP ---
H&P History of Present Illness - General Date of Service: 04/07/21 Admit Problem/Dx: Admission Diagnosis/Problem Admission Diagnosis/Problem Hypoxia - History of Present Illness Initial Comments - Free Text/Narative: presented with sob, has been receently tx at [facility] for COPD exacerbation sent home on home oxygen home monitoring noted lower oxygen sats, lower BPs asked to go to er in er noted wheezing wheezing improved after 2 ducatalina has chronic lower rib cage pain for months, taking neurontin and hydrocodone with some improvements .Lower rib cage pain that wwraps agound to her back. Been going on for 2 months. Pain Score (Numeric/FACES): 8 - Related Data Allergies/Adverse Reactions: Allergies Allergy/AdvReac Type Severity Reaction Status Date / Time atenolol Allergy Hives Verified 04/07/21 20:05 Iodinated Contrast Media Allergy Hives Verified 04/07/21 20:05 [Iodinated Contrast- Oral and IV Dye] Penicillins Allergy Hives Verified 04/07/21 20:05 Home Medications: Home Meds Budesonide [Pulmicort] 2 ml INH BID 07/26/17 [History] Gabapentin [Neurontin] 300 mg PO BID 07/26/17 [History] LORazepam 1 mg PO DAILY PRN 07/26/17 [History] Montelukast [Singulair] 10 mg PO BEDTIME 07/26/17 [History] Roflumilast [Daliresp] 500 mcg PO DAILY 07/26/17 [History] Acetaminophen [Tylenol] 650 mg PO Q4HR PRN 05/23/18 [History] Aspirin [Ecotrin EC] 81 mg PO DAILY 05/23/18 [History] Albuterol [Proventil Neb Soln] 2 puff IH ASDIRECTED PRN 06/01/18 [History] Ipratropium/Albuterol Sulfate [Iprat-Albut 0.5-3(2.5) mg/3 ml] 1 ampule IH QID PRN 06/01/18 [History] Alendronate Sodium 1 tab PO DAILY 01/06/20 [History] Arformoterol [Brovana] 2 ml NEB BID 01/06/20 [History] Benzonatate [Tessalon Perle] 100 mg PO BID PRN 01/06/20 [History] buPROPion [buPROPion XL] 150 mg PO DAILY 01/06/20 [History] predniSONE [Prednisone] 7.5 mg PO DAILY 01/06/20 [History] Albuterol [Proventil Neb Soln] 1 vial INH Q4HR PRN 02/14/20 [History] Ergocalciferol (Vitamin D2) [Vitamin D2] 1,250 mcg PO ASDIRECTED 02/14/20 [History] Hydrocodone/Acetaminophen [Hydrocodone-Acetamin 10-325 mg] 1 tab PO BID 02/14/20 [History] Clopidogrel [Plavix] 75 mg PO DAILY 09/13/20 [History] Isosorbide Mononitrate [Isosorbide Mononitrate ER] 60 mg PO DAILY 09/13/20 [History] Revefenacin [Yupelri] 1 unit INH DAILY 09/13/20 [History] lisinopriL [Lisinopril] 10 mg PO DAILY 09/13/20 [History] lisinopriL [Lisinopril] 15 mg PO DAILY 04/07/21 [History] Past Medical History HEENT History: Reports: Impaired Vision Other HEENT History: wears glasses Cardiovascular History: Reports: CAD, Hypertension, Stents Other Cardiovascular History: is not treated for hypertension anymore after she had the amputation 1 year ago. Respiratory History: Reports: Asthma, COPD, Intubation, Previous, Pneumonia, Recurrent, SOB, Other (See Below) Other Respiratory History: PE in 2014 Gastrointestinal History: Reports: Cholelithiasis Genitourinary History: Reports: Renal Disease [employer] History: Reports: Musculoskeletal History: Reports: Amputation, Osteoporosis, Other (See Below) Other Musculoskeletal History: Rt. BKA Neurological History: Reports: None Psychiatric History: Reports: Anxiety Endocrine/Metabolic History: Reports: Obesity/BMI 30+ Hematologic History: Reports: None, Blood Transfusion(s) Immunologic History: Reports: None Oncologic (Cancer) History: Reports: None Dermatologic History: Reports: None - Infectious Disease History Infectious Disease History: Reports: MRSA - Past Surgical History Head Surgeries/Procedures: Reports: None HEENT Surgical History: Reports: None Cardiovascular Surgical History: Reports: None, Coronary Artery Stent Respiratory Surgical History: Reports: None GI Surgical History: Reports: Cholecystectomy, Hernia Repair/Other Other GI Surgeries/Procedures: part of pancreas was removed. mesh placed with abdominal hernia removal. Female Surgical History: Reports: Hysterectomy Other Female Surgeries/Procedures: uterus removed Musculoskeletal Surgical History: Reports: Amputation Other Musculoskeletal Surgeries/Procedures:: Right BKA Social & Family History - Family History Family Medical History: No Pertinent Family History - Tobacco Use Tobacco Use Status *Q: Current Every Day Tobacco User Years of Tobacco use: 30 Packs/Tins Daily: 0.1 - Caffeine Use Caffeine Use: Reports: None - Recreational Drug Use Recreational Drug Use: No - Living Situation & Occupation Living situation: Reports: , with Family H&P Review of Systems - Review of Systems: Review Of Systems: See Below General: Reports: Fever ("low grade") Pulmonary: Reports: Shortness of Breath, Wheezing, Cough, Sputum. Denies: Pleuritic Chest Pain, Hemoptysis Cardiovascular: Reports: Chest Pain (b/l lower chest - chronic) Genitourinary: Denies: Dysuria Skin: Denies: Rash Psychiatric: Reports: Anxiety. Denies: Confusion Neurological: Denies: Confusion Exam - Exam Exam: See Below - Vital Signs Vital Signs: Last Vital Signs Temp 97.8 F 04/07/21 22:25 Pulse 93 04/07/21 22:25 Resp 22 H 04/07/21 22:25 BP 151/82 H 04/07/21 22:25 Pulse Ox 95 04/07/21 22:25 Weight: 203 lb - Exam General: Alert, Oriented Neck: Supple Lungs: Normal Respiratory Effort, Decreased Breath Sounds, Wheezing (minimal ) Cardiovascular: Regular Rate, Regular Rhythm GI/Abdominal Exam: Normal Bowel Sounds, Soft, Non-Tender Extremities: No Pedal Edema, Other (r. BKA) Neuro Extensive - Mental Status: Alert, Oriented x3 Psychiatric: Alert, Normal Affect, Normal Mood - Patient Data Lab Results Last 24 hrs: Laboratory Results - last 24 hr 04/07/21 04/07/21 04/07/21 Range/Units 17:07 20:23 20:23 WBC 11.3 H (5.0-10.0) 10^3/uL RBC 4.85 (4.2-5.4) 10^6/uL Hgb 13.7 (12.0-16.0) g/dL Hct 42.4 (37.0-47.0) % MCV 87.4 (80-100) fL MCH 28.2 (27.0-34.0) pg MCHC 32.3 L (33.0-35.0) g/dL Plt Count 305 (150-450) 10^3/uL Neut % (Auto) 89.6 H (42.2-75.2) % Lymph % (Auto) 7.0 L (20.5-50.1) % [place] % (Auto) 2.9 (2-8) % Eos % (Auto) 0.2 L (1.0-3.0) % Baso % (Auto) 0.3 (0.0-1.0) % Sodium 139 (136-145) mmol/L Potassium 4.5 (3.5-5.1) mmol/L Chloride 100 (98-107) mmol/L Carbon Dioxide 26 (21-32) mmol/L Anion Gap 17.5 H (7-13) mEq/L BUN 10 (7-18) mg/dL Creatinine 1.06 H (0.55-1.02) mg/dL Est Cr Clr Drug Dosing 58.92 mL/min Estimated GFR (MDRD) 54 BUN/Creatinine Ratio 9.4 (No establ ref range) Glucose 107 H (70-99) mg/dL Lactic Acid (0.4-2.0) mmol/L Calcium 9.7 (8.5-10.1) mg/dL Magnesium 1.8 (1.8-2.4) mg/dL Total Bilirubin 0.4 (0.2-1.0) mg/dL AST 29 (15-37) U/L ALT 40 (14-59) U/L Alkaline Phosphatase 169 H (46-116) U/L B-Natriuretic Peptide 53 (0-100) pg/ml Total Protein 7.8 (6.4-8.2) g/dL Albumin 3.2 L (3.4-5.0) g/dL Globulin 4.6 Albumin/Globulin Ratio 0.70 SARS-CoV-2 RNA (QUYEN) Negative (NEGATIVE) 04/07/21 Range/Units 20:23 WBC (5.0-10.0) 10^3/uL RBC (4.2-5.4) 10^6/uL Hgb (12.0-16.0) g/dL Hct (37.0-47.0) % MCV (80-100) fL MCH (27.0-34.0) pg MCHC (33.0-35.0) g/dL Plt Count (150-450) 10^3/uL Neut % (Auto) (42.2-75.2) % Lymph % (Auto) (20.5-50.1) % [place] % (Auto) (2-8) % Eos % (Auto) (1.0-3.0) % Baso % (Auto) (0.0-1.0) % Sodium (136-145) mmol/L Potassium (3.5-5.1) mmol/L Chloride (98-107) mmol/L Carbon Dioxide (21-32) mmol/L Anion Gap (7-13) mEq/L BUN (7-18) mg/dL Creatinine (0.55-1.02) mg/dL Est Cr Clr Drug Dosing mL/min Estimated GFR (MDRD) BUN/Creatinine Ratio (No establ ref range) Glucose (70-99) mg/dL Lactic Acid 1.5 (0.4-2.0) mmol/L Calcium (8.5-10.1) mg/dL Magnesium (1.8-2.4) mg/dL Total Bilirubin (0.2-1.0) mg/dL AST (15-37) U/L ALT (14-59) U/L Alkaline Phosphatase (46-116) U/L B-Natriuretic Peptide (0-100) pg/ml Total Protein (6.4-8.2) g/dL Albumin (3.4-5.0) g/dL Globulin Albumin/Globulin Ratio SARS-CoV-2 RNA (QUYEN) (NEGATIVE) Result Diagrams: 04/07/21 20:23 04/07/21 20:23 Lito Results Last 24 hrs: Microbiology 04/07/21 20:23 Anaerobic Blood Culture - Final Blood - Venous - Iv Start - Problem List (1) Acute and chronic respiratory failure SNOMED Code(s): 00733571 ICD Code: J96.20 - ACUTE AND CHR RESP FAILURE, UNSP W HYPOXIA OR HYPERCAPNIA Status: Acute Current Visit: No Qualifiers: Respiratory failure complication: hypoxia and hypercapnia Qualified Code(s): J96.21 - Acute and chronic respiratory failure with hypoxia; J96.22 - Acute and chronic respiratory failure with hypercapnia (2) Acute exacerbation of chronic obstructive pulmonary disease (COPD) SNOMED Code(s): 081232098 ICD Code: J44.1 - CHRONIC OBSTRUCTIVE PULMONARY DISEASE W (ACUTE) EXACERBATION Status: Acute Current Visit: No (3) Flank pain SNOMED Code(s): 997760135 ICD Code: R10.9 - UNSPECIFIED ABDOMINAL PAIN Status: Acute Current Visit: No Problem List Initiated/Reviewed/Updated: Yes Orders Last 24hrs: Active Orders 24 hr Category Date Time Status Admission Diagnosis [ADT] Stat ADT 04/07/21 22:01 Ordered Admission Status [Patient Status] [ADT] Routine ADT 04/07/21 22:01 Active Oxygen Therapy [RC] PRN Care 04/07/21 23:23 Ordered Peripheral IV Care [RC] . DIRECTED Care 04/07/21 23:24 Ordered RT Aerosol Therapy [RC] ASDIRECTED Care 04/07/21 19:53 Active RT Aerosol Therapy [RC] ASDIRECTED Care 04/07/21 20:37 Active RT Aerosol Therapy [RC] ASDIRECTED Care 04/07/21 23:12 Active Up With Assistance [RC] ASDIRECTED Care 04/07/21 23:23 Ordered VTE/DVT Education [RC] PER UNIT ROUTINE Care 04/07/21 23:23 Ordered Vital Signs [RC] Q4H Care 04/07/21 23:23 Ordered Regular Diet [DIET] Diet 04/07/21 Breakfast Ordered BASIC METABOLIC PANEL,BMP [CHEM] AM Lab 04/08/21 05:11 Ordered CBC W/O DIFF,HEMOGRAM [HEME] AM Lab 04/08/21 05:11 Ordered CULTURE BLOOD [BC] Stat Lab 04/07/21 20:23 Results CULTURE BLOOD [BC] Stat Lab 04/07/21 21:20 Received CULTURE SPUTUM + SMEAR [RM] Routine Lab 04/07/21 23:21 Ordered Acetaminophen [TylenoL] Med 04/07/21 23:23 Ordered 650 mg PO Q4H PRN Acetaminophen/HYDROcodone [[place] 325-10 MG] Med 04/08/21 09:00 Ordered 1 tab PO BID Albuterol/Ipratropium [DuoNeb 3.0-0.5 MG/3 ML] Med 04/07/21 23:12 Ordered 3 ml NEB Q2H PRN Albuterol/Ipratropium [DuoNeb 3.0-0.5 MG/3 ML] Med 04/08/21 01:00 Ordered 3 ml NEB Q6HRRT Aspirin [Halfprin] Med 04/08/21 09:00 Ordered 81 mg PO DAILY Benzonatate [Tessalon Perles] Med 04/07/21 23:14 Ordered 100 mg PO BID PRN Budesonide [Pulmicort] Med 04/08/21 07:00 Ordered 0.5 mg NEB BIDRT Clopidogrel [Plavix] Med 04/08/21 09:00 Ordered 75 mg PO DAILY Docusate Sodium [Colace] Med 04/07/21 23:23 Ordered 100 mg PO BID PRN Gabapentin [Neurontin] Med 04/08/21 09:00 Ordered 300 mg PO BID Heparin Sodium Med 04/08/21 06:00 Ordered 5,000 units SUBCUT Q8HR Isosorbide Mononitrate [Imdur] Med 04/08/21 09:00 Ordered 60 mg PO DAILY LORazepam [Ativan] Med 04/07/21 23:14 Ordered 1 mg PO DAILY PRN Montelukast [Singulair] Med 04/08/21 21:00 Ordered 10 mg PO BEDTIME Sodium Chloride 0.9% [Saline Flush] Med 04/07/21 23:23 Ordered 10 ml FLUSH ASDIRECTED PRN Temazepam [Restoril] Med 04/07/21 23:23 Ordered 15 mg PO BEDTIME PRN buPROPion [Wellbutrin XL] Med 04/08/21 09:00 Ordered 150 mg PO DAILY levoFLOXacin [Levaquin] Med 04/07/21 23:15 Ordered 500 mg PO Q24H methylPREDNISolone Sod Succ [Solu-MEDROL] Med 04/07/21 23:30 Ordered 40 mg IVPUSH Q8H Blood Culture x2 Reflex Set [OM.PC] Stat Oth 04/07/21 20:20 Ordered Peripheral IV Insertion Adult [OM.PC] Routine Oth 04/07/21 23:23 Ordered Saline Lock Insert [OM.PC] Routine Oth 04/07/21 23:23 Ordered Resuscitation Status Routine Resus Stat 04/07/21 23:23 Ordered Medication Orders Acetaminophen (Acetaminophen 325 Mg Tab) 650 mg PO Q4H PRN PRN Reason: Pain (Mild 1-3)/fever Hydrocodone Bitart/Acetaminophen (Acetaminophen/Hydrocodone 325-10 Mg Tab) 1 tab PO BID ASHLEY Albuterol/Ipratropium (Albuterol/Ipratropium 3.0-0.5 Mg/3 Ml Neb Soln) 3 ml NEB Q6HRRT ASHLEY Albuterol/Ipratropium (Albuterol/Ipratropium 3.0-0.5 Mg/3 Ml Neb Soln) 3 ml NEB Q2H PRN PRN Reason: sob Aspirin (Aspirin 81 Mg Tab.Ec) 81 mg PO DAILY ASHLEY Benzonatate (Benzonatate 100 Mg Cap) 100 mg PO BID PRN PRN Reason: Cough Budesonide (Budesonide 0.5 Mg/2 Ml Neb Susp) 0.5 mg NEB BIDRT ASHLEY Bupropion HCl (Bupropion 150 Mg Tab.Er) 150 mg PO DAILY ASHLEY Clopidogrel Bisulfate (Clopidogrel 75 Mg Tab) 75 mg PO DAILY ASHLEY Docusate Sodium (Docusate Sodium 100 Mg Cap) 100 mg PO BID PRN PRN Reason: Constipation Gabapentin (Gabapentin 300 Mg Cap) 300 mg PO BID ASHLEY Heparin Sodium (Porcine) (Heparin Sodium 5,000 Units/Ml Vial) 5,000 units SUBCUT Q8HR ASHLEY Isosorbide Mononitrate (Isosorbide Mononitrate 30 Mg Tab.Er) 60 mg PO DAILY ASHLEY Levofloxacin (Levofloxacin 500 Mg Tab) 500 mg PO Q24H ASHLEY Lorazepam (Lorazepam 1 Mg Tab) 1 mg PO DAILY PRN PRN Reason: Anxiety Methylprednisolone Sodium Succinate (Methylprednisolone Sodium Succinate 40 Mg/1 Ml Sdv) 40 mg IVPUSH Q8H ASHLEY Montelukast Sodium (Montelukast 10 Mg Tab) 10 mg PO BEDTIME ASHLEY Sodium Chloride (Sodium Chloride 0.9% 10 Ml Syringe) 10 ml FLUSH ASDIRECTED PRN PRN Reason: Keep Vein Open Temazepam (Temazepam 15 Mg Cap) 15 mg PO BEDTIME PRN PRN Reason: Sleep Assessment/Plan Comment:: presented with sob, has been receently tx at [facility] for COPD exacerbation sent home on home oxygen home monitoring noted lower oxygen sats, lower BPs asked to go to er in er noted wheezing wheezing improved after 2 duoneb has chronic lower rib cage pain for months, taking neurontina nd hydrocodone with some improvements acute on chronic hypoxemic respiratory failure normally on 2 l/min at night and 1 l/min during the day will supplement oxygen as needed Acute copd exacerbation wheezing noted in er improved with nebs will treat with solumedrol, scheduled and as needed duoneb cont singulair will need to f/up with pulmo clinic possible upper airway infection no pneumonia on cxr reports low grade temp, cough, sputum obtain sputum cx obtain blood cx empirical tx with levofloxacin chronic left lower chest pain cont neurontin, hydrocodone depression treat with buproprion cad cont imdur asa, plavix, lower BPs reported hols lisinopril for now adjust as needed would like full code status dvt prophylaxis with sq heparin
[2021-04-07] MEDS: Albuterol/Ipratropium 3.0-0.5 MG/3 ML Neb Soln NEB PRN (23:52)
[2021-04-07] MEDS: Levofloxacin 500 MG Tab PO SCH (23:52)
[2021-04-08] MEDS ORDERED: Gabapentin 300 MG Cap PO ONE (00:13)
[2021-04-08] MEDS: Acetaminophen/HYDROcodone 325-10 MG Tab PO PRN ×2 (00:44→20:11)
[2021-04-08] MEDS: Albuterol/Ipratropium 3.0-0.5 MG/3 ML Neb Soln NEB SCH ×4 (04:49→17:46)
[2021-04-08] MEDS: Heparin Sodium 5,000 Units/ML Vial SUBCUT SCH ×3 (05:18→21:51)
[2021-04-08] MEDS: methylPREDNISolone Sodium Succinate 40 MG/1 ML SDV IVPUSH SCH ×3 (05:18→20:10)
[2021-04-08 06:58] LABS: ANION GAP 15.6 mEq/L (7-13)
[2021-04-08] MEDS: Budesonide 0.5 MG/2 ML Neb Susp NEB SCH ×2 (07:15→17:46)
[2021-04-08] MEDS: buPROPion 150 MG Tab.ER PO SCH (08:16)
[2021-04-08] MEDS: Clopidogrel 75 MG Tab PO SCH (08:17)
[2021-04-08] MEDS: Aspirin 81 MG Tab.EC PO SCH (08:17)
[2021-04-08] MEDS: Gabapentin 300 MG Cap PO SCH ×2 (08:18→20:10)
[2021-04-08] MEDS: Isosorbide Mononitrate 30 MG Tab.ER PO SCH (08:25)
[2021-04-08] MEDS ORDERED: Acetaminophen/HYDROcodone 325-10 MG Tab PO SCH (09:00)
--- NOTE | 2021-04-08 12:12 | PCM.PN ---
- General Info Date of Service: 04/08/21 Admission Dx/Problem (Free Text): Admission Diagnosis/Problem Admission Diagnosis/Problem Hypoxia Subjective Update: feeling improved, less SOB since admission no associated chest pain has moderate tremors and was not able to sleep well no abd pain Functional Status: Reports: Pain Controlled, Tolerating Diet, Ambulating - Review of Systems General: Reports: Weakness. Denies: Fever Pulmonary: Reports: Shortness of Breath (improved), Cough, Wheezing. Denies: Sputum, Hemoptysis Cardiovascular: Denies: Chest Pain, Edema Gastrointestinal: Denies: Abdominal Pain Genitourinary: Reports: Other (nurses noted cloudy urine). Denies: Dysuria Neurological: Reports: Tremors. Denies: Confusion Psychiatric: Denies: Depression, Mood Lability, Anxiety - Patient Data Vitals - Most Recent: Last Vital Signs Temp 97.5 F 04/08/21 07:48 Pulse 87 04/08/21 07:48 Resp 20 04/08/21 07:48 BP 139/74 04/08/21 08:25 Pulse Ox 90 L 04/08/21 07:48 Weight - Most Recent: 202 lb 12.8 oz I&O - Last 24 Hours: Intake & Output 04/07/21 04/08/21 04/08/21 22:59 06:59 14:59 Intake Total 500 240 Output Total 500 Balance 0 240 Lab Results Last 24 Hours: Laboratory Results - last 24 hr 04/07/21 04/07/21 04/07/21 Range/Units 17:07 20:23 20:23 WBC 11.3 H (5.0-10.0) 10^3/uL RBC 4.85 (4.2-5.4) 10^6/uL Hgb 13.7 (12.0-16.0) g/dL Hct 42.4 (37.0-47.0) % MCV 87.4 (80-100) fL MCH 28.2 (27.0-34.0) pg MCHC 32.3 L (33.0-35.0) g/dL Plt Count 305 (150-450) 10^3/uL Neut % (Auto) 89.6 H (42.2-75.2) % Lymph % (Auto) 7.0 L (20.5-50.1) % Addison % (Auto) 2.9 (2-8) % Eos % (Auto) 0.2 L (1.0-3.0) % Baso % (Auto) 0.3 (0.0-1.0) % Sodium 139 (136-145) mmol/L Potassium 4.5 (3.5-5.1) mmol/L Chloride 100 (98-107) mmol/L Carbon Dioxide 26 (21-32) mmol/L Anion Gap 17.5 H (7-13) mEq/L BUN 10 (7-18) mg/dL Creatinine 1.06 H (0.55-1.02) mg/dL Est Cr Clr Drug Dosing 58.92 mL/min Estimated GFR (MDRD) 54 BUN/Creatinine Ratio 9.4 (No establ ref range) Glucose 107 H (70-99) mg/dL Lactic Acid (0.4-2.0) mmol/L Calcium 9.7 (8.5-10.1) mg/dL Magnesium 1.8 (1.8-2.4) mg/dL Total Bilirubin 0.4 (0.2-1.0) mg/dL AST 29 (15-37) U/L ALT 40 (14-59) U/L Alkaline Phosphatase 169 H (46-116) U/L B-Natriuretic Peptide 53 (0-100) pg/ml Total Protein 7.8 (6.4-8.2) g/dL Albumin 3.2 L (3.4-5.0) g/dL Globulin 4.6 Albumin/Globulin Ratio 0.70 Urine Color (YELLOW) Urine Appearance (CLEAR) Urine pH (5.0-9.0) Ur Specific Valentine (1.005-1.030) Urine Protein (NEGATIVE) Urine Glucose (UA) (NEGATIVE) Urine Ketones (NEGATIVE) Urine Occult Blood (NEGATIVE) Urine Nitrite (NEGATIVE) Urine Bilirubin (NEGATIVE) Urine Urobilinogen (0.2-1.0) mg/dL Ur Leukocyte Esterase (NEGATIVE) Urine RBC (0-5) /HPF Urine WBC (0-5/HPF) /HPF Ur Epithelial Cells (NOT SEEN) /HPF Urine Bacteria (0-FEW/HPF) /HPF Urine Mucus (NOT SEEN) /LPF SARS-CoV-2 RNA (QUYEN) Negative (NEGATIVE) 04/07/21 04/08/21 04/08/21 Range/Units 20:23 06:05 06:05 WBC 6.0 (5.0-10.0) 10^3/uL RBC 4.75 (4.2-5.4) 10^6/uL Hgb 13.3 (12.0-16.0) g/dL Hct 42.1 (37.0-47.0) % MCV 88.6 (80-100) fL MCH 28.0 (27.0-34.0) pg MCHC 31.6 L (33.0-35.0) g/dL Plt Count 334 (150-450) 10^3/uL Neut % (Auto) (42.2-75.2) % Lymph % (Auto) (20.5-50.1) % Addison % (Auto) (2-8) % Eos % (Auto) (1.0-3.0) % Baso % (Auto) (0.0-1.0) % Sodium 141 (136-145) mmol/L Potassium 4.6 (3.5-5.1) mmol/L Chloride 102 (98-107) mmol/L Carbon Dioxide 28 (21-32) mmol/L Anion Gap 15.6 H (7-13) mEq/L BUN 14 (7-18) mg/dL Creatinine 1.18 H (0.55-1.02) mg/dL Est Cr Clr Drug Dosing 51.77 mL/min Estimated GFR (MDRD) 47 BUN/Creatinine Ratio (No establ ref range) Glucose 132 H (70-99) mg/dL Lactic Acid 1.5 (0.4-2.0) mmol/L Calcium 9.6 (8.5-10.1) mg/dL Magnesium (1.8-2.4) mg/dL Total Bilirubin (0.2-1.0) mg/dL AST (15-37) U/L ALT (14-59) U/L Alkaline Phosphatase (46-116) U/L B-Natriuretic Peptide (0-100) pg/ml Total Protein (6.4-8.2) g/dL Albumin (3.4-5.0) g/dL Globulin Albumin/Globulin Ratio Urine Color (YELLOW) Urine Appearance (CLEAR) Urine pH (5.0-9.0) Ur Specific Valentine (1.005-1.030) Urine Protein (NEGATIVE) Urine Glucose (UA) (NEGATIVE) Urine Ketones (NEGATIVE) Urine Occult Blood (NEGATIVE) Urine Nitrite (NEGATIVE) Urine Bilirubin (NEGATIVE) Urine Urobilinogen (0.2-1.0) mg/dL Ur Leukocyte Esterase (NEGATIVE) Urine RBC (0-5) /HPF Urine WBC (0-5/HPF) /HPF Ur Epithelial Cells (NOT SEEN) /HPF Urine Bacteria (0-FEW/HPF) /HPF Urine Mucus (NOT SEEN) /LPF SARS-CoV-2 RNA (QUYEN) (NEGATIVE) 04/08/21 Range/Units 10:30 WBC (5.0-10.0) 10^3/uL RBC (4.2-5.4) 10^6/uL Hgb (12.0-16.0) g/dL Hct (37.0-47.0) % MCV (80-100) fL MCH (27.0-34.0) pg MCHC (33.0-35.0) g/dL Plt Count (150-450) 10^3/uL Neut % (Auto) (42.2-75.2) % Lymph % (Auto) (20.5-50.1) % Addison % (Auto) (2-8) % Eos % (Auto) (1.0-3.0) % Baso % (Auto) (0.0-1.0) % Sodium (136-145) mmol/L Potassium (3.5-5.1) mmol/L Chloride (98-107) mmol/L Carbon Dioxide (21-32) mmol/L Anion Gap (7-13) mEq/L BUN (7-18) mg/dL Creatinine (0.55-1.02) mg/dL Est Cr Clr Drug Dosing mL/min Estimated GFR (MDRD) BUN/Creatinine Ratio (No establ ref range) Glucose (70-99) mg/dL Lactic Acid (0.4-2.0) mmol/L Calcium (8.5-10.1) mg/dL Magnesium (1.8-2.4) mg/dL Total Bilirubin (0.2-1.0) mg/dL AST (15-37) U/L ALT (14-59) U/L Alkaline Phosphatase (46-116) U/L B-Natriuretic Peptide (0-100) pg/ml Total Protein (6.4-8.2) g/dL Albumin (3.4-5.0) g/dL Globulin Albumin/Globulin Ratio Urine Color Yellow (YELLOW) Urine Appearance Slightly cloudy (CLEAR) Urine pH 7.0 (5.0-9.0) Ur Specific Valentine 1.020 (1.005-1.030) Urine Protein 30 H (NEGATIVE) Urine Glucose (UA) Negative (NEGATIVE) Urine Ketones Negative (NEGATIVE) Urine Occult Blood Negative (NEGATIVE) Urine Nitrite Positive H (NEGATIVE) Urine Bilirubin Negative (NEGATIVE) Urine Urobilinogen 0.2 (0.2-1.0) mg/dL Ur Leukocyte Esterase Negative (NEGATIVE) Urine RBC Not seen (0-5) /HPF Urine WBC 0-5 (0-5/HPF) /HPF Ur Epithelial Cells Few (NOT SEEN) /HPF Urine Bacteria Moderate H (0-FEW/HPF) /HPF Urine Mucus Not seen (NOT SEEN) /LPF SARS-CoV-2 RNA (QUYEN) (NEGATIVE) Lito Results Last 24 Hours: Microbiology 04/07/21 20:23 Anaerobic Blood Culture - Final Blood - Venous - Iv Start Med Orders - Current: Current Medications Acetaminophen (Acetaminophen 325 Mg Tab) 650 mg PO Q4H PRN PRN Reason: Pain (Mild 1-3)/fever Hydrocodone Bitart/Acetaminophen (Acetaminophen/Hydrocodone 325-10 Mg Tab) 1 tab PO Q6H PRN PRN Reason: Pain (moderate 4-6) Last Admin: 04/08/21 00:44 Dose: 1 tab Documented by: Albuterol/Ipratropium (Albuterol/Ipratropium 3.0-0.5 Mg/3 Ml Neb Soln) 3 ml NEB Q6HRRT [facility] Last Admin: 04/08/21 07:14 Dose: 3 ml Documented by: Albuterol/Ipratropium (Albuterol/Ipratropium 3.0-0.5 Mg/3 Ml Neb Soln) 3 ml NEB Q2H PRN PRN Reason: sob Last Admin: 04/07/21 23:52 Dose: 3 ml Documented by: Aspirin (Aspirin 81 Mg Tab.Ec) 81 mg PO DAILY [facility] Last Admin: 04/08/21 08:17 Dose: 81 mg Documented by: Benzonatate (Benzonatate 100 Mg Cap) 100 mg PO BID PRN PRN Reason: Cough Budesonide (Budesonide 0.5 Mg/2 Ml Neb Susp) 0.5 mg NEB BIDRT [facility] Last Admin: 04/08/21 07:15 Dose: 0.5 mg Documented by: Bupropion HCl (Bupropion 150 Mg Tab.Er) 150 mg PO DAILY [facility] Last Admin: 04/08/21 08:16 Dose: 150 mg Documented by: Clopidogrel Bisulfate (Clopidogrel 75 Mg Tab) 75 mg PO DAILY [facility] Last Admin: 04/08/21 08:17 Dose: 75 mg Documented by: Docusate Sodium (Docusate Sodium 100 Mg Cap) 100 mg PO BID PRN PRN Reason: Constipation Gabapentin (Gabapentin 300 Mg Cap) 300 mg PO BID [facility] Last Admin: 04/08/21 08:18 Dose: 300 mg Documented by: Heparin Sodium (Porcine) (Heparin Sodium 5,000 Units/Ml Vial) 5,000 units SUBCUT Q8HR [facility] Last Admin: 04/08/21 05:18 Dose: 5,000 units Documented by: Isosorbide Mononitrate (Isosorbide Mononitrate 30 Mg Tab.Er) 60 mg PO DAILY [facility] Last Admin: 04/08/21 08:25 Dose: 60 mg Documented by: Levofloxacin (Levofloxacin 500 Mg Tab) 500 mg PO Q24H [facility] Last Admin: 04/07/21 23:52 Dose: 500 mg Documented by: Lorazepam (Lorazepam 1 Mg Tab) 1 mg PO DAILY PRN PRN Reason: Anxiety Methylprednisolone Sodium Succinate (Methylprednisolone Sodium Succinate 40 Mg/1 Ml Sdv) 40 mg IVPUSH Q8H [facility] Last Admin: 04/08/21 05:18 Dose: 40 mg Documented by: Montelukast Sodium (Montelukast 10 Mg Tab) 10 mg PO BEDTIME [facility] Sodium Chloride (Sodium Chloride 0.9% 10 Ml Syringe) 10 ml FLUSH ASDIRECTED PRN PRN Reason: Keep Vein Open Temazepam (Temazepam 15 Mg Cap) 15 mg PO BEDTIME PRN PRN Reason: Sleep Discontinued Medications Hydrocodone Bitart/Acetaminophen (Acetaminophen/Hydrocodone 325-10 Mg Tab) 1 tab PO BID [facility] Albuterol (Albuterol 0.021% 0.63 Mg/3 Ml Neb Soln) 0.63 mg NEB ONETIME ONE Stop: 04/07/21 20:37 Last Admin: 04/07/21 20:42 Dose: 0.63 mg Documented by: Albuterol/Ipratropium (Albuterol/Ipratropium 3.0-0.5 Mg/3 Ml Neb Soln) 3 ml NEB ONETIME ONE Stop: 04/07/21 19:54 Last Admin: 04/07/21 19:55 Dose: 3 ml Documented by: Albuterol/Ipratropium (Albuterol/Ipratropium 3.0-0.5 Mg/3 Ml Neb Soln) Confirm Administered Dose 3 ml .ROUTE .STK-MED ONE Stop: 04/07/21 19:55 Last Admin: 04/07/21 20:10 Dose: Not Given Documented by: Benzonatate (Benzonatate 100 Mg Cap) 200 mg PO ONETIME ONE Stop: 04/07/21 21:13 Last Admin: 04/07/21 22:02 Dose: 200 mg Documented by: Gabapentin (Gabapentin 300 Mg Cap) 300 mg PO ONETIME ONE Stop: 04/08/21 00:14 Last Admin: 04/08/21 00:44 Dose: 300 mg Documented by: Methylprednisolone Sodium Succinate (Methylprednisolone Sodium Succinate 125 Mg/2 Ml Sdv) 125 mg IVPUSH ONETIME ONE Stop: 04/07/21 20:37 Last Admin: 04/07/21 20:42 Dose: 125 mg Documented by: - Exam Quality Assessment: Supplemental Oxygen General: Alert, Oriented Neck: Supple Lungs: Wheezing (mild b/l ) Cardiovascular: Regular Rate, Regular Rhythm GI/Abdominal Exam: Normal Bowel Sounds, Soft, Non-Tender Extremities: No Pedal Edema Skin: Warm, Dry Neurological: No New Focal Deficit Psy/Mental Status: Alert, Normal Affect, Normal Mood - Patient Data Lab Results Last 24 hrs: Laboratory Results - last 24 hr 04/07/21 04/07/21 04/07/21 Range/Units 17:07 20:23 20:23 WBC 11.3 H (5.0-10.0) 10^3/uL RBC 4.85 (4.2-5.4) 10^6/uL Hgb 13.7 (12.0-16.0) g/dL Hct 42.4 (37.0-47.0) % MCV 87.4 (80-100) fL MCH 28.2 (27.0-34.0) pg MCHC 32.3 L (33.0-35.0) g/dL Plt Count 305 (150-450) 10^3/uL Neut % (Auto) 89.6 H (42.2-75.2) % Lymph % (Auto) 7.0 L (20.5-50.1) % Addison % (Auto) 2.9 (2-8) % Eos % (Auto) 0.2 L (1.0-3.0) % Baso % (Auto) 0.3 (0.0-1.0) % Sodium 139 (136-145) mmol/L Potassium 4.5 (3.5-5.1) mmol/L Chloride 100 (98-107) mmol/L Carbon Dioxide 26 (21-32) mmol/L Anion Gap 17.5 H (7-13) mEq/L BUN 10 (7-18) mg/dL Creatinine 1.06 H (0.55-1.02) mg/dL Est Cr Clr Drug Dosing 58.92 mL/min Estimated GFR (MDRD) 54 BUN/Creatinine Ratio 9.4 (No establ ref range) Glucose 107 H (70-99) mg/dL Lactic Acid (0.4-2.0) mmol/L Calcium 9.7 (8.5-10.1) mg/dL Magnesium 1.8 (1.8-2.4) mg/dL Total Bilirubin 0.4 (0.2-1.0) mg/dL AST 29 (15-37) U/L ALT 40 (14-59) U/L Alkaline Phosphatase 169 H (46-116) U/L B-Natriuretic Peptide 53 (0-100) pg/ml Total Protein 7.8 (6.4-8.2) g/dL Albumin 3.2 L (3.4-5.0) g/dL Globulin 4.6 Albumin/Globulin Ratio 0.70 Urine Color (YELLOW) Urine Appearance (CLEAR) Urine pH (5.0-9.0) Ur Specific Valentine (1.005-1.030) Urine Protein (NEGATIVE) Urine Glucose (UA) (NEGATIVE) Urine Ketones (NEGATIVE) Urine Occult Blood (NEGATIVE) Urine Nitrite (NEGATIVE) Urine Bilirubin (NEGATIVE) Urine Urobilinogen (0.2-1.0) mg/dL Ur Leukocyte Esterase (NEGATIVE) Urine RBC (0-5) /HPF Urine WBC (0-5/HPF) /HPF Ur Epithelial Cells (NOT SEEN) /HPF Urine Bacteria (0-FEW/HPF) /HPF Urine Mucus (NOT SEEN) /LPF SARS-CoV-2 RNA (QUYEN) Negative (NEGATIVE) 04/07/21 04/08/21 04/08/21 Range/Units 20:23 06:05 06:05 WBC 6.0 (5.0-10.0) 10^3/uL RBC 4.75 (4.2-5.4) 10^6/uL Hgb 13.3 (12.0-16.0) g/dL Hct 42.1 (37.0-47.0) % MCV 88.6 (80-100) fL MCH 28.0 (27.0-34.0) pg MCHC 31.6 L (33.0-35.0) g/dL Plt Count 334 (150-450) 10^3/uL Neut % (Auto) (42.2-75.2) % Lymph % (Auto) (20.5-50.1) % Addison % (Auto) (2-8) % Eos % (Auto) (1.0-3.0) % Baso % (Auto) (0.0-1.0) % Sodium 141 (136-145) mmol/L Potassium 4.6 (3.5-5.1) mmol/L Chloride 102 (98-107) mmol/L Carbon Dioxide 28 (21-32) mmol/L Anion Gap 15.6 H (7-13) mEq/L BUN 14 (7-18) mg/dL Creatinine 1.18 H (0.55-1.02) mg/dL Est Cr Clr Drug Dosing 51.77 mL/min Estimated GFR (MDRD) 47 BUN/Creatinine Ratio (No establ ref range) Glucose 132 H (70-99) mg/dL Lactic Acid 1.5 (0.4-2.0) mmol/L Calcium 9.6 (8.5-10.1) mg/dL Magnesium (1.8-2.4) mg/dL Total Bilirubin (0.2-1.0) mg/dL AST (15-37) U/L ALT (14-59) U/L Alkaline Phosphatase (46-116) U/L B-Natriuretic Peptide (0-100) pg/ml Total Protein (6.4-8.2) g/dL Albumin (3.4-5.0) g/dL Globulin Albumin/Globulin Ratio Urine Color (YELLOW) Urine Appearance (CLEAR) Urine pH (5.0-9.0) Ur Specific Valentine (1.005-1.030) Urine Protein (NEGATIVE) Urine Glucose (UA) (NEGATIVE) Urine Ketones (NEGATIVE) Urine Occult Blood (NEGATIVE) Urine Nitrite (NEGATIVE) Urine Bilirubin (NEGATIVE) Urine Urobilinogen (0.2-1.0) mg/dL Ur Leukocyte Esterase (NEGATIVE) Urine RBC (0-5) /HPF Urine WBC (0-5/HPF) /HPF Ur Epithelial Cells (NOT SEEN) /HPF Urine Bacteria (0-FEW/HPF) /HPF Urine Mucus (NOT SEEN) /LPF SARS-CoV-2 RNA (QUYEN) (NEGATIVE) 04/08/21 Range/Units 10:30 WBC (5.0-10.0) 10^3/uL RBC (4.2-5.4) 10^6/uL Hgb (12.0-16.0) g/dL Hct (37.0-47.0) % MCV (80-100) fL MCH (27.0-34.0) pg MCHC (33.0-35.0) g/dL Plt Count (150-450) 10^3/uL Neut % (Auto) (42.2-75.2) % Lymph % (Auto) (20.5-50.1) % Addison % (Auto) (2-8) % Eos % (Auto) (1.0-3.0) % Baso % (Auto) (0.0-1.0) % Sodium (136-145) mmol/L Potassium (3.5-5.1) mmol/L Chloride (98-107) mmol/L Carbon Dioxide (21-32) mmol/L Anion Gap (7-13) mEq/L BUN (7-18) mg/dL Creatinine (0.55-1.02) mg/dL Est Cr Clr Drug Dosing mL/min Estimated GFR (MDRD) BUN/Creatinine Ratio (No establ ref range) Glucose (70-99) mg/dL Lactic Acid (0.4-2.0) mmol/L Calcium (8.5-10.1) mg/dL Magnesium (1.8-2.4) mg/dL Total Bilirubin (0.2-1.0) mg/dL AST (15-37) U/L ALT (14-59) U/L Alkaline Phosphatase (46-116) U/L B-Natriuretic Peptide (0-100) pg/ml Total Protein (6.4-8.2) g/dL Albumin (3.4-5.0) g/dL Globulin Albumin/Globulin Ratio Urine Color Yellow (YELLOW) Urine Appearance Slightly cloudy (CLEAR) Urine pH 7.0 (5.0-9.0) Ur Specific Valentine 1.020 (1.005-1.030) Urine Protein 30 H (NEGATIVE) Urine Glucose (UA) Negative (NEGATIVE) Urine Ketones Negative (NEGATIVE) Urine Occult Blood Negative (NEGATIVE) Urine Nitrite Positive H (NEGATIVE) Urine Bilirubin Negative (NEGATIVE) Urine Urobilinogen 0.2 (0.2-1.0) mg/dL Ur Leukocyte Esterase Negative (NEGATIVE) Urine RBC Not seen (0-5) /HPF Urine WBC 0-5 (0-5/HPF) /HPF Ur Epithelial Cells Few (NOT SEEN) /HPF Urine Bacteria Moderate H (0-FEW/HPF) /HPF Urine Mucus Not seen (NOT SEEN) /LPF SARS-CoV-2 RNA (QUYEN) (NEGATIVE) Result Diagrams: 04/08/21 06:05 04/08/21 06:05 Lito Results Last 24 hrs: Microbiology 04/07/21 20:23 Anaerobic Blood Culture - Final Blood - Venous - Iv Start Sepsis Event Note - Evaluation Sepsis Screening Result: Possible Sepsis Risk - Focused Exam Vital Signs: Vital Signs Temp Pulse Resp BP BP Pulse Ox Pulse Ox 04/08/21 08:25 139/74 04/08/21 07:48 97.5 F 87 20 139/74 90 L 04/08/21 07:15 81 99 04/08/21 03:23 98.0 F 95 22 H 136/78 95 - Problem List & Annotations (1) Acute and chronic respiratory failure SNOMED Code(s): 78139299 Code(s): J96.20 - ACUTE AND CHR RESP FAILURE, UNSP W HYPOXIA OR HYPERCAPNIA Status: Acute Current Visit: No Qualifiers: Respiratory failure complication: hypoxia and hypercapnia Qualified Code(s): J96.21 - Acute and chronic respiratory failure with hypoxia; J96.22 - A cute and chronic respiratory failure with hypercapnia (2) Acute exacerbation of chronic obstructive pulmonary disease (COPD) SNOMED Code(s): 315350467 Code(s): J44.1 - CHRONIC OBSTRUCTIVE PULMONARY DISEASE W (ACUTE) EXACERBATION Status: Acute Current Visit: No (3) Flank pain SNOMED Code(s): 589256374 Code(s): R10.9 - UNSPECIFIED ABDOMINAL PAIN Status: Acute Current Visit: No - Problem List Review Problem List Initiated/Reviewed/Updated: Yes - My Orders Last 24 Hours: My Active Orders 04/07/21 23:00 levoFLOXacin [Levaquin] 500 mg PO Q24H 04/07/21 23:12 RT Aerosol Therapy [RC] ASDIRECTED Albuterol/Ipratropium [DuoNeb 3.0-0.5 MG/3 ML] 3 ml NEB Q2H PRN 04/07/21 23:14 Benzonatate [Tessalon Perles] 100 mg PO BID PRN LORazepam [Ativan] 1 mg PO DAILY PRN 04/07/21 23:21 CULTURE SPUTUM + SMEAR [RM] Routine 04/07/21 23:23 Oxygen Therapy [RC] PRN Up With Assistance [RC] ASDIRECTED VTE/DVT Education [RC] Vital Signs [RC] 08,12,16,20,00,04 Acetaminophen [TylenoL] 650 mg PO Q4H PRN Docusate Sodium [Colace] 100 mg PO BID PRN Sodium Chloride 0.9% [Saline Flush] 10 ml FLUSH ASDIRECTED PRN Temazepam [Restoril] 15 mg PO BEDTIME PRN Peripheral IV Insertion Adult [OM.PC] Routine Saline Lock Insert [OM.PC] Routine Resuscitation Status Routine 04/07/21 23:24 Peripheral IV Care [RC] . DIRECTED 04/08/21 00:26 Acetaminophen/HYDROcodone [[place] 325-10 MG] 1 tab PO Q6H PRN 04/08/21 01:00 Albuterol/Ipratropium [DuoNeb 3.0-0.5 MG/3 ML] 3 ml NEB Q6HRRT 04/08/21 04:30 methylPREDNISolone Sod Succ [Solu-MEDROL] 40 mg IVPUSH Q8H 04/08/21 06:00 Heparin Sodium 5,000 units SUBCUT Q8HR 04/08/21 07:00 Budesonide [Pulmicort] 0.5 mg NEB BIDRT 04/08/21 09:00 Aspirin [Halfprin] 81 mg PO DAILY Clopidogrel [Plavix] 75 mg PO DAILY Gabapentin [Neurontin] 300 mg PO BID Isosorbide Mononitrate [Imdur] 60 mg PO DAILY buPROPion [Wellbutrin XL] 150 mg PO DAILY 04/08/21 10:30 CULTURE URINE [RM] Routine 04/08/21 21:00 Montelukast [Singulair] 10 mg PO BEDTIME 04/09/21 05:15 BASIC METABOLIC PANEL,BMP [CHEM] AM CBC WITH AUTO DIFF [HEME] AM - Plan Plan:: presented with sob, has been recently tx at [facility] for COPD exacerbation sent home on home oxygen home monitoring noted lower oxygen sats, lower BPs asked to go to er in er noted wheezing wheezing improved after 2 duoneb tx.in ER has chronic lower rib cage pain for months, taking neurontin and hydrocodone with some improvements acute on chronic hypoxemic respiratory failure normally on 2 l/min at night and 1 l/min during the day will supplement oxygen as needed Acute copd exacerbation wheezing noted in er improved with nebs will treat with solumedrol, scheduled and as needed duoneb cont singulair will need to f/up with pulmo clinic tremors likely related to steroid/nebs side effect- will monitor possible upper airway infection no pneumonia on cxr reports low grade temp, cough, sputum pending sputum cx pending blood cx empirical tx with levofloxacin chronic left lower chest pain cont neurontin, hydrocodone depression treat with buproprion cad cont imdur asa, plavix, lower BPs reported - now BP is good hold lisinopril for now adjust as needed full code status as discussed on admission dvt prophylaxis with sq heparin
[2021-04-08] MEDS ORDERED: Montelukast 10 MG Tab PO SCH (21:00)
[2021-04-08] MEDS: Levofloxacin 500 MG Tab PO SCH (22:19)
[2021-04-09] MEDS: Albuterol/Ipratropium 3.0-0.5 MG/3 ML Neb Soln NEB SCH ×2 (00:05→07:28)
[2021-04-09] MEDS: Albuterol/Ipratropium 3.0-0.5 MG/3 ML Neb Soln NEB PRN (04:16)
[2021-04-09] MEDS: methylPREDNISolone Sodium Succinate 40 MG/1 ML SDV IVPUSH SCH ×2 (04:17→11:59)
[2021-04-09] MEDS: Heparin Sodium 5,000 Units/ML Vial SUBCUT SCH (06:00)
[2021-04-09] MEDS: Acetaminophen/HYDROcodone 325-10 MG Tab PO PRN (06:40)
[2021-04-09 06:50] LABS: ANION GAP 13.7 mEq/L (7-13)
[2021-04-09] MEDS: Budesonide 0.5 MG/2 ML Neb Susp NEB SCH (07:29)
[2021-04-09] MEDS ORDERED: Ibuprofen 400 MG Tab PO ONE (09:06)
[2021-04-09] MEDS ORDERED: Ketorolac 30 MG/ML SDV IVPUSH ONE (09:09)
[2021-04-09] MEDS: Aspirin 81 MG Tab.EC PO SCH (09:23)
[2021-04-09] MEDS: buPROPion 150 MG Tab.ER PO SCH (09:23)
[2021-04-09] MEDS: Gabapentin 300 MG Cap PO SCH (09:24)
[2021-04-09] MEDS: Isosorbide Mononitrate 30 MG Tab.ER PO SCH (09:24)
[2021-04-09] MEDS: Clopidogrel 75 MG Tab PO SCH (09:24)
[2021-04-09 11:15] VITALS: BP 106/67; PULSE 109
--- NOTE | 2021-04-09 11:15 | PCM.DCSUM1 ---
Discharge Summary - Hospital Course Free Text/Narrative:: Mrs. Valderrama is a 55-year-old female history of COPD, tobacco abuse and chronic hypoxemic respiratory failure who was admitted to hospital with SOB , hypoxemia and another COPD exacerbation. Pt continues to smoke a few cigarettes a day at home despite her worsening lung function. On admission she was wheezing and required more oxygen supplementation than her home baseline O2 requirements. She was admitted to the hospital treated with parenteral steroids, antibiotic and nebulizers. After a few days, her respiration status improved enough to the point that she felt well enough to go home. She complained of a left arm pain which seem to be more of a musculoskeletal issue. She was given IV Toradol and Noel which seemed to help with her symptoms. On 04/09/2021 she was discharged home on a tapering dose of prednisone. Discharge instructions: Condition on discharge: Stable. Patient was strongly advised to abstain from tobacco use. Activities as tolerated Diet: heart healthy diet. Patient is to follow-up with her PCP next 1 to 2 weeks. Discharge time was 35 minutes Physical exam Subjectively: Patient awake alert in no acute distress. Did complain of left arm pain General: Obese middle-aged female awake and alert. In no acute distress. Patient is anxious and tremulous CVS: S1 is appreciated. Regular rhythm no murmurs rubs or gallops Lungs: Clear bilateral without any rales or wheezes Abdomen: Soft obese nontender bowel sounds present Extremities: There is no clubbing sinus edema peripheral pulses 2+ Neuro: Gait is normal sensations intact strength 5 out of 5 bilaterally. She is tremulous Psych: Patient is anxious. Diagnosis: Stroke: No - Discharge Data Discharge Date: 04/09/21 Discharge Disposition: Home, Self-Care 01 Condition: Stable - Referral to Home Health Primary Care Physician: [facility] - Discharge Diagnosis/Problem(s) (1) COPD exacerbation SNOMED Code(s): 322373052, 330685425 ICD Code: J44.1 - CHRONIC OBSTRUCTIVE PULMONARY DISEASE W (ACUTE) EXACERBATION Status: Acute Priority: High Current Visit: Yes (2) Hypoxia SNOMED Code(s): 828963034 ICD Code: R09.02 - HYPOXEMIA Status: Acute Current Visit: Yes (3) Pleuritic chest pain SNOMED Code(s): 8888857 ICD Code: R07.81 - PLEURODYNIA Status: Acute Current Visit: Yes (4) Acute and chronic respiratory failure SNOMED Code(s): 47794933 ICD Code: J96.20 - ACUTE AND CHR RESP FAILURE, UNSP W HYPOXIA OR HYPERCAPNIA Status: Acute Current Visit: Yes Qualifiers: Respiratory failure complication: hypoxia and hypercapnia Qualified Code(s): J96.21 - Acute and chronic respiratory failure with hypoxia; J96.22 - Acute and chronic respiratory failure with hypercapnia - Patient Instructions Diet: Heart Healthy Diet Activity: As Tolerated Driving: May Drive Today - Discharge Plan *PRESCRIPTION DRUG MONITORING PROGRAM REVIEWED*: Not Applicable *COPY OF PRESCRIPTION DRUG MONITORING REPORT IN PATIENT ANA: Not Applicable Prescriptions/Med Rec: levoFLOXacin [Levaquin] 500 mg PO Q24H 3 Days #3 tablet lisinopriL [Lisinopril] 20 mg PO DAILY 30 Days #30 tablet predniSONE [Prednisone] 10 mg PO DAILY 6 Days #14 tablet Home Medications: Home Meds Budesonide [Pulmicort] 2 ml INH BID 07/26/17 [History] Gabapentin [Neurontin] 300 mg PO BID 07/26/17 [History] LORazepam 1 mg PO DAILY PRN 07/26/17 [History] Montelukast [Singulair] 10 mg PO BEDTIME 07/26/17 [History] Roflumilast [Daliresp] 500 mcg PO DAILY 07/26/17 [History] Acetaminophen [Tylenol] 650 mg PO Q4HR PRN 05/23/18 [History] Aspirin [Ecotrin EC] 81 mg PO DAILY 05/23/18 [History] Ipratropium/Albuterol Sulfate [Iprat-Albut 0.5-3(2.5) mg/3 ml] 1 ampule IH QID PRN 06/01/18 [History] Arformoterol [Brovana] 2 ml NEB BID 01/06/20 [History] Benzonatate [Tessalon Perle] 100 mg PO TID PRN 01/06/20 [History] buPROPion [buPROPion XL] 150 mg PO DAILY 01/06/20 [History] predniSONE [Prednisone] 7.5 mg PO DAILY 01/06/20 [History] Albuterol [Proventil Neb Soln] 1 vial INH Q4HR PRN 02/14/20 [History] Ergocalciferol (Vitamin D2) [Vitamin D2] 1,250 mcg PO ASDIRECTED 02/14/20 [History] Hydrocodone/Acetaminophen [HYDROcodone-Acetaminophen 10-325 MG] 1 tab PO Q8H PRN 02/14/20 [History] Clopidogrel [Plavix] 75 mg PO DAILY 09/13/20 [History] Isosorbide Mononitrate [Isosorbide Mononitrate ER] 60 mg PO BEDTIME 09/13/20 [History] Revefenacin [Yupelri] 175 mcg INH DAILY 09/13/20 [History] DULoxetine [Cymbalta] 30 mg PO DAILY 04/08/21 [History] diphenhydrAMINE [Benadryl] 50 mg PO ASDIRECTED PRN 04/08/21 [History] levoFLOXacin [Levaquin] 500 mg PO Q24H 3 Days #3 tablet 04/09/21 [Rx] lisinopriL [Lisinopril] 20 mg PO DAILY 30 Days #30 tablet 04/09/21 [Rx] predniSONE [Prednisone] 10 mg PO DAILY 6 Days #14 tablet 04/09/21 [Rx] Oxygen Therapy Mode: Nasal Cannula Oxygen Flow Rate (L/min): 1 Referrals: Claudia Han NP [Ordering Only Provider] - - Discharge Summary/Plan Comment DC Time >30 min.: Yes (35 mins) Total # of Minutes for Discharge Time: 35 mins - Patient Data Vitals - Most Recent: Last Vital Signs Temp 95.5 F L 04/09/21 07:33 Pulse 89 04/09/21 07:33 Resp 20 04/09/21 07:33 BP 183/98 H 04/09/21 09:24 Pulse Ox 97 04/09/21 07:33 Weight - Most Recent: 202 lb 12.8 oz I&O - Last 24 hours: Intake & Output 04/08/21 04/09/21 04/09/21 22:59 06:59 14:59 Intake Total 935 300 240 Output Total 500 200 Balance 435 100 240 Lab Results - Last 24 hrs: Laboratory Results - last 24 hr 04/08/21 04/09/21 04/09/21 Range/Units 10:30 06:01 06:01 WBC 15.3 H (5.0-10.0) 10^3/uL RBC 4.46 (4.2-5.4) 10^6/uL Hgb 12.5 (12.0-16.0) g/dL Hct 39.6 (37.0-47.0) % MCV 88.8 (80-100) fL MCH 28.0 (27.0-34.0) pg MCHC 31.6 L (33.0-35.0) g/dL Plt Count 350 (150-450) 10^3/uL Neut % (Auto) 90.8 H (42.2-75.2) % Lymph % (Auto) 4.7 L (20.5-50.1) % [place] % (Auto) 4.4 (2-8) % Eos % (Auto) 0.0 L (1.0-3.0) % Baso % (Auto) 0.1 (0.0-1.0) % Sodium 141 (136-145) mmol/L Potassium 4.7 (3.5-5.1) mmol/L Chloride 105 (98-107) mmol/L Carbon Dioxide 27 (21-32) mmol/L Anion Gap 13.7 H (7-13) mEq/L BUN 22 H (7-18) mg/dL Creatinine 1.08 H (0.55-1.02) mg/dL Est Cr Clr Drug Dosing 56.56 mL/min Estimated GFR (MDRD) 52 Glucose 133 H (70-99) mg/dL Calcium 9.6 (8.5-10.1) mg/dL Urine Color Yellow (YELLOW) Urine Appearance Slightly cloudy (CLEAR) Urine pH 7.0 (5.0-9.0) Ur Specific [employer] [place] 1.020 (1.005-1.030) Urine Protein 30 H (NEGATIVE) Urine Glucose (UA) Negative (NEGATIVE) Urine Ketones Negative (NEGATIVE) Urine Occult Blood Negative (NEGATIVE) Urine Nitrite Positive H (NEGATIVE) Urine Bilirubin Negative (NEGATIVE) Urine Urobilinogen 0.2 (0.2-1.0) mg/dL Ur Leukocyte Esterase Negative (NEGATIVE) Urine RBC Not seen (0-5) /HPF Urine WBC 0-5 (0-5/HPF) /HPF Ur Epithelial Cells Few (NOT SEEN) /HPF Urine Bacteria Moderate H (0-FEW/HPF) /HPF Urine Mucus Not seen (NOT SEEN) /LPF HUSSAIN Results - Last 24 hrs: Microbiology 04/08/21 10:30 Urine Culture - Preliminary Urine, Voided Staphylococcus Coagulase Neg 04/07/21 21:20 Aerobic Blood Culture - Preliminary Blood - Arm, Right NO GROWTH AFTER 1 DAY Anaerobic Blood Culture - Preliminary NO GROWTH AFTER 1 DAY 04/07/21 20:23 Aerobic Blood Culture - Preliminary Blood - Venous - Iv Start NO GROWTH AFTER 1 DAY Anaerobic Blood Culture - Final Med Orders - Current: Current Medications Acetaminophen (Acetaminophen 325 Mg Tab) 650 mg PO Q4H PRN PRN Reason: Pain (Mild 1-3)/fever Last Admin: 04/08/21 19:08 Dose: 650 mg Documented by: Hydrocodone Bitart/Acetaminophen (Acetaminophen/Hydrocodone 325-10 Mg Tab) 1 tab PO Q6H PRN PRN Reason: Pain (moderate 4-6) Last Admin: 04/09/21 06:40 Dose: 1 tab Documented by: Albuterol/Ipratropium (Albuterol/Ipratropium 3.0-0.5 Mg/3 Ml Neb Soln) 3 ml NEB Q6HRRT [facility] Last Admin: 04/09/21 07:28 Dose: 3 ml Documented by: Albuterol/Ipratropium (Albuterol/Ipratropium 3.0-0.5 Mg/3 Ml Neb Soln) 3 ml NEB Q2H PRN PRN Reason: sob Last Admin: 04/09/21 04:16 Dose: 3 ml Documented by: Aspirin (Aspirin 81 Mg Tab.Ec) 81 mg PO DAILY [facility] Last Admin: 04/09/21 09:23 Dose: 81 mg Documented by: Benzonatate (Benzonatate 100 Mg Cap) 100 mg PO BID PRN PRN Reason: Cough Last Admin: 04/08/21 20:10 Dose: 100 mg Documented by: Budesonide (Budesonide 0.5 Mg/2 Ml Neb Susp) 0.5 mg NEB BIDRT [facility] Last Admin: 04/09/21 07:29 Dose: 0.5 mg Documented by: Bupropion HCl (Bupropion 150 Mg Tab.Er) 150 mg PO DAILY [facility] Last Admin: 04/09/21 09:23 Dose: 150 mg Documented by: Clopidogrel Bisulfate (Clopidogrel 75 Mg Tab) 75 mg PO DAILY [facility] Last Admin: 04/09/21 09:24 Dose: 75 mg Documented by: Docusate Sodium (Docusate Sodium 100 Mg Cap) 100 mg PO BID PRN PRN Reason: Constipation Gabapentin (Gabapentin 300 Mg Cap) 300 mg PO BID [facility] Last Admin: 04/09/21 09:24 Dose: 300 mg Documented by: Heparin Sodium (Porcine) (Heparin Sodium 5,000 Units/Ml Vial) 5,000 units SUBCUT Q8HR [facility] Last Admin: 04/09/21 06:00 Dose: 5,000 units Documented by: Isosorbide Mononitrate (Isosorbide Mononitrate 30 Mg Tab.Er) 60 mg PO DAILY [facility] Last Admin: 04/09/21 09:24 Dose: 60 mg Documented by: Levofloxacin (Levofloxacin 500 Mg Tab) 500 mg PO Q24H [facility] Last Admin: 04/08/21 22:19 Dose: 500 mg Documented by: Lorazepam (Lorazepam 1 Mg Tab) 1 mg PO DAILY PRN PRN Reason: Anxiety Last Admin: 04/09/21 09:24 Dose: 1 mg Documented by: Methylprednisolone Sodium Succinate (Methylprednisolone Sodium Succinate 40 Mg/1 Ml Sdv) 40 mg IVPUSH Q8H [facility] Last Admin: 04/09/21 04:17 Dose: 40 mg Documented by: Montelukast Sodium (Montelukast 10 Mg Tab) 10 mg PO BEDTIME [facility] Last Admin: 04/08/21 20:11 Dose: 10 mg Documented by: Sodium Chloride (Sodium Chloride 0.9% 10 Ml Syringe) 10 ml FLUSH ASDIRECTED PRN PRN Reason: Keep Vein Open Temazepam (Temazepam 15 Mg Cap) 15 mg PO BEDTIME PRN PRN Reason: Sleep Discontinued Medications Hydrocodone Bitart/Acetaminophen (Acetaminophen/Hydrocodone 325-10 Mg Tab) 1 tab PO BID [facility] Albuterol (Albuterol 0.021% 0.63 Mg/3 Ml Neb Soln) 0.63 mg NEB ONETIME ONE Stop: 04/07/21 20:37 Last Admin: 04/07/21 20:42 Dose: 0.63 mg Documented by: Albuterol/Ipratropium (Albuterol/Ipratropium 3.0-0.5 Mg/3 Ml Neb Soln) 3 ml NEB ONETIME ONE Stop: 04/07/21 19:54 Last Admin: 04/07/21 19:55 Dose: 3 ml Documented by: Albuterol/Ipratropium (Albuterol/Ipratropium 3.0-0.5 Mg/3 Ml Neb Soln) Confirm Administered Dose 3 ml .ROUTE .STK-MED ONE Stop: 04/07/21 19:55 Last Admin: 04/07/21 20:10 Dose: Not Given Documented by: Benzonatate (Benzonatate 100 Mg Cap) 200 mg PO ONETIME ONE Stop: 04/07/21 21:13 Last Admin: 04/07/21 22:02 Dose: 200 mg Documented by: Gabapentin (Gabapentin 300 Mg Cap) 300 mg PO ONETIME ONE Stop: 04/08/21 00:14 Last Admin: 04/08/21 00:44 Dose: 300 mg Documented by: Ibuprofen (Ibuprofen 400 Mg Tab) 400 mg PO ONETIME ONE Stop: 04/09/21 09:07 Last Admin: 04/09/21 10:35 Dose: Not Given Documented by: Ketorolac Tromethamine (Ketorolac 30 Mg/Ml Sdv) 15 mg IVPUSH ONETIME ONE Stop: 04/09/21 09:10 Last Admin: 04/09/21 09:53 Dose: 15 mg Documented by: Methylprednisolone Sodium Succinate (Methylprednisolone Sodium Succinate 125 Mg/2 Ml Sdv) 125 mg IVPUSH ONETIME ONE Stop: 04/07/21 20:37 Last Admin: 04/07/21 20:42 Dose: 125 mg Documented by:
== END 2021-04-09 13:30 | disposition home or self-care (01) | DRG 189 ==
LOC: DL.ED 16:47 → DL.MS 22:01 → EEVIPCON 22:01
PROVIDERS: ADMIT Internal Medicine; ATTEND Hospitalist
DX: R44.1 Visual hallucinations (principal); R09.02 Hypoxemia; R07.81 Pleurodynia; J96.21 Acute and chronic respiratory failure with hypoxia; I12.9 Hypertensive chronic kidney disease with stage 1 through stage 4 chronic kidney disease, or unspecified chronic kidney disease; N18.9 Chronic kidney disease, unspecified; J44.1 Chronic obstructive pulmonary disease with (acute) exacerbation; Z86.711 Personal history of pulmonary embolism; J96.22 Acute and chronic respiratory failure with hypercapnia; F14.19 Cocaine abuse with unspecified cocaine-induced disorder; J96.11 Chronic respiratory failure with hypoxia; F17.200 Nicotine dependence, unspecified, uncomplicated; F17.210 Nicotine dependence, cigarettes, uncomplicated; E66.9 Obesity, unspecified; H54.7 Unspecified visual loss; I25.10 Atherosclerotic heart disease of native coronary artery without angina pectoris; I10 Essential (primary) hypertension; Z79.51 Long term (current) use of inhaled steroids; M81.0 Age-related osteoporosis without current pathological fracture; F41.9 Anxiety disorder, unspecified; Z89.511 Acquired absence of right leg below knee; Z90.49 Acquired absence of other specified parts of digestive tract; Z95.5 Presence of coronary angioplasty implant and graft; Z87.01 Personal history of pneumonia (recurrent); Z79.52 Long term (current) use of systemic steroids; Z79.899 Other long term (current) drug therapy; Z79.82 Long term (current) use of aspirin; Z79.02 Long term (current) use of antithrombotics/antiplatelets; Z88.8 Allergy status to other drugs, medicaments and biological substances; Z88.0 Allergy status to penicillin; Z91.041 Radiographic dye allergy status; Z90.710 Acquired absence of both cervix and uterus; R07.89 Other chest pain; Z20.822 Contact with and (suspected) exposure to COVID-19; Z68.31 Body mass index [BMI] 31.0-31.9, adult
CPT/HCPCS: 36415; 71045; 80048; 80053; 81001; 83605; 83735; 83880; 85025; 85027; 87040; 87086; 93005; 93010; 94640; 96374; 99284; 99285-25; A9270-GY; J1644; J1885; J2920; J2930; J7620-GY; U0002

== ENCOUNTER 2021-05-03 04:58 | Emergency (ER) | payer MEDICARE, MEDICAID ==
--- NOTE | 2021-05-03 04:54 | EDM.PDOC ---
<Johny Ngo - Last Filed: 05/03/21 07:41> ED HPI GENERAL MEDICAL PROBLEM - General Stated Complaint: SPLK - AMBULANCE Time Seen by Provider: 05/03/21 04:53 - Related Data Allergies Allergy/AdvReac Type Severity Reaction Status Date / Time atenolol Allergy Hives Verified 04/07/21 20:05 Iodinated Contrast Media Allergy Hives Verified 04/07/21 20:05 [Iodinated Contrast- Oral and IV Dye] Penicillins Allergy Hives Verified 04/07/21 20:05 Home Meds: Home Meds Budesonide [Pulmicort] 2 ml INH BID 07/26/17 [History] Gabapentin [Neurontin] 300 mg PO BID 07/26/17 [History] LORazepam 1 mg PO DAILY PRN 07/26/17 [History] Montelukast [Singulair] 10 mg PO BEDTIME 07/26/17 [History] Roflumilast [Daliresp] 500 mcg PO DAILY 07/26/17 [History] Acetaminophen [Tylenol] 650 mg PO Q4HR PRN 05/23/18 [History] Aspirin [Ecotrin EC] 81 mg PO DAILY 05/23/18 [History] Ipratropium/Albuterol Sulfate [Iprat-Albut 0.5-3(2.5) mg/3 ml] 1 ampule IH QID PRN 06/01/18 [History] Arformoterol [Brovana] 2 ml NEB BID 01/06/20 [History] Benzonatate [Tessalon Perle] 100 mg PO TID PRN 01/06/20 [History] buPROPion [buPROPion XL] 150 mg PO DAILY 01/06/20 [History] predniSONE [Prednisone] 7.5 mg PO DAILY 01/06/20 [History] Albuterol [Proventil Neb Soln] 1 vial INH Q4HR PRN 02/14/20 [History] Ergocalciferol (Vitamin D2) [Vitamin D2] 1,250 mcg PO ASDIRECTED 02/14/20 [History] Hydrocodone/Acetaminophen [HYDROcodone-Acetaminophen 10-325 MG] 1 tab PO Q8H PRN 02/14/20 [History] Clopidogrel [Plavix] 75 mg PO DAILY 09/13/20 [History] Isosorbide Mononitrate [Isosorbide Mononitrate ER] 60 mg PO BEDTIME 09/13/20 [History] Revefenacin [Yupelri] 175 mcg INH DAILY 09/13/20 [History] DULoxetine [Cymbalta] 30 mg PO DAILY 04/08/21 [History] diphenhydrAMINE [Benadryl] 50 mg PO ASDIRECTED PRN 04/08/21 [History] levoFLOXacin [Levaquin] 500 mg PO Q24H 3 Days #3 tablet 04/09/21 [Rx] lisinopriL [Lisinopril] 20 mg PO DAILY 30 Days #30 tablet 04/09/21 [Rx] predniSONE [Prednisone] 10 mg PO DAILY 6 Days #14 tablet 04/09/21 [Rx] ED ROS GENERAL - Review of Systems Review Of Systems: Comprehensive ROS is negative, except as noted in HPI. Course - Re-Assessments/Exams Free Text/Narrative Re-Assessment/Exam: 05/03/21 07:42 I assumed care from Connie Johnston NP at shift change. The pt is resting comfortably. All labs and imgaging are back and are all negative. The pt does have a slightly elevated lactic but she is chronically elevated. She is ready to go home and appears safe to do so. Departure - Departure Time of Disposition: 07:43 Disposition: Home, Self-Care 01 Condition: Good Clinical Impression: COPD exacerbation - Discharge Information *PRESCRIPTION DRUG MONITORING PROGRAM REVIEWED*: Not Applicable *COPY OF PRESCRIPTION DRUG MONITORING REPORT IN PATIENT ANA: Not Applicable Instructions: Chronic Obstructive Pulmonary Disease Exacerbation, [id number] Referrals: Claudia Han NP [Primary Care Provider] - Forms: ED Department Discharge Additional Instructions: Use your nebulizer and oxygen at home as directed. If any new symptoms or concerns develop contact your primary care facility or return to the ER. <Linda Dominique - Last Filed: 05/03/21 19:31> ED HPI GENERAL MEDICAL PROBLEM - General Source of Information: Reports: Patient, Old Records, RN, RN Notes Reviewed History Limitations: Reports: No Limitations - History of Present Illness INITIAL COMMENTS - FREE TEXT/NARRATIVE: Rebeka is a 55 y/o female with a history of COPD who presents to the ED via [facility] with complaints of shortness of breath. The patient reports her symptoms began three days ago and have progressively worsened in that time. She notes she was hospitalized approximately four weeks ago and was discharged home with Levaquin for COPD exacerbation with left anterior rib pain; this pain resolved until three days ago. She was examined by her PCP yesterday and was started on another dose of Levaquin. Upon arrival to this facility the patient states her shortness of breath is improved, she received two nebulizer treatments en route. She has been wearing 1L of O2 via NC during the day and 3L of O2 via NC at night. She denies fever, shaking chills, palpitations, nausea, vomiting, or abdominal pain. She attests to smoking approximately three cigarettes per day. The patient is fully vaccinated for COVID. Past Medical History HEENT History: Reports: Impaired Vision Other HEENT History: wears glasses Cardiovascular History: Reports: CAD, Hypertension, Stents Other Cardiovascular History: is not treated for hypertension anymore after she had the amputation 1 year ago. 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 BKA Neurological History: Reports: None Psychiatric History: Reports: Anxiety Endocrine/Metabolic History: Reports: Obesity/BMI 30+ Hematologic History: Reports: None, Blood Transfusion(s) Immunologic History: Reports: None Oncologic (Cancer) History: Reports: None Dermatologic History: Reports: None - Infectious Disease History Infectious Disease History: Reports: MRSA - Past Surgical History Head Surgeries/Procedures: Reports: None HEENT Surgical History: Reports: None Cardiovascular Surgical History: Reports: None, Coronary Artery Stent Respiratory Surgical History: Reports: None GI Surgical History: Reports: Cholecystectomy, Hernia Repair/Other Other GI Surgeries/Procedures: part of pancreas was removed. mesh placed with abdominal hernia removal. Female Surgical History: Reports: Hysterectomy Other Female Surgeries/Procedures: uterus removed Musculoskeletal Surgical History: Reports: Amputation Other Musculoskeletal Surgeries/Procedures:: Right BKA Social & Family History - Family History Family Medical History: No Pertinent Family History - Caffeine Use Caffeine Use: Reports: Soda - Living Situation & Occupation Living situation: Reports: , with Family ED ROS GENERAL - Review of Systems Review Of Systems: Comprehensive ROS is negative, except as noted in HPI. ED EXAM, GENERAL - Physical Exam Exam: See Below Exam Limited By: No Limitations General Appearance: Alert, No Apparent Distress, Obese Eye Exam: Bilateral Eye: EOMI, Normal Inspection, PERRL (3mm) Ears: Normal External Exam, Normal Canal, Hearing Grossly Normal, Normal TMs Ear Exam: Bilateral Ear: Auricle Normal, Canal Normal, TM normal Nose: Normal Inspection, Normal Mucosa, No Blood Throat/Mouth: Normal Inspection, Normal Oropharynx, Normal Voice, No Airway Compromise Head: Atraumatic, Normocephalic Neck: Normal Inspection, Supple, Non-Tender, Full Range of Motion. No: Lymphadenopathy (L), Lymphadenopathy (R) Respiratory/Chest: No Respiratory Distress, Chest Non-Tender, Decreased Breath Sounds, Wheezing (Expiratory to bilateral upper lobes). No: Crackles, Rales, Rhonchi, Stridor Cardiovascular: Normal Peripheral Pulses, Regular Rate, Rhythm, No Edema, No Gallop, No JVD, No Murmur, No Rub, Tachycardia Peripheral Pulses: 2+: Radial (L), Radial (R) GI/Abdominal: Normal Bowel Sounds, Non-Tender, No Distention, No Abnormal Bruit, No Mass, Pelvis Stable (Female) Exam: Deferred Rectal (Female) Exam: Deferred Back Exam: Normal Inspection, Full Range of Motion Extremities: Normal Inspection, Normal Range of Motion, Non-Tender, No Pedal Edema, Normal Capillary Refill Neurological: Alert, Oriented, CN II-XII Intact, Normal Cognition, Normal Gait, No Motor/Sensory Deficits Psychiatric: Normal Affect, Normal Mood Skin Exam: Warm, Dry, Intact, Normal Color, No Rash. No: Cyanosis, Jaundice, Mottled, Pallor Lymphatic: No Adenopathy Course - Vital Signs Last Recorded V/S: Last Vital Signs Temp 97.5 F 05/03/21 04:58 Pulse 105 H 05/03/21 04:58 Resp 20 05/03/21 04:58 BP 145/100 H 05/03/21 04:58 Pulse Ox 92 L 05/03/21 04:58 - Orders/Labs/Meds Labs: Laboratory Tests 05/03/21 05/03/21 05/03/21 Range/Units 05:12 05:12 05:12 WBC 9.2 (5.0-10.0) 10^3/uL RBC 4.83 (4.2-5.4) 10^6/uL Hgb 13.5 (12.0-16.0) g/dL Hct 43.2 (37.0-47.0) % MCV 89.4 (80-100) fL MCH 28.0 (27.0-34.0) pg MCHC 31.3 L (33.0-35.0) g/dL Plt Count 298 (150-450) 10^3/uL Neut % (Auto) 71.7 (42.2-75.2) % Lymph % (Auto) 18.9 L (20.5-50.1) % [place] % (Auto) 7.4 (2-8) % Eos % (Auto) 1.6 (1.0-3.0) % Baso % (Auto) 0.4 (0.0-1.0) % Sodium 141 (136-145) mmol/L Potassium 3.7 (3.5-5.1) mmol/L Chloride 106 (98-107) mmol/L Carbon Dioxide 26 (21-32) mmol/L Anion Gap 12.7 (7-13) mEq/L BUN 14 (7-18) mg/dL Creatinine 1.11 H (0.55-1.02) mg/dL Est Cr Clr Drug Dosing TNP Estimated GFR (MDRD) 51 BUN/Creatinine Ratio 12.6 (No establ ref range) Glucose 133 H (70-99) mg/dL Lactic Acid 2.2 H* (0.4-2.0) mmol/L Calcium 9.1 (8.5-10.1) mg/dL Total Bilirubin 0.3 (0.2-1.0) mg/dL AST 93 H (15-37) U/L ALT 66 H (14-59) U/L Alkaline Phosphatase 130 H (46-116) U/L Troponin I High Sens 25 (<=51) pg/mL C-Reactive Protein 2.0 H (0.0-0.9) mg/dL B-Natriuretic Peptide 49 (0-100) pg/ml Total Protein 6.9 (6.4-8.2) g/dL Albumin 3.1 L (3.4-5.0) g/dL Globulin 3.8 Albumin/Globulin Ratio 0.82 Meds: Medications Discontinued Medications Generic Name Dose Route Start Last Admin Trade Name Joni PRN Reason Stop Dose Admin Methylprednisolone Sodium Succinate 125 mg 05/03/21 05:04 05/03/21 05:11 Methylprednisolone Sodium Succinate 125 Mg/2 Ml Sdv IVPUSH 05/03/21 05:05 125 mg ONETIME ONE Administration - Radiology Interpretation Free Text/Narrative:: [facility] [place] [facility] Final Radiology Report Call: [phone] assistance Online chat: [email or web address] Name: REBEKA LONG Age: 55Years F Date: 05/03/2021 SSN: -- : 1965 Study: CR CHEST 1V FRONTAL Requesting Physician: Linda Dominique Images: 1 Addl Studies: Provided Clinical History: Shortness of breath; Expiratory wheezes bilateral Contrast: Contrast Medium: Contrast Amount: Contrast Method: CONFIDENTIALITY STATEMENT This report is intended only for use by the referring physician, and only in accordance with law. If you received this in error, call [phone]. Page 1 of 1 PROCEDURE INFORMATION: Exam: XR Chest Exam date and time: 05/03/2021 5:22 AM Age: 55 years old Clinical indication: Shortness of breath; Additional info: Shortness of breath; Expiratory wheezes bilateral TECHNIQUE: Imaging protocol: XR of the chest. Views: 1 view. COMPARISON: CR Chest 1V Frontal 04/07/2021 9:01 PM FINDINGS: Lungs: Unremarkable. No consolidation. Pleural spaces: Unremarkable. No pleural effusion. No pneumothorax. Heart/Mediastinum: Unremarkable. No cardiomegaly. Bones/joints: Unremarkable. IMPRESSION: No acute chest disease. Thank you for allowing us to participate in the care of your patient. Dictated and Authenticated by: Angelo Montalvo MD 05/03/2021 7:05 AM Central Time ([place] & [place]) - Re-Assessments/Exams Free Text/Narrative Re-Assessment/Exam: 05/03/21 Solu-Medrol 125mg IVP administered. Patient states her work of breathing is much improved following nebulizer en route via EMS. Labs and CXR pending. Care of patient transferred to Johny Ngo PA-C at 0700.
[2021-05-03 05:03] VITALS: BP 145/100; PULSE 105
[2021-05-03] MEDS ORDERED: methylPREDNISolone Sodium Succinate 125 MG/2 ML SDV IVPUSH ONE (05:04)
[2021-05-03 05:39] LABS: ANION GAP 12.7 mEq/L (7-13); CHLORIDE,CL 106 mmol/L (98-107); SODIUM,NA 141 mmol/L (136-145)
--- NOTE | 2021-05-03 07:06 | CR ---
PROCEDURE INFORMATION: Exam: XR Chest Exam date and time: 05/03/2021 5:22 AM Age: 55 years old Clinical indication: Shortness of breath; Additional info: Shortness of breath; Expiratory wheezes bilateral TECHNIQUE: Imaging protocol: XR of the chest. Views: 1 view. COMPARISON: CR Chest 1V Frontal 04/07/2021 9:01 PM FINDINGS: Lungs: Unremarkable. No consolidation. Pleural spaces: Unremarkable. No pleural effusion. No pneumothorax. Heart/Mediastinum: Unremarkable. No cardiomegaly. Bones/joints: Unremarkable. IMPRESSION: No acute chest disease.
== END 2021-05-03 08:19 | disposition home or self-care (01) ==
LOC: DL.ED 04:58
DX: J44.1 Chronic obstructive pulmonary disease with (acute) exacerbation (principal); I25.10 Atherosclerotic heart disease of native coronary artery without angina pectoris; I10 Essential (primary) hypertension; F17.210 Nicotine dependence, cigarettes, uncomplicated; E66.9 Obesity, unspecified; Z88.8 Allergy status to other drugs, medicaments and biological substances; Z91.041 Radiographic dye allergy status; Z88.0 Allergy status to penicillin; Z79.82 Long term (current) use of aspirin; Z79.899 Other long term (current) drug therapy
CPT/HCPCS: 36415; 71045; 80053; 83605; 83880; 84484; 85025; 86140; 96374; 99285; J2930

== ENCOUNTER 2021-06-19 16:23 | Emergency (ER) | payer MEDICARE, MEDICAID ==
[2021-06-19] MEDS ORDERED: Albuterol/Ipratropium 3.0-0.5 MG/3 ML Neb Soln NEB ONE (16:46)
[2021-06-19] MEDS ORDERED: Magnesium Sulfate/Water 2 GM in Premix Bag 1 BAG IV ONE (16:46)
[2021-06-19] MEDS ORDERED: methylPREDNISolone Sodium Succinate 125 MG/2 ML SDV IVPUSH ONE (16:47)
--- NOTE | 2021-06-19 17:17 | CR ---
PROCEDURE INFORMATION: Exam: XR Chest Exam date and time: 06/19/2021 4:51 PM Age: 55 years old Clinical indication: Shortness of breath; Additional info: SOB, copd exacerbation TECHNIQUE: Imaging protocol: XR of the chest. Views: 1 view. COMPARISON: CR Chest 1V Frontal 05/03/2021 5:22 AM FINDINGS: Lungs: Unremarkable. No consolidation. Pleural spaces: Unremarkable. No pleural effusion. No pneumothorax. Heart/Mediastinum: Unremarkable. No cardiomegaly. Bones/joints: Unremarkable. IMPRESSION: 1. No acute findings. 2. No significant change is identified since the prior exam.
[2021-06-19 17:22] VITALS: BP 149/86; PULSE 94
[2021-06-19 17:30] LABS: ANION GAP 16.2 mEq/L (7-13)
[2021-06-19] MEDS ORDERED: Albuterol 0.083% 2.5 MG/3 ML Neb Soln NEB ONE (17:39)
--- NOTE | 2021-06-19 17:42 | EDM.PDOC ---
ED HPI GENERAL MEDICAL PROBLEM - General Chief Complaint: Respiratory Problem Stated Complaint: BREATHING Time Seen by Provider: 06/19/21 17:00 Source of Information: Reports: Patient History Limitations: Reports: No Limitations - History of Present Illness INITIAL COMMENTS - FREE TEXT/NARRATIVE: 55 y/o F c/o sob x 1 week, feels like her COPD exacerbations. On o2 nsl 2L normally but has been at 6L now to maintain sats above 90. SHe reports she went to the clinic today and was sent over here by Dr. Casper. Her sob worsened yesterday and she reports using her inhaler more than normal. Denies fever, chills, drugs, etoh, cp, abd pn, extremity pain. Left Middle Chest Pain Score (Numeric/FACES): 7 - Related Data Allergies Allergy/AdvReac Type Severity Reaction Status Date / Time atenolol Allergy Hives Verified 06/19/21 17:26 Iodinated Contrast Media Allergy Hives Verified 06/19/21 17:26 [Iodinated Contrast- Oral and IV Dye] Penicillins Allergy Hives Verified 06/19/21 17:26 Home Meds: Home Meds Budesonide [Pulmicort] 2 ml INH BID 07/26/17 [History] Gabapentin [Neurontin] 300 mg PO BID 07/26/17 [History] LORazepam 1 mg PO DAILY PRN 07/26/17 [History] Montelukast [Singulair] 10 mg PO BEDTIME 07/26/17 [History] Roflumilast [Daliresp] 500 mcg PO DAILY 07/26/17 [History] Acetaminophen [Tylenol] 650 mg PO Q4HR PRN 05/23/18 [History] Aspirin [Ecotrin EC] 81 mg PO DAILY 05/23/18 [History] Ipratropium/Albuterol Sulfate [Iprat-Albut 0.5-3(2.5) mg/3 ml] 1 ampule IH QID PRN 06/01/18 [History] Arformoterol [Brovana] 2 ml NEB BID 01/06/20 [History] Benzonatate [Tessalon Perle] 100 mg PO TID PRN 01/06/20 [History] buPROPion [buPROPion XL] 150 mg PO DAILY 01/06/20 [History] predniSONE [Prednisone] 7.5 mg PO DAILY 01/06/20 [History] Albuterol [Proventil Neb Soln] 1 vial INH Q4HR PRN 02/14/20 [History] Ergocalciferol (Vitamin D2) [Vitamin D2] 1,250 mcg PO ASDIRECTED 02/14/20 [History] Hydrocodone/Acetaminophen [HYDROcodone-Acetaminophen 10-325 MG] 1 tab PO Q8H PRN 02/14/20 [History] Clopidogrel [Plavix] 75 mg PO DAILY 09/13/20 [History] Isosorbide Mononitrate [Isosorbide Mononitrate ER] 60 mg PO BEDTIME 09/13/20 [History] Revefenacin [Yupelri] 175 mcg INH DAILY 09/13/20 [History] DULoxetine [Cymbalta] 30 mg PO DAILY 04/08/21 [History] diphenhydrAMINE [Benadryl] 50 mg PO ASDIRECTED PRN 04/08/21 [History] levoFLOXacin [Levaquin] 500 mg PO Q24H 3 Days #3 tablet 04/09/21 [Rx] lisinopriL [Lisinopril] 20 mg PO DAILY 30 Days #30 tablet 04/09/21 [Rx] predniSONE [Prednisone] 10 mg PO DAILY 6 Days #14 tablet 04/09/21 [Rx] Past Medical History HEENT History: Reports: Impaired Vision Other HEENT History: wears glasses Cardiovascular History: Reports: CAD, Hypertension, Stents Other Cardiovascular History: is not treated for hypertension anymore after she had the amputation 1 year ago. Respiratory History: Reports: Asthma, COPD, Intubation, Previous, Pneumonia, Recurrent, SOB, Other (See Below) Other Respiratory History: PE in 2014 Gastrointestinal History: Reports: Cholelithiasis Genitourinary History: Reports: Renal Disease TONGER History: Reports: Musculoskeletal History: Reports: Amputation, Osteoporosis, Other (See Below) Other Musculoskeletal History: Rt. BKA Neurological History: Reports: None Psychiatric History: Reports: Anxiety Endocrine/Metabolic History: Reports: Obesity/BMI 30+ Hematologic History: Reports: None, Blood Transfusion(s) Immunologic History: Reports: None Oncologic (Cancer) History: Reports: None Dermatologic History: Reports: None - Infectious Disease History Infectious Disease History: Reports: MRSA - Past Surgical History Head Surgeries/Procedures: Reports: None HEENT Surgical History: Reports: None Cardiovascular Surgical History: Reports: None, Coronary Artery Stent Respiratory Surgical History: Reports: None GI Surgical History: Reports: Cholecystectomy, Hernia Repair/Other Other GI Surgeries/Procedures: part of pancreas was removed. mesh placed with abdominal hernia removal. Female Surgical History: Reports: Hysterectomy Other Female Surgeries/Procedures: uterus removed Musculoskeletal Surgical History: Reports: Amputation Other Musculoskeletal Surgeries/Procedures:: Right BKA Social & Family History - Family History Family Medical History: No Pertinent Family History - Caffeine Use Caffeine Use: Reports: Soda - Living Situation & Occupation Living situation: Reports: , with Family ED ROS GENERAL - Review of Systems Review Of Systems: Comprehensive ROS is negative, except as noted in HPI. ED EXAM, GENERAL - Physical Exam Exam: See Below Exam Limited By: No Limitations General Appearance: Alert, Mild Distress Nose: Normal Inspection, Normal Mucosa, No Blood Throat/Mouth: Normal Inspection, Normal Lips, Normal Teeth, Normal Gums, Normal Oropharynx, Normal Voice, No Airway Compromise Head: Atraumatic, Normocephalic Neck: Normal Inspection, Supple, Non-Tender, Full Range of Motion Respiratory/Chest: Respiratory Distress, Other (diminshed throughout) Cardiovascular: Normal Peripheral Pulses, Regular Rate, Rhythm GI/Abdominal: Soft, Non-Tender (Female) Exam: Deferred Rectal (Female) Exam: Deferred Back Exam: Normal Inspection, Full Range of Motion, NT Extremities: Normal Inspection, Normal Range of Motion, Non-Tender, Normal Capillary Refill, No Pedal Edema Neurological: Alert, Oriented, CN II-XII Intact, Normal Cognition, Normal Gait, Normal Reflexes, No Motor/Sensory Deficits Skin Exam: Warm, Dry, Intact, Normal Color, No Rash Course - Vital Signs Last Recorded V/S: Last Vital Signs Temp 99.5 F 06/19/21 17:20 Pulse 94 06/19/21 17:20 Resp 22 H 06/19/21 17:20 BP 149/86 H 06/19/21 17:20 Pulse Ox 94 L 06/19/21 17:20 - Orders/Labs/Meds Orders: Active Orders 24 hr Category Date Time Status EKG Documentation Completion [RC] STAT Care 06/19/21 16:52 Active RT Aerosol Therapy [RC] ASDIRECTED Care 06/19/21 16:46 Active RT Aerosol Therapy [RC] ASDIRECTED Care 06/19/21 17:39 Active Acetaminophen [Tylenol Extra Strength] Med 06/19/21 18:37 Once 1,000 mg PO ONETIME ONE Magnesium Sulfate/Water [Magnesium Sulfate in Water 2 Med 06/19/21 16:46 Active GM/50 ML] 2 gm Premix Bag 1 bag IV ONETIME Medication Orders Magnesium Sulfate 2 gm/ Premix 50 mls @ 25 mls/hr IV ONETIME ONE Stop: 06/19/21 18:45 Last Admin: 06/19/21 17:09 Dose: 25 mls/hr Documented by: DAMARIS Labs: Laboratory Tests 06/19/21 06/19/21 Range/Units 17:05 17:05 WBC 11.3 H (5.0-10.0) 10^3/uL RBC 4.76 (4.2-5.4) 10^6/uL Hgb 13.3 (12.0-16.0) g/dL Hct 42.4 (37.0-47.0) % MCV 89.1 (80-100) fL MCH 27.9 (27.0-34.0) pg MCHC 31.4 L (33.0-35.0) g/dL Plt Count 317 (150-450) 10^3/uL Neut % (Auto) 89.5 H (42.2-75.2) % Lymph % (Auto) 6.9 L (20.5-50.1) % [place] % (Auto) 3.2 (2-8) % Eos % (Auto) 0.2 L (1.0-3.0) % Baso % (Auto) 0.2 (0.0-1.0) % Sodium 143 (136-145) mmol/L Potassium 4.2 (3.5-5.1) mmol/L Chloride 106 (98-107) mmol/L Carbon Dioxide 25 (21-32) mmol/L Anion Gap 16.2 H (7-13) mEq/L BUN 17 (7-18) mg/dL Creatinine 1.15 H (0.55-1.02) mg/dL Est Cr Clr Drug Dosing 51.14 mL/min Estimated GFR (MDRD) 49 BUN/Creatinine Ratio 14.8 (No establ ref range) Glucose 156 H (70-99) mg/dL Calcium 9.0 (8.5-10.1) mg/dL Total Bilirubin 0.2 (0.2-1.0) mg/dL AST 15 (15-37) U/L ALT 25 (14-59) U/L Alkaline Phosphatase 135 H (46-116) U/L Total Protein 6.9 (6.4-8.2) g/dL Albumin 3.2 L (3.4-5.0) g/dL Globulin 3.7 Albumin/Globulin Ratio 0.86 Meds: Medications Generic Name Dose Route Start Last Admin Trade Name Freq PRN Reason Stop Dose Admin Magnesium Sulfate 2 gm/ Premix 50 mls @ 25 mls/hr 06/19/21 16:46 06/19/21 17:09 IV 06/19/21 18:45 25 mls/hr ONETIME ONE Administration Discontinued Medications Generic Name Dose Route Start Last Admin Trade Name Freq PRN Reason Stop Dose Admin Albuterol 5 mg 06/19/21 17:39 06/19/21 17:44 Albuterol 0.083% 2.5 Mg/3 Ml Neb Soln NEB 06/19/21 17:40 5 mg ONETIME ONE Administration Albuterol/Ipratropium 6 ml 06/19/21 16:46 06/19/21 17:03 Albuterol/Ipratropium 3.0-0.5 Mg/3 Ml Neb Soln NEB 06/19/21 16:47 6 ml ONETIME ONE Administration Methylprednisolone Sodium Succinate 125 mg 06/19/21 16:47 06/19/21 17:03 Methylprednisolone Sodium Succinate 125 Mg/2 Ml Sdv IVPUSH 06/19/21 16:48 125 mg ONETIME ONE Administration - Re-Assessments/Exams Free Text/Narrative Re-Assessment/Exam: 06/19/21 17:53 Te pt feel much better after the neb and magnesium and feels safe to go home. given her COPD hx, slight elevation in WBC and neutrophils I will cover her with Levaquin. Departure - Departure Time of Disposition: 17:54 Disposition: Home, Self-Care 01 Condition: Good Clinical Impression: COPD exacerbation - Discharge Information *PRESCRIPTION DRUG MONITORING PROGRAM REVIEWED*: Not Applicable *COPY OF PRESCRIPTION DRUG MONITORING REPORT IN PATIENT ANA: Not Applicable Instructions: Chronic Obstructive Pulmonary Disease, [id number] Forms: ED Department Discharge Additional Instructions: RX: Levaquin Use your COPD medications as prescribed. If any new symptoms or concerns develop contact your primary care facility or return to the ER. Sepsis Event Note (ED) - Evaluation Sepsis Screening Result: No Definite Risk - Focused Exam Vital Signs: Vital Signs Temp Pulse Resp BP Pulse Ox 06/19/21 17:20 99.5 F 94 22 H 149/86 H 94 L - My Orders Last 24 Hours: My Active Orders 06/19/21 16:46 RT Aerosol Therapy [RC] ASDIRECTED Magnesium Sulfate/Water [Magnesium Sulfate in Water 2 GM/50 ML] 2 gm Premix Bag 1 bag IV ONETIME 06/19/21 16:52 EKG Documentation Completion [RC] STAT 06/19/21 17:39 RT Aerosol Therapy [RC] ASDIRECTED 06/19/21 18:37 Acetaminophen [Tylenol Extra Strength] 1,000 mg PO ONETIME ONE - Assessment/Plan Last 24 Hours: My Active Orders 06/19/21 16:46 RT Aerosol Therapy [RC] ASDIRECTED Magnesium Sulfate/Water [Magnesium Sulfate in Water 2 GM/50 ML] 2 gm Premix Bag 1 bag IV ONETIME 06/19/21 16:52 EKG Documentation Completion [RC] STAT 06/19/21 17:39 RT Aerosol Therapy [RC] ASDIRECTED 06/19/21 18:37 Acetaminophen [Tylenol Extra Strength] 1,000 mg PO ONETIME ONE
[2021-06-19] MEDS ORDERED: Acetaminophen 500 MG Tab PO ONE (18:37)
[2021-06-19] MEDS ORDERED: Cyclobenzaprine 10 MG Tab PO ONE (18:57)
== END 2021-06-19 19:18 | disposition home or self-care (01) ==
LOC: DL.ED 16:23
DX: J44.1 Chronic obstructive pulmonary disease with (acute) exacerbation (principal); I25.10 Atherosclerotic heart disease of native coronary artery without angina pectoris; I10 Essential (primary) hypertension; E66.9 Obesity, unspecified; Z68.30 Body mass index [BMI] 30.0-30.9, adult; Z95.5 Presence of coronary angioplasty implant and graft; Z88.0 Allergy status to penicillin; Z91.041 Radiographic dye allergy status; Z88.8 Allergy status to other drugs, medicaments and biological substances; Z79.82 Long term (current) use of aspirin; Z79.899 Other long term (current) drug therapy
CPT/HCPCS: 36415; 71045; 80053; 85025; 96365; 96366; 96375; 99285-25; A9270-GY; J2930; J3475; J7613-GY; J7620-GY

== ENCOUNTER 2021-07-07 12:40 | Emergency (ER) | payer MEDICARE, MEDICAID ==
[2021-07-07 13:00] VITALS: BP 145/90; PULSE 107
[2021-07-07] MEDS ORDERED: LORazepam 0.5 MG Tab PO ONE (13:16)
[2021-07-07] MEDS ORDERED: methylPREDNISolone Sodium Succinate 125 MG/2 ML SDV IVPUSH ONE (13:16)
[2021-07-07 13:18] LABS: ANION GAP 12.2 mEq/L (7-13); CHLORIDE,CL 102 mmol/L (98-107); SODIUM,NA 141 mmol/L (136-145)
[2021-07-07 13:44] LABS: CORONAVIRUS COVID-19 NAA NEGATIVE (NEGATIVE)
[2021-07-07] MEDS ORDERED: Albuterol/Ipratropium 3.0-0.5 MG/3 ML Neb Soln NEB ONE (13:58)
--- NOTE | 2021-07-07 14:04 | EDM.PDOC ---
ED HPI GENERAL MEDICAL PROBLEM - General Chief Complaint: Respiratory Problem Time Seen by Provider: 07/07/21 13:58 Source of Information: Reports: Patient, RN, RN Notes Reviewed History Limitations: Reports: No Limitations - History of Present Illness INITIAL COMMENTS - FREE TEXT/NARRATIVE: Rebeka is a 55 y/o female with a history of COPD dependent on steroids and home oxygen who presents to the ED via [facility] with complaints of shortness of breath. The patient states she has been increasingly short of breath for the past two days. She has taken her prescribed inhalers, steroids, and med ications. She reports fever of 100.4 last night, which did reduce appropriately with one dose of acetaminophen. Additionally, the patient reports severe LUQ pain which has been ongoing for months. She feels the pain in her stomach causes her to splint her breathing. She denies chest pain/pressure, palpitations, dyspepsia, nausea, vomiting, or abdominal pain. She denies dysuria, hematuria, diarrhea, or constipation. The patient states she has been using her prescription narcotic medication for her LUQ pain which provides mild alleviation. She reports she continues to smoke about 3-4 cigarettes per day; she denies alcohol and recreational drug use. Chest Pain Score (Numeric/FACES): 8 - Related Data Allergies Allergy/AdvReac Type Severity Reaction Status Date / Time atenolol Allergy Hives Verified 07/07/21 13:01 Iodinated Contrast Media Allergy Hives Verified 07/07/21 13:01 [Iodinated Contrast- Oral and IV Dye] Penicillins Allergy Hives Verified 07/07/21 13:01 Home Meds: Home Meds Budesonide [Pulmicort] 2 ml INH BID 07/26/17 [History] Gabapentin [Neurontin] 300 mg PO BID 07/26/17 [History] LORazepam 1 mg PO DAILY PRN 07/26/17 [History] Montelukast [Singulair] 10 mg PO BEDTIME 07/26/17 [History] Roflumilast [Daliresp] 500 mcg PO DAILY 07/26/17 [History] Acetaminophen [Tylenol] 650 mg PO Q4HR PRN 05/23/18 [History] Aspirin [Ecotrin EC] 81 mg PO DAILY 05/23/18 [History] Ipratropium/Albuterol Sulfate [Iprat-Albut 0.5-3(2.5) mg/3 ml] 1 ampule IH QID P RN 06/01/18 [History] Arformoterol [Brovana] 2 ml NEB BID 01/06/20 [History] Benzonatate [Tessalon Perle] 100 mg PO TID PRN 01/06/20 [History] buPROPion [buPROPion XL] 150 mg PO DAILY 01/06/20 [History] predniSONE [Prednisone] 7.5 mg PO DAILY 01/06/20 [History] Albuterol [Proventil Neb Soln] 1 vial INH Q4HR PRN 02/14/20 [History] Ergocalciferol (Vitamin D2) [Vitamin D2] 1,250 mcg PO ASDIRECTED 02/14/20 [History] Hydrocodone/Acetaminophen [HYDROcodone-Acetaminophen 10-325 MG] 1 tab PO Q8H PRN 02/14/20 [History] Clopidogrel [Plavix] 75 mg PO DAILY 09/13/20 [History] Isosorbide Mononitrate [Isosorbide Mononitrate ER] 60 mg PO BEDTIME 09/13/20 [History] Revefenacin [Yupelri] 175 mcg INH DAILY 09/13/20 [History] DULoxetine [Cymbalta] 30 mg PO DAILY 04/08/21 [History] diphenhydrAMINE [Benadryl] 50 mg PO ASDIRECTED PRN 04/08/21 [History] lisinopriL [Lisinopril] 20 mg PO DAILY 30 Days #30 tablet 04/09/21 [Rx] predniSONE [Prednisone] 10 mg PO DAILY 6 Days #14 tablet 04/09/21 [Rx] Past Medical History HEENT History: Reports: Impaired Vision Other HEENT History: wears glasses Cardiovascular History: Reports: CAD, Hypertension, Stents Other Cardiovascular History: is not treated for hypertension anymore after she had the amputation 1 year ago. 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 BKA Neurological History: Reports: None Psychiatric History: Reports: Anxiety Endocrine/Metabolic History: Reports: Obesity/BMI 30+ Hematologic History: Reports: None, Blood Transfusion(s) Immunologic History: Reports: None Oncologic (Cancer) History: Reports: None Dermatologic History: Reports: None - Infectious Disease History Infectious Disease History: Reports: MRSA - Past Surgical History Head Surgeries/Procedures: Reports: None HEENT Surgical History: Reports: None Cardiovascular Surgical History: Reports: None, Coronary Artery Stent Respiratory Surgical History: Reports: None GI Surgical History: Reports: Cholecystectomy, Hernia Repair/Other Other GI Surgeries/Procedures: part of pancreas was removed. mesh placed with abdominal hernia removal. Female Surgical History: Reports: Hysterectomy Other Female Surgeries/Procedures: uterus removed Musculoskeletal Surgical History: Reports: Amputation Other Musculoskeletal Surgeries/Procedures:: Right BKA Social & Family History - Family History Family Medical History: No Pertinent Family History - Tobacco Use Tobacco Use Status *Q: Current Every Day Tobacco User Years of Tobacco use: 38 Packs/Tins Daily: 1 - Caffeine Use Caffeine Use: Reports: Soda - Recreational Drug Use Recreational Drug Use: No - Living Situation & Occupation Living situation: Reports: , with Family ED ROS GENERAL - Review of Systems Review Of Systems: Comprehensive ROS is negative, except as noted in HPI. ED EXAM, GENERAL - Physical Exam Exam: See Below Exam Limited By: Respiratory Distress General Appearance: Alert, Moderate Distress (Increased work of breathing) Eye Exam: Bilateral Eye: EOMI, Normal Inspection, PERRL (3mm) Ears: Normal External Exam, Normal Canal, Hearing Grossly Normal, Normal TMs Ear Exam: Bilateral Ear: Auricle Normal, Canal Normal, TM normal Nose: Normal Inspection Throat/Mouth: Normal Voice, No Airway Compromise. No: Normal Oropharynx (Dry mucous membranes) Head: Atraumatic, Normocephalic Neck: Normal Inspection, Supple, Non-Tender, Full Range of Motion. No: Lymphadenopathy (L), Lymphadenopathy (R) Respiratory/Chest: Wheezing (Inspiratory and expiratory to bilateral upper and lower rocha), Accessory Muscle Use. No: Chest Non-Tender (Chronic pain to left lateral inferior chest/upper abdomen), Crackles, Rales, Rhonchi, Stridor Cardiovascular: Regular Rate, Rhythm, No Edema, No Gallop, No JVD, No Murmur, No Rub, Tachycardia Peripheral Pulses: 2+: Radial (L), Radial (R) GI/Abdominal: Normal Bowel Sounds, Soft, No Distention, No Abnormal Bruit, No Mass, Pelvis Stable, Tender (To palpation of left lateral upper quadrant). No: Guarding, Rigid, Rebound (Female) Exam: Deferred Rectal (Female) Exam: Deferred Back Exam: Normal Inspection, Full Range of Motion Extremities: Normal Inspection, Normal Range of Motion, Non-Tender, No Pedal Edema, Normal Capillary Refill Neurological: Alert, Oriented, CN II-XII Intact, Normal Cognition, Normal Gait, No Motor/Sensory Deficits Psychiatric: Normal Affect, Anxious, Tearful Skin Exam: Warm, Dry, Intact, Normal Color, No Rash. No: Cyanosis, Ecchymosis, Erythema, Jaundice, Mottled, Pallor, Petechiae Lymphatic: No Adenopathy #1 Interpretation EKG Date: 07/07/21 Time: 13:00 Rhythm: NSR Rate (Beats/Min): 93 [place]: Normal P-Wave: Present QRS: Normal ST-T: Normal QT: Normal OR/PQ Interval: 0.16 Comparison: No Change EKG Interpretation Comments: NSR; No evidence of acute myocardial ischemia Course - Vital Signs Last Recorded V/S: Last Vital Signs Temp 97.7 F 07/07/21 12:55 Pulse 107 H 07/07/21 12:55 Resp 30 H 07/07/21 12:55 BP 145/90 H 07/07/21 12:55 Pulse Ox 96 07/07/21 12:55 - Orders/Labs/Meds Labs: Laboratory Tests 07/07/21 07/07/21 07/07/21 Range/Units 12:48 12:48 12:48 WBC 10.8 H (5.0-10.0) 10^3/uL RBC 4.99 (4.2-5.4) 10^6/uL Hgb 14.0 (12.0-16.0) g/dL Hct 44.3 (37.0-47.0) % MCV 88.8 (80-100) fL MCH 28.1 (27.0-34.0) pg MCHC 31.6 L (33.0-35.0) g/dL Plt Count 306 (150-450) 10^3/uL Neut % (Auto) 62.6 (42.2-75.2) % Lymph % (Auto) 21.6 (20.5-50.1) % [place] % (Auto) 12.7 H (2-8) % Eos % (Auto) 2.7 (1.0-3.0) % Baso % (Auto) 0.4 (0.0-1.0) % Sodium 141 (136-145) mmol/L Potassium 4.2 (3.5-5.1) mmol/L Chloride 102 (98-107) mmol/L Carbon Dioxide 31 (21-32) mmol/L Anion Gap 12.2 (7-13) mEq/L BUN 12 (7-18) mg/dL Creatinine 0.84 (0.55-1.02) mg/dL Est Cr Clr Drug Dosing TNP Estimated GFR (MDRD) > 60 BUN/Creatinine Ratio 14.3 (No establ ref range) Glucose 98 (70-99) mg/dL Lactic Acid 1.4 (0.4-2.0) mmol/L Calcium 9.6 (8.5-10.1) mg/dL Magnesium 1.8 (1.8-2.4) mg/dL Total Bilirubin 0.6 (0.2-1.0) mg/dL AST 30 (15-37) U/L ALT 23 (14-59) U/L Alkaline Phosphatase 144 H (46-116) U/L Troponin I High Sens 23 (<=51) pg/mL Total Protein 7.2 (6.4-8.2) g/dL Albumin 3.3 L (3.4-5.0) g/dL Globulin 3.9 Albumin/Globulin Ratio 0.85 Influenza Type A RNA (NEGATIVE) Influenza Type B RNA (NEGATIVE) SARS-CoV-2 RNA (QUYEN) (NEGATIVE) 07/07/21 Range/Units 12:48 WBC (5.0-10.0) 10^3/uL RBC (4.2-5.4) 10^6/uL Hgb (12.0-16.0) g/dL Hct (37.0-47.0) % MCV (80-100) fL MCH (27.0-34.0) pg MCHC (33.0-35.0) g/dL Plt Count (150-450) 10^3/uL Neut % (Auto) (42.2-75.2) % Lymph % (Auto) (20.5-50.1) % [place] % (Auto) (2-8) % Eos % (Auto) (1.0-3.0) % Baso % (Auto) (0.0-1.0) % Sodium (136-145) mmol/L Potassium (3.5-5.1) mmol/L Chloride (98-107) mmol/L Carbon Dioxide (21-32) mmol/L Anion Gap (7-13) mEq/L BUN (7-18) mg/dL Creatinine (0.55-1.02) mg/dL Est Cr Clr Drug Dosing Estimated GFR (MDRD) BUN/Creatinine Ratio (No establ ref range) Glucose (70-99) mg/dL Lactic Acid (0.4-2.0) mmol/L Calcium (8.5-10.1) mg/dL Magnesium (1.8-2.4) mg/dL Total Bilirubin (0.2-1.0) mg/dL AST (15-37) U/L ALT (14-59) U/L Alkaline Phosphatase (46-116) U/L Troponin I High Sens (<=51) pg/mL Total Protein (6.4-8.2) g/dL Albumin (3.4-5.0) g/dL Globulin Albumin/Globulin Ratio Influenza Type A RNA Negative (NEGATIVE) Influenza Type B RNA Negative (NEGATIVE) SARS-CoV-2 RNA (QUYEN) Negative (NEGATIVE) Meds: Medications Discontinued Medications Generic Name Dose Route Start Last Admin Trade Name Freq PRN Reason Stop Dose Admin Albuterol/Ipratropium 3 ml 07/07/21 13:58 07/07/21 14:09 Albuterol/Ipratropium 3.0-0.5 Mg/3 Ml Neb Soln NEB 07/07/21 13:59 3 ml ONETIME ONE Administration Lorazepam 1 mg 07/07/21 13:16 07/07/21 13:27 Lorazepam 0.5 Mg Tab PO 07/07/21 13:17 1 mg ONETIME ONE Administration Methylprednisolone Sodium Succinate 125 mg 07/07/21 13:16 07/07/21 13:27 Methylprednisolone Sodium Succinate 125 Mg/2 Ml Sdv IVPUSH 07/07/21 13:17 125 mg ONETIME ONE Administration - Re-Assessments/Exams Free Text/Narrative Re-Assessment/Exam: 07/07/21 Albuterol nebulizer and SoluMedrol 125mg IVP administered. Ativan 1mg PO administered. COVID negative. CXR unremarkable. Patient verbalized improvement in work of breathing following medication administration. Findings of examination, lab work, and imaging reviewed with patient. Will treat COPD exacerbation with prednisone burst. Supportive cares discussed. Patient instructed to follow up with primary care provider regarding todays visit. Red flag signs and symptoms which would warrant immediate reevaluation reviewed. Patient verbalized understanding and agreement with the plan of care. Departure - Departure Time of Disposition: 15:27 Disposition: Home, Self-Care 01 Condition: Good Clinical Impression: Acute exacerbation of chronic obstructive pulmonary disease (COPD) - Discharge Information *PRESCRIPTION DRUG MONITORING PROGRAM REVIEWED*: Not Applicable *COPY OF PRESCRIPTION DRUG MONITORING REPORT IN PATIENT ANA: Not Applicable Instructions: Chronic Obstructive Pulmonary Disease Exacerbation Referrals: PCP,None [Primary Care Provider] - Forms: ED Department Discharge Additional Instructions: Rx: prednisone 20mg (#14) 1.) Start your steroid tomorrow as you received a dose today. 2.) Continue on your previously prescribed COPD medications, including Zithromax every other day. 3.) Rest. 4.) Follow up with your primary care provider in 1-2 days, as well as you butcher in 1-2 days. 5.) Return to the emergency department with worsening symptoms despite medications. Sepsis Event Note (ED) - Evaluation Sepsis Screening Result: No Definite Risk
--- NOTE | 2021-07-07 14:46 | CR ---
EXAMINATION: Chest 1V Frontal AP SEX: Female AGE: 55 years CLINICAL HISTORY: 55-year-old "wheezing" female with shortness of breath. Comparison CXR's 19 June and 03 May 2021. Interpretation: 1. Chronic shaggy interstitial pattern but no new peripheral "groundglass" interstitial densities. 2. No alveolar infiltrates or air bronchograms. 3. No increase in heart size, new vascular congestion, cephalization of flow, or dependent pleural fluid accumulation. 4. No new lung mass or hilar lymphadenopathy. 5. No pneumothorax or pneumomediastinum. No air trapping. Midline tracheal bronchial airway unremarkable. CONCLUSION: No acute new cardiopulmonary abnormality.
== END 2021-07-07 16:31 | disposition home or self-care (01) ==
LOC: DL.ED 12:40
DX: J44.1 Chronic obstructive pulmonary disease with (acute) exacerbation (principal); I25.10 Atherosclerotic heart disease of native coronary artery without angina pectoris; I10 Essential (primary) hypertension; E66.9 Obesity, unspecified; Z72.0 Tobacco use; Z91.041 Radiographic dye allergy status; Z88.8 Allergy status to other drugs, medicaments and biological substances; Z88.0 Allergy status to penicillin; Z95.5 Presence of coronary angioplasty implant and graft; Z79.82 Long term (current) use of aspirin; Z79.899 Other long term (current) drug therapy; Z79.02 Long term (current) use of antithrombotics/antiplatelets; Z68.45 Body mass index [BMI] 70 or greater, adult; Z20.822 Contact with and (suspected) exposure to COVID-19
CPT/HCPCS: 0240U; 36415; 71045; 80053; 83605; 83735; 84484; 85025; 87040; 93005; 94640; 96374; 99285; A9270; J2930; J7620-GY

== ENCOUNTER 2021-10-11 22:37 | Inpatient (IN) | payer MEDICARE, MEDICAID ==
[~2021-10-11 22:37] MED LIST: Albuterol/Ipratropium 3.0-0.5 MG/3 ML Neb Soln NEB ONE; LORazepam 2 MG/ML SDV IVPUSH ONE; methylPREDNISolone Sodium Succinate 125 MG/2 ML SDV IVPUSH ONE
[2021-10-11 23:08] LABS: O2 DELIVERY DEVICE NON REBR MASK; O2 SATURATION VENOUS 82.6 % (60-80); PCO2 VENOUS 53 mmHg (41-51); PO2 VENOUS 46 mmHg (35-42)
[2021-10-11 23:09] LABS: BASE EXCESS VENOUS -1.2 mmol/l ((-2)-(+3)); BICARBONATE,VENOUS 25 mmol/l (19-25); O2 FLOW RATE 15
[2021-10-11 23:26] LABS: ANION GAP 14.5 mEq/L (7-13); CHLORIDE,CL 105 mmol/L (98-107); SODIUM,NA 142 mmol/L (136-145)
[2021-10-11 23:53] LABS: CORONAVIRUS COVID-19 NAA NEGATIVE (NEGATIVE)
[2021-10-12] MEDS ORDERED: Ondansetron 4 MG Tab.DIS PO PRN (01:20)
[2021-10-12] MEDS ORDERED: Docusate Sodium 100 MG Cap PO PRN (01:20)
[2021-10-12] MEDS ORDERED: Acetaminophen 325 MG Tab PO PRN (01:20)
[2021-10-12] MEDS ORDERED: Levofloxacin/Dextrose 5%-Water 500 MG in Premix Bag 1 BAG IV SCH (01:30)
[2021-10-12] MEDS: Albuterol/Ipratropium 3.0-0.5 MG/3 ML Neb Soln NEB PRN ×2 (01:55→05:46)
[2021-10-12] MEDS ORDERED: Albuterol/Ipratropium 3.0-0.5 MG/3 ML Neb Soln ONE ×2 (01:55→05:42)
[2021-10-12] MEDS: Albuterol/Ipratropium 3.0-0.5 MG/3 ML Neb Soln NEB SCH ×3 (07:44→18:33)
[2021-10-12] MEDS: methylPREDNISolone Sodium Succinate 40 MG/1 ML SDV IVPUSH SCH ×2 (09:27→16:50)
[2021-10-12] MEDS: DULoxetine 30 MG Cap PO SCH (09:27)
[2021-10-12] MEDS: Lisinopril 20 MG Tab PO SCH (09:28)
[2021-10-12] MEDS: Aspirin 81 MG Tab.EC PO SCH (09:28)
[2021-10-12] MEDS: Enoxaparin 40 MG/0.4 ML Syringe SUBCUT SCH (09:28)
[2021-10-12] MEDS: guaiFENesin 600 MG Tab.ER PO SCH ×2 (09:28→20:09)
[2021-10-12] MEDS: Gabapentin 300 MG Cap PO SCH ×2 (09:28→20:08)
[2021-10-12] MEDS: Clopidogrel 75 MG Tab PO SCH (09:28)
[2021-10-12] MEDS: Budesonide 0.5 MG/2 ML Neb Susp INH SCH ×2 (09:29→18:34)
[2021-10-12] MEDS: LORazepam 1 MG Tab PO PRN (09:29)
[2021-10-12] MEDS: buPROPion 150 MG Tab.ER PO SCH (09:29)
[2021-10-12] MEDS: Sodium Chloride 0.9% 10 ML Syringe FLUSH PRN (16:50)
[2021-10-12] MEDS: Montelukast 10 MG Tab PO SCH (20:08)
[2021-10-12] MEDS: Isosorbide Mononitrate 30 MG Tab.ER PO SCH (20:10)
[2021-10-12] MEDS: Acetaminophen/oxyCODONE 325-5 MG Tab PO PRN (21:26)
[2021-10-13] MEDS: Albuterol/Ipratropium 3.0-0.5 MG/3 ML Neb Soln NEB SCH ×4 (00:03→18:17)
[2021-10-13] MEDS: methylPREDNISolone Sodium Succinate 40 MG/1 ML SDV IVPUSH SCH ×4 (00:06→23:12)
[2021-10-13] MEDS: Albuterol/Ipratropium 3.0-0.5 MG/3 ML Neb Soln NEB PRN ×2 (04:46→22:53)
[2021-10-13] MEDS: Levofloxacin/Dextrose 5%-Water 500 MG in Premix Bag 1 BAG IV SCH (04:47)
[2021-10-13] MEDS: LORazepam 1 MG Tab PO PRN (05:00)
[2021-10-13 06:51] LABS: ANION GAP 13.7 mEq/L (7-13)
[2021-10-13] MEDS: Budesonide 0.5 MG/2 ML Neb Susp INH SCH ×2 (07:26→18:17)
[2021-10-13] MEDS: DULoxetine 30 MG Cap PO SCH (08:45)
[2021-10-13] MEDS: Clopidogrel 75 MG Tab PO SCH (08:45)
[2021-10-13] MEDS: buPROPion 150 MG Tab.ER PO SCH (08:45)
[2021-10-13] MEDS: Aspirin 81 MG Tab.EC PO SCH (08:45)
[2021-10-13] MEDS: Enoxaparin 40 MG/0.4 ML Syringe SUBCUT SCH (08:45)
[2021-10-13] MEDS: guaiFENesin 600 MG Tab.ER PO SCH ×2 (08:46→21:02)
[2021-10-13] MEDS: Gabapentin 300 MG Cap PO SCH ×2 (08:46→21:01)
[2021-10-13] MEDS: Lisinopril 20 MG Tab PO SCH (08:48)
[2021-10-13] MEDS: Acetaminophen/oxyCODONE 325-5 MG Tab PO PRN ×2 (10:00→21:08)
[2021-10-13] MEDS: Isosorbide Mononitrate 30 MG Tab.ER PO SCH (21:01)
[2021-10-13] MEDS: Montelukast 10 MG Tab PO SCH (21:01)
[2021-10-13] MEDS: Sodium Chloride 0.9% 10 ML Syringe FLUSH PRN (23:12)
[2021-10-14] MEDS: Albuterol/Ipratropium 3.0-0.5 MG/3 ML Neb Soln NEB SCH ×4 (04:10→18:21)
[2021-10-14] MEDS: Levofloxacin/Dextrose 5%-Water 500 MG in Premix Bag 1 BAG IV SCH (04:46)
[2021-10-14] MEDS: Sodium Chloride 0.9% 10 ML Syringe FLUSH PRN ×3 (04:46→15:58)
[2021-10-14] MEDS: Budesonide 0.5 MG/2 ML Neb Susp INH SCH ×2 (07:22→18:21)
[2021-10-14] MEDS: DULoxetine 30 MG Cap PO SCH (08:11)
[2021-10-14] MEDS: buPROPion 150 MG Tab.ER PO SCH (08:11)
[2021-10-14] MEDS: Gabapentin 300 MG Cap PO SCH ×2 (08:11→21:54)
[2021-10-14] MEDS: Aspirin 81 MG Tab.EC PO SCH (08:11)
[2021-10-14] MEDS: guaiFENesin 600 MG Tab.ER PO SCH ×2 (08:12→21:54)
[2021-10-14] MEDS: Clopidogrel 75 MG Tab PO SCH (08:12)
[2021-10-14] MEDS: Lisinopril 20 MG Tab PO SCH (08:12)
[2021-10-14] MEDS: Enoxaparin 40 MG/0.4 ML Syringe SUBCUT SCH (08:14)
[2021-10-14] MEDS: methylPREDNISolone Sodium Succinate 40 MG/1 ML SDV IVPUSH SCH ×2 (08:14→15:58)
[2021-10-14] MEDS: Albuterol/Ipratropium 3.0-0.5 MG/3 ML Neb Soln NEB PRN ×2 (11:13→22:00)
[2021-10-14] MEDS: Acetaminophen/oxyCODONE 325-5 MG Tab PO PRN (13:02)
[2021-10-14] MEDS: Montelukast 10 MG Tab PO SCH (21:54)
[2021-10-14] MEDS: Isosorbide Mononitrate 30 MG Tab.ER PO SCH (21:56)
[2021-10-15] MEDS: methylPREDNISolone Sodium Succinate 40 MG/1 ML SDV IVPUSH SCH ×3 (00:23→16:36)
[2021-10-15] MEDS: Albuterol/Ipratropium 3.0-0.5 MG/3 ML Neb Soln NEB SCH ×4 (02:31→18:00)
[2021-10-15] MEDS: Albuterol/Ipratropium 3.0-0.5 MG/3 ML Neb Soln NEB PRN (03:15)
[2021-10-15] MEDS: Levofloxacin/Dextrose 5%-Water 500 MG in Premix Bag 1 BAG IV SCH (04:56)
[2021-10-15] MEDS: Acetaminophen/oxyCODONE 325-5 MG Tab PO PRN ×2 (05:19→15:07)
[2021-10-15] MEDS: Budesonide 0.5 MG/2 ML Neb Susp INH SCH ×2 (08:03→18:00)
[2021-10-15] MEDS: Enoxaparin 40 MG/0.4 ML Syringe SUBCUT SCH (09:35)
[2021-10-15] MEDS: DULoxetine 30 MG Cap PO SCH (09:36)
[2021-10-15] MEDS: buPROPion 150 MG Tab.ER PO SCH (09:36)
[2021-10-15] MEDS: guaiFENesin 600 MG Tab.ER PO SCH (09:37)
[2021-10-15] MEDS: Gabapentin 300 MG Cap PO SCH (09:37)
[2021-10-15] MEDS: Aspirin 81 MG Tab.EC PO SCH (09:37)
[2021-10-15] MEDS: Clopidogrel 75 MG Tab PO SCH (09:37)
[2021-10-15] MEDS: Lisinopril 20 MG Tab PO SCH (09:38)
[2021-10-15] MEDS: LORazepam 1 MG Tab PO PRN (15:07)
[2021-10-15 16:45] VITALS: BP 150/89; PULSE 96
== END 2021-10-15 18:00 | disposition home health service (06) | DRG 189 ==
LOC: DL.ED 22:37 → DL.MS 10-12 00:29
PROVIDERS: ADMIT Internal Medicine; ATTEND Internal Medicine
DX: J96.21 Acute and chronic respiratory failure with hypoxia (principal); J44.1 Chronic obstructive pulmonary disease with (acute) exacerbation; I25.10 Atherosclerotic heart disease of native coronary artery without angina pectoris; H54.7 Unspecified visual loss; I10 Essential (primary) hypertension; Z86.711 Personal history of pulmonary embolism; N28.9 Disorder of kidney and ureter, unspecified; G89.29 Other chronic pain; M25.559 Pain in unspecified hip; F41.9 Anxiety disorder, unspecified; E66.9 Obesity, unspecified; M81.0 Age-related osteoporosis without current pathological fracture; Z68.30 Body mass index [BMI] 30.0-30.9, adult; Z87.01 Personal history of pneumonia (recurrent); Z79.02 Long term (current) use of antithrombotics/antiplatelets; Z89.511 Acquired absence of right leg below knee; Z79.82 Long term (current) use of aspirin; Z99.81 Dependence on supplemental oxygen; Z79.51 Long term (current) use of inhaled steroids; Z79.899 Other long term (current) drug therapy; Z95.5 Presence of coronary angioplasty implant and graft; Z20.822 Contact with and (suspected) exposure to COVID-19; Z87.891 Personal history of nicotine dependence; Z88.0 Allergy status to penicillin; Z88.8 Allergy status to other drugs, medicaments and biological substances; Z91.041 Radiographic dye allergy status; Z79.52 Long term (current) use of systemic steroids; Z90.49 Acquired absence of other specified parts of digestive tract; Z90.710 Acquired absence of both cervix and uterus; M79.7 Fibromyalgia
CPT/HCPCS: 0240U; 36415; 71045; 80048; 80053; 82803; 83605; 83735; 83880; 84484; 85025; 85379; 87040; 93005; 93010; 94640; 96374; 96375; 99284; 99285; A9270-GY; J1650; J1956; J2060; J2920; J2930; J7620-GY

== ENCOUNTER 2021-12-13 15:28 | Emergency (ER) | payer MEDICARE, MEDICAID ==
[2021-12-13] MEDS ORDERED: Ciprofloxacin 500 MG Tab PO ONE ×2 (15:29→18:12)
[2021-12-13 15:50] VITALS: BP 133/79; PULSE 95
[2021-12-13 16:44] LABS: ANION GAP 17.8 mEq/L (7-13); CHLORIDE,CL 106 mmol/L (98-107); SODIUM,NA 147 mmol/L (136-145)
[2021-12-13] MEDS ORDERED: Ciprofloxacin 500 MG Tab ONE (18:18)
== END 2021-12-13 18:27 | disposition home or self-care (01) ==
LOC: DL.ED 15:28
DX: N30.01 Acute cystitis with hematuria (principal); M79.81 Nontraumatic hematoma of soft tissue; J44.9 Chronic obstructive pulmonary disease, unspecified; I25.10 Atherosclerotic heart disease of native coronary artery without angina pectoris; I10 Essential (primary) hypertension; Z95.5 Presence of coronary angioplasty implant and graft; Z91.041 Radiographic dye allergy status; Z88.0 Allergy status to penicillin; Z88.8 Allergy status to other drugs, medicaments and biological substances; Z79.82 Long term (current) use of aspirin; Z79.02 Long term (current) use of antithrombotics/antiplatelets; Z79.899 Other long term (current) drug therapy; Z87.891 Personal history of nicotine dependence
CPT/HCPCS: 36415; 80053; 81001; 85025; 87086; 99283; 99285; A9270-GY

== ENCOUNTER 2021-12-17 09:25 | Emergency (ER) | payer MEDICARE, MEDICAID ==
[2021-12-17] MEDS ORDERED: Albuterol/Ipratropium 3.0-0.5 MG/3 ML Neb Soln NEB ONE (09:31)
[2021-12-17] MEDS ORDERED: Aspirin 81 MG Tab.Chew PO ONE (09:31)
[2021-12-17] MEDS ORDERED: LORazepam 2 MG/ML SDV IVPUSH ONE (09:32)
[2021-12-17] MEDS: Sodium Chloride 0.9% 10 ML Syringe FLUSH PRN ×2 (10:10→12:06)
[2021-12-17 10:22] VITALS: BP 111/62; PULSE 89
[2021-12-17 10:25] LABS: ANION GAP 13.3 mEq/L (7-13); CHLORIDE,CL 104 mmol/L (98-107); SODIUM,NA 142 mmol/L (136-145)
[2021-12-17] MEDS ORDERED: methylPREDNISolone Sodium Succinate 125 MG/2 ML SDV IVPUSH ONE (10:36)
[2021-12-17 10:37] LABS: PTT,PARTIAL THROMBOPLSTIN TIME 20.6 SEC (22.0-34.0)
[2021-12-17] MEDS ORDERED: Magnesium Sulfate/Water 2 GM in Premix Bag 1 BAG IV ONE ×2 (10:44→10:45)
== END 2021-12-17 12:40 | disposition home or self-care (01) ==
LOC: DL.ED 09:25
DX: R07.81 Pleurodynia (principal); E83.42 Hypomagnesemia; J42 Unspecified chronic bronchitis; I25.10 Atherosclerotic heart disease of native coronary artery without angina pectoris; I10 Essential (primary) hypertension; E66.9 Obesity, unspecified; Z68.32 Body mass index [BMI] 32.0-32.9, adult; Z88.8 Allergy status to other drugs, medicaments and biological substances; Z91.041 Radiographic dye allergy status; Z88.0 Allergy status to penicillin; Z79.899 Other long term (current) drug therapy; Z79.82 Long term (current) use of aspirin
CPT/HCPCS: 36415; 71045; 80053; 82947; 83605; 83735; 83880; 84484; 85025; 85610; 85730; 87040; 93005; 93010; 94640; 96365; 96366; 96375; 99284; 99285-25; A9270-GY; J2060; J2930; J3475; J3490; J7620-GY

== ENCOUNTER 2022-08-12 01:06 | Emergency (ER) | payer MEDICARE, MEDICAID ==
[2022-08-12] MEDS ORDERED: Sodium Chloride 0.9% 1,000 ML IV ONE (01:34)
[2022-08-12] MEDS ORDERED: Albuterol/Ipratropium 3.0-0.5 MG/3 ML Neb Soln NEB ONE (01:34)
[2022-08-12] MEDS ORDERED: Ondansetron 4 MG/2 ML SDV IVPUSH ONE (01:46)
[2022-08-12] MEDS ORDERED: HYDROmorphone 1 MG/ML Syringe IVPUSH ONE (01:46)
[2022-08-12 01:57] VITALS: BP 80/43; PULSE 92
[2022-08-12 02:16] LABS: PTT,PARTIAL THROMBOPLSTIN TIME 21.2 SEC (22.0-34.0)
[2022-08-12 02:23] LABS: ANION GAP 13.2 mEq/L (7-13); CHLORIDE,CL 102 mmol/L (98-107); SODIUM,NA 139 mmol/L (136-145)
[2022-08-12 02:24] LABS: ESTIMATED GFR 26 mL/min (>=60)
[2022-08-12] MEDS ORDERED: Lactated Ringers 1,000 ML IV ONE (02:31)
[2022-08-12 02:46] LABS: CORONAVIRUS COVID-19 NAA NEGATIVE (NEGATIVE); RESPIRATORY SYNCYTIAL VIR NAA NEGATIVE (NEGATIVE)
== END 2022-08-12 03:28 ==
LOC: DL.ED 01:06
DX: S72.451A Displaced supracondylar fracture without intracondylar extension of lower end of right femur, initial encounter for closed fracture (principal); J42 Unspecified chronic bronchitis; I95.89 Other hypotension; N17.9 Acute kidney failure, unspecified; I25.10 Atherosclerotic heart disease of native coronary artery without angina pectoris; I10 Essential (primary) hypertension; E66.9 Obesity, unspecified; Z68.31 Body mass index [BMI] 31.0-31.9, adult; Z89.511 Acquired absence of right leg below knee; Z88.8 Allergy status to other drugs, medicaments and biological substances; Z88.0 Allergy status to penicillin; Z91.041 Radiographic dye allergy status; Z79.899 Other long term (current) drug therapy; Z20.822 Contact with and (suspected) exposure to COVID-19; W06.XXXA Fall from bed, initial encounter
CPT/HCPCS: 0241U; 36415; 73552; 80053; 83605; 84145; 85025; 85610; 85730; 86140; 96361; 96374; 96375; 99284; 99285; J1170; J2405; J7030; J7120; J7620-GY

== ENCOUNTER 2022-08-21 04:56 | Emergency (ER) | payer MEDICARE, MEDICAID ==
[2022-08-21 05:14] VITALS: BP 143/85; PULSE 93
== END 2022-08-21 06:14 | disposition home or self-care (01) ==
LOC: DL.ED 04:56
DX: S72.451 Displaced supracondylar fracture without intracondylar extension of lower end of right femur (principal); M25.561 Pain in right knee; I25.10 Atherosclerotic heart disease of native coronary artery without angina pectoris; I10 Essential (primary) hypertension; J44.9 Chronic obstructive pulmonary disease, unspecified; E66.9 Obesity, unspecified; Z68.35 Body mass index [BMI] 35.0-35.9, adult; Z88.0 Allergy status to penicillin; Z91.041 Radiographic dye allergy status; Z88.8 Allergy status to other drugs, medicaments and biological substances; Z79.82 Long term (current) use of aspirin; Z79.899 Other long term (current) drug therapy; Z87.891 Personal history of nicotine dependence
CPT/HCPCS: 99283

== ENCOUNTER 2022-08-26 08:01 | Observation (INO) | payer MEDICARE, MEDICAID ==
[2022-08-26] MEDS ORDERED: Acetaminophen/HYDROcodone 325-5 MG Tab PO ONE (08:39)
[2022-08-26] MEDS ORDERED: Ondansetron 4 MG/2 ML SDV IVPUSH PRN (10:46)
[2022-08-26] MEDS ORDERED: Polyethylene Glycol 3350 Powder 17 GM Packet PO PRN (10:46)
[2022-08-26] MEDS ORDERED: Acetaminophen/HYDROcodone 325-10 MG Tab PO PRN (10:46)
[2022-08-26] MEDS ORDERED: Bisacodyl 5 MG Tab PO PRN (10:46)
[2022-08-26] MEDS ORDERED: Sodium Chloride 0.9% 10 ML Syringe FLUSH PRN (10:46)
[2022-08-26] MEDS ORDERED: Acetaminophen 325 MG Tab PO PRN (10:46)
[2022-08-26] MEDS ORDERED: Magnesium Hydroxide 400 MG/5 ML Susp 30 ML Cup PO PRN (10:46)
[2022-08-26] MEDS ORDERED: HYDROmorphone 0.5 MG/0.5 ML Syringe IVPUSH PRN (10:46)
[2022-08-26] MEDS ORDERED: LORazepam 1 MG Tab PO PRN (16:32)
[2022-08-26] MEDS ORDERED: Nitroglycerin 0.4 MG Tab.SL SL PRN (16:33)
[2022-08-26] MEDS: Albuterol/Ipratropium 3.0-0.5 MG/3 ML Neb Soln NEB PRN (16:43)
[2022-08-26] MEDS ORDERED: Non-Formulary Medication 1 Each (Alendronate Sodium [Alendronate Sodium] 70 MG Tablet) PO SCH (16:45)
[2022-08-26] MEDS: Acetaminophen/HYDROcodone 325-10 MG Tab PO PRN (20:39)
[2022-08-26] MEDS: Gabapentin 100 MG Cap PO SCH (20:39)
[2022-08-26] MEDS: Sodium Chloride 0.9% 10 ML Syringe FLUSH SCH (20:40)
[2022-08-26] MEDS ORDERED: atorvaSTATin 20 MG Tab PO SCH (21:00)
[2022-08-26] MEDS ORDERED: Montelukast 10 MG Tab PO SCH (21:00)
[2022-08-26] MEDS ORDERED: oxyCODONE ER 10 MG TAB.ER PO SCH (21:00)
[2022-08-26] MEDS ORDERED: Isosorbide Mononitrate 30 MG Tab.ER PO SCH (21:00)
[2022-08-26] MEDS ORDERED: BUSPIRONE 5 MG PO SCH (21:00)
[2022-08-27] MEDS: Acetaminophen/HYDROcodone 325-10 MG Tab PO PRN ×3 (00:49→11:34)
[2022-08-27] MEDS ORDERED: Pantoprazole 40 MG Tab.CR PO SCH (06:00)
[2022-08-27] MEDS: Albuterol/Ipratropium 3.0-0.5 MG/3 ML Neb Soln NEB PRN (07:35)
[2022-08-27 07:41] LABS: ANION GAP 11.9 mEq/L (7-13)
[2022-08-27] MEDS ORDERED: oxyCODONE ER 20 MG TAB.ER PO ONE (07:46)
[2022-08-27] MEDS: Gabapentin 100 MG Cap PO SCH (08:10)
[2022-08-27] MEDS: Sodium Chloride 0.9% 10 ML Syringe FLUSH SCH (08:20)
[2022-08-27] MEDS ORDERED: buPROPion 150 MG Tab.ER PO SCH (09:00)
[2022-08-27] MEDS ORDERED: predniSONE 5 MG Tab PO SCH (09:00)
[2022-08-27] MEDS ORDERED: Lisinopril 20 MG Tab PO SCH (09:00)
[2022-08-27] MEDS ORDERED: Clopidogrel 75 MG Tab PO SCH (09:00)
[2022-08-27] MEDS ORDERED: Potassium Chloride 10 MEQ Tab.ER PO SCH (09:00)
[2022-08-27] MEDS ORDERED: amLODIPine 5 MG Tab PO SCH (09:00)
[2022-08-27] MEDS ORDERED: Torsemide 20 MG Tab PO SCH (09:00)
[2022-08-27] MEDS ORDERED: DULoxetine 30 MG Cap PO SCH (09:00)
[2022-08-27] MEDS ORDERED: Iron Polysaccharides Complex 150 MG Cap PO SCH (09:00)
[2022-08-27 12:10] VITALS: BP 105/57; PULSE 86
[2022-08-30] MEDS ORDERED: Ergocalciferol (Vitamin D2) 1.25 MG Cap PO SCH (09:00)
== END 2022-08-27 14:30 | disposition home or self-care (01) ==
LOC: DL.ED 08:01 → DL.MS 09:37
PROVIDERS: ADMIT Internal Medicine; ATTEND Internal Medicine
DX: S72.451A Displaced supracondylar fracture without intracondylar extension of lower end of right femur, initial encounter for closed fracture (principal); I13.0 Hypertensive heart and chronic kidney disease with heart failure and stage 1 through stage 4 chronic kidney disease, or unspecified chronic kidney disease; I50.9 Heart failure, unspecified; E78.5 Hyperlipidemia, unspecified; H44.9 Unspecified disorder of globe; I25.10 Atherosclerotic heart disease of native coronary artery without angina pectoris; J45.909 Unspecified asthma, uncomplicated; F41.9 Anxiety disorder, unspecified; F32.A Depression, unspecified; E66.9 Obesity, unspecified; M81.0 Age-related osteoporosis without current pathological fracture; Z68.32 Body mass index [BMI] 32.0-32.9, adult; Z98.890 Other specified postprocedural states; Z87.891 Personal history of nicotine dependence; Z95.5 Presence of coronary angioplasty implant and graft; Z88.0 Allergy status to penicillin; Z91.041 Radiographic dye allergy status; Z90.710 Acquired absence of both cervix and uterus; Z20.822 Contact with and (suspected) exposure to COVID-19; W19.XXXA Unspecified fall, initial encounter
CPT/HCPCS: 36415; 51702; 80053; 81001; 83735; 85025; 94640; 99285; A9270; G0378; J3490; J7512; U0002; J7620-GY

== ENCOUNTER 2022-08-28 10:36 | Emergency (ER) | payer MEDICARE, MEDICAID ==
[2022-08-28 10:53] VITALS: BP 150/131; PULSE 96
[2022-08-28] MEDS ORDERED: Sodium Chloride 0.9% 10 ML Syringe FLUSH PRN (11:01)
[2022-08-28 11:44] LABS: ANION GAP 14.3 mEq/L (7-13)
[2022-08-28] MEDS ORDERED: Acetaminophen/HYDROcodone 325-10 MG Tab PO ONE (11:45)
== END 2022-08-28 13:56 | disposition home or self-care (01) ==
LOC: DL.ED 10:36
DX: S72.451 Displaced supracondylar fracture without intracondylar extension of lower end of right femur (principal); J44.9 Chronic obstructive pulmonary disease, unspecified; I12.9 Hypertensive chronic kidney disease with stage 1 through stage 4 chronic kidney disease, or unspecified chronic kidney disease; N18.9 Chronic kidney disease, unspecified; I25.10 Atherosclerotic heart disease of native coronary artery without angina pectoris; E66.9 Obesity, unspecified; Z68.30 Body mass index [BMI] 30.0-30.9, adult; Z91.041 Radiographic dye allergy status; Z88.0 Allergy status to penicillin; Z88.8 Allergy status to other drugs, medicaments and biological substances; Z95.5 Presence of coronary angioplasty implant and graft; Z79.899 Other long term (current) drug therapy; Z79.02 Long term (current) use of antithrombotics/antiplatelets
CPT/HCPCS: 36415; 71045; 80053; 83605; 85025; 86140; 99285; A9270

== ENCOUNTER 2022-09-02 10:56 | Emergency (ER) | payer MEDICARE, MEDICAID ==
[~2022-09-02 10:56] MED LIST changes: -LORazepam 2 MG/ML SDV IVPUSH ONE; +Sodium Chloride 0.9% 10 ML Syringe FLUSH PRN; -methylPREDNISolone Sodium Succinate 125 MG/2 ML SDV IVPUSH ONE
[2022-09-02 11:06] VITALS: BP 136/86; PULSE 108
[2022-09-02] MEDS ORDERED: LORazepam 2 MG/ML SDV IVPUSH ONE (11:48)
[2022-09-02 11:50] LABS: ANION GAP 16.6 mEq/L (7-13)
[2022-09-02 11:51] LABS: O2 DELIVERY DEVICE NASAL CANNULA
[2022-09-02 11:54] LABS: PCO2 ARTERIAL 46 mmHg (35-45)
[2022-09-02 11:55] LABS: PO2 ARTERIAL 30 mmHg (70-100)
[2022-09-02 11:56] LABS: ALLEN TEST POSITIVE; BASE EXCESS ARTERIAL -3 mmol/L ((-2)-(+3)); BICARBONATE,ARTERIAL 23.5 mmol/L (22-26); O2 SATURATION ARTERIAL 53 % (95-100)
[2022-09-02] MEDS ORDERED: Aspirin 81 MG Tab.Chew PO ONE (12:00)
[2022-09-02] MEDS ORDERED: Heparin Sodium 5,000 Units/ML Vial IVPUSH ONE (12:03)
[2022-09-02 12:04] LABS: CORONAVIRUS COVID-19 NAA NEGATIVE (NEGATIVE)
[2022-09-02] MEDS ORDERED: Heparin Sodium/0.45% NaCl 25,000 UNITS/500 ML BAG IV SCH ×2 (12:15→12:30)
== END 2022-09-02 13:29 ==
LOC: DL.ED 10:56
DX: I21.4 Non-ST elevation (NSTEMI) myocardial infarction (principal); N17.9 Acute kidney failure, unspecified; I25.10 Atherosclerotic heart disease of native coronary artery without angina pectoris; J44.9 Chronic obstructive pulmonary disease, unspecified; I10 Essential (primary) hypertension; E66.9 Obesity, unspecified; Z68.42 Body mass index [BMI] 45.0-49.9, adult; Z88.6 Allergy status to analgesic agent; Z88.0 Allergy status to penicillin; Z88.8 Allergy status to other drugs, medicaments and biological substances; Z79.899 Other long term (current) drug therapy; Z79.82 Long term (current) use of aspirin; Z90.49 Acquired absence of other specified parts of digestive tract; Z90.710 Acquired absence of both cervix and uterus; Z20.822 Contact with and (suspected) exposure to COVID-19
CPT/HCPCS: 0240U; 36415; 36600; 71045; 80053; 82803; 83605; 83880; 84484; 85025; 85610; 85730; 87040; 93005; 93010; 94640; 96365; 96375; 99285; 99285-25; A9270-GY; J1644; J2060; J3490; J7620-GY

== ENCOUNTER 2022-09-19 18:03 | Emergency (ER) | payer MEDICARE, MEDICAID ==
[2022-09-19] MEDS ORDERED: Sodium Chloride 0.9% 10 ML Syringe FLUSH PRN (18:21)
[2022-09-19 18:34] VITALS: BP 122/69; PULSE 104
[2022-09-19] MEDS ORDERED: Sodium Chloride 0.9% 1,000 ML IV ONE (20:49)
[2022-09-19] MEDS ORDERED: Acetaminophen 500 MG Tab PO ONE (21:13)
== END 2022-09-19 22:44 | disposition home or self-care (01) ==
LOC: DL.ED 18:03
DX: I95.9 Hypotension, unspecified (principal); E86.1 Hypovolemia; E86.0 Dehydration; I25.10 Atherosclerotic heart disease of native coronary artery without angina pectoris; I10 Essential (primary) hypertension; J44.9 Chronic obstructive pulmonary disease, unspecified; E66.9 Obesity, unspecified; Z68.30 Body mass index [BMI] 30.0-30.9, adult; Z88.8 Allergy status to other drugs, medicaments and biological substances; Z91.041 Radiographic dye allergy status; Z88.0 Allergy status to penicillin; Z79.899 Other long term (current) drug therapy; Z95.5 Presence of coronary angioplasty implant and graft; Z79.02 Long term (current) use of antithrombotics/antiplatelets; Z79.82 Long term (current) use of aspirin
CPT/HCPCS: 36415; 71045; 80053; 81003; 83605; 83735; 83880; 84484; 85025; 85610; 85730; 87040; 93005; 93010; 96360; 99284; 99285-25; A9270-GY; J3490; J7030

== ENCOUNTER 2022-10-27 19:18 | Emergency (ER) | payer MEDICARE, MEDICAID ==
[2022-10-27] MEDS ORDERED: Albuterol/Ipratropium 3.0-0.5 MG/3 ML Neb Soln NEB ONE ×2 (19:21→20:13)
[2022-10-27] MEDS ORDERED: methylPREDNISolone Sodium Succinate 125 MG/2 ML SDV IVPUSH ONE (19:21)
[2022-10-27] MEDS ORDERED: Sodium Chloride 0.9% 10 ML Syringe FLUSH PRN (19:21)
[2022-10-27 19:43] VITALS: BP 156/136
[2022-10-27 20:01] VITALS: PULSE 98
[2022-10-27 20:01] LABS: ANION GAP 11.6 mEq/L (7-13)
[2022-10-27 20:29] LABS: CORONAVIRUS COVID-19 NAA NEGATIVE (NEGATIVE); RESPIRATORY SYNCYTIAL VIR NAA NEGATIVE (NEGATIVE)
[2022-10-27 20:34] LABS: PTT,PARTIAL THROMBOPLSTIN TIME > 120.0 SEC (22.0-34.0)
[2022-10-27] MEDS ORDERED: Sodium Chloride 0.9% 1,000 ML IV ONE (20:36)
[2022-10-27] MEDS ORDERED: Azithromycin 250 MG Tab PO ONE (21:47)
[2022-10-27] MEDS ORDERED: Albuterol 0.083% 2.5 MG/3 ML Neb Soln NEB ONE (22:29)
== END 2022-10-27 23:03 | disposition home or self-care (01) ==
LOC: DL.ED 19:18
DX: J44.1 Chronic obstructive pulmonary disease with (acute) exacerbation (principal); I25.10 Atherosclerotic heart disease of native coronary artery without angina pectoris; I10 Essential (primary) hypertension; I25.2 Old myocardial infarction; E66.9 Obesity, unspecified; Z68.31 Body mass index [BMI] 31.0-31.9, adult; Z91.041 Radiographic dye allergy status; Z88.0 Allergy status to penicillin; Z88.8 Allergy status to other drugs, medicaments and biological substances; Z79.82 Long term (current) use of aspirin; Z79.02 Long term (current) use of antithrombotics/antiplatelets; Z79.899 Other long term (current) drug therapy; Z20.822 Contact with and (suspected) exposure to COVID-19
CPT/HCPCS: 0241U; 36415; 71045; 80053; 83605; 83735; 83880; 84145; 84484; 85025; 85610; 85730; 86140; 87040; 93005; 94640; 96361; 96374; 99285; A9270; J2930; J3490; J7030; 93010; 99284; J7613-GY; J7620-GY